=== PATIENT | female | born 1950 | race Caucasian/White ===

== ENCOUNTER 2018-02-27 22:20 | Emergency (ER) | payer MEDICARE, OTHER, SELFPAY ==
[2018-02-27 22:31] VITALS: BP 108/69; PULSE 77; RESP 20; TEMP 37.1; O2SAT 97; BMI 20.1
--- NOTE | 2018-02-27 23:04 | PC.NURSE ---
Pt having 10/10 pain in both legs, left side significantly worse than left. Skin is warm, dry and intact. No edema noted, although she states her left leg is normally smaller than the right due to a diagnosis of neuromyelitis optica. She is writhing in pain on the stretcher due to shooting, cramping down the left leg. There are two bruises on the distal left leg, but no known injury. She states that she does have flare ups of her neuromyelitis optica that can cause cramping pain, but this is different and more severe.
--- NOTE | 2018-02-27 23:43 | DI.US.S_ITS ---
PROCEDURE: US PERIPH VENOUS LOW EXTREM LT INDICATIONS: PAIN TECHNIQUE: Real-time imaging, as well as color and pulse Doppler interrogation, were performed of the lower extremity deep veins from the inguinal ligament to the popliteal fossa. COMPARISON: None. FINDINGS: The deep veins are normally compressible, and free of intraluminal thrombus. Color and pulse Doppler demonstrate normal phasic intraluminal flow. There is normal augmentation response to distal compression maneuver. IMPRESSION: No evidence of deep vein thrombosis involving the left lower extremity. Dictated by: Nereida Jacobs MD, PhD on 02/28/2018 at 8:53 Approved by: Nereida Jacobs MD, PhD on 02/28/2018 at 8:54
[2018-02-28] VITALS: BP 93/56; PULSE 81; RESP 14; O2SAT 96
[2018-02-28] MEDS: diazePAM 10 MG/2 ML SYRINGE 5 MG IV
[2018-02-28] MEDS: SODIUM CHLORIDE 0.9% 500 ML 1000 ML IV
[2018-02-28 00:03] LABS: Add Manual Diff / Slide Review NO; Basophils Percent Auto 1.3 % (0-2); Eosinophils Percent Auto 4.6 % (2-4); Hematocrit 36.4 % (36-46); Hemoglobin 12.8 g/dL (12.0-16.0); Lymphocytes Percent Auto 44.1 % (25-40); Mean Corpuscular HGB Conc 35.2 % (30-36); Mean Corpuscular Hemoglobin 34.6 PG (26-34); Mean Corpuscular Volume 98.5 fL (80-100); Monocytes Percent Auto 6.6 % (3-14); Neutrophils Absolute Auto 2300 /uL (3000-5900); Neutrophils Percent Auto 43.4 % (50-75); Platelet Count 152 X10^3/uL (150-400); Red Cell Distribution Width 13.8 % (11.6-14.8); White Blood Cell Count 5.3 X10^3/uL (4.5-11.0)
[2018-02-28 00:14] LABS: BUN Creatinine Ratio 17.8 (6-22); Calcium 8.3 mg/dL (8.4-10.2); Estimated Glomerular Filt Rate > 60.0 mL/min (>60); Glucose 87 mg/dL (80-110); HEMOLYSIS 21 (0-50); Magnesium 2.5 mg/dL (1.6-2.3); Potassium 4.6 mmol/L (3.4-5.1); Sodium 141 mmol/L (137-145)
--- NOTE | 2018-02-28 00:59 | PC.NURSE ---
Patient reports relief from cramping pain in her legs after 5mg Valium IV. She is resting quietly now.
--- NOTE | 2018-02-28 01:55 | ED_ITS ---
HPI - Extremity Problem General Chief complaint: Extremity Problem,Nontraumatic Stated complaint: Pain and swelling left leg History of Present Illness HPI Narrative: HPI 67-year-old female with a history of neuromyelitis optica and transverse myelitis presents for evaluation of left calf pain and swelling of one half to one day duration, since arrival has been experiencing severe bilateral lower extremity cramps. Patient reports that she had an initial diagnosis of NMO approximately 7 years ago, the patient also had spinal involvement with secondary incontinence of her bowel and bladder, long-standing abdominal discomfort, and indeterminate cramping episodes of her legs. Patient denies recent symptoms change or progression. Patient is outpatient PCP follow-up. Patient denies trauma to her legs. M/S/F/SocHx notable for: please see HPI; remainder reviewed with patient and in chart. ROS: Negative constitutional, eye, cardiovascular, pulmonary, GI, , MSK, skin , neurologic, psychiatric, endocrine unless noted in the HPI. Exam Gen: pleasant, markedly uncomfortable. With intermittent cramping spasms in her legs and crying out in pain. HEENT: NC, AT, PEERL, EOMI. Resp: Clear to auscultation bilaterally, normal work of breathing, no accessory muscle usage. Card: Regular rate and rhythm with no murmurs, rubs, or gallops, extremities warm and well perfused. GI: Non-tender to palpation throughout all quadrants, no focal tenderness at McBurney's point, negative Dalal's sign, non-distended, no rebound or guarding. : No suprapubic tenderness to palpation. MSK: bilateral lower extremities with intermittent spasming, inward turned legs and both ankles held in extension. Left calf nontender to palpation and of same diameter is right calf. 2 superficial areas of ecchymosis on right anterior whaley (approximately 3 x 6 cm in size and horizontally oriented). Muscle compartments soft and nontender to palpation. Bilateral feet warm and well perfused. Joints without effusions, warmth, erythema. Skin: Normal color with no visible lesions. Neuro: AO x 3, no facial asymmetry, vision and hearing WNL. Psych: Mood and affect appropriate. Labs / Imaging: WBC 5.3, hemoglobin 12.8, sodium 141, potassium 4.6, magnesium 2.5, glucose 87, calcium 8.3. US LLE: no evidence of left lower extremity DVT. MDM Previous chart, nursing note, labs, imaging, and vitals reviewed. A: 67-year-old female with a history of neuromyelitis optica presents for evaluation of left calf pain and swelling of one half to one day duration, since arrival has been experiencing severe bilateral lower extremity cramps. DDx: DVT, dehydration, electrolyte abnormalities, muscle cramping secondary to NMO. Evaluation: no evidence of DVT, no clinically significant electrolyte abnormalities, patient given hydration and 5 mg IV value with resolution of symptoms. Patient ambulatory with a steady narrow-based gait after treatment. Patient has Valium at home. Disposition: discharge with PCP follow-up. Impression: muscle cramps. (please reference below for remainder of encounter information) Related Data Allergies Allergy/AdvReac Type Severity Reaction Status Date / Time No Known Drug Allergies Allergy Verified 02/27/18 22:34 [facility] Social History Smoking Status: Never smoker Exam Initial Vital Signs Initial Vital Signs: Vital Signs Temperature 98.7 F 02/27/18 22:31 Pulse Rate 77 02/27/18 22:31 Respiratory Rate 20 02/27/18 22:31 Blood Pressure 108/69 02/27/18 22:31 Pulse Oximetry 97 02/27/18 22:31 Course Orders Ordered: ED Orders 02/27/18 23:43 periph venous low extrem lt Stat 02/27/18 23:58 Basic Metabolic Panel Stat Complete Blood Count AUTO DIFF Stat Magnesium Stat Discontinued Medications Diazepam (Valium) 5 mg IV NOW ONE Stop: 02/27/18 23:35 Last Admin: 02/28/18 00:00 Dose: 5 mg Sodium Chloride (Normal Saline 0.9%) 500 mls @ 1,000 mls/hr IV BOLUS ONE Stop: 02/28/18 00:03 Last Infusion: 02/28/18 00:57 Dose: 0 mls/hr Admin: 02/28/18 00:00 Dose: 1,000 mls/hr Vital Signs - 8 hr 02/27/18 22:31 02/28/18 00:00 Temperature 98.7 F Pulse Rate 77 81 Respiratory Rate 20 14 Blood Pressure 108/69 Blood Pressure [Left Arm] 93/56 L Pulse Oximetry 97 96 MDM - Extremity (Nontraumatic) Lab Data Result diagrams: 02/27/18 23:58 02/27/18 23:58 Lab Results 02/27/18 02/27/18 Range/Units 23:58 23:58 WBC 5.3 (4.5-11.0) X10^3/uL RBC 3.70 L (4.0-5.2) X10^6/uL Hgb 12.8 (12.0-16.0) g/dL Hct 36.4 (36-46) % MCV 98.5 (80-100) fL MCH 34.6 H (26-34) PG MCHC 35.2 (30-36) % RDW 13.8 (11.6-14.8) % Plt Count 152 (150-400) X10^3/uL Neut % (Auto) 43.4 L (50-75) % Lymph % (Auto) 44.1 H (25-40) % Woodson % (Auto) 6.6 (3-14) % Eos % (Auto) 4.6 H (2-4) % Baso % (Auto) 1.3 (0-2) % Neut # (Auto) 2300 L (9480-5805) /uL Sodium 141 (137-145) mmol/L Potassium 4.6 (3.4-5.1) mmol/L Chloride 105.0 (98-107) mmol/L Carbon Dioxide 26.0 (22-32) mmol/L BUN 16.0 (7-17) mg/dL Creatinine 0.90 (0.52-1.04) mg/dL Estimated GFR > 60.0 (>60) mL/min BUN/Creatinine Ratio 17.8 (6-22) Glucose 87 (80-110) mg/dL Calcium 8.3 L (8.4-10.2) mg/dL Magnesium 2.5 H (1.6-2.3) mg/dL
[2018-02-28 02:08] VITALS: BP 121/71; PULSE 81
== END 2018-02-28 02:10 | disposition home or self-care (01) ==
PROVIDERS: Emergency Provider Emergency Medicine
DX: R25.2 Cramp and spasm (principal)
CPT/HCPCS: 80048; 83735; 85025; 93971; 96374; 99283; 99284; J3360

== ENCOUNTER → 2018-07-11 14:03 | Outpatient (CLI) | payer MEDICARE, OTHER, SELFPAY | PROVIDERS: Visit Provider Physician Assistant | DX: N39.0 Urinary tract infection, site not specified (principal) | CPT/HCPCS: 87077; 87086; 87186 ==

== ENCOUNTER → 2018-08-05 14:02 | Outpatient (CLI) | payer MEDICARE, OTHER, SELFPAY | PROVIDERS: Visit Provider Physician Assistant | DX: N39.0 Urinary tract infection, site not specified (principal) | CPT/HCPCS: 87077; 87086; 87186 ==

== ENCOUNTER → 2018-09-19 12:27 | Outpatient (CLI) | payer MEDICARE, OTHER, SELFPAY ==
[2018-09-19 12:36] LABS: Bacteria Urine None Seen; RBC Urine None Seen (0-5/HPF); WBC Urine None Seen (0-5/HPF)
[2018-09-19 15:07] LABS: Appearance Urine UA CLEAR; Bilirubin Urine UA NEGATIVE (NEGATIVE); Color Urine UA YELLOW; Glucose Urine UA NEGATIVE (Normal); Ketones Urine UA TRACE (NEGATIVE); Leukocyte Esterase Urine UA NEGATIVE (NEGATIVE); Nitrite Urine UA NEGATIVE (Negative); Occult Blood Urine UA NEGATIVE (Negative); Protein Urine UA NEGATIVE (Negative); Specific Gravity Urine UA >=1.030 (1.000-1.035); Urobilinogen Urine UA 0.2 E.U./dL (0.2)
[2018-09-19 15:49] LABS: Culture Indicated Urine Cult Not Indicated; Squamous Epithelial Cell Urine 10-30 /HPF
== END ==
PROVIDERS: Visit Provider Student in an Organized Health Care Education/Training Program
DX: R30.0 Dysuria (principal)
CPT/HCPCS: 81001

== ENCOUNTER → 2019-01-02 14:13 | Outpatient (CLI) | payer MEDICARE, OTHER, SELFPAY | PROVIDERS: Visit Provider Student in an Organized Health Care Education/Training Program | DX: M81.0 Age-related osteoporosis without current pathological fracture (principal); Z78.0 Asymptomatic menopausal state; E07.9 Disorder of thyroid, unspecified | CPT/HCPCS: 77080 ==

== ENCOUNTER → 2019-04-17 14:41 | Outpatient (CLI) | payer MEDICARE, OTHER, SELFPAY ==
--- NOTE | 2019-04-17 14:44 | DI.RAD.S_ITS ---
PROCEDURE: XR RIBS LT MIN 3V W CXR1V INDICATIONS: Fell on left side - concern about broken/bruised rib TECHNIQUE: 2 views of the left ribs were acquired, along with a single view chest. COMPARISON: None. FINDINGS: Surgical changes and devices: Surgical clips in the left upper abdomen. Postoperative changes from bilateral shoulder arthroplasties. Bones and chest wall: Minimally displaced acute fracture involving the anterolateral right eighth rib. No acute, displaced left sided rib fractures identified on this study. No suspicious bony lesions. Overlying soft tissues appear unremarkable. Lungs and pleura: No pleural effusions or pneumothorax. Lungs appear clear. Mediastinum: Mediastinal contours appear normal. Heart size is normal. IMPRESSION: 1. Chest without acute cardiopulmonary abnormalities. 2. Minimally displaced acute fracture of the anterolateral right eighth rib. No left sided rib fractures seen. No pneumothorax. Dictated by: Keven Zamudio M.D. on 04/17/2019 at 16:38 Approved by: Keven Zamudio M.D. on 04/17/2019 at 16:43
== END ==
PROVIDERS: PCP Student in an Organized Health Care Education/Training Program; Visit Provider Student in an Organized Health Care Education/Training Program
DX: R07.81 Pleurodynia (principal); S22.32XA Fracture of one rib, left side, initial encounter for closed fracture; W19.XXXA Unspecified fall, initial encounter
CPT/HCPCS: 71101

== ENCOUNTER → 2019-06-12 16:14 | Outpatient (CLI) | payer MEDICARE, OTHER, SELFPAY ==
--- NOTE | 2019-06-12 16:17 | DI.RAD.S_ITS ---
PROCEDURE: XR CHEST 2V INDICATIONS: Cough TECHNIQUE: 2 views of the chest were acquired. COMPARISON: None. FINDINGS: Surgical changes and devices: None. Lungs and pleura: Lungs are clear. No pleural effusions or pneumothorax. Mediastinum: Mediastinal contours are normal. Heart size is normal. Bones and chest wall: No suspicious bony abnormalities. Soft tissues appear unremarkable. IMPRESSION: Source of cough for 2 weeks is not found. Dictated by: Ron Elias M.D. on 06/12/2019 at 16:43 Approved by: Ron Elias M.D. on 06/12/2019 at 16:43
== END ==
PROVIDERS: PCP Student in an Organized Health Care Education/Training Program; Visit Provider Student in an Organized Health Care Education/Training Program
DX: R05 Cough (principal)
CPT/HCPCS: 71046

== ENCOUNTER 2019-08-01 10:30 | Emergency (ER) | payer MEDICARE, OTHER, SELFPAY ==
[2019-08-01] VITALS (7 sets, daily range): BP systolic 86–115; BP diastolic 46–68; PULSE 70–94; RESP 14–18; TEMP 37.2–39.1; O2SAT 97–98
--- NOTE | 2019-08-01 10:54 | DI.CT.S_ITS ---
PROCEDURE: CT HEAD/BRAIN WO CON INDICATIONS: fall 4 days ago balance issues TECHNIQUE: Noncontrast 4.5 mm thick angled axial sections acquired from the foramen magnum to the vertex, with coronal and sagittal reformats. For radiation dose reduction, the following was used: automated exposure control, adjustment of mA and/or kV according to patient size. COMPARISON: None. FINDINGS: Image quality: Excellent. CSF spaces: Basal cisterns are patent. No extra-axial fluid collections. Ventricles are normal in size and shape. Brain: No midline shift. No intracranial masses or hemorrhage. Sykes-white matter interface is normal. There are several small foci of hyperattenuation in the periventricular and subcortical white matter most likely representing age-related microangiopathic changes. Skull and face: Calvarium and visualized facial bones are intact, without suspicious lesions. Sinuses: Visualized sinuses and mastoids are clear. IMPRESSION: No acute intracranial abnormality. Findings most consistent with mild appearing age-related microangiopathic changes. Dictated by: William Yun M.D. on 08/01/2019 at 10:35 Approved by: William Yun M.D. on 08/01/2019 at 10:37
--- NOTE | 2019-08-01 11:04 | DI.RAD.S_ITS ---
PROCEDURE: XR CHEST 1V INDICATIONS: fever TECHNIQUE: One view of the chest was acquired. COMPARISON: [facility], CR, XR CHEST 2V, 06/12/2019, 16:25. FINDINGS: Surgical changes and devices: None. Lungs and pleura: There are several low density patchy opacities over the left mid and lower lung. No pleural effusion or pneumothorax. Mediastinum: Mediastinal contours appear normal. Heart size is normal. Bones and chest wall: No suspicious bony lesions. Bilateral shoulder arthroplasties. Degenerative changes of the acromioclavicular joints and spine. IMPRESSION: Several low density patchy opacities in the left mid to lower lung which could represent early consolidation. Recommend followup radiographs in 6-8 weeks. Dictated by: William Yun M.D. on 08/01/2019 at 10:33 Approved by: iWlliam Yun M.D. on 08/01/2019 at 10:34
[2019-08-01 11:17] LABS: Add Manual Diff / Slide Review NO; Basophils Absolute Auto 100 /uL (0-100); Basophils Percent Auto 0.6 % (0-2); Eosinophils Absolute Auto 200 /uL (0-450); Eosinophils Percent Auto 2.3 % (2-4); Hematocrit 36.8 % (36-46); Hemoglobin 12.5 g/dL (12.0-16.0); Lymphocytes Absolute Auto 1500 /uL (1100-4500); Lymphocytes Percent Auto 14.9 % (25-40); Mean Corpuscular HGB Conc 34.1 % (30-36); Mean Corpuscular Hemoglobin 33.8 PG (26-34); Monocytes Absolute Auto 500 /uL (0-900); Monocytes Percent Auto 5.3 % (3-14); Neutrophils Absolute Auto 7500 /uL (1500-7000); Neutrophils Percent Auto 76.9 % (50-75); Platelet Count 176 X10^3/uL (150-400); Red Blood Cell Count 3.72 X10^6/uL (4.0-5.2); Red Cell Distribution Width 13.7 % (11.6-14.8); White Blood Cell Count 9.8 X10^3/uL (4.5-11.0)
--- NOTE | 2019-08-01 11:20 | ED_ITS ---
HPI - Fall General Chief Complaint: Fall Stated Complaint: Fell out of Bed Time Seen by Provider: 08/01/19 10:54 Source: family and EMS Mode of arrival: EMS History of Present Illness HPI Narrative: Patient is a 68-year-old female who presents with falls weakness and feeling feverish. She states that 4 days ago she was having a nightmare she rolled over in bed and fell out of bed she actually cut the left side of her head. She is not on any blood thinners. Today she was out walking the dog and she felt extremely feverish and did not feel well and felt unsteady. She has a neurologic disorder, but mostly she is okay. She denies any chest pain abdominal pain nausea vomiting cough painful or frequent urination. Her head does her were she hit it a few days ago. MD complaint: fall Onset (ago): day(s) Place fall occurred: home Loss of consciousness: none Related Data Previous Rx's Medication Instructions Recorded levothyroxine 100 mcg capsule 100 mcg PO DAILY #90 cap 11/13/18 Disabled Parking Permit #1 ea 12/18/18 duloxetine 60 mg capsule,delayed 120 mg PO DAILY #180 cap 12/22/18 release estradiol 1 gram VAG .COMPLEX #42.5 gram 12/22/18 gabapentin 600 mg tablet 1,200 mg PO TID #540 tab 12/22/18 pravastatin 10 mg tablet 10 mg PO DAILY #90 tab 12/31/18 diazepam 5 mg tablet 5 mg PO QID PRN #120 tab 01/27/19 oxycodone 5 mg tablet 5 mg PO Q6H PRN #120 tab 04/22/19 azithromycin 250 mg tablet See Rx Instructions PO .COMPLEX #6 05/25/19 tab alendronate 70 mg tablet 70 mg PO QWEEK #12 tab 06/01/19 albuterol sulfate 90 mcg/actuation 1 puff INHALATION Q6H PRN #6.7 gram 06/12/19 aerosol inhaler amitriptyline 50 mg tablet 50 mg PO BEDTIME #90 tab 06/29/19 sulfamethoxazole-trimethoprim 1 tab PO BID 7 Days #14 tab 08/01/19 [Bactrim DS] Allergies Allergy/AdvReac Type Severity Reaction Status Date / Time No Known Drug Allergies Allergy Verified 06/12/19 15:32 Review of Systems Review of Systems ROS Unobtainable: All systems reviewed & are unremarkable except as noted in HPI and below Constitutional Constitutional: Reports body ache(s), Denies chills and Reports fever(s) Eyes Eyes: Denies change in vision, Denies eye discharge, Denies irritation and D enies loss of vision ENT Ears, Nose, Mouth, and Throat: Denies change in voice, Denies neck pain and Denies sore throat Cardiovascular Cardiovascular: Denies chest pain, Denies irregular heart rhythm, Denies lightheadedness, Denies palpitations, Denies dyspnea, Denies dyspnea on exertion and Denies orthopnea Respiratory Respiratory: Denies cough, Denies dyspnea, Denies dyspnea on exertion and Denies wheezing Gastrointestinal Gastrointestinal: Denies abdominal pain, Denies change in bowel habits, Denies diarrhea, Denies nausea and Denies vomiting Genitourinary Genitourinary: Denies hematuria, Denies flank pain, Denies urinary incontinence and Denies urinary urgency Musculoskeletal Musculoskeletal: Denies neck pain Integumentary/Breasts Skin/Breast: Denies pruritus, Denies erythema, Denies rash and Denies wounds Neurologic Neurologic: Reports as per HPI and Denies loss of vision Endocrine Endocrine: Denies palpitations Allergic/Immunologic Allergic/Immunologic: Denies wheezing Patient History Social History Smoking Status: Never smoker alcohol intake: never substance use type: does not use Social History Smoking Status: Never smoker alcohol intake: never substance use type: does not use alcohol intake frequency: 0-2 drinks per day Substance Use Type: does not use Exam Initial Vital Signs Initial Vital Signs: Vital Signs Temperature 102.3 F H 08/01/19 10:32 Pulse Rate 94 H 08/01/19 10:32 Respiratory Rate 14 08/01/19 10:32 Blood Pressure 106/46 L 08/01/19 10:32 Pulse Oximetry 98 08/01/19 10:32 GENERAL: Well-appearing, well-nourished and in no acute distress. HEENT: Head healed superficial laceration left temporal area no depressions or crepitation,EOMI, pupils reactive, face symmetric, moist mucous membranes NECK: Supple no meningeal signs CARDIOVASCULAR: Regular rate and rhythm without murmurs, rubs or gallops. RESPIRATORY: Breath sounds equal bilaterally, no wheezes rales or rhonchi. ABDOMEN: Soft, nontender. Normoactive bowel sounds all 4 quadrants. No guarding or rebound. EXTREMITIES: Normal range of motion, no clubbing or edema. Neurovascularly intact NEUROLOGICAL: Alert and oriented x4.Normal gait and speech. SKIN: Warm, dry, no laceration, no petechiae, no rashes or lesions. Course Orders Ordered: ED Orders 08/01/19 10:54 CT head/brain wo con Stat 08/01/19 11:00 Complete Blood Count AUTO DIFF Stat Comprehensive Metabolic Panel Stat Lactate (Lactic Acid) Stat Partial Thromboplastin Time Stat Procalcitonin Stat Prothrombin Time INR Stat 08/01/19 11:04 XR chest 1V Stat 08/01/19 11:20 UA Complete [Urinalysis and Microscopic] Stat Urine Culture Stat 08/01/19 12:11 Blood Culture Stat Discontinued Medications Acetaminophen (Tylenol) 975 mg PO NOW ONE Stop: 08/01/19 11:32 Last Admin: 08/01/19 12:21 Dose: 975 mg Documented by: CHOLO Sodium Chloride (Normal Saline 0.9%) 1,000 mls @ 200 mls/hr IV CONT LENNY Last Infusion: 08/01/19 13:52 Dose: 0 mls/hr Documented by: Admin: 08/01/19 12:21 Dose: 200 mls/hr Documented by: CHOLO Vital Signs Vital signs: Vital Signs - 8 hr 08/01/19 11:27 08/01/19 12:00 08/01/19 12:21 Temperature 99 F Pulse Rate 86 82 Respiratory Rate 18 17 Blood Pressure Blood Pressure [Left Arm] 115/67 107/68 Pulse Oximetry 98 97 08/01/19 12:42 08/01/19 13:50 08/01/19 14:32 Temperature 101.3 F H 99 F Pulse Rate 82 70 Respiratory Rate 18 Blood Pressure 86/62 L Blood Pressure [Left Arm] 95/53 L Pulse Oximetry 98 MDM - Fall Lab Data Attestation: I reviewed the patient's lab results. Result diagrams: 08/01/19 11:00 08/01/19 11:00 Labs: Lab Results 08/01/19 08/01/19 08/01/19 Range/Units 11:00 11:00 11:00 WBC 9.8 (4.5-11.0) X10^3/uL RBC 3.72 L (4.0-5.2) X10^6/uL Hgb 12.5 (12.0-16.0) g/dL Hct 36.8 (36-46) % MCV 99.0 (80-100) fL MCH 33.8 (26-34) PG MCHC 34.1 (30-36) % RDW 13.7 (11.6-14.8) % Plt Count 176 (150-400) X10^3/uL Neut % (Auto) 76.9 H (50-75) % Lymph % (Auto) 14.9 L (25-40) % Lyman % (Auto) 5.3 (3-14) % Eos % (Auto) 2.3 (2-4) % Baso % (Auto) 0.6 (0-2) % Neut # (Auto) 7500 H (7619-8045) /uL Lymph # (Auto) 1500 (8893-1386) /uL Lyman # (Auto) 500 (0-900) /uL Eos # (Auto) 200 (0-450) /uL Baso # (Auto) 100 (0-100) /uL PT 10.6 (10.1-12.7) SECONDS INR 0.9 (0.9-1.3) APTT 30 (26.4-36.2) SECONDS Sodium (137-145) mmol/L Potassium (3.4-5.1) mmol/L Chloride (98-107) mmol/L Carbon Dioxide (22-32) mmol/L BUN (7-17) mg/dL Creatinine (0.52-1.04) mg/dL Estimated GFR (>60) mL/min BUN/Creatinine Ratio (6-22) Glucose (80-110) mg/dL Lactate (0.7-2.1) mmol/L Calcium (8.4-10.2) mg/dL Total Bilirubin (0.2-1.3) mg/dL AST (14-36) IU/L ALT (9-52) IU/L Alkaline Phosphatase (38-126) U/L Total Protein (6.3-8.2) g/dL Albumin (3.5-5.0) g/dL Globulin (1.7-4.1) g/dL Albumin/Globulin Ratio (1.0-2.8) Procalcitonin < 0.05 (<0.5) ng/mL Urine Color Urine Appearance Urine pH (4.5-8.0) Ur Specific Murdock (1.000-1.035) Urine Protein (Negative) Urine Glucose (UA) (Negative) g/dL Urine Ketones (NEGATIVE) Urine Occult Blood (Negative) Urine Nitrate (Negative) Urine Bilirubin (NEGATIVE) Urine Urobilinogen (0.2) E.U./dL Ur Leukocyte Esterase (NEGATIVE) Urine RBC (0-5/HPF) Urine WBC (0-5/HPF) Urine Bacteria (None) Ur Culture Indicated? 08/01/19 08/01/19 08/01/19 Range/Units 11:00 11:00 11:20 WBC (4.5-11.0) X10^3/uL RBC (4.0-5.2) X10^6/uL Hgb (12.0-16.0) g/dL Hct (36-46) % MCV (80-100) fL MCH (26-34) PG MCHC (30-36) % RDW (11.6-14.8) % Plt Count (150-400) X10^3/uL Neut % (Auto) (50-75) % Lymph % (Auto) (25-40) % Lyman % (Auto) (3-14) % Eos % (Auto) (2-4) % Baso % (Auto) (0-2) % Neut # (Auto) (4279-9653) /uL Lymph # (Auto) (9216-6231) /uL Lyman # (Auto) (0-900) /uL Eos # (Auto) (0-450) /uL Baso # (Auto) (0-100) /uL PT (10.1-12.7) SECONDS INR (0.9-1.3) APTT (26.4-36.2) SECONDS Sodium 137 (137-145) mmol/L Potassium 4.0 (3.4-5.1) mmol/L Chloride 99 (98-107) mmol/L Carbon Dioxide 27 (22-32) mmol/L BUN 17 (7-17) mg/dL Creatinine 1.00 (0.52-1.04) mg/dL Estimated GFR 55.0 L (>60) mL/min BUN/Creatinine Ratio 17.0 (6-22) Glucose 96 (80-110) mg/dL Lactate 1.6 (0.7-2.1) mmol/L Calcium 8.7 (8.4-10.2) mg/dL Total Bilirubin 0.5 (0.2-1.3) mg/dL AST 27 (14-36) IU/L ALT 17 (9-52) IU/L Alkaline Phosphatase 79 (38-126) U/L Total Protein 7.5 (6.3-8.2) g/dL Albumin 4.4 (3.5-5.0) g/dL Globulin 3.1 (1.7-4.1) g/dL Albumin/Globulin Ratio 1.4 (1.0-2.8) Procalcitonin (<0.5) ng/mL Urine Color Yellow Urine Appearance Slightly cloudy Urine pH 7.0 (4.5-8.0) Ur Specific Murdock <=1.005 (1.000-1.035) Urine Protein Negative (Negative) Urine Glucose (UA) Negative (Negative) g/dL Urine Ketones Negative (NEGATIVE) Urine Occult Blood Negative (Negative) Urine Nitrate Positive (Negative) Urine Bilirubin Negative (NEGATIVE) Urine Urobilinogen 0.2 (0.2) E.U./dL Ur Leukocyte Esterase 1+ H (NEGATIVE) Urine RBC None seen (0-5/HPF) Urine WBC 5-10/hpf H (0-5/HPF) Urine Bacteria Many (>30) H (None) Ur Culture Indicated? Specimen cultured Imaging Data CT scan - head: Radiologist's impression: PROCEDURE: CT HEAD/BRAIN WO CON INDICATIONS: fall 4 days ago balance issues TECHNIQUE: Noncontrast 4.5 mm thick angled axial sections acquired from the foramen magnum to the vertex, with coronal and sagittal reformats. For radiation dose reduction, the following was used: automated exposure control, adjustment of mA and/or kV according to patient size. COMPARISON: None. FINDINGS: Image quality: Excellent. CSF spaces: Basal cisterns are patent. No extra-axial fluid collections. Ventricles are normal in size and shape. Brain: No midline shift. No intracranial masses or hemorrhage. Sykes-white matter interface is normal. There are several small foci of hyperattenuation in the periventricular and subcortical white matter most likely representing age- related microangiopathic changes. Skull and face: Calvarium and visualized facial bones are intact, without suspicious lesions. Sinuses: Visualized sinuses and mastoids are clear. IMPRESSION: No acute intracranial abnormality. Findings most consistent with mild appearing age-related microangiopathic changes. Dictated by: William Yun M.D. on 08/01/2019 at 10:35 Chest x-ray: Radiologist's impression: PROCEDURE: XR CHEST 1V INDICATIONS: fever TECHNIQUE: One view of the chest was acquired. COMPARISON: [facility], , XR CHEST 2V, 06/12/2019, 16:25. FINDINGS: Surgical changes and devices: None. Lungs and pleura: There are several low density patchy opacities over the left mid and lower lung. No pleural effusion or pneumothorax. Mediastinum: Mediastinal contours appear normal. Heart size is normal. Bones and chest wall: No suspicious bony lesions. Bilateral shoulder arthroplasties. Degenerative changes of the acromioclavicular joints and spine. IMPRESSION: Several low density patchy opacities in the left mid to lower lung which could represent early consolidation. Recommend followup radiographs in 6-8 weeks. Dictated by: William Yun M.D. on 08/01/2019 at 10:33 Approved by: William Yun M.D. on 08/01/2019 at 10:34 [facility] [place] Narrative Medical decision making narrative: Patient is noted to be febrile in the ED 102, but normotensive not tachycardic. She is found to have UTI but normal lactic acid and normal leukocytosis she was never tachycardic. Head CT is overall reassuring as well she has no focal deficits. The patient overall feels much better after IV fluids. His however her blood pressure seems to be decreasing into the 90s and 80s. She is sitting upright awake alert appropriate overall appears and feels much better. She states that her normal blood pressure had a systolic in the 90s. She denies feeling dizziness or lightheaded she feels ready and able to go home. Discharge Plan Departure Patient Disposition: Home Clinical Impression: Acute UTI Discharge Date/Time: 08/01/19 14:36 Activity Restrictions/Additional Instructions: *You have been diagnosed with UTI *What to do: Today are found to have a bladder infection. At this time appears as though he can take antibiotics at home and increase her fluid intake *Continue to take medications as directed Bactrim 1 tablet twice daily for 7 days Tylenol 650 mg every 4-6 hours if needed for pain or fever *Follow up with your primary care provider in 2-3 days *Return to ER if you should have increasing confusion, increasing falls or any new, worsening or concerning symptoms Prescriptions: New sulfamethoxazole-trimethoprim [Bactrim DS] 800-160 mg tablet 1 tab PO BID 7 Days Qty: 14 RF: 0 No Action levothyroxine 100 mcg capsule 100 mcg PO DAILY Qty: 90 RF: 3 gabapentin 600 mg tablet 1,200 mg PO TID Qty: 540 RF: 3 duloxetine 60 mg capsule,delayed release(DR/EC) 120 mg PO DAILY Qty: 180 RF: 3 pravastatin 10 mg tablet 10 mg PO DAILY Qty: 90 RF: 3 diazepam 5 mg tablet 5 mg PO QID PRN (Reason: muscle spasm) Qty: 120 RF: 5 alendronate 70 mg tablet 70 mg PO QWEEK Qty: 12 RF: 5 albuterol sulfate 90 mcg/actuation HFA aerosol inhaler 1 puff INHALATION Q6H PRN (Reason: shortness of breath or wheezing) Qty: 6.7 RF: 0 amitriptyline 50 mg tablet 50 mg PO BEDTIME Qty: 90 RF: 3 (DME) Disabled Parking Permit Qty: 1 RF: 0 azithromycin 250 mg tablet See Rx Instructions PO .COMPLEX Qty: 6 RF: 0 estradiol [Estrace] 0.01 % (0.1 mg/gram) cream 1 gram VAG .COMPLEX Qty: 42.5 RF: 5 oxycodone 5 mg tablet 5 mg PO Q6H PRN (Reason: pain) Qty: 120 RF: 0 Referrals: John Gerardo MD [Primary Care Provider] -
[2019-08-01 11:23] LABS: INR 0.9 (0.9-1.3); Prothrombin Time 10.6 SECONDS (10.1-12.7)
[2019-08-01 11:25] LABS: PTT Partial Thromboplastin Tim 30 SECONDS (26.4-36.2)
[2019-08-01 11:27] LABS: Lactate (Lactic Acid) 1.6 mmol/L (0.7-2.1)
[2019-08-01 11:28] LABS: Alanine Aminotransferase 17 IU/L (9-52); Albumin 4.4 g/dL (3.5-5.0); Albumin Globulin Ratio 1.4 (1.0-2.8); Alkaline Phosphatase 79 U/L (38-126); Aspartate Aminotransferase 27 IU/L (14-36); Bilirubin Total 0.5 mg/dL (0.2-1.3); Blood Urea Nitrogen 17 mg/dL (7-17); Calcium 8.7 mg/dL (8.4-10.2); Carbon Dioxide 27 mmol/L (22-32); Chloride 99 mmol/L (98-107); Globulin 3.1 g/dL (1.7-4.1); Glucose 96 mg/dL (80-110); HEMOLYSIS < 15 (0-50); Sodium 137 mmol/L (137-145); Total Protein 7.5 g/dL (6.3-8.2)
[2019-08-01 12:11] LABS: RBC Urine None Seen (0-5/HPF)
[2019-08-01 12:13] LABS: Appearance Urine UA Slightly Cloudy; Bilirubin Urine UA NEGATIVE (NEGATIVE); Color Urine UA YELLOW; Glucose Urine UA NEGATIVE (Negative); Ketones Urine UA NEGATIVE (NEGATIVE); Leukocyte Esterase Urine UA 1+ (NEGATIVE); Nitrite Urine UA POSITIVE (Negative); Occult Blood Urine UA NEGATIVE (Negative); Protein Urine UA NEGATIVE (Negative); Specific Gravity Urine UA <=1.005 (1.000-1.035); Urobilinogen Urine UA 0.2 E.U./dL (0.2)
[2019-08-01] MEDS: SODIUM CHLORIDE 0.9% 1,000 ML 200 ML IV (12:21)
[2019-08-01] MEDS: ACETAMINOPHEN 325 MG TABLET 975 MG PO (12:21)
[2019-08-01 12:22] LABS: Bacteria Urine Many (>30); Culture Indicated Urine Specimen Cultured; WBC Urine 5-10/HPF (0-5/HPF)
[2019-08-01 12:33] LABS: Procalcitonin < 0.05 ng/mL (<0.5)
--- NOTE | 2019-08-02 14:50 | PC.NURSE ---
Call from who stated concern that pt is on daily bactrim ds, and bactrim ds was prescribed BID. Pt states she told provider about it. Pt states she feels better and fever has not gone over 100. Taking po fluids well. Discussed that C&S would result within the next 24-48 hours and we will review with provider at that time. Pt plans on calling Dr. Gerardo for f/u in the am. Encouraged to return to the ED if any concerns, worsening of symptoms.
== END 2019-08-01 14:36 | disposition home or self-care (01) ==
PROVIDERS: Emergency Provider Emergency Medicine; PCP Student in an Organized Health Care Education/Training Program
DX: N39.0 Urinary tract infection, site not specified (principal); R53.1 Weakness; S01.91XA Laceration without foreign body of unspecified part of head, initial encounter; R50.9 Fever, unspecified; W06.XXXA Fall from bed, initial encounter
CPT/HCPCS: 36415; 70450; 71045; 80053; 81001; 83605; 84145; 85025; 85610; 85730; 87040; 87077; 87086; 87186; 96360; 96361; 99284

== ENCOUNTER → 2019-08-31 14:44 | Outpatient (CLI) | payer MEDICARE, OTHER, SELFPAY ==
--- NOTE | 2019-08-31 14:48 | DI.MG.S_ITS ---
BILATERAL DIGITAL SCREENING MAMMOGRAM 3D/2D WITH CAD: 08/31/2019 CLINICAL: Routine screening. Comparison is made to exams dated: 01/14/2017 mammogram, 12/23/2015 mammogram, and 02/11/2014 mammogram - [facility]. The tissue of both breasts is heterogeneously dense. This may lower the sensitivity of mammography. Current study was also evaluated with a Computer Aided Detection (CAD) system. No significant masses, calcifications, or other findings are seen in either breast. There has been no significant interval change. IMPRESSION: NEGATIVE There is no mammographic evidence of malignancy. A 1 year screening mammogram is recommended. This exam was interpreted at Station ID: [id number]. NOTE: For mammograms, a report in lay terms will be sent to the patient. Approximately 15% of breast malignancies will not be visualized mammographically. In the management of a palpable breast mass, a negative mammogram must not discourage biopsy of a clinically suspicious lesion. Electronically Signed By: Keven george/radha:08/31/2019 15:56:43 letter sent: Normal Exam ACR BI-RADS Category 1: Negative [id number]
== END ==
PROVIDERS: PCP Student in an Organized Health Care Education/Training Program; Visit Provider Obstetrics & Gynecology
DX: Z12.31 Encounter for screening mammogram for malignant neoplasm of breast (principal)
CPT/HCPCS: 77063; 77067

== ENCOUNTER → 2019-11-04 14:56 | Outpatient (CLI) | payer MEDICARE, OTHER, SELFPAY ==
[2019-11-04 18:36] LABS: Cancer Antigen 125 9 U/mL (0-35)
== END ==
PROVIDERS: PCP Student in an Organized Health Care Education/Training Program; Visit Provider Obstetrics & Gynecology
DX: R10.9 Unspecified abdominal pain (principal)
CPT/HCPCS: 36415; 86304

== ENCOUNTER → 2019-12-07 14:37 | Outpatient (CLI) | payer MEDICARE, OTHER, SELFPAY ==
--- NOTE | 2019-12-07 14:41 | DI.RAD.S_ITS ---
PROCEDURE: XR RIBS LT MIN 3V W CXR1V INDICATIONS: fall on left side T-8-T12 region TECHNIQUE: 2 views of the left ribs were acquired, along with a single view chest. COMPARISON: Located Within [facility], CR, XR RIBS LT MIN 3V W CXR1V, 04/17/2019, 14:53. FINDINGS: Surgical changes and devices: Bilateral shoulder arthroplasty and humeral head resurfacing. Bones and chest wall: No suspicious bony lesions. Overlying soft tissues appear unremarkable. Multiple chronic appearing left rib fractures with callus formation. No definite acute fracture seen. Lungs and pleura: No pleural effusions or pneumothorax. Lungs appear clear. Mediastinum: Mediastinal contours appear normal. Heart size is normal. IMPRESSION: Multiple chronic appearing left rib fractures. No definite acute fracture identified. Dictated by: Parag Mcbride M.D. on 12/07/2019 at 16:45 Approved by: Parag Mcbride M.D. on 12/07/2019 at 16:48
== END ==
PROVIDERS: PCP Student in an Organized Health Care Education/Training Program
DX: S20.212A Contusion of left front wall of thorax, initial encounter (principal); S22.42XD Multiple fractures of ribs, left side, subsequent encounter for fracture with routine healing; W19.XXXA Unspecified fall, initial encounter
CPT/HCPCS: 71101

== ENCOUNTER → 2020-01-29 11:55 | Outpatient (CLI) | payer MEDICARE, OTHER, SELFPAY ==
[2020-01-29 12:14] LABS: Appearance Urine UA SL CLOUDY; Bilirubin Urine UA NEGATIVE (NEGATIVE); Color Urine UA YELLOW; Glucose Urine UA NEGATIVE (Negative); Ketones Urine UA NEGATIVE (NEGATIVE); Leukocyte Esterase Urine UA 1+ (NEGATIVE); Nitrite Urine UA POSITIVE (Negative); Occult Blood Urine UA NEGATIVE (Negative); Protein Urine UA NEGATIVE (Negative); Specific Gravity Urine UA 1.015 (1.000-1.035); Urobilinogen Urine UA 0.2 E.U./dL (0.2)
[2020-01-29 13:42] LABS: RBC Urine 0-1/HPF (0-5/HPF)
[2020-01-29 13:43] LABS: Bacteria Urine Many (>30); Culture Indicated Urine Specimen Cultured; WBC Urine 10-30/HPF (0-5/HPF)
== END ==
PROVIDERS: PCP Student in an Organized Health Care Education/Training Program; Referring Provider Student in an Organized Health Care Education/Training Program; Visit Provider Student in an Organized Health Care Education/Training Program
DX: R39.89 Other symptoms and signs involving the genitourinary system (principal)
CPT/HCPCS: 81001; 87077; 87086; 87186

== ENCOUNTER → 2020-02-12 14:24 | Outpatient (CLI) | payer MEDICARE, OTHER, SELFPAY ==
[2020-02-12 15:52] LABS: Influenza A - CEPHEID Flu A NEGATIVE (NEGATIVE); Influenza B - CEPHEID Flu B NEGATIVE (NEGATIVE)
[2020-02-12 16:30] LABS: RBC Urine None Seen (0-5/HPF)
[2020-02-12 17:13] LABS: Appearance Urine UA Slightly Cloudy; Bilirubin Urine UA NEGATIVE (NEGATIVE); Color Urine UA YELLOW; Glucose Urine UA NEGATIVE (Negative); Ketones Urine UA NEGATIVE (NEGATIVE); Leukocyte Esterase Urine UA 1+ (NEGATIVE); Nitrite Urine UA NEGATIVE (Negative); Occult Blood Urine UA NEGATIVE (Negative); Protein Urine UA NEGATIVE (Negative); Urobilinogen Urine UA 0.2 E.U./dL (0.2); pH Urine UA 5.5 (4.5-8.0)
[2020-02-12 17:31] LABS: Amorphous Sediment Urine 1+; Bacteria Urine Occasional (0-1); Renal Epithelial Cells Urine 0-1/HPF (0-1/HPF); Squamous Epithelial Cell Urine 1-5 /HPF (0-5/HPF); WBC Urine 1-5/HPF (0-5/HPF)
[2020-02-12 17:32] LABS: Culture Indicated Urine Specimen Cultured
[2020-02-15 16:08] LABS: COVID19 Sendout Not Detected (Not Detected)
== END ==
PROVIDERS: PCP Student in an Organized Health Care Education/Training Program; Referring Provider Student in an Organized Health Care Education/Training Program; Visit Provider Physician Assistant
DX: R05 Cough (principal); R30.0 Dysuria
CPT/HCPCS: 81001; 87086; 87502; 87635

== ENCOUNTER 2020-04-27 11:37 | Inpatient (IN) | payer MEDICARE, OTHER, SELFPAY ==
[2020-04-27] VITALS (26 sets, daily range): BP systolic 69–147; BP diastolic 39–88; PULSE 71–106; RESP 14–39; TEMP 37–38.5; O2SAT 91–100; BMI 20.5
--- NOTE | 2020-04-27 12:13 | DI.RAD.S_ITS ---
PROCEDURE: XR CHEST 1V INDICATIONS: fever TECHNIQUE: One view of the chest was acquired. COMPARISON: [facility], CR, XR RIBS LT MIN 3V W CXR1V, 12/07/2019, 14:58. [facility], CR, XR CHEST 2V, 06/12/2019, 16:25. [facility], CR, XR CHEST 1V, 08/01/2019, 11:11. FINDINGS: Surgical changes and devices: Postoperative changes are seen involving both shoulders. Lungs and pleura: Lungs are clear. No pleural effusions or pneumothorax. Mediastinum: Mediastinal contours appear normal. Heart size is normal. Bones and chest wall: No suspicious bony lesions. Remote left-sided rib fractures are seen. Age-appropriate bony degenerative changes are seen. Overlying soft tissues appear unremarkable. IMPRESSION: Clear lungs, without focal infiltrates. Remote left-sided rib fractures. Postoperative and degenerative changes are seen. Dictated by: Mark Juarez M.D. on 04/27/2020 at 11:50 Approved by: Mark Juarez M.D. on 04/27/2020 at 11:52
--- NOTE | 2020-04-27 12:17 | ED_ITS ---
HPI - Sepsis General Chief Complaint: Urogenital-Female Mode of arrival: Wheelchair Source: patient and family Limitations: no limitations Evaluation Sepsis Screen: Possible Severe Sepsis Risk Sepsis Infection Criteria Present: Suspected New Infection Narrative: Patient here for weakness dizziness with complaints of dysuria and frequency. No nausea vomiting diarrhea. Also has had fever at home. Onset yesterday. Patient is on Bactrim prophylaxis for frequent chronic UTIs. Denies any cough cold congestion. Systolic blood pressure baseline is usually 100 according to patient. Vital signs noted. Patient did take Tylenol 1.5 hours ago, low-dose. Review of Systems Review of Systems Narrative: GENERAL: Denies chills, fatigue, malaise, sweats. As fever HEENT: Denies sinus pain, ear pain, sore throat, difficulty swallowing, dizziness. RESPIRATORY: Denies dyspnea, cough, wheezing, hemoptysis, sputum. CARDIOVASCULAR: Denies chest pain, palpitations, orthopnea, edema, GASTROINTESTINAL: Denies nausea, vomiting, abdominal pain, diarrhea, constipation, melena. : Complains of dysuria, frequency, incontinence, denies any hematuria, urinary retention. MUSCULOSKELETAL: denies weakness, joint pain, or bony pain SKIN: Denies rash, skin lesions, or other NEUROLOGIC: Denies weakness, headache, numbness, change in speech, confusion, seizures, incoordination. PSYCHIATRIC: No concerning psychosocial issues. ROS Unobtainable: All systems reviewed & are unremarkable except as noted in HPI and below Patient History Medical History Clostridium difficile colitis (Resolved) Social History household members: spouse Smoking Status: Never smoker alcohol intake: never substance use type: does not use Smoking Status: Never smoker alcohol intake frequency: 0-2 drinks per day Substance Use Type: does not use Exam Narrative Exam Narrative: GENERAL: patient appears stated age. Well-nourished, well- developed patient, in no distress, not toxic HEAD: Atraumatic. Normocephalic. EYES: Pupils equal round and reactive. Extraocular motions intact. No scleral icterus. No injection or drainage. ENT: Nose without bleeding, purulent drainage. Throat without erythema, tonsillar hypertrophy or exudate. Airway patent. NECK: Trachea midline. Non tender CARDIOVASCULAR: Regular rate and rhythm without murmurs, gallops, or rubs. RESPIRATORY: Clear to auscultation. Breath sounds equal bilaterally. No wheezes, rales, or rhonchi. GASTROINTESTINAL: Abdomen soft, non-tender, nondistended. EXTREMITIES: No edema or joint tenderness. BACK: Nontender without deformity or crepitance. No flank tenderness. NEURO: AOx3. SKIN: No rash or erythema of visible areas PSYCH: Not anxious, is cooperative Initial Vital Signs Initial Vital Signs: Vital Signs Temperature 99.4 F 04/27/20 11:48 Pulse Rate 103 H 04/27/20 11:48 Respiratory Rate 26 H 04/27/20 11:48 Blood Pressure 71/39 L 04/27/20 11:48 Pulse Oximetry 95 04/27/20 11:48 Course Course Course Narrative: Vital signs reviewed. Clinically early sepsis/sepsis will need to admit Decision to Admit Date: 04/27/20 Decision to Admit time: 12:20 Orders Ordered: ED Orders 04/27/20 11:45 Urine Microscopic Stat 04/27/20 12:05 Complete Blood Count AUTO DIFF Stat Comprehensive Metabolic Panel Stat Lactate (Lactic Acid) Stat Partial Thromboplastin Time Stat Procalcitonin Stat Prothrombin Time INR Stat 04/27/20 12:13 XR chest 1V Stat 04/27/20 12:40 Blood Culture Stat 04/27/20 13:27 Urine Culture Stat Acetaminophen (Tylenol) 650 mg PO Q6HR PRN PRN Reason: Fever/Mild Pain (1-3) Enoxaparin Sodium (Lovenox) 40 mg SUBCUT DAILY [facility] Gabapentin (Neurontin) 1,200 mg PO TID [facility] Ceftriaxone Sodium/Dextrose (Rocephin) 1 gm in 50 mls @ 100 mls/hr IV Q24H [facility] Sodium Chloride (Normal Saline 0.9%) 1,000 mls @ 100 mls/hr IV CONT LENNY Last Admin: 04/27/20 17:26 Dose: 100 mls/hr Documented by: JOVANA Levothyroxine Sodium (Synthroid) 100 mcg PO 0600 [facility] Magnesium Hydroxide (Milk Of Magnesia) 30 ml PO DAILY PRN PRN Reason: Constipation Naloxone HCl (Narcan) 0.2 mg IV Q2MIN PRN PRN Reason: Opiate Reversal Ondansetron HCl (Zofran) 4 mg IV Q8HR PRN PRN Reason: Nausea And Vomiting Oxycodone HCl (Percolone) 5 mg PO Q6H PRN PRN Reason: pain Last Admin: 04/27/20 16:13 Dose: 5 mg Documented by: JOVANA Pravastatin Sodium (Pravachol) 10 mg PO DAILY LENNY Quetiapine Fumarate (Seroquel) 25 mg PO BEDTIME LENNY Discontinued Medications Ceftriaxone Sodium/Dextrose (Rocephin) 2 gm in 50 mls @ 100 mls/hr IV NOW ONE Stop: 04/27/20 12:42 Last Infusion: 04/27/20 13:28 Dose: 0 mls/hr Documented by: Admin: 04/27/20 12:22 Dose: 100 mls/hr Documented by: BTONER Sodium Chloride (Normal Saline 0.9%) 1,000 mls @ 1,000 mls/hr IV BOLUS ONE Stop: 04/27/20 13:14 Last Infusion: 04/27/20 13:28 Dose: 0 mls/hr Documented by: Admin: 04/27/20 12:18 Dose: 1,000 mls/hr Documented by: BTONER Sodium Chloride (Normal Saline 0.9%) 1,000 mls @ 1,000 mls/hr IV BOLUS ONE Stop: 04/27/20 13:15 Last Infusion: 04/27/20 13:47 Dose: 0 mls/hr Documented by: Admin: 04/27/20 12:19 Dose: 1,000 mls/hr Documented by: BTONER Reevaluation(s) Reevaluation #1: Blood pressures improved, after 1 L has elevated 77/46. Pat ient remains nontoxic appearing. Heart rate is improved. Heart rate now 71 Time: 13:45 Consultations Consultation #1: Spoke with hospitalist dr chan, at this time admit to [facility] floor, patient is improving with IV fluids. No ICU, admit observation Time: 13:46 Vital Signs Vital signs: Vital Signs - 8 hr 04/27/20 11:48 04/27/20 12:15 04/27/20 12:30 Temperature 99.4 F Pulse Rate 103 H 95 H 91 H Respiratory Rate 26 H 17 17 Blood Pressure 71/39 L 74/47 L 78/48 L Pulse Oximetry 95 93 99 04/27/20 12:52 04/27/20 12:56 04/27/20 13:00 Temperature Pulse Rate 72 72 71 Respiratory Rate 20 19 16 Blood Pressure 77/43 L 78/44 L 77/46 L Pulse Oximetry 99 99 96 04/27/20 13:15 04/27/20 13:24 04/27/20 13:30 Temperature Pulse Rate 72 87 75 Respiratory Rate 22 39 H 14 Blood Pressure 78/48 L 75/52 L 79/51 L Pulse Oximetry 98 91 98 04/27/20 13:45 04/27/20 14:00 04/27/20 14:15 Temperature Pulse Rate 74 76 76 Respiratory Rate 19 22 29 H Blood Pressure 84/56 L 84/51 L 87/50 L Pulse Oximetry 99 99 97 MDM - Sepsis Medical Records Attestation: I reviewed the patient's medical records. Lab Data Attestation: I reviewed the patient's lab results. Result diagrams: 04/27/20 12:05 04/27/20 12:05 Labs: Lab Results 04/27/20 04/27/20 04/27/20 Range/Units 11:45 12:05 12:05 WBC 9.2 (4.5-11.0) X10^3/uL RBC 3.59 L (4.0-5.2) X10^6/uL Hgb 11.9 L (12.0-16.0) g/dL Hct 34.3 L (36-46) % MCV 95.7 (80-100) fL MCH 33.2 (26-34) PG MCHC 34.7 (30-36) % RDW 13.9 (11.6-14.8) % Plt Count 174 (150-400) X10^3/uL Neut % (Auto) 77.7 H (50-75) % Lymph % (Auto) 14.7 L (25-40) % Pepin % (Auto) 6.9 (3-14) % Eos % (Auto) 0.2 L (2-4) % Baso % (Auto) 0.5 (0-2) % Neut # (Auto) 7200 H (8253-9019) /uL Lymph # (Auto) 1400 (5980-6713) /uL Pepin # (Auto) 600 (0-900) /uL Eos # (Auto) 0 (0-450) /uL Baso # (Auto) 0 (0-100) /uL PT 12.3 (10.1-12.7) SECONDS INR 1.1 (0.9-1.3) APTT 27 D (26.4-36.2) SECONDS Sodium (137-145) mmol/L Potassium (3.4-5.1) mmol/L Chloride (98-107) mmol/L Carbon Dioxide (22-32) mmol/L BUN (7-17) mg/dL Creatinine (0.52-1.04) mg/dL Estimated GFR (>60) mL/min BUN/Creatinine Ratio (6-22) Glucose (80-110) mg/dL Lactate (0.7-2.1) mmol/L Calcium (8.4-10.2) mg/dL Total Bilirubin (0.2-1.3) mg/dL AST (14-36) IU/L ALT (<35) IU/L Alkaline Phosphatase (38-126) U/L Total Protein (6.3-8.2) g/dL Albumin (3.5-5.0) g/dL Globulin (1.7-4.1) g/dL Albumin/Globulin Ratio (1.0-2.8) Procalcitonin (<0.5) ng/mL Urine RBC 5-10/hpf H (0-5/HPF) Urine WBC 10-30/hpf H (0-5/HPF) Ur Squamous Epith Cells 5-10 /hpf H (0-5/HPF) Ur Transition Epith Cell 1-5/hpf (0-5/HPF) Urine Bacteria Many (>30) H (None) Ur Culture Indicated? Cult not indicated COVID-19 PCR (Negative) 04/27/20 04/27/20 04/27/20 Range/Units 12:05 12:05 12:05 WBC (4.5-11.0) X10^3/uL RBC (4.0-5.2) X10^6/uL Hgb (12.0-16.0) g/dL Hct (36-46) % MCV (80-100) fL MCH (26-34) PG MCHC (30-36) % RDW (11.6-14.8) % Plt Count (150-400) X10^3/uL Neut % (Auto) (50-75) % Lymph % (Auto) (25-40) % Pepin % (Auto) (3-14) % Eos % (Auto) (2-4) % Baso % (Auto) (0-2) % Neut # (Auto) (6575-1916) /uL Lymph # (Auto) (8024-5492) /uL Pepin # (Auto) (0-900) /uL Eos # (Auto) (0-450) /uL Baso # (Auto) (0-100) /uL PT (10.1-12.7) SECONDS INR (0.9-1.3) APTT (26.4-36.2) SECONDS Sodium 134 L (137-145) mmol/L Potassium 4.2 (3.4-5.1) mmol/L Chloride 102 (98-107) mmol/L Carbon Dioxide 25 (22-32) mmol/L BUN 15 (7-17) mg/dL Creatinine 1.33 H (0.52-1.04) mg/dL Estimated GFR 39.4 L (>60) mL/min BUN/Creatinine Ratio 11.3 (6-22) Glucose 101 (80-110) mg/dL Lactate 1.1 (0.7-2.1) mmol/L Calcium 9.3 (8.4-10.2) mg/dL Total Bilirubin 1.0 (0.2-1.3) mg/dL AST 52 H (14-36) IU/L ALT 37 H (<35) IU/L Alkaline Phosphatase 90 (38-126) U/L Total Protein 7.2 (6.3-8.2) g/dL Albumin 4.0 (3.5-5.0) g/dL Globulin 3.2 (1.7-4.1) g/dL Albumin/Globulin Ratio 1.3 (1.0-2.8) Procalcitonin 1.18 H (<0.5) ng/mL Urine RBC (0-5/HPF) Urine WBC (0-5/HPF) Ur Squamous Epith Cells (0-5/HPF) Ur Transition Epith Cell (0-5/HPF) Urine Bacteria (None) Ur Culture Indicated? COVID-19 PCR (Negative) 04/27/20 Range/Units 12:36 WBC (4.5-11.0) X10^3/uL RBC (4.0-5.2) X10^6/uL Hgb (12.0-16.0) g/dL Hct (36-46) % MCV (80-100) fL MCH (26-34) PG MCHC (30-36) % RDW (11.6-14.8) % Plt Count (150-400) X10^3/uL Neut % (Auto) (50-75) % Lymph % (Auto) (25-40) % Pepin % (Auto) (3-14) % Eos % (Auto) (2-4) % Baso % (Auto) (0-2) % Neut # (Auto) (5007-3993) /uL Lymph # (Auto) (7103-3993) /uL Pepin # (Auto) (0-900) /uL Eos # (Auto) (0-450) /uL Baso # (Auto) (0-100) /uL PT (10.1-12.7) SECONDS INR (0.9-1.3) APTT (26.4-36.2) SECONDS Sodium (137-145) mmol/L Potassium (3.4-5.1) mmol/L Chloride (98-107) mmol/L Carbon Dioxide (22-32) mmol/L BUN (7-17) mg/dL Creatinine (0.52-1.04) mg/dL Estimated GFR (>60) mL/min BUN/Creatinine Ratio (6-22) Glucose (80-110) mg/dL Lactate (0.7-2.1) mmol/L Calcium (8.4-10.2) mg/dL Total Bilirubin (0.2-1.3) mg/dL AST (14-36) IU/L ALT (<35) IU/L Alkaline Phosphatase (38-126) U/L Total Protein (6.3-8.2) g/dL Albumin (3.5-5.0) g/dL Globulin (1.7-4.1) g/dL Albumin/Globulin Ratio (1.0-2.8) Procalcitonin (<0.5) ng/mL Urine RBC (0-5/HPF) Urine WBC (0-5/HPF) Ur Squamous Epith Cells (0-5/HPF) Ur Transition Epith Cell (0-5/HPF) Urine Bacteria (None) Ur Culture Indicated? COVID-19 PCR Negative (Negative) Urine Dip Bedside Urine Glucose Negative Bedside Urine Bilirubin - Negative Bedside Urine Ketone - Negative Urine Specific [place] 1.015 Bedside Urine Occult Blood + Bedside Urine pH 6.0 Bedside Urine Protein + 30 Bedside Urine Urobilinogen - Negative Bedside Urine Nitrite + Positive Bedside Urine Leukocytes +++ 500 Esterase Imaging Data Chest x-ray: Radiologist's Impression: [address] [address] XRay Report Signed Patient: Jonna Ramon MMR#: [id number] : 1950Acct:[id number] Age/Sex: 69 / FDate of Service: 04/27/20 Loc: ED Accession Number: [id number] Procedure: XR chest 1V Ordering Provider: Mane Alfaro MD PROCEDURE: XR CHEST 1V INDICATIONS: fever TECHNIQUE: One view of the chest was acquired. COMPARISON: [facility], CR, XR RIBS LT MIN 3V W CXR1V, 12/07/2019, 14:58. [facility], CR, XR CHEST 2V, 06/12/2019, 16:25. [facility], CR, XR CHEST 1V, 08/01/2019, 11:11. FINDINGS: Surgical changes and devices: Postoperative changes are seen involving both s houlders. Lungs and pleura: Lungs are clear. No pleural effusions or pneumothorax. Mediastinum: Mediastinal contours appear normal. Heart size is normal. Bones and chest wall: No suspicious bony lesions. Remote left-sided rib fractures are seen. Age-appropriate bony degenerative changes are seen. Overlying soft tissues appear unremarkable. IMPRESSION: Clear lungs, without focal infiltrates. Remote left-sided rib fractures. Postoperative and degenerative changes are seen. Dictated by: Mark Juarez M.D. on 04/27/2020 at 11:50 Approved by: Mark Juarez M.D. on 04/27/2020 at 11:52 MDM Narrative Medical decision making narrative: Patient improving with IV fluids. Not requ iring ICU at this time. Awake alert oriented x4. Discharge Plan Departure Patient Disposition: Admitted as Observation Clinical Impression: Frequent UTI, Acute kidney injury Hypotension Qualifiers: Hypotension type: unspecified hypotension type Qualified Code(s): I95.9 - Hypotension, unspecified Discharge Date/Time: 04/27/20 14:33 Referrals: John Gerardo MD [Primary Care Provider] - Admit Date/Time: 04/27/20 14:24 Admit Provider: Benjamin Chan
[2020-04-27] MEDS: SODIUM CHLORIDE 0.9% 1,000 ML 1000 ML IV ×2 (12:18→12:19)
[2020-04-27 12:21] LABS: Add Manual Diff / Slide Review NO; Basophils Absolute Auto 0 /uL (0-100); Basophils Percent Auto 0.5 % (0-2); Eosinophils Absolute Auto 0 /uL (0-450); Eosinophils Percent Auto 0.2 % (2-4); Hematocrit 34.3 % (36-46); Hemoglobin 11.9 g/dL (12.0-16.0); Lymphocytes Absolute Auto 1400 /uL (1100-4500); Lymphocytes Percent Auto 14.7 % (25-40); Mean Corpuscular HGB Conc 34.7 % (30-36); Mean Corpuscular Hemoglobin 33.2 PG (26-34); Mean Corpuscular Volume 95.7 fL (80-100); Monocytes Absolute Auto 600 /uL (0-900); Monocytes Percent Auto 6.9 % (3-14); Neutrophils Absolute Auto 7200 /uL (1500-7000); Neutrophils Percent Auto 77.7 % (50-75); Platelet Count 174 X10^3/uL (150-400); Red Blood Cell Count 3.59 X10^6/uL (4.0-5.2); Red Cell Distribution Width 13.9 % (11.6-14.8); White Blood Cell Count 9.2 X10^3/uL (4.5-11.0)
[2020-04-27] MEDS: CEFTRIAXONE 2 GM/50 ML FROZ.PIGGY IV (12:22)
[2020-04-27 12:27] LABS: INR 1.1 (0.9-1.3); Prothrombin Time 12.3 SECONDS (10.1-12.7)
[2020-04-27 12:29] LABS: PTT Partial Thromboplastin Tim 27 SECONDS (26.4-36.2)
[2020-04-27 12:31] LABS: Albumin Globulin Ratio 1.3 (1.0-2.8); Alkaline Phosphatase 90 U/L (38-126); Aspartate Aminotransferase 52 IU/L (14-36); BUN Creatinine Ratio 11.3 (6-22); Blood Urea Nitrogen 15 mg/dL (7-17); Calcium 9.3 mg/dL (8.4-10.2); Carbon Dioxide 25 mmol/L (22-32); Chloride 102 mmol/L (98-107); Estimated Glomerular Filt Rate 39.4 mL/min (>60); Globulin 3.2 g/dL (1.7-4.1); Glucose 101 mg/dL (80-110); HEMOLYSIS < 15 (0-50); Lactate (Lactic Acid) 1.1 mmol/L (0.7-2.1); Potassium 4.2 mmol/L (3.4-5.1); Sodium 134 mmol/L (137-145); Total Protein 7.2 g/dL (6.3-8.2)
[2020-04-27 12:42] LABS: Bacteria Urine Many (>30); Culture Indicated Urine Cult Not Indicated; RBC Urine 5-10/HPF (0-5/HPF); Squamous Epithelial Cell Urine 5-10 /HPF (0-5/HPF); Transitional Epi Cells Urine 1-5/HPF (0-5/HPF); WBC Urine 10-30/HPF (0-5/HPF)
[2020-04-27 12:46] LABS: Procalcitonin 1.18 ng/mL (<0.5)
[2020-04-27 14:07] LABS: COVID19 -Nasal RAPID Negative (Negative)
[2020-04-27 14:15] LABS: Alanine Aminotransferase 37 IU/L (<35)
--- NOTE | 2020-04-27 15:02 | PC.NURSE ---
Day Shift- Report rec'd from RIP Bonilla in ED at 1420. Pt arrived to unit via stretcher at 1434, assisted to BR by JOSHUA. Then settled back into bed with bed alarm on. Pt stated having history of recent falls, aware of bed alarm and need to call for assist with OOB movement. Oriented to call light. Dr. Chan made aware at 1450 of pt's arrival on unit. Okay to have regular diet. pt given water, cheese string, and roger crackers.
--- NOTE | 2020-04-27 15:19 | PM.HP.1 ---
History of Present Illness History of Present Illness Date Patient Seen: 04/27/20 Time Patient Seen: 15:19 Chief complaint: thinks uti, disoriented Narrative: Jonna Ramon is a 69 with PMH of neuromyelitis optica, osteoporosis, frequent UTI, anxiety and depression, hypothyroidism who presented with progressive weakness over the past 2 days. Patient also has had dysuria and urinary frequency as well as intermittent disorientation. She denies focal weakness, slurred speech, or decreased sensation. She has intermittent abdominal pains which frequently change location and have been unchanged recently. She does take bactrim for prophylaxis against frequent UTIs. In the emergency room patient was tachycardic, hypotensive to 70/39, but responded quite well to minimal fluid boluses. Initial labs showed a white count of 9.2, hemoglobin of 11.9, platelet count of 174. Coagulation studies were unremarkable. Chemistry showed a sodium mildly decreased at 134, creatinine of 1.33 very slightly up from her apparent baseline of 0.9-1.0. Glucose was 101, lactate was unremarkable at 1.1. Is a mild elevation in her transaminases with an AST of 52, ALT of 37 with a normal total bilirubin at 1.0. Procalcitonin was elevated at 1.18. UA was positive with 10-30 white blood cells, 5-10 red blood cells although there were 5-10 squamous epithelial cells as well. There were many urine bacteria in specimen was sent for cultures. COVID-19 testing was negative. Patient was admitted under observation status for acute cystitis with hypotension. Patient History Medical History Clostridium difficile colitis (Resolved) Family & Social History Safety & Behavioral: Feels Safe in Current Yes Environment Been Physically Hurt or No Threatened By a Person Tobacco & Substance use: Smoking Status Never smoker alcohol intake never alcohol intake frequency 0-2 drinks per day Substance Use Type does not use Meds Home Medications and Allergies Home Medications Medication Instructions Recorded Confirmed Type alendronate 70 mg tablet 70 mg PO QWEEK #12 tab 06/01/19 04/11/20 Rx albuterol sulfate 90 mcg/actuation 1 puff INHALATION Q6H PRN #6.7 gram 06/12/19 04/11/20 Rx aerosol inhaler amitriptyline 50 mg tablet 50 mg PO BEDTIME #90 tab 06/29/19 04/11/20 Rx acetaminophen 325 mg capsule 250 mg PO TID PRN cap 08/18/19 04/11/20 History coenzyme Q10 100 mg capsule 100 mg PO DAILY 08/18/19 04/11/20 History levothyroxine 100 mcg tablet 100 mcg PO DAILY #90 tab 10/20/19 04/11/20 Rx duloxetine 60 mg capsule,delayed 120 mg PO DAILY #180 cap 01/07/20 04/11/20 Rx release pravastatin 10 mg tablet 10 mg PO DAILY #90 tab 01/07/20 04/11/20 Rx gabapentin 600 mg tablet 1,200 mg PO TID #540 tab 01/12/20 04/11/20 Rx oxycodone 5 mg tablet 5 mg PO Q6H PRN #120 tab 04/06/20 04/11/20 Rx quetiapine 25 mg tablet 25 mg PO BEDTIME #30 tab 04/11/20 04/11/20 Rx diazepam 5 mg tablet 5 mg PO TID PRN #90 tab 04/12/20 Rx sulfamethoxazole 800 1 tab PO DAILY #90 tab 04/18/20 Rx mg-trimethoprim 160 mg tablet estradiol 1 gram VAG QWEEK #42.5 gram 04/21/20 Rx Allergies Allergy/AdvReac Type Severity Reaction Status Date / Time No Known Drug Allergies Allergy Verified 02/12/20 14:07 Review of Systems Review of Systems Narrative: All other systems reviewed with the patient and are negative unless otherwise stated. Exam Vital Signs (past 8 hours): - 04/27/20 11:48 04/27/20 12:15 04/27/20 12:30 Temperature 99.4 F Pulse Rate 103 H 95 H 91 H Respiratory Rate 26 H 17 17 Blood Pressure 71/39 L 74/47 L 78/48 L Pulse Oximetry 95 93 99 04/27/20 12:52 04/27/20 12:56 04/27/20 13:00 Temperature Pulse Rate 72 72 71 Respiratory Rate 20 19 16 Blood Pressure 77/43 L 78/44 L 77/46 L Pulse Oximetry 99 99 96 04/27/20 13:15 04/27/20 13:24 04/27/20 13:30 Temperature Pulse Rate 72 87 75 Respiratory Rate 22 39 H 14 Blood Pressure 78/48 L 75/52 L 79/51 L Pulse Oximetry 98 91 98 04/27/20 13:45 04/27/20 14:00 04/27/20 14:15 Temperature Pulse Rate 74 76 76 Respiratory Rate 19 22 29 H Blood Pressure 84/56 L 84/51 L 87/50 L Pulse Oximetry 99 99 97 Oxygen Delivery Method Room Air Narrative Exam Narrative: GENERAL APPEARANCE: Well developed, well nourished, in no acute distress. SKIN: Inspection of the skin reveals no rashes, ulcerations or petechiae. HEENT: Normocephalic atraumatic, extraocular muscles are intact, oropharynx is clear and mucous membranes are moist, neck is supple without adenopathy NECK: Supple and symmetric. There was no thyroid enlargement, and no tenderness, or masses were felt. CHEST: Normal AP diameter and normal contour without any kyphoscoliosis. LUNGS: Auscultation of the lungs revealed no wheezes, rhonchi, or rales. CARDIOVASCULAR: There was a regular rate and rhythm without any murmurs, gallops, rubs. Peripheral pulses were 2+ and symmetric. ABDOMEN: Soft and nontender with normal bowel sounds. No ascites was noted. MUSCULOSKELETAL: There was no tenderness or effusions noted. Muscle strength and tone were normal. EXTREMITIES: No cyanosis, clubbing or edema. NEUROLOGIC: Alert and oriented x 3. Normal affect. Gait was normal. Strength is +5/5 in the Upper Extremities and Lower Extremities Bilaterally. Sensation to touch was normal. Objective Labs Result Diagrams: 04/27/20 12:05 04/27/20 12:05 Labs: Laboratory Results - last 24 hr 04/27/20 04/27/20 04/27/20 11:45 12:05 12:05 WBC 9.2 RBC 3.59 L Hgb 11.9 L Hct 34.3 L MCV 95.7 MCH 33.2 MCHC 34.7 RDW 13.9 Plt Count 174 Neut % (Auto) 77.7 H Lymph % (Auto) 14.7 L [place] % (Auto) 6.9 Eos % (Auto) 0.2 L Baso % (Auto) 0.5 Neut # (Auto) 7200 H Lymph # (Auto) 1400 [place] # (Auto) 600 Eos # (Auto) 0 Baso # (Auto) 0 PT 12.3 INR 1.1 APTT 27 D Sodium Potassium Chloride Carbon Dioxide BUN Creatinine Estimated GFR BUN/Creatinine Ratio Glucose Lactate Calcium Total Bilirubin AST ALT Alkaline Phosphatase Total Protein Albumin Globulin Albumin/Globulin Ratio Procalcitonin Urine RBC 5-10/hpf H Urine WBC 10-30/hpf H Ur Squamous Epith Cells 5-10 /hpf H Ur Transition Epith Cell 1-5/hpf Urine Bacteria Many (>30) H Ur Culture Indicated? Cult not indicated COVID-19 PCR 04/27/20 04/27/20 04/27/20 12:05 12:05 12:05 WBC RBC Hgb Hct MCV MCH MCHC RDW Plt Count Neut % (Auto) Lymph % (Auto) [place] % (Auto) Eos % (Auto) Baso % (Auto) Neut # (Auto) Lymph # (Auto) [place] # (Auto) Eos # (Auto) Baso # (Auto) PT INR APTT Sodium 134 L Potassium 4.2 Chloride 102 Carbon Dioxide 25 BUN 15 Creatinine 1.33 H Estimated GFR 39.4 L BUN/Creatinine Ratio 11.3 Glucose 101 Lactate 1.1 Calcium 9.3 Total Bilirubin 1.0 AST 52 H ALT 37 H Alkaline Phosphatase 90 Total Protein 7.2 Albumin 4.0 Globulin 3.2 Albumin/Globulin Ratio 1.3 Procalcitonin 1.18 H Urine RBC Urine WBC Ur Squamous Epith Cells Ur Transition Epith Cell Urine Bacteria Ur Culture Indicated? COVID-19 PCR 04/27/20 12:36 WBC RBC Hgb Hct MCV MCH MCHC RDW Plt Count Neut % (Auto) Lymph % (Auto) [place] % (Auto) Eos % (Auto) Baso % (Auto) Neut # (Auto) Lymph # (Auto) [place] # (Auto) Eos # (Auto) Baso # (Auto) PT INR APTT Sodium Potassium Chloride Carbon Dioxide BUN Creatinine Estimated GFR BUN/Creatinine Ratio Glucose Lactate Calcium Total Bilirubin AST ALT Alkaline Phosphatase Total Protein Albumin Globulin Albumin/Globulin Ratio Procalcitonin Urine RBC Urine WBC Ur Squamous Epith Cells Ur Transition Epith Cell Urine Bacteria Ur Culture Indicated? COVID-19 PCR Negative Assessment & Plan Assessment & Plan narrative: Jonna Ramon is a 69 with PMH of neuromyelitis optica, osteoporosis, frequent UTI, anxiety and depression, hypothyroidism who presented with progressive weakness over the past 2 days admitted with acute cystitis with hypotension. 1. Acute cystitis with hypotension, hypotension improved with fluid, present on admission -patient with intermittent confusion, although no confusion on admission exam however confusion may be related to underlying cognitive process or depression as previously noted in psychatry visit. Sofa score is currently 1 given hypotension that responded to fluid boluses. -prior urine culture grew E coli sensitive to ceftriaxone, will start ceftriaxone 1 g Q 24 hours -continue normal saline at 100 cc/hour s/p boluses in the ER. 2. chronic pain -continue home pain medications 3. anxiety / depression -continue home medications -with possible auditory hallucinations and disorientation per psychiatry note with Dr. De La Torre. Continue medications as listed in his most recent encounter. -consider psychiatry follow up if difficult to control. 4. hypothyroidism. - repeat TSH -levothyroxine 100 mcg. DVT: Lovenox daily Code: Full, surrogate decision maker is the patient's . COVID-19 COVID-19 status: Negative Scores SOFA PaO2/FIO2: >=400 mmHg Platelets: >= 150 Bilirubin: < 1.2 mg/dL Hypotension: MAP < 70 mmHg Mendel Coma Scale: 15 Renal: < 1.2 mg/dL SOFA Score: 1
[2020-04-27] MEDS: OXYCODONE IR 5 MG TABLET PO (16:13)
[2020-04-27] MEDS: SODIUM CHLORIDE 0.9% 1,000 ML 100 ML IV (17:26)
[2020-04-27] MEDS: QUETIAPINE 25 MG TABLET PO (20:12)
[2020-04-27] MEDS: GABAPENTIN 600 MG TABLET 1200 MG PO (20:12)
[2020-04-27] MEDS: AMITRIPTYLINE 25 MG TABLET 50 MG PO (20:52)
[2020-04-27] MEDS: ACETAMINOPHEN 325 MG TABLET 650 MG PO (22:15)
[2020-04-27] MEDS: SODIUM CHLORIDE 0.9% 500 ML 1000 ML IV ×3 (22:20→23:16)
--- NOTE | 2020-04-27 23:37 | PC.NURSE ---
1530-pt alert and orientedx3. 100%RA. pain 4/10 L.rib and pelvic area. pt reported dysuria. afebrile. no dizziness or light headedness. feels weak, but she was able to walk to the BR. 1800-pt disoriented. did not know her age or or where she was at. pt was rambling a lot and tried to get out of bed. notified Dr. Chan about pt's change of orientation. He also knows about her BP 106/62 HR105. 1914: pt was weak and became a 2pa to the [facility]. Pt continued to be disoriented. she was able to swallow pills whole. 2199-CAD DETAILER notified me that she was hypotensive and febrile 101.3. notified AUDITING SPECIALIST about this. gave tylenol-pills crushed and 500cc of bolus. pt's BP continued to be low after first bolus 77/45, after second bolus BP 80/41. VTO to give 3rd bolus of 500cc NS. pt needing 2L O2 96%. 89%RA. Report given to [place] and ICU nurse.
[2020-04-27 23:56] LABS: Alanine Aminotransferase 40 IU/L (<35); Albumin 2.5 g/dL (3.5-5.0); Alkaline Phosphatase 73 U/L (38-126); Aspartate Aminotransferase 60 IU/L (14-36); BUN Creatinine Ratio 12.3 (6-22); Bilirubin Total 0.4 mg/dL (0.2-1.3); Blood Urea Nitrogen 13 mg/dL (7-17); Carbon Dioxide 20 mmol/L (22-32); Chloride 109 mmol/L (98-107); Estimated Glomerular Filt Rate 51.2 mL/min (>60); Globulin 2.4 g/dL (1.7-4.1); Glucose 125 mg/dL (80-110); HEMOLYSIS < 15 (0-50); Lactate (Lactic Acid) < 0.5 mmol/L (0.7-2.1); Potassium 3.6 mmol/L (3.4-5.1); Sodium 133 mmol/L (137-145); Total Protein 4.9 g/dL (6.3-8.2)
[2020-04-28] VITALS (29 sets, daily range): BP systolic 72–128; BP diastolic 47–69; PULSE 68–88; RESP 15–33; TEMP 35.8–37.1; O2SAT 93–100
[2020-04-28 00:03] LABS: Calcium 7.1 mg/dL (8.4-10.2)
[2020-04-28] MEDS: NOREPINEPHRINE 4 MG in DEXTROSE 5% IN WATER 250 ML 19.05 ML IV (00:14)
[2020-04-28 00:19] LABS: Procalcitonin 3.71 ng/mL (<0.5)
--- NOTE | 2020-04-28 00:51 | PC.NURSE ---
Call to patient room at 2315 related to hypotension. Pt is drowsy, intermittently restless and mostly only mumbling verbal responses. BP 80/48, IV fluid bolus infusing. Azar [place] at bedside. Pt reported to be on 3rd liter bolus, next fluid bag to infuse at 250cc/hr. Norepinephrine gtt ordered. Coordinator aware. ICU notified. Prep patient for transfer when room is available. Quinones catheter inserted by RIP Macario. Pt tolerated well. Moved to room 227, Care transfered to RIP Brown.
--- NOTE | 2020-04-28 00:52 | PM.EVENT ---
Event Note Date Patient Seen: 04/27/20 Time Patient Seen: 23:56 Event Note: Ms. Jonna Ramon is a 69 year old female with PMH of neuromyelitis optica, osteoporosis, frequent UTI, anxiety and depression, hypothyroidism who presented with progressive weakness over the past 2 days. Patient also has had dysuria and urinary frequency as well as intermittent disorientation. The patient is admitted to acute care for urinary tract infection and hypertension that has been responsive to fluid resuscitation. The patient developed hypotension with blood pressure in 70s over 40s. The patient is assessed and found to be confused with mumbling speech but follows commands and is oriented to person and place. She is also febrile at 101.3? for which Tylenol is administered. The patient received a 500 cc bolus of normal saline after which her pressure trend sleep improved to the mid 80s systolic but subsequently dropped back into the 70s. The bolus rib repeated 2 more times with persistent hypotension. There has been no change in patient's mentation. Acute severe sepsis with cardiovascular and neurological dysfunction. -ordered stat labs including CBC, CMP, procalcitonin and lactic acid. -the patient has received over 3500 cc of normal saline between the ER and boluses on floor remains hypotensive. The patient is transferred to intensive care. -ordered norepinephrine to started 5 mcg and titrate to a mean arterial pressure greater than 65. -will broaden antibiotic coverage to Zosyn 3.375 g every 6 hours. Follow-up 1: 00:30 patient is in ICU and norepinephrine his infusing at 5 mcg with improved blood pressure to 120 systolic and map over 70. There is no improvement in patient mentation she remains confused, Quinones catheter has been placed producing clear yellow urine. Will continue monitoring blood pressure hourly and every 15 minutes while titrating vasopressor. Follow-up 2: 0300 the patient is resting quietly blood pressure remains stable on norepinephrine at 3 mcg, nursing attempted weaning down the drip to 2 mcg however blood pressure dropped significantly. Will continue normal saline at 100 cc/hour. Lungs remain clear.
[2020-04-28 01:09] LABS: Add Manual Diff / Slide Review NO; Basophils Absolute Auto 0 /uL (0-100); Basophils Percent Auto 0.2 % (0-2); Eosinophils Absolute Auto 0 /uL (0-450); Eosinophils Percent Auto 0.1 % (2-4); Hematocrit 26.3 % (36-46); Hemoglobin 8.7 g/dL (12.0-16.0); Lymphocytes Absolute Auto 1300 /uL (1100-4500); Lymphocytes Percent Auto 15.6 % (25-40); Mean Corpuscular HGB Conc 33.2 % (30-36); Mean Corpuscular Hemoglobin 32.5 PG (26-34); Mean Corpuscular Volume 97.8 fL (80-100); Monocytes Absolute Auto 500 /uL (0-900); Monocytes Percent Auto 6.3 % (3-14); Neutrophils Absolute Auto 6400 /uL (1500-7000); Neutrophils Percent Auto 77.8 % (50-75); Platelet Count 113 X10^3/uL (150-400); Red Blood Cell Count 2.69 X10^6/uL (4.0-5.2); Red Cell Distribution Width 14.1 % (11.6-14.8); White Blood Cell Count 8.2 X10^3/uL (4.5-11.0)
--- NOTE | 2020-04-28 01:16 | PC.NURSE ---
Pt. transferred from Acute Care to ICU for hypotension requiring Norepi gtt which was started on 0018. Pt responded very well on Norepi gtt with SBP in the 120's and HR in the 80's SR. Pt. however remains confused despite improvement of her B/P. Pt. denies pain. Will continue to monitor closely and continue antibiotics for UTI.
[2020-04-28] MEDS: PIPERACILLIN-TAZO 3.375 GM/50 ML FROZ.PIGGY IV ×4 (01:57→19:38)
[2020-04-28 05:10] LABS: Add Manual Diff / Slide Review NO; Basophils Absolute Auto 0 /uL (0-100); Basophils Percent Auto 0.3 % (0-2); Eosinophils Absolute Auto 0 /uL (0-450); Eosinophils Percent Auto 0.2 % (2-4); Hematocrit 29.5 % (36-46); Hemoglobin 9.9 g/dL (12.0-16.0); Lymphocytes Absolute Auto 1900 /uL (1100-4500); Lymphocytes Percent Auto 21.6 % (25-40); Mean Corpuscular HGB Conc 33.6 % (30-36); Mean Corpuscular Hemoglobin 32.9 PG (26-34); Mean Corpuscular Volume 97.9 fL (80-100); Monocytes Absolute Auto 700 /uL (0-900); Monocytes Percent Auto 7.7 % (3-14); Neutrophils Absolute Auto 6200 /uL (1500-7000); Neutrophils Percent Auto 70.2 % (50-75); Platelet Count 130 X10^3/uL (150-400); Red Blood Cell Count 3.01 X10^6/uL (4.0-5.2); Red Cell Distribution Width 14.2 % (11.6-14.8); White Blood Cell Count 8.8 X10^3/uL (4.5-11.0)
--- NOTE | 2020-04-28 05:12 | PC.NURSE ---
Late entry : Received order from BALDEV Velasquez to insert FC- Lidia nursing shuttle veneering supervisor assisted. Pt tolerated the procedure. Still confused prior transfer to ICU. Previous RN Marquita gave report to the ICU nurse.
[2020-04-28 05:17] LABS: Alanine Aminotransferase 57 IU/L (<35); Albumin 2.9 g/dL (3.5-5.0); Alkaline Phosphatase 85 U/L (38-126); Aspartate Aminotransferase 82 IU/L (14-36); BUN Creatinine Ratio 11.4 (6-22); Bilirubin Total 0.5 mg/dL (0.2-1.3); Bilirubin Unconjugated 0.4 mg/dL (0.0-1.1); Blood Urea Nitrogen 12 mg/dL (7-17); Calcium 7.6 mg/dL (8.4-10.2); Carbon Dioxide 23 mmol/L (22-32); Chloride 113 mmol/L (98-107); Estimated Glomerular Filt Rate 51.8 mL/min (>60); Globulin 2.8 g/dL (1.7-4.1); Glucose 137 mg/dL (80-110); HEMOLYSIS < 15 (0-50); Magnesium 2.3 mg/dL (1.6-2.3); Potassium 3.9 mmol/L (3.4-5.1); Sodium 141 mmol/L (137-145); Total Protein 5.7 g/dL (6.3-8.2)
[2020-04-28 06:32] LABS: Free T4, Direct Thyroxine 0.94 ng/dL (0.78-2.19)
[2020-04-28] MEDS: LEVOTHYROXINE 100 MCG TABLET PO (08:19)
[2020-04-28] MEDS: PRAVASTATIN 20 MG TABLET 10 MG PO (08:22)
[2020-04-28] MEDS: GABAPENTIN 600 MG TABLET 1200 MG PO ×3 (08:23→21:13)
[2020-04-28] MEDS: ENOXAPARIN 40 MG/0.4 ML SYRINGE SUBCUT (08:23)
--- NOTE | 2020-04-28 08:25 | PC.NURSE ---
Addendum entered by Esthela Kessler R.N. 04/28/20 14:47: Levophed off, last bp 86/54 map 65. Cymbalta reordered. Per Dr Chan, no valium reordered at this time. Addendum entered by Esthela Kessler R.N. 04/28/20 13:47: Pt tolerating slow weaning on Levophed infusing @ 1mcg/min. Goal Map >65. Through shift Pt is more and more alert and conversive. @ 1330, Pt became upset and tearful about not taking morning medications. Specifically diazepam and cymbalta. Teaching provided about hypotension and the potential to drop her pressure again with the use of some of these medications. Pt has c/o neck and head pain. Original Note: Am Shift Assumed care of Pt, resting quietly. Levophed titrated off @ 0730. BP then down to 70/40s, Dr Chan at bedside during this reading, Pt is more alert and able to answer questions, delay to speech noted. Levophed restarted @ 2mcg/min. Improved pressures.
--- NOTE | 2020-04-28 10:52 | DI.US.S_ITS ---
PROCEDURE: US RENAL COMPLETE INDICATIONS: UTI W/ SEPSIS TECHNIQUE: Real-time scanning was performed of the kidneys and bladder, with image documentation. COMPARISON: None. FINDINGS: Kidneys: Kidneys are normal in size. Right kidney measures 11.2 cm long; left kidney measures 12.4 cm long. Right renal cortical thickness is 1.1 cm; left renal cortical thickness is 1.1 cm. Renal cortical echotexture is normal. There is asymmetric hydronephrosis but no visualized nephrolithiasis. Moderately severe left hydronephrosis is present, mild to moderate right hydronephrosis also appears present. No suspicious solid mass lesions. Bladder: The bladder is difficult to accurately assess because a Quinones catheter is in place draining the lumen. Miscellaneous: No free pelvic fluid. IMPRESSION: Asymmetric left greater than right significant hydronephrosis, etiology uncertain. Bladder assessment is very limited due to Quinones catheter emptying the bladder. Follow-up CT scan for urinary tract stone or mass may be warranted. Obstructed urinary tract on the left is presumed. Dictated by: Ron Elias M.D. on 04/28/2020 at 11:53 Approved by: Ron Elias M.D. on 04/28/2020 at 11:57
--- NOTE | 2020-04-28 13:46 | CM.DANOTE ---
Discharge Planning/Care Management DCP: assessment: case received, EMR reviewed and met with pt during Team Bedside Rounds and then in greater followup this afternoon to continue the assessment process. Introduced self and role. Pt is a 69 year old female who admitted yesterday afternoon to care of hospitalist team. PCP: Dr. John Gerardo Payer: Medicare and [employer] Admission status: in review: per UR RN Kellie Pt has an extensive medical history and carries diagnosis of neuromyelitis optical. She states she has had several years of OUTPT PT when in [place], currently says she is able to mobilize well without use of device and typically walks 2 miles a day in the [facility]. She has had counseling over the years to help her deal with her diagnosis and the depression and anxiety that have come with this. She has just started to see Dr. De La Torre at [facility] after referral from Dr. Gerardo. Dr. Chan had planed for PT to see pt but no order in yet. Checked with him. He stated he now wishes to hold on this until tomorrow. PICC is being placed. IV Ceftriaxone is now ordered to treat pt's E.coli UTI. P: Follow as POC unfolds to assist with d/c issues and options as more is known. Pt confirms she lives with her Basil and currently her daughter Maggie is staying with them after graduating from [place]. She will stay with them until she is able to find a job. CM Discharge Assessment Start: 04/28/20 13:41 Freq: Status: Active Protocol: Document 04/28/20 13:42 ITV (Rec: 04/28/20 13:46 ITV [id number]) Discharge Planning Assessment Advance Directives? No History Provided By Patient,Medical Record Prior Living Arrangements House Household Members spouse Independent with ADL's Yes: has fluctuated over the years Is patient alert and oriented? Yes Comment currently uses no assistive device White board Updated in Patient Room with Yes name and ext. # of Card Grinder Review Status In Process
--- NOTE | 2020-04-28 15:45 | P.PN_ITS ---
Subjective Subjective Date Patient Seen: 04/28/20 Time Patient Seen: 08:30 Interval history: Jonna Ramon is a 69 with PMH of neuromyelitis optica, osteoporosis, frequent UTI, anxiety and depression, hypothyroidism who presented to the ER with progressive weakness over 2 days. She was admitted yesterday with acute cystitis with hypotension. She initially responded to fluid boluses but overnight she became more hypotensive and ultimately needed to be started on a small amount of Levophed to maintain adequate blood pressures. She still feels weak today, but slightly better this morning and is tolerating oral intake. Her platelet count has improved as has her kidney function this morning. Her lactate is now normal. She had a mild bump in her transaminase levels this morning which is likely secondary to hypotension. Procalcitonin also jumped to 3.71. She was changed from ceftriaxone to Zosyn given worsening blood pressures. Ultrasound done today does show a left-sided hydronephrosis. Will obtain a CT noncontrast to evaluate for possible obstructing stone. Exam Vital Signs (past 8 hours): - 04/28/20 08:00 04/28/20 09:00 04/28/20 10:00 Temperature 97.0 F L Pulse Rate 80 87 88 Respiratory Rate 20 16 26 H Blood Pressure 72/47 L 122/57 L 116/62 Pulse Oximetry 96 99 99 04/28/20 11:00 04/28/20 12:50 04/28/20 13:00 Temperature 97.3 F L Pulse Rate 75 72 72 Respiratory Rate 25 H 27 H 22 Blood Pressure 112/56 L 95/54 L 122/57 L Pulse Oximetry 99 99 99 04/28/20 14:00 04/28/20 15:11 Temperature Pulse Rate 77 77 Respiratory Rate 17 19 Blood Pressure 84/47 L 101/51 L Pulse Oximetry 98 99 Oxygen Delivery Method Room Air Oxygen Flow Rate 0 Narrative Exam Narrative: GENERAL APPEARANCE: Well developed, well nourished, in no acute distress. SKIN: Inspection of the skin reveals no rashes, ulcerations or petechiae. HEENT: Normocephalic atraumatic, extraocular muscles are intact, oropharynx is clear and mucous membranes are moist, neck is supple without adenopathy NECK: Supple and symmetric. There was no thyroid enlargement, and no tenderness, or masses were felt. CHEST: Normal AP diameter and normal contour without any kyphoscoliosis. LUNGS: Auscultation of the lungs revealed no wheezes, rhonchi, or rales. CARDIOVASCULAR: There was a regular rate and rhythm without any murmurs, gallops, rubs. Peripheral pulses were 2+ and symmetric. ABDOMEN: Soft and nontender with normal bowel sounds. No ascites was noted. No flank or CVA tenderness. MUSCULOSKELETAL: There was no tenderness or effusions noted. Muscle strength and tone were normal. EXTREMITIES: No cyanosis, clubbing or edema. NEUROLOGIC: Alert and oriented x 3. Normal affect. Gait was normal. Strength is +5/5 in the Upper Extremities and Lower Extremities Bilaterally. Sensation to touch was normal. Objective Labs Result Diagrams: 04/28/20 04:53 04/28/20 04:53 Labs: Laboratory Results - last 24 hr 04/27/20 04/27/20 04/27/20 23:30 23:30 23:30 WBC 8.2 RBC 2.69 L Hgb 8.7 L Hct 26.3 L MCV 97.8 MCH 32.5 MCHC 33.2 RDW 14.1 Plt Count 113 L Neut % (Auto) 77.8 H Lymph % (Auto) 15.6 L [place] % (Auto) 6.3 Eos % (Auto) 0.1 L Baso % (Auto) 0.2 Neut # (Auto) 6400 Lymph # (Auto) 1300 [place] # (Auto) 500 Eos # (Auto) 0 Baso # (Auto) 0 Sodium 133 L Potassium 3.6 Chloride 109 H Carbon Dioxide 20 L BUN 13 Creatinine 1.06 H Estimated GFR 51.2 L BUN/Creatinine Ratio 12.3 Glucose 125 H Lactate Calcium 7.1 L Magnesium Total Bilirubin 0.4 Conjugated Bilirubin Unconjugated Bilirubin AST 60 H ALT 40 H Alkaline Phosphatase 73 Total Protein 4.9 L Albumin 2.5 L Globulin 2.4 Albumin/Globulin Ratio 1.0 Procalcitonin 3.71 H TSH Free T4 Nasal Screen MRSA (PCR) 04/27/20 04/28/20 04/28/20 23:30 00:28 04:53 WBC 8.8 RBC 3.01 L Hgb 9.9 L Hct 29.5 L MCV 97.9 MCH 32.9 MCHC 33.6 RDW 14.2 Plt Count 130 L Neut % (Auto) 70.2 Lymph % (Auto) 21.6 L [place] % (Auto) 7.7 Eos % (Auto) 0.2 L Baso % (Auto) 0.3 Neut # (Auto) 6200 Lymph # (Auto) 1900 [place] # (Auto) 700 Eos # (Auto) 0 Baso # (Auto) 0 Sodium Potassium Chloride Carbon Dioxide BUN Creatinine Estimated GFR BUN/Creatinine Ratio Glucose Lactate < 0.5 L Calcium Magnesium Total Bilirubin Conjugated Bilirubin Unconjugated Bilirubin AST ALT Alkaline Phosphatase Total Protein Albumin Globulin Albumin/Globulin Ratio Procalcitonin TSH Free T4 Nasal Screen MRSA (PCR) Negative for mrsa 04/28/20 04/28/20 04:53 04:53 WBC RBC Hgb Hct MCV MCH MCHC RDW Plt Count Neut % (Auto) Lymph % (Auto) [place] % (Auto) Eos % (Auto) Baso % (Auto) Neut # (Auto) Lymph # (Auto) [place] # (Auto) Eos # (Auto) Baso # (Auto) Sodium 141 Potassium 3.9 Chloride 113 H Carbon Dioxide 23 BUN 12 Creatinine 1.05 H Estimated GFR 51.8 L BUN/Creatinine Ratio 11.4 Glucose 137 H Lactate Calcium 7.6 L Magnesium 2.3 Total Bilirubin 0.5 Conjugated Bilirubin 0.0 Unconjugated Bilirubin 0.4 AST 82 H ALT 57 H Alkaline Phosphatase 85 Total Protein 5.7 L Albumin 2.9 L Globulin 2.8 Albumin/Globulin Ratio 1.0 Procalcitonin TSH 0.20 L Free T4 0.94 Nasal Screen MRSA (PCR) Assessment & Plan Assessment & Plan narrative: Jonna Ramon is a 69 with PMH of neuromyelitis optica, osteoporosis, frequent UTI, anxiety and depression, hypothyroidism who presented with progressive weakness over the past 2 days admitted with septic shock secondary to acute cystitis or possibly infected kidney stone. 1. septic shock, acute, present on admission. -source is secondary to acute cystitis, given ultrasound findings today there may be infected kidney stone as well. Pending further CT imaging. -consider urology consultation depending on CT results -continue to weaned from Levophed as tolerated, map goal of 65 -continue antibiotics as noted below under acute cystitis 2. Acute cystitis, present on admission. -patient with intermittent confusion, although no confusion on admission exam however confusion may be related to underlying cognitive process or depression as previously noted in psychatry visit. Sofa score is currently 1 given hypotension that responded to fluid boluses. -prior urine culture grew E coli sensitive to ceftriaxone and was initially given ceftriaxone, given septic shock patient was broadened to Zosyn. -continue normal saline -abdominal ultrasound showed left-sided hydronephrosis. Currently pending CT without contrast to evaluate for the cause. 3. Left hydronephrosis, acute - ultrasound performed today showed left-sided hydronephrosis -pending CT imaging to evaluate for structural cause or possible stone -consider urological consultation depending on CT results. 4. . chronic pain -continue home pain medications 5. Anxiety / depression -continue home medications -with possible auditory hallucinations and disorientation per psychiatry note with Dr. De La Torre. Continue medications as listed in his most recent encounter except for benzodiazepine. -consider psychiatry follow up if difficult to control. -continue gabapentin 1200 mg TID, duloxetine 120, and seroquel 25 nightly. Amitriptyline 50 once reliably off of pressor medications. 6. Hypothyroidism. - repeat TSH 0.2 with a normal free T4 -continue levothyroxine 100 mcg. I spent 40 minutes providing critical care management this patient. This excludes time spent in performing separately billed procedures. DVT: Lovenox daily Code: Full, surrogate decision maker is the patient's . Dispo: remains ICU until off continued pressure support COVID-19 COVID-19 status: Negative
--- NOTE | 2020-04-28 15:49 | DI.CT.S_ITS ---
PROCEDURE: CT ABDOMEN PELVIS WO CON INDICATIONS: L hydronephrosis, assess for stone TECHNIQUE: Noncontrast 5 mm thick sections acquired from the diaphragms to the symphysis. 5 mm thick coronal and sagittal reformats were then performed. For radiation dose reduction, the following was used: automated exposure control, adjustment of mA and/or kV according to patient size. COMPARISON: [facility], , US RENAL COMPLETE, 04/28/2020, 11:14. FINDINGS: Image quality: Excellent. Lung bases: Lung bases are clear. Heart size is normal. Urinary system: Both kidneys are normal in size. No kidney stones. 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 The left kidney shows a hydronephrosis pattern with a dominant renal pelvis region cyst, as was seen on ultrasound scanning earlier today. The exact anatomic details of the cyst in relationship to the hydronephrosis is indeterminate, given absence of intravenous contrast. No right-sided hydronephrosis or perinephric fat stranding. Both ureters appear non-dilated throughout their expected courses. Bladder wall thickness is normal; no calcified bladder stones. There are several retroperitoneal phleboliths near the course of the ureters bilaterally in the exact course of every portion of each ureter is not established by this study. There is, however, no hydroureter along the retroperitoneum bilaterally. Other solid organs: Liver is normal in size. Gallbladder appears contracted. Pancreas is normal in contours. Spleen is normal in size. No adrenal nodules. Peritoneum and bowel: Unenhanced bowel loops demonstrate normal wall thickness and caliber. No free fluid or air. Nodes and vessels: No retroperitoneal or mesenteric adenopathy by size criteria. Aorta and inferior vena cava are normal in caliber. Abdominal wall: No ventral hernias. Pelvis: No free pelvic fluid. No inguinal hernias or adenopathy. Bones: No suspicious bony lesions. No vertebral body compression fractures. IMPRESSION: Hydronephrosis on the left in addition to what appears to be a dominant left renal pelvis region cyst. The anatomy is not well established due to absence of intravenous contrast. The cyst itself may be producing hydronephrosis, and there is no renal cortical thinning associated with the hydronephrosis. Chronicity of this abnormality therefore is not clearly established. No perinephric edema is seen bilaterally. No ureteral distention is seen bilaterally. No urinary tract stone is found. Follow-up by contrast-enhanced CT scanning may be warranted in this clinical circumstance. Dictated by: Ron Elias M.D. on 04/28/2020 at 16:48 Approved by: Ron Elias M.D. on 04/28/2020 at 16:56
[2020-04-28] MEDS: DULOXETINE 30 MG CAPSULE 120 MG PO (16:57)
[2020-04-28] MEDS: OXYCODONE IR 5 MG TABLET PO (18:57)
[2020-04-28] MEDS: SODIUM CHLORIDE 0.9% 1,000 ML 100 ML IV (18:58)
[2020-04-28 18:59] LABS: Adenovirus F 40/41 Not Detected (Not Detect); Astrovirus Not Detected (Not Detect); Campylobacter Not Detected (Not Detect); Cryptosporidium Not Detected (Not Detect); Cyclospora cayetanensis Not Detected (Not Detect); Entamoeba histolytica Not Detected (Not Detect); Enteroaggregative E.coli Not Detected (Not Detect); Enteropathogenic E.coli Not Detected (Not Detect); Enterotoxigenic E.coli It/st Not Detected (Not Detect); Giardia lamblia Not Detected (Not Detect); Norovirus GI/GII Not Detected (Not Detect); Plesiomonsa shigelloides Not Detected (Not Detect); Rotavirus A Not Detected (Not Detect); Salmonella Not Detected (Not Detect); Sapovirus Not Detected (Not Detect); Shiga-like toxin-prod E.coli Not Detected (Not Detect); Shigella/Enteroinvasive E.coli Not Detected (Not Detect); Vibrio Not Detected (Not Detect); Vibrio cholerae Not Detected (Not Detect); Yersinia enterocolitica Not Detected (Not Detect)
[2020-04-28 19:00] LABS: Clostridium difficile toxin AB Detected (Not Detect)
[2020-04-28] MEDS: VANCOMYCIN 125 MG CAPSULE PO (19:24)
[2020-04-28] MEDS: QUETIAPINE 25 MG TABLET PO (21:13)
[2020-04-29] VITALS (31 sets, daily range): BP systolic 96–128; BP diastolic 51–85; PULSE 67–83; RESP 12–30; TEMP 36.1–37.2; O2SAT 92–99
[2020-04-29] MEDS: VANCOMYCIN 125 MG CAPSULE PO ×4 (00:45→19:01)
[2020-04-29 02:33] LABS: Enterococcus species Not Detected (Not Detect); Listeria monocytogenes Not Detected (Not Detect)
[2020-04-29 02:34] LABS: Acinetobacter baumannii Not Detected (Not Detect); E. coli Detected (Not Detect); Enterobacteriaceae species Detected (Not Detect); KPC (carbapenem-resist gene) Not Detected (Not Detect); Staphylococcus species Not Detected (Not Detect); Streptococcus agalactiae (Gr B Not Detected (Not Detect); Streptococcus pneumonia Not Detected (Not Detect); Streptococcus pyogenes (Gr A) Not Detected (Not Detect); Streptococcus species Not Detected (Not Detect)
[2020-04-29 02:35] LABS: Candida albicans Not Detected (Not Detect); Candida glabrata Not Detected (Not Detect); Candida krusei Not Detected (Not Detect); Candida parapsilosis Not Detected (Not Detect); Candida tropicalis Not Detected (Not Detect); Enterobacter cloacae complex Not Detected (Not Detect); Haemophilus influenzae Not Detected (Not Detect); Neisseria meningitidis Not Detected (Not Detect); Proteus species Not Detected (Not Detect); Pseudomonas aeruginosa Not Detected (Not Detect); Serratia marcescens Not Detected (Not Detect)
[2020-04-29] MEDS: OXYCODONE IR 5 MG TABLET PO ×3 (02:35→21:03)
[2020-04-29] MEDS: PIPERACILLIN-TAZO 3.375 GM/50 ML FROZ.PIGGY IV ×2 (02:35→09:00)
[2020-04-29 05:02] LABS: Add Manual Diff / Slide Review NO; Basophils Absolute Auto 0 /uL (0-100); Basophils Percent Auto 0.5 % (0-2); Eosinophils Absolute Auto 200 /uL (0-450); Hematocrit 29.8 % (36-46); Hemoglobin 9.9 g/dL (12.0-16.0); Lymphocytes Absolute Auto 1600 /uL (1100-4500); Lymphocytes Percent Auto 26.8 % (25-40); Mean Corpuscular HGB Conc 33.2 % (30-36); Mean Corpuscular Hemoglobin 32.7 PG (26-34); Mean Corpuscular Volume 98.8 fL (80-100); Monocytes Absolute Auto 400 /uL (0-900); Monocytes Percent Auto 7.4 % (3-14); Neutrophils Absolute Auto 3700 /uL (1500-7000); Neutrophils Percent Auto 62.3 % (50-75); Platelet Count 113 X10^3/uL (150-400); Red Blood Cell Count 3.01 X10^6/uL (4.0-5.2); Red Cell Distribution Width 14.5 % (11.6-14.8); White Blood Cell Count 5.9 X10^3/uL (4.5-11.0)
[2020-04-29 05:08] LABS: Alanine Aminotransferase 97 IU/L (<35); Albumin 2.8 g/dL (3.5-5.0); Alkaline Phosphatase 101 U/L (38-126); Aspartate Aminotransferase 108 IU/L (14-36); BUN Creatinine Ratio 9.8 (6-22); Bilirubin Total 0.3 mg/dL (0.2-1.3); Bilirubin Unconjugated 0.3 mg/dL (0.0-1.1); Blood Urea Nitrogen 9 mg/dL (7-17); Calcium 7.3 mg/dL (8.4-10.2); Carbon Dioxide 20 mmol/L (22-32); Chloride 112 mmol/L (98-107); Estimated Glomerular Filt Rate > 60.0 mL/min (>60); Globulin 2.7 g/dL (1.7-4.1); Glucose 100 mg/dL (80-110); HEMOLYSIS 21 (0-50); Magnesium 2.2 mg/dL (1.6-2.3); Potassium 3.5 mmol/L (3.4-5.1); Sodium 137 mmol/L (137-145); Total Protein 5.5 g/dL (6.3-8.2)
[2020-04-29] MEDS: LEVOTHYROXINE 100 MCG TABLET PO (06:27)
[2020-04-29] MEDS: SODIUM CHLORIDE 0.9% 1,000 ML 100 ML IV ×2 (06:27→17:03)
[2020-04-29] MEDS: DULOXETINE 30 MG CAPSULE 120 MG PO (08:40)
[2020-04-29] MEDS: PRAVASTATIN 20 MG TABLET 10 MG PO (08:43)
[2020-04-29] MEDS: GABAPENTIN 600 MG TABLET 1200 MG PO ×3 (08:43→21:03)
[2020-04-29] MEDS: ENOXAPARIN 40 MG/0.4 ML SYRINGE SUBCUT (08:44)
--- NOTE | 2020-04-29 09:29 | DI.RAD.S_ITS ---
PROCEDURE: XR CHEST 1V INDICATIONS: cough TECHNIQUE: One view of the chest was acquired. COMPARISON: [facility], CR, XR CHEST 1V, 04/27/2020, 12:31. FINDINGS: Surgical changes and devices: There is prior bilateral shoulder arthroplasty with postsurgical changes and prosthesis in place. Lungs and pleura: Blunting of right costophrenic angle is noted suggestive of small right pleural effusion with right basilar atelectasis. No focal infiltrate or pneumothorax. Mediastinum: Mediastinal contours appear normal. Heart size is normal. Bones and chest wall: No suspicious bony lesions. Overlying soft tissues appear unremarkable. IMPRESSION: Small right pleural effusion and right basilar atelectasis. No focal infiltrate or pneumothorax. Dictated by: Del Méndez M.D. on 04/29/2020 at 13:51 Approved by: Del Méndez M.D. on 04/29/2020 at 13:52
--- NOTE | 2020-04-29 11:01 | P.PN_ITS ---
Subjective Subjective Date Patient Seen: 04/29/20 Time Patient Seen: 11:02 Interval history: Jonna Ramon is a 69 with PMH of neuromyelitis optica, osteoporosis, frequent UTI, anxiety and depression, hypothyroidism who presented to the ER with progressive weakness over 2 days. She was admitted yesterday with acute cystitis with hypotension. She initially responded to fluid boluses but overnight she became more hypotensive and ultimately needed to be started on a small amount of Levophed to maintain adequate blood pressures. She still feels weak today, and did not sleep well overnight due to frequent diarrhea. Stool testing was performed in GI panel was positive for C difficile toxin. She was started on oral vancomycin. Blood cultures also returned with E coli likely secondary to her urinary tract infection. She remains on ceftriaxone as her urine cultures grew pansensitive E coli. Exam Vital Signs (past 8 hours): - 04/29/20 03:15 04/29/20 03:30 04/29/20 03:45 Temperature Pulse Rate 76 77 75 Respiratory Rate 21 14 15 Blood Pressure Pulse Oximetry 99 99 97 04/29/20 04:00 04/29/20 04:15 04/29/20 04:30 Temperature Pulse Rate 75 76 77 Respiratory Rate 17 14 16 Blood Pressure 109/58 L Pulse Oximetry 96 95 96 04/29/20 04:45 04/29/20 05:00 04/29/20 05:15 Temperature Pulse Rate 79 78 77 Respiratory Rate 12 16 15 Blood Pressure 108/60 Pulse Oximetry 97 95 97 04/29/20 06:00 04/29/20 06:04 04/29/20 06:55 Temperature Pulse Rate 74 76 Respiratory Rate 18 14 Blood Pressure 107/55 L Pulse Oximetry 97 96 97 04/29/20 07:00 04/29/20 09:00 04/29/20 10:00 Temperature 98.5 F Pulse Rate 74 83 Respiratory Rate 14 20 Blood Pressure 96/51 L 123/85 Pulse Oximetry 95 98 98 Oxygen Delivery Method Room Air Oxygen Flow Rate 0 Narrative Exam Narrative: GENERAL APPEARANCE: Well developed, well nourished, in no acute distress. SKIN: Inspection of the skin reveals no rashes, ulcerations or petechiae. HEENT: Normocephalic atraumatic, extraocular muscles are intact, oropharynx is clear and mucous membranes are moist, neck is supple without adenopathy NECK: Supple and symmetric. There was no thyroid enlargement, and no tenderness, or masses were felt. CHEST: Normal AP diameter and normal contour without any kyphoscoliosis. LUNGS: Auscultation of the lungs revealed no wheezes, rhonchi, or rales. CARDIOVASCULAR: There was a regular rate and rhythm without any murmurs, gallops, rubs. Peripheral pulses were 2+ and symmetric. ABDOMEN: Soft and nontender with normal bowel sounds. No ascites was noted. No flank or CVA tenderness. MUSCULOSKELETAL: There was no tenderness or effusions noted. Muscle strength and tone were normal. EXTREMITIES: No cyanosis, clubbing or edema. NEUROLOGIC: Alert and oriented x 3. Normal affect. Gait was normal. Strength is +5/5 in the Upper Extremities and Lower Extremities Bilaterally. Sensation to touch was normal. Objective Labs Result Diagrams: 04/29/20 04:33 04/29/20 04:33 Labs: Laboratory Results - last 24 hr 04/27/20 04/28/20 04/29/20 12:18 17:36 04:33 WBC 5.9 RBC 3.01 L Hgb 9.9 L Hct 29.8 L MCV 98.8 MCH 32.7 MCHC 33.2 RDW 14.5 Plt Count 113 L Neut % (Auto) 62.3 Lymph % (Auto) 26.8 [place] % (Auto) 7.4 Eos % (Auto) 3.0 Baso % (Auto) 0.5 Neut # (Auto) 3700 Lymph # (Auto) 1600 [place] # (Auto) 400 Eos # (Auto) 200 Baso # (Auto) 0 Sodium Potassium Chloride Carbon Dioxide BUN Creatinine Estimated GFR BUN/Creatinine Ratio Glucose Calcium Magnesium Total Bilirubin Conjugated Bilirubin Unconjugated Bilirubin AST ALT Alkaline Phosphatase Total Protein Albumin Globulin Albumin/Globulin Ratio Stl C. cayetanensis PCR Not detected Stool Rotavirus (PCR) Not detected Stool Adenovirus (PCR) Not detected Stool Astrovirus (PCR) Not detected Stool Cryptosporidium PCR Not detected Stl E.coli Shiga Tox PCR Not detected St Sh/Enteroin Ecoli PCR Not detected Stool E coli O157 PCR Not detected Stl Enterotoxigenic E PCR Not detected Stool EPEC (PCR) Not detected Stl E. histolytica PCR Not detected Stool Giardia Lamblia PCR Not detected Stool Sapovirus (PCR) Not detected Stl P. shigelloides PCR Not detected St Y.enterocolitica PCR Not detected Stool Vibrio (PCR) Not detected Stl Vibrio cholerae PCR Not detected Stl Enteroaggr Ecoli PCR Not detected Stl Norovirus GI/GII PCR Not detected A. baumannii (PCR) Not detected Campylobacter (PCR) Not detected Brenda albicans (PCR) Not detected C. glabrata (PCR) Not detected C. krusei (PCR) Not detected C. parapsilosis (PCR) Not detected C. tropicalis (PCR) Not detected C. difficile Tox (PCR) Detected H Enterobacteriac sp PCR Detected H E. cloacae complex PCR Not detected Enterococcus sp PCR Not detected E. coli (PCR) Detected H H. influenzae (PCR) Not detected Klebsiella oxytoca PCR Not detected Klebsiella pneumoniae Not detected List. monocytogenes PCR Not detected N. meningitidis (PCR) Not detected Proteus species (PCR) Not detected Salmonella (PCR) Not detected Serratia marcescens PCR Not detected Staphylococcus sp PCR Not detected Staph aureus (PCR) Not detected mecA-Methicil Res Gene Not Reportable Streptococcus sp PCR Not detected Group A Strep (PCR) Not detected Strep agalactiae (PCR) Not detected Strep pneumoniae (PCR) Not detected P. aeruginosa (PCR) Not detected Sawyer/B-Vanco Res Genes Not Reportable KPC-Carbap Res Gene PCR Not detected 04/29/20 04:33 WBC RBC Hgb Hct MCV MCH MCHC RDW Plt Count Neut % (Auto) Lymph % (Auto) [place] % (Auto) Eos % (Auto) Baso % (Auto) Neut # (Auto) Lymph # (Auto) [place] # (Auto) Eos # (Auto) Baso # (Auto) Sodium 137 Potassium 3.5 Chloride 112 H Carbon Dioxide 20 L BUN 9 Creatinine 0.92 Estimated GFR > 60.0 BUN/Creatinine Ratio 9.8 Glucose 100 Calcium 7.3 L Magnesium 2.2 Total Bilirubin 0.3 Conjugated Bilirubin 0.0 Unconjugated Bilirubin 0.3 AST 108 H ALT 97 H Alkaline Phosphatase 101 Total Protein 5.5 L Albumin 2.8 L Globulin 2.7 Albumin/Globulin Ratio 1.0 Stl C. cayetanensis PCR Stool Rotavirus (PCR) Stool Adenovirus (PCR) Stool Astrovirus (PCR) Stool Cryptosporidium PCR Stl E.coli Shiga Tox PCR St Sh/Enteroin Ecoli PCR Stool E coli O157 PCR Stl Enterotoxigenic E PCR Stool EPEC (PCR) Stl E. histolytica PCR Stool Giardia Lamblia PCR Stool Sapovirus (PCR) Stl P. shigelloides PCR St Y.enterocolitica PCR Stool Vibrio (PCR) Stl Vibrio cholerae PCR Stl Enteroaggr Ecoli PCR Stl Norovirus GI/GII PCR A. baumannii (PCR) Campylobacter (PCR) Brenda albicans (PCR) C. glabrata (PCR) C. krusei (PCR) C. parapsilosis (PCR) C. tropicalis (PCR) C. difficile Tox (PCR) Enterobacteriac sp PCR E. cloacae complex PCR Enterococcus sp PCR E. coli (PCR) H. influenzae (PCR) Klebsiella oxytoca PCR Klebsiella pneumoniae List. monocytogenes PCR N. meningitidis (PCR) Proteus species (PCR) Salmonella (PCR) Serratia marcescens PCR Staphylococcus sp PCR Staph aureus (PCR) mecA-Methicil Res Gene Streptococcus sp PCR Group A Strep (PCR) Strep agalactiae (PCR) Strep pneumoniae (PCR) P. aeruginosa (PCR) Sawyer/B-Vanco Res Genes KPC-Carbap Res Gene PCR Assessment & Plan Assessment & Plan narrative: Jonna Ramon is a 69 with PMH of neuromyelitis optica, osteoporosis, frequent UTI, anxiety and depression, hypothyroidism who presented with progressive weakness over the past 2 days admitted with septic shock secondary to acute cystitis or possibly infected kidney stone. 1. septic shock, acute, present on admission, resolved -source is secondary to acute cystitis and likley exacerbated by C. difficile infection. ultrasound showed possible left-sided hydronephrosis. CT scan showed a left renal cyst, but no ureteral dilation. After discussing this with the , it became clear that this is a more chronic condition as she had similar findings while living in [place]. There is no evidence of active infection based on the CT imaging and the patient continues to improve, and her creatinine continues to decline. -patient has been off of pressor support for almost 24 hours -continue antibiotics as noted below under acute cystitis -patient with intermittent confusion on admission, improved with treatment of sepsis. -patient with still rising LFTs thought to be in the setting of hypotension, continue to follow. -continue IV fluids 2. Acute cystitis, present on admission. -prior urine culture grew E coli sensitive to ceftriaxone and was initially given ceftriaxone, given septic shock patient was broadened to Zosyn, will narrow back to ceftriaxone today based on urine culture. She takes daily bactrim for prophylaxis of acute cystitis as an outpatient. -abdominal ultrasound and CT findings as noted above. -Urine culture E. coli now resistant to bactrim, patient to discuss with PCP further prophylaxis as an outpatient. 3. E. Coli bacteremia, acute, present on admission - patient will require 7-14 day course of antibiotic therapy, can be oral. Follow up final blood cultures but urine culture showing E. Coli resistant to bactrim. 4. C.difficile infection, active - patient developed diarrhea yesterday, has a history of c. difficile infection once in the past. - started on oral vancomycin 125 mg q6 hours. Treat for 14 days (today day 10/27) 5. chronic pain -continue home pain medications 6. Anxiety / depression -continue home medications -with possible auditory hallucinations and disorientation per psychiatry note with Dr. De La Torre. Continue medications as listed in his most recent encounter except for benzodiazepine. -consider psychiatry follow up if difficult to control. -continue gabapentin 1200 mg TID, duloxetine 120, and seroquel 25 nightly. Am itriptyline 50 once reliably off of pressor medications. 7.. Hypothyroidism. - repeat TSH 0.2 with a normal free T4 -continue levothyroxine 100 mcg. DVT: Lovenox daily Code: Full, surrogate decision maker is the patient's . Dispo: stable for regular floor. Start PT today. Anticipate discharge in the next 2-3 days once diarrhea improves and strength returns. Likely discharge home with home health, less likely SNF. COVID-19 COVID-19 status: Negative
--- NOTE | 2020-04-29 12:28 | CM.DPC ---
DCP: continued: case received, EMR reviewed. Rounds were held this morning outside of room: pt now on precautions for C-Diff + test. P is now on oral vancomycin for same. PT order has been placed as per plan of yesterday. Dr. Chan stated IV antibiotics were continuing but expectation was that pt would be going home on oral antibiotics upon d/c. DCP team will be following as needs for d/c unfold. P: at this point remains home setting where pt lives with her spouse and adult daughter Maggie (see yesterday's DCP assessment note for more specifics).
[2020-04-29] MEDS: CEFTRIAXONE 1 GM/50 ML FROZ.PIGGY IV (12:51)
--- NOTE | 2020-04-29 13:24 | PT.IIE ---
Current Diagnoses Sepsis, unspecified organism (04/27/20) Medical History (Last Reviewed 04/27/20 @ 12:19 by Mane Alfaro MD) Clostridium difficile colitis (Resolved) Physical Therapy Inpatient Evaluation/Re-Eval M1 PT/OT-IP Prior Functional Status Start: 04/29/20 08:55 Freq: NEEDED Status: Active Protocol: Document 04/29/20 10:20 HH (Rec: 04/29/20 13:24 [id number]) Medical Review Prior Functional Status Medical History Reviewed Yes Diet/Fluid Consistency Regular Communication no deficits noted. able to make needs known Mobility and Gait independent for mobility without AD. She walks approx 2miles/ day. Pt had multiple falls within the past month d/ t progressive weakness and hypotensino. No significant injury noted. Activities of Daily Living and IADL's independent for ADLs and mod I for IADLs. assisted in grocery shopping and driving. Prior Functional Level (Other details) Pt has have neuromyelitis optica since 20 years ago and she stated she is always shaky and has muscle spasms. Social History Household Members spouse Living Arrangements House Number of Floors (Floors) Two Floors Number of Stairs To Enter/Railing? 17 steps with Brails to front entrance 2STE to garage entrance with side support pt has elevator access to 2nd floor ( pt's bedroom and bathroom) Home Environment High Toilet,Walk in Shower Home Equipment Front Wheel Walker,Straight Cane,Grab Bars Near Toilet Employment Status Retired Additional Social History Comment Pt is a69 female with PMH of neuromyelitis optica, osteoporosis, frequent UTI, anxiety and depression, hypothyroidism. She lives with her Basil and dtr Maggie who are available to assist pt as needed upon DC M2 PT-IP Current Condition Start: 04/29/20 08:55 Freq: NEEDED Status: Active Protocol: Document 04/29/20 10:20 HH (Rec: 04/29/20 13:24 [email or web address]) Physical Therapy Current Condition Current Condition Evaluation Date 04/29/20 Treatment Diagnosis septic shock, Acute cystitis with hypotension, C.diff infection, weakness Onset Date 04/28/20 Precautions Other Precautions contact precaution d/t C. difficile infection Weight Bearing Status Weight Bearing Status Full Weight Bearing M3 PT-IP Subjective Start: 04/29/20 08:55 Freq: NEEDED Status: Active Protocol: Document 04/29/20 10:20 (Rec: 04/29/20 13:24 [email or web address]) Subjective Physical Therapy Visit Type Type Initial Evaluation Visit Start Time 10:20 Visit Stop Time 10:55 Total Visit Minutes 35 Notes Pt has been having diarrhea and up to BSC with nursing assistance. BP at 100s/50s today. Number of MOLD CAPPER HELPER Visits 0 Physical Therapy Visit Comments Patient Comments Im feeling a lot better Patient Goals to return home with family Therapy Pain Assessment Pain Present Pain Present Denied Pain M4 PT-IP Mobility and Gait Start: 04/29/20 08:55 Freq: NEEDED Status: Active Protocol: Document 04/29/20 10:20 (Rec: 04/29/20 13:24 [email or web address]) PT-Bed Mobility Assessment Supine to Sit Supine to Sit Standby Assistance Sit to Supine Sit to Supine Standby Assistance Scooting Scooting to Edge of Bed Standby Assistance PT-Transfer Assessment Sit to and From Stand Sit to and from Stand Standby Assistance,Use of Upper Extremities Equipment Transfer Assistive Device None,Gait Belt Orthotic/Prosthetic Devices or Brace: No Transfers Transfer Destination Bed,Chair Transfer Technique Stand Step Pivot Transfer Ability Level of Assist Standby Assistance,Use of Upper Extremities Comments Mobility Comments Pt just finished BSC transfer upon PT arrival. BP at 93/57 but she stated thats her baseline. Pt agreed to mobilize with PT. Pt completed supine to long sit with SBA and sat at EOB on R afterwards . She then stood up with UE pushed off from bed. Proceed to amb with this PT SBA out of her room without AD. Pt initially walked with step to pattern but progressed to step over pattern. She tend to shuffle with her feet and lean laterally during turns and needed CGA for the entire walk . She did not LOB but did c/o slight fatigue after 2 laps of [facility]. She stated she is slower than her normal gait speed but she felt safe overall. Pt returned to bedside chair after with SBA and no discomfort noted. BP at 113/54 HR 69. Call light placed within reach. Recommended pt and nursing staff to facilitate more walking with CGA. Gait Assessment Gait Gait Assistance Required: Contact Guard Assist Distance (Feet) 420 Able to Maintain Weight Bearing Status Yes During Gait Assistive Devices Assistive Device Gait Belt Orthotic/Prosthetic Devices or Brace: No Gait Deviations General Gait Pattern Decreased Stride Length, Decreased Feet Clearance, Lateral Trunk Lean,Step-to Gait Factors Limiting Gait Function Factors Limiting Gait Function Decreased Activity Tolerance, Decreased Strength,Poor Balance,Respiratory Distress Comments Gait Comments see mobility comments. Stair Climbing Assessment Comments Stair Climbing Comments did not assess d/t fatigue PT-Balance Assessment Sitting Balance and Reactions Static Sitting Balance Ability Normal Dynamic Sitting Balance Ability Normal Standing Balance and Reactions Static Standing Balance Ability Normal Dynamic Standing Balance Ability Normal Device Used none M5 PT-IP Objective Assessments Start: 04/29/20 08:55 Freq: NEEDED Status: Active Protocol: Document 04/29/20 10:20 HH (Rec: 04/29/20 13:24 [email or web address]) Orientation Orientation/Cognition Level of Alertness Alert Orientation Name,Age,Birthday,Month,Date, Year,Day of Week,Place, Situation Language Function Ability No Deficits Noted Safety Awareness Understands Safety Issues Memory Description No Deficits Noted Gross Range of Motion Upper Extremity ROM Assessment Within Functional Limits Lower Extremity ROM Assessment Within Functional Limits Strength Upper Extremity Strength Assessment Within Functional Limits Lower Extremity Strength Assessment Within Functional Limits Coordination Assessment Gross Coordination Gross Coordination WNL Sensation Assessment Sensation Gross Sensation WNL Muscle Tone Muscle Tone WNL Yes M6 PT-IP Treatment Start: 04/29/20 08:55 Freq: NEEDED Status: Active Protocol: Document 04/29/20 10:20 HH (Rec: 04/29/20 13:24 [email or web address]) Physical Therapy Treatment Education Education Provided Safety M7 PT-IP Assessment and Plan Start: 04/29/20 08:55 Freq: NEEDED Status: Active Protocol: Document 04/29/20 10:20 HH (Rec: 04/29/20 13:24 [email or web address]) PT Summary Assessment and Plan Potential Rehabilitation Potential Excellent Status of Condition at Evaluation Stable Summary Impairments ROM,Strength,Balance,Bed Mobility,Transfers,Gait, Activity Tolerance Assessment Summary This is a low complexity for this 69yo female admitted to d/t acute cystitis with hypotension and progressive weakness. Pt was mostly independent for mobility and very active who walked 2 miles a day. PMH of neuromyelitis optica, osteoporosis, frequent UTI, anxiety and depression, hypothyroidism. Upon assessment, pt feels much better today and was able to complete two laps of [place] without AD. However, pt tends to shuffle and lean laterally during turns which requires CGA the whole time but overall she did not LOB and feel safe. Pt overall progress fairly well and She lives with her Basil and dtr Maggie who are available to assist pt as needed upon DC. Expect pt to be able to complete stair climbing tomorrow once she is more medically stable. Goals Bed Mobility Goal Standby Assistance Transfer Goal Standby Assistance Gait Goal Standby Assistance Gait Distance 500 Other Goals up down 2 MANASA SBA without AD pt has elevator access to 2nd floor Days to Meet Goals 2 Frequency of Treatment Frequency Of Treatment Once a Day Treatment Plan Physical Therapy Treatment Plan Bed Mobility Training,Transfer Training,Gait Training, Therapeutic Exercise,Balance Retraining,Discharge Planning Other Recommendations and Next Treatment up down 2 MANASA SBA without AD Focus pt has elevator access to 2nd floor Recommendations To Nursing Amount of Assist Needed 1 Person Assist Discharge Recommendations PT Discharge Recommendations Home with Assistance Transportation Needs at Discharge Private Vehicle
--- NOTE | 2020-04-29 15:08 | PC.NURSE ---
Am shift Pt is significantly more alert this shift, able to recall previous events, c/o profound weakness. PT ambulated in halls, and Pt remains stand by assist. Quinones removed and Pt is voiding without difficulty. Stooling, small watery amounts. Urgency. Oxycodone given x1 for pain. IVF infusing @ 100 ml/hr
[2020-04-29] MEDS: ACETAMINOPHEN 325 MG TABLET 650 MG PO (18:26)
[2020-04-29] MEDS: QUETIAPINE 25 MG TABLET PO (21:03)
[2020-04-30] MEDS: VANCOMYCIN 125 MG CAPSULE PO ×2 (01:13→06:47)
[2020-04-30 01:30] VITALS: O2SAT 93
[2020-04-30 01:40] VITALS: BP 112/59; PULSE 69; RESP 16; TEMP 35.9; O2SAT 93
[2020-04-30] MEDS: SODIUM CHLORIDE 0.9% 1,000 ML 100 ML IV (02:33)
[2020-04-30 04:36] VITALS: BP 103/54; PULSE 78; RESP 16; TEMP 35.9; O2SAT 94
[2020-04-30 05:06] LABS: Add Manual Diff / Slide Review NO; Basophils Absolute Auto 0 /uL (0-100); Basophils Percent Auto 0.7 % (0-2); Eosinophils Absolute Auto 300 /uL (0-450); Hematocrit 28.7 % (36-46); Hemoglobin 9.4 g/dL (12.0-16.0); Lymphocytes Absolute Auto 1800 /uL (1100-4500); Lymphocytes Percent Auto 41.6 % (25-40); Mean Corpuscular HGB Conc 32.8 % (30-36); Mean Corpuscular Hemoglobin 32.2 PG (26-34); Mean Corpuscular Volume 98.4 fL (80-100); Monocytes Absolute Auto 400 /uL (0-900); Monocytes Percent Auto 8.9 % (3-14); Neutrophils Absolute Auto 1900 /uL (1500-7000); Neutrophils Percent Auto 42.8 % (50-75); Platelet Count 138 X10^3/uL (150-400); Red Blood Cell Count 2.92 X10^6/uL (4.0-5.2); Red Cell Distribution Width 14.5 % (11.6-14.8); White Blood Cell Count 4.4 X10^3/uL (4.5-11.0)
[2020-04-30 05:15] VITALS: O2SAT 95
[2020-04-30 05:15] LABS: Alanine Aminotransferase 70 IU/L (<35); Albumin 2.6 g/dL (3.5-5.0); Alkaline Phosphatase 93 U/L (38-126); Aspartate Aminotransferase 56 IU/L (14-36); BUN Creatinine Ratio 7.6 (6-22); Bilirubin Total 0.1 mg/dL (0.2-1.3); Bilirubin Unconjugated 0.2 mg/dL (0.0-1.1); Blood Urea Nitrogen 6 mg/dL (7-17); Calcium 7.4 mg/dL (8.4-10.2); Carbon Dioxide 20 mmol/L (22-32); Chloride 116 mmol/L (98-107); Estimated Glomerular Filt Rate > 60.0 mL/min (>60); Globulin 2.6 g/dL (1.7-4.1); Glucose 89 mg/dL (80-110); HEMOLYSIS < 15 (0-50); Magnesium 2.2 mg/dL (1.6-2.3); Potassium 3.9 mmol/L (3.4-5.1); Sodium 140 mmol/L (137-145); Total Protein 5.2 g/dL (6.3-8.2)
[2020-04-30] MEDS: LEVOTHYROXINE 100 MCG TABLET PO (06:47)
[2020-04-30 08:00] VITALS: BP 110/65; PULSE 82; RESP 22; TEMP 37.1; O2SAT 96
[2020-04-30] MEDS: PRAVASTATIN 20 MG TABLET 10 MG PO (08:25)
[2020-04-30] MEDS: DULOXETINE 30 MG CAPSULE 120 MG PO (08:28)
[2020-04-30] MEDS: GABAPENTIN 600 MG TABLET 1200 MG PO (08:28)
[2020-04-30] MEDS: ENOXAPARIN 40 MG/0.4 ML SYRINGE SUBCUT (08:29)
[2020-04-30 09:00] VITALS: O2SAT 95
--- NOTE | 2020-04-30 09:56 | PC.NURSE ---
pt prepared for discharge to home- reviewed at length her post hospitalization lans and importance of hand washing with hot water and soap for prevention of spread of c-diff as well as using her meds to completion- iv access removed and waiting her spouse to come get her
--- NOTE | 2020-04-30 10:09 | P.DS_ITS ---
History of Present Illness History of Present Illness Chief complaint: thinks uti, disoriented Narrative: Jonna Ramon is a 69 with PMH of neuromyelitis optica, osteoporosis, frequent UTI, anxiety and depression, hypothyroidism who presented with progressive weakness over the past 2 days. Patient also has had dysuria and urinary frequency as well as intermittent disorientation. She denies focal weakness, slurred speech, or decreased sensation. She has intermittent abdominal pains which frequently change location and have been unchanged recently. She does take bactrim for prophylaxis against frequent UTIs. In the emergency room patient was tachycardic, hypotensive to 70/39, but responded quite well to minimal fluid boluses. Initial labs showed a white count of 9.2, hemoglobin of 11.9, platelet count of 174. Coagulation studies were unremarkable. Chemistry showed a sodium mildly decreased at 134, creatinine of 1.33 very slightly up from her apparent baseline of 0.9-1.0. Glucose was 101, lactate was unremarkable at 1.1. Is a mild elevation in her transaminases with an AST of 52, ALT of 37 with a normal total bilirubin at 1.0. Procalcitonin was elevated at 1.18. UA was positive with 10-30 white blood cells, 5-10 red blood cells although there were 5-10 squamous epithelial cells as well. There were many urine bacteria in specimen was sent for cultures. COVID-19 testing was negative. Patient was admitted under observation status for acute cystitis with hypotension. Discharge Providers Provider Date of admission: 04/27/20 14:24 Discharge Date: 04/30/20 Primary care physician: John Gerardo MD Consults: 04/29/20 08:05 Consult to Physical Therapy Evaluate & Treat Comment: Physician Instructions: Evaluate and Treat Discharge provider: Christian Shirley MD Summary Hospital Course Discharge Diagnosis: 1. Septic shock due to E coli bacteremia 2. Acute cystitis 3. C diff colitis 4. Acute metabolic encephalopathy Hospital Course: Jonna Ramon is a 69 with PMH of neuromyelitis optica, osteoporosis, frequent UTI, anxiety and depression, hypothyroidism who presented with progressive weakness over the past 2 days admitted with septic shock s econdary to acute cystitis 1. septic shock, acute, present on admission, resolved -source is secondary to acute cystitis and likley exacerbated by C. difficile infection. ultrasound showed possible left-sided hydronephrosis. CT scan showed a left renal cyst, but no ureteral dilation. After discussing this with the , it became clear that this is a more chronic condition as she had simila r findings while living in [place]. There is no evidence of active infection based on the CT imaging and the patient continues to improve, and her creatinine continues to decline. -patient was briefly on pressor support -continue antibiotics as noted below under acute cystitis -patient with intermittent confusion on admission, improved with treatment of sepsis. -patient with still rising LFTs thought to be in the setting of hypotension, continue to follow. 2. Acute cystitis, present on admission. -prior urine culture grew E coli sensitive to ceftriaxone and she was treated with combination of ceftriaxone and Zosyn then eventually just ceftriaxone. -She takes daily bactrim for prophylaxis of acute cystitis as an outpatient. -abdominal ultrasound and CT findings as noted above. -Urine culture E. coli now resistant to bactrim, patient to discuss with PCP further prophylaxis as an outpatient. 3. E. Coli bacteremia, acute, present on admission -patient will complete total 7 days antibiotic therapy with oral Ceftin 4. C.difficile infection, active - patient developed mild diarrhea in hospital, has a history of c. difficile infection once in the past. - started on oral vancomycin 125 mg q6 hours. She will take 10 more days of oral vancomycin as outpatient. 5. chronic pain -continue home pain medications 6. Anxiety / depression -continue home medications -with possible auditory hallucinations and disorientation per psychiatry note with Dr. De La Torre. Continue medications as listed in his most recent encounter except for benzodiazepine. -consider psychiatry follow up if difficult to control. -continue gabapentin 1200 mg TID, duloxetine 120, and seroquel 25 nightly. A mitriptyline 50 once reliably off of pressor medications. 7.. Hypothyroidism. - repeat TSH 0.2 with a normal free T4 -continue levothyroxine 100 mcg. Status at Discharge Cognitive/behavioral status at discharge: oriented Functional status at discharge: independent ambulation Overall status at discharge: patient is progressing back to baseline Time Spent with Patient Time spent: Greater than 30 minutes Exam Vital Signs (past 8 hours): - 04/30/20 04:36 04/30/20 05:15 04/30/20 08:00 Temperature 96.6 F L 98.8 F Pulse Rate 78 82 Respiratory Rate 16 22 Blood Pressure 103/54 L 110/65 Pulse Oximetry 94 95 96 04/30/20 09:00 Temperature Pulse Rate Respiratory Rate Blood Pressure Pulse Oximetry 95 Oxygen Delivery Method Room Air Oxygen Flow Rate 0 Objective Labs Result Diagrams: 04/30/20 04:30 04/30/20 04:30 Labs: Laboratory Results - last 24 hr 04/30/20 04/30/20 04:30 04:30 WBC 4.4 L RBC 2.92 L Hgb 9.4 L Hct 28.7 L MCV 98.4 MCH 32.2 MCHC 32.8 RDW 14.5 Plt Count 138 L Neut % (Auto) 42.8 L Lymph % (Auto) 41.6 H Taliaferro % (Auto) 8.9 Eos % (Auto) 6.0 H Baso % (Auto) 0.7 Neut # (Auto) 1900 Lymph # (Auto) 1800 [place]ferro # (Auto) 400 Eos # (Auto) 300 Baso # (Auto) 0 Sodium 140 Potassium 3.9 Chloride 116 H Carbon Dioxide 20 L BUN 6 L Creatinine 0.79 Estimated GFR > 60.0 BUN/Creatinine Ratio 7.6 Glucose 89 Calcium 7.4 L Magnesium 2.2 Total Bilirubin 0.1 L Conjugated Bilirubin 0.0 Unconjugated Bilirubin 0.2 AST 56 H ALT 70 H Alkaline Phosphatase 93 Total Protein 5.2 L Albumin 2.6 L Globulin 2.6 Albumin/Globulin Ratio 1.0 Discharge Plan Discharge Plan Patient Disposition: Home Discharge orders & Medications Prescriptions: New cefuroxime axetil 250 mg tablet 250 mg PO BID Qty: 6 RF: 0 vancomycin 250 mg capsule 250 mg PO QID 10 Days Qty: 40 RF: 0 Continued quetiapine 25 mg tablet 25 mg PO BEDTIME Qty: 30 RF: 3 alendronate 70 mg tablet 70 mg PO QWEEK Qty: 12 RF: 5 albuterol sulfate 90 mcg/actuation HFA aerosol inhaler 1 puff INHALATION Q6H PRN (Reason: shortness of breath or wheezing) Qty: 6.7 RF: 0 amitriptyline 50 mg tablet 50 mg PO BEDTIME Qty: 90 RF: 3 duloxetine 60 mg capsule,delayed release(DR/EC) 120 mg PO DAILY Qty: 180 RF: 3 pravastatin 10 mg tablet 10 mg PO DAILY Qty: 90 RF: 3 gabapentin 600 mg tablet 1,200 mg PO TID Qty: 540 RF: 3 oxycodone 5 mg tablet 5 mg PO Q6H PRN (Reason: pain) Qty: 120 RF: 0 diazepam 5 mg tablet 5 mg PO TID PRN (Reason: muscle spasm) Qty: 90 RF: 0 estradiol [Estrace] 0.01 % (0.1 mg/gram) cream 1 gram VAG QWEEK Qty: 42.5 RF: 5 coenzyme Q10 [Co Q-10] 100 mg capsule 100 mg PO DAILY RF: 0 acetaminophen 325 mg capsule 250 mg PO TID PRN (Reason: Abdominal Discomfort) RF: 0 levothyroxine 100 mcg tablet 100 mcg PO DAILY Qty: 90 RF: 3 Discontinued sulfamethoxazole-trimethoprim 800-160 mg tablet 1 tab PO DAILY Qty: 90 RF: 1 Follow up/Referrals: John Gerardo MD [Primary Care Provider] - Discharge Health Status Multidrug resistant organism: No MDRO Diet/Activity/Treatments Diet: Diet as Tolerated Visit Report/Discharge Packet Visit Report Forms: Patient Portal/API, Stroke Signs & Symptoms Discharge Data Primary Care Provider: John Gerardo
--- NOTE | 2020-04-30 11:20 | PT-IP ANOTE ---
Attempted to see pt prior to d/c for stair training, however she was already d/c upon arrival.
== END 2020-04-30 10:40 | disposition home or self-care (01) | DRG 871 ==
LOC: ED 13:36 → AC 14:58 → ICU 04-28 17:16 → AC 04-29 06:48 → ICU 04-29 06:49 → AC 05-03 14:05
PROVIDERS: Nurse Practitioner Adult Health; Admitting Provider Internal Medicine; Emergency Provider Emergency Medicine; PCP Student in an Organized Health Care Education/Training Program; Referring Provider Emergency Medicine; Visit Provider Internal Medicine
DX: A41.51 Sepsis due to Escherichia coli [E. coli] (principal); R65.21 Severe sepsis with septic shock; G93.41 Metabolic encephalopathy; N30.00 Acute cystitis without hematuria; N13.30 Unspecified hydronephrosis; H46.9 Unspecified optic neuritis; F32.9 Major depressive disorder, single episode, unspecified; E03.9 Hypothyroidism, unspecified; F41.9 Anxiety disorder, unspecified; G89.29 Other chronic pain
CPT/HCPCS: 36415; 71045; 74176; 76770; 80048; 80053; 80076; 81003; 81015; 83605; 83735; 84145; 84439; 84443; 85025; 85610; 85730; 87040; 87077; 87086; 87150; 87186; 87205; 87507; 87635; 87797; 96365; 97116; 97161; 99285; J0696; J1650; J2543

== ENCOUNTER → 2020-05-12 10:39 | Outpatient (CLI) | payer MEDICARE, OTHER, SELFPAY ==
[2020-04-27 17:02] VITALS: BMI 20.5
[2020-05-12 11:00] LABS: WBC Urine None Seen (0-5/HPF)
[2020-05-12 11:16] LABS: Appearance Urine UA CLEAR; Bilirubin Urine UA NEGATIVE (NEGATIVE); Color Urine UA YELLOW; Glucose Urine UA NEGATIVE (Negative); Ketones Urine UA NEGATIVE (NEGATIVE); Leukocyte Esterase Urine UA NEGATIVE (NEGATIVE); Nitrite Urine UA NEGATIVE (Negative); Occult Blood Urine UA NEGATIVE (Negative); Protein Urine UA NEGATIVE (Negative); Urobilinogen Urine UA 0.2 E.U./dL (0.2)
[2020-05-12 12:05] LABS: Bacteria Urine Occasional (0-1); RBC Urine 0-1/HPF (0-5/HPF)
[2020-05-12 12:06] LABS: Culture Indicated Urine Cult Not Indicated
== END ==
PROVIDERS: PCP Student in an Organized Health Care Education/Training Program; Referring Provider Student in an Organized Health Care Education/Training Program; Visit Provider Student in an Organized Health Care Education/Training Program
DX: N39.0 Urinary tract infection, site not specified (principal)
CPT/HCPCS: 81001

== ENCOUNTER 2020-05-16 17:11 | Emergency (ER) | payer MEDICARE, OTHER, SELFPAY ==
[2020-04-27 17:02] VITALS: BMI 20.5
[2020-05-16] VITALS (11 sets, daily range): BP systolic 98–138; BP diastolic 56–82; PULSE 65–90; RESP 11–28; TEMP 36.6; O2SAT 95–100
--- NOTE | 2020-05-16 19:16 | ED_ITS ---
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 She states that it was brief and has long since resolved. She denies any ongoing symptoms. She denies any difficulty with speech or focal neurologic findings such as numbness, tingling or weakness. She has been having a vague right-sided headache for a few weeks. She denies any recent injury. She has had no fever or chills. She denies runny nose, sore throat or cough. She has had no chest pain or shortness of breath. She denies nausea, vomiting or diarrhea. She denies any medication change or dietary change. She does not have an established local neurologist and her PCP is Dr. Gerardo. She is most c oncerned because the symptoms are similar to the initial presentation of her neuromyelitis optica, except is went away on it's own. Onset (ago): hour(s) History of same: Yes Severity: moderate Relieving factors: none Exacerbating factors: none Context: sudden onset On Anticoagulants: No Associated symptoms: denies other symptoms Treatments Prior to Arrival: none Related Data Home Medications Medication Instructions Recorded Confirmed acetaminophen 325 mg capsule 250 mg PO TID PRN cap 08/18/19 04/28/20 coenzyme Q10 100 mg capsule 100 mg PO DAILY 08/18/19 04/28/20 Previous Rx's Medication Instructions Recorded alendronate 70 mg tablet 70 mg PO QWEEK #12 tab 06/01/19 albuterol sulfate 90 mcg/actuation 1 puff INHALATION Q6H PRN #6.7 gram 06/12/19 aerosol inhaler amitriptyline 50 mg tablet 50 mg PO BEDTIME #90 tab 06/29/19 levothyroxine 100 mcg tablet 100 mcg PO DAILY #90 tab 10/20/19 duloxetine 60 mg capsule,delayed 120 mg PO DAILY #180 cap 01/07/20 release pravastatin 10 mg tablet 10 mg PO DAILY #90 tab 01/07/20 gabapentin 600 mg tablet 1,200 mg PO TID #540 tab 01/12/20 quetiapine 25 mg tablet 25 mg PO BEDTIME #30 tab 04/11/20 estradiol 1 gram VAG QWEEK #42.5 gram 04/21/20 cefuroxime axetil 250 mg PO BID #6 tab 04/30/20 diazepam 5 mg tablet 5 mg PO TID PRN #90 tab 05/13/20 oxycodone 5 mg tablet 5 mg PO Q6H PRN #120 tab 05/13/20 cephalexin [Keflex] 500 mg PO QID 7 Days #28 cap 05/16/20 Allergies Allergy/AdvReac Type Severity Reaction Status Date / Time No Known Drug Allergies Allergy Verified 05/16/20 17:36 Review of Systems Constitutional Constitutional: Denies chills, Denies fatigue, Denies fever(s), Denies frequent falls, Denies lethargy and Denies weakness Eyes Eyes: Reports change in vision, Denies eye discharge, Denies irritation and Denies loss of vision ENT Ears, Nose, Mouth, and Throat: Denies change in voice, Denies dizziness, Denies neck pain, Denies sore throat and Denies throat swelling Cardiovascular Cardiovascular: Denies chest pain, Denies irregular heart rhythm, Denies lightheadedness, Denies palpitations, Denies dyspnea, Denies dyspnea on exertion and Denies orthopnea Respiratory Respiratory: Denies cough, Denies dyspnea, Denies dyspnea on exertion and Denies wheezing Gastrointestinal Gastrointestinal: Denies abdominal pain, Denies change in bowel habits, Denies diarrhea, Denies nausea and Denies vomiting Musculoskeletal Musculoskeletal: Reports back pain, Denies neck pain and Denies numbness Integumentary/Breasts Skin/Breast: Denies pruritus, Denies erythema, Denies rash and Denies wounds Neurologic Neurologic: Denies behavioral changes, Denies confusion, Denies dizziness, Denie s frequent falls, Denies loss of vision, Denies numbness and Denies weakness Psychiatric Psychiatric: Denies anxiety, Denies behavioral changes, Denies confusion, Denies depression, Denies homicidal ideation and Denies suicidal ideation Endocrine Endocrine: Denies fatigue, Denies flushing and Denies palpitations Hematologic/Lymphatic Hematologic/Lymphatic: Denies easy bruising Allergic/Immunologic Allergic/Immunologic: Denies urticaria, Denies throat swelling and Denies wheezing Patient History Medical History Clostridium difficile colitis (Resolved) Social History household members: spouse Smoking Status: Never smoker alcohol intake: never substance use type: does not use Smoking Status: Never smoker alcohol intake frequency: 0-2 drinks per day Substance Use Type: does not use Exam Narrative Exam Narrative: GENERAL: [69] year old patient appears stated age. Well- nourished, well-developed patient, in mild distress. HEAD: Atraumatic. Normocephalic. EYES: Pupils equal round and reactive. Extraocular motions intact. No scleral icterus. No injection or drainage. ENT: Nose without bleeding, purulent drainage. Throat without erythema, tonsillar hypertrophy or exudate. Airway patent. NECK: Trachea midline. Non tender CARDIOVASCULAR: Regular rate and rhythm without murmurs, gallops, or rubs. RESPIRATORY: Clear to auscultation. Breath sounds equal bilaterally. No wheezes, rales, or rhonchi. GASTROINTESTINAL: Abdomen soft, non-tender, nondistended. EXTREMITIES: No edema or joint tenderness. BACK: Nontender without deformity or crepitance. No flank tenderness. NEURO: AOx3. SKIN: No rash or erythema of visible areas Initial Vital Signs Initial Vital Signs: Vital Signs Temperature 98 F 05/16/20 17:31 Pulse Rate 90 05/16/20 17:31 Respiratory Rate 17 05/16/20 17:31 Blood Pressure 105/56 L 05/16/20 17:31 Pulse Oximetry 95 05/16/20 17:31 Course Orders Ordered: ED Orders 05/16/20 19:33 CT head/brain wo con Stat 05/16/20 19:37 Basic Metabolic Panel Stat Complete Blood Count AUTO DIFF Stat Partial Thromboplastin Time Stat Prothrombin Time INR Stat 05/16/20 20:06 Urine Drug Screen, Rapid Stat Discontinued Medications Cefazolin Sodium (Keflex 250 Mg Prepack) 1 bottle MISC SEEINSTR ONE Stop: 05/16/20 21:43 Last Admin: 05/16/20 21:56 Dose: 250 mg Documented by: MAVERICK Sodium Chloride (Normal Saline 0.9%) 1,000 mls @ 150 mls/hr IV CONT LENNY Last Admin: 05/16/20 19:58 Dose: 150 mls/hr Documented by: MAVERICK Ketorolac Tromethamine (Toradol) 15 mg IV NOW ONE Stop: 05/16/20 20:07 Last Admin: 05/16/20 20:33 Dose: 15 mg Documented by: NICHOLAS Metoclopramide HCl (Reglan) 5 mg IV NOW ONE Stop: 05/16/20 20:07 Last Admin: 05/16/20 20:33 Dose: 5 mg Documented by: NICHOLAS Vital Signs Vital signs: Vital Signs - 8 hr 05/16/20 20:30 05/16/20 21:00 05/16/20 21:30 Pulse Rate 65 66 78 Respiratory Rate 11 L 21 28 H Blood Pressure 116/66 118/75 122/71 Pulse Oximetry 96 97 MDM - Neuro Symptoms/Deficit Lab Data Result diagrams: 05/16/20 19:37 05/16/20 19:37 Labs: Lab Results 05/16/20 05/16/20 05/16/20 Range/Units 19:37 19:37 19:37 WBC 4.9 (4.5-11.0) X10^3/uL RBC 3.63 L (4.0-5.2) X10^6/uL Hgb 11.6 L (12.0-16.0) g/dL Hct 34.8 L (36-46) % MCV 95.9 (80-100) fL MCH 31.9 (26-34) PG MCHC 33.2 (30-36) % RDW 14.3 (11.6-14.8) % Plt Count 219 (150-400) X10^3/uL Neut % (Auto) 39.6 L (50-75) % Lymph % (Auto) 48.1 H (25-40) % [place] % (Auto) 7.2 (3-14) % Eos % (Auto) 3.8 (2-4) % Baso % (Auto) 1.3 (0-2) % Neut # (Auto) 1900 (5961-4897) /uL Lymph # (Auto) 2300 (2257-7691) /uL [place] # (Auto) 300 (0-900) /uL Eos # (Auto) 200 (0-450) /uL Baso # (Auto) 100 (0-100) /uL PT 11.8 (10.1-12.7) SECONDS INR 1.0 (0.9-1.3) APTT 30 D (26.4-36.2) SECONDS Sodium 135 L (137-145) mmol/L Potassium 4.4 (3.4-5.1) mmol/L Chloride 101 (98-107) mmol/L Carbon Dioxide 28 (22-32) mmol/L BUN 17 (7-17) mg/dL Creatinine 1.18 H (0.52-1.04) mg/dL Estimated GFR 45.3 L (>60) mL/min BUN/Creatinine Ratio 14.4 (6-22) Glucose 88 (80-110) mg/dL Calcium 9.9 (8.4-10.2) mg/dL U Opiates 300ng/mL cut (Negative) Ur Oxycodone Screen (Negative) Urine Methadone Screen (Negative) Ur Barbiturates Screen (Negative) U Tricyclic Antidepress (Negative) Ur Phencyclidine Scrn (Negative) Ur Amphetamines Screen (Negative) U Methamphetamines Scrn (Negative) Ur MDMA Scrn (Ecstasy) (Negative) U Benzodiazepines Scrn (Negative) Urine Cocaine Screen (Negative) U Marijuana (THC) Screen (Negative) 05/16/20 Range/Units 20:06 WBC (4.5-11.0) X10^3/uL RBC (4.0-5.2) X10^6/uL Hgb (12.0-16.0) g/dL Hct (36-46) % MCV (80-100) fL MCH (26-34) PG MCHC (30-36) % RDW (11.6-14.8) % Plt Count (150-400) X10^3/uL Neut % (Auto) (50-75) % Lymph % (Auto) (25-40) % [place] % (Auto) (3-14) % Eos % (Auto) (2-4) % Baso % (Auto) (0-2) % Neut # (Auto) (7080-7923) /uL Lymph # (Auto) (3065-8556) /uL [place] # (Auto) (0-900) /uL Eos # (Auto) (0-450) /uL Baso # (Auto) (0-100) /uL PT (10.1-12.7) SECONDS INR (0.9-1.3) APTT (26.4-36.2) SECONDS Sodium (137-145) mmol/L Potassium (3.4-5.1) mmol/L Chloride (98-107) mmol/L Carbon Dioxide (22-32) mmol/L BUN (7-17) mg/dL Creatinine (0.52-1.04) mg/dL Estimated GFR (>60) mL/min BUN/Creatinine Ratio (6-22) Glucose (80-110) mg/dL Calcium (8.4-10.2) mg/dL U Opiates 300ng/mL cut Negative (Negative) Ur Oxycodone Screen Positive H (Negative) Urine Methadone Screen Negative (Negative) Ur Barbiturates Screen Negative (Negative) U Tricyclic Antidepress Positive H (Negative) Ur Phencyclidine Scrn Negative (Negative) Ur Amphetamines Screen Negative (Negative) U Methamphetamines Scrn Negative (Negative) Ur MDMA Scrn (Ecstasy) Negative (Negative) U Benzodiazepines Scrn Positive H (Negative) Urine Cocaine Screen Negative (Negative) U Marijuana (THC) Screen Negative (Negative) Urine Dip Bedside Urine Glucose Negative Bedside Urine Bilirubin - Negative Bedside Urine Ketone - Negative Urine Specific Crawford 1.010 Bedside Urine Occult Blood - Negative Bedside Urine pH 7.0 Bedside Urine Protein - Negative Bedside Urine Urobilinogen - Negative Bedside Urine Nitrite + Positive Bedside Urine Leukocytes +++ [address] scan - head: Radiologist's Impression: [place] [address] CT Scan Report Signed Patient: Jonna Ramon [facility]#: [id number] : 1950Acct:[id number] Age/Sex: 69 / FDate of Service: 05/16/20 Loc: ED Accession Number: [id number] Procedure: CT head/brain wo con Ordering Provider: Dennis Malik D.O. PROCEDURE: CT HEAD/BRAIN WO CON INDICATIONS: headache, vision change TECHNIQUE: Noncontrast 4.5 mm thick angled axial sections acquired from the foramen magnum to the vertex, with coronal and sagittal reformats. For radiation dose reduction, the following was used: automated exposure control, adjustment of mA and/or kV according to patient size. COMPARISON: [facility], CT, CT HEAD/BRAIN WO CON, 08/01/2019, 10:59. FINDINGS: Image quality: Excellent. CSF spaces: Basal cisterns are patent. No extra-axial fluid collections. The ventricles are symmetric in size and shape. Brain: No intracranial bleeds or masses. There is cerebral volume loss for age, with resultant ventricular and sulcal prominence. There are periventricular and deep white matter chronic small vessel ischemic changes. There is intracranial internal carotid artery atherosclerosis. Skull and face: Calvarium and visualized facial bones appear intact, without suspicious lesions. Sinuses: Visualized sinuses and mastoids are clear. IMPRESSION: No acute intracranial process. Dictated by: Parag Mcbride M.D. on 05/16/2020 at 19:59 Discharge Plan Departure Patient Disposition: Home Clinical Impression: Acute UTI Headache Qualifiers: Headache type: unspecified Headache chronicity pattern: chronic headache Intractability: not intractable Qualified Code(s): R51 - Headache Discharge Date/Time: 05/16/20 22:08 Instructions: DI for Headache Activity Restrictions/Additional Instructions: *You have been diagnosed with [acute on chronic headache and UTI ] *What to do: *Take medications as directed *Follow up with your primary care provider in 2-3 days, call for an appointment. Let them know you were seen in the Emergency Department and that we ask that you be seen in follow up *Return to ER if you should have any new, worsening or concerning symptoms Prescriptions: New cephalexin [Keflex] 500 mg capsule 500 mg PO QID 7 Days Qty: 28 RF: 0 No Action quetiapine 25 mg tablet 25 mg PO BEDTIME Qty: 30 RF: 3 alendronate 70 mg tablet 70 mg PO QWEEK Qty: 12 RF: 5 albuterol sulfate 90 mcg/actuation HFA aerosol inhaler 1 puff INHALATION Q6H PRN (Reason: shortness of breath or wheezing) Qty: 6.7 RF: 0 amitriptyline 50 mg tablet 50 mg PO BEDTIME Qty: 90 RF: 3 duloxetine 60 mg capsule,delayed release(DR/EC) 120 mg PO DAILY Qty: 180 RF: 3 pravastatin 10 mg tablet 10 mg PO DAILY Qty: 90 RF: 3 gabapentin 600 mg tablet 1,200 mg PO TID Qty: 540 RF: 3 estradiol [Estrace] 0.01 % (0.1 mg/gram) cream 1 gram VAG QWEEK Qty: 42.5 RF: 5 diazepam 5 mg tablet 5 mg PO TID PRN (Reason: muscle spasm) Qty: 90 RF: 5 oxycodone 5 mg tablet 5 mg PO Q6H PRN (Reason: pain) Qty: 120 RF: 0 coenzyme Q10 [Co Q-10] 100 mg capsule 100 mg PO DAILY RF: 0 acetaminophen 325 mg capsule 250 mg PO TID PRN (Reason: Abdominal Discomfort) RF: 0 levothyroxine 100 mcg tablet 100 mcg PO DAILY Qty: 90 RF: 3 cefuroxime axetil 250 mg tablet 250 mg PO BID Qty: 6 RF: 0 Referrals: John Gerardo MD [Primary Care Provider] -
--- NOTE | 2020-05-16 19:33 | DI.CT.S_ITS ---
PROCEDURE: CT HEAD/BRAIN WO CON INDICATIONS: headache, vision change TECHNIQUE: Noncontrast 4.5 mm thick angled axial sections acquired from the foramen magnum to the vertex, with coronal and sagittal reformats. For radiation dose reduction, the following was used: automated exposure control, adjustment of mA and/or kV according to patient size. COMPARISON: [facility], CT, CT HEAD/BRAIN WO CON, 08/01/2019, 10:59. FINDINGS: Image quality: Excellent. CSF spaces: Basal cisterns are patent. No extra-axial fluid collections. The ventricles are symmetric in size and shape. Brain: No intracranial bleeds or masses. There is cerebral volume loss for age, with resultant ventricular and sulcal prominence. There are periventricular and deep white matter chronic small vessel ischemic changes. There is intracranial internal carotid artery atherosclerosis. Skull and face: Calvarium and visualized facial bones appear intact, without suspicious lesions. Sinuses: Visualized sinuses and mastoids are clear. IMPRESSION: No acute intracranial process. Dictated by: Parag Mcbride M.D. on 05/16/2020 at 19:59 Approved by: Parag Mcbride M.D. on 05/16/2020 at 20:00
[2020-05-16 19:53] LABS: Add Manual Diff / Slide Review NO; Basophils Absolute Auto 100 /uL (0-100); Basophils Percent Auto 1.3 % (0-2); Eosinophils Absolute Auto 200 /uL (0-450); Eosinophils Percent Auto 3.8 % (2-4); Hematocrit 34.8 % (36-46); Hemoglobin 11.6 g/dL (12.0-16.0); Lymphocytes Absolute Auto 2300 /uL (1100-4500); Lymphocytes Percent Auto 48.1 % (25-40); Mean Corpuscular HGB Conc 33.2 % (30-36); Mean Corpuscular Hemoglobin 31.9 PG (26-34); Mean Corpuscular Volume 95.9 fL (80-100); Monocytes Absolute Auto 300 /uL (0-900); Monocytes Percent Auto 7.2 % (3-14); Neutrophils Absolute Auto 1900 /uL (1500-7000); Neutrophils Percent Auto 39.6 % (50-75); Platelet Count 219 X10^3/uL (150-400); Red Blood Cell Count 3.63 X10^6/uL (4.0-5.2); Red Cell Distribution Width 14.3 % (11.6-14.8); White Blood Cell Count 4.9 X10^3/uL (4.5-11.0)
[2020-05-16] MEDS: SODIUM CHLORIDE 0.9% 1,000 ML 150 ML IV (19:58)
[2020-05-16 20:06] LABS: Prothrombin Time 11.8 SECONDS (10.1-12.7)
[2020-05-16 20:08] LABS: PTT Partial Thromboplastin Tim 30 SECONDS (26.4-36.2)
[2020-05-16 20:10] LABS: BUN Creatinine Ratio 14.4 (6-22); Blood Urea Nitrogen 17 mg/dL (7-17); Calcium 9.9 mg/dL (8.4-10.2); Carbon Dioxide 28 mmol/L (22-32); Chloride 101 mmol/L (98-107); Estimated Glomerular Filt Rate 45.3 mL/min (>60); Glucose 88 mg/dL (80-110); Sodium 135 mmol/L (137-145)
[2020-05-16 20:11] LABS: HEMOLYSIS 69 (0-50)
[2020-05-16 20:12] LABS: Potassium 4.4 mmol/L (3.4-5.1)
[2020-05-16 20:20] LABS: Ur Creatinine Normal (Normal); Ur Specific Gravity Normal (Normal); Urine pH Normal (Normal)
[2020-05-16 20:21] LABS: UR Morphine/Opiate cutoff 300 Negative (Negative); Urine Amphetamines Negative (Negative); Urine Barbiturates Negative (Negative); Urine Benzodiazepines Positive (Negative); Urine Cocaine Negative (Negative); Urine MDMA Negative (Negative); Urine Methadone Negative (Negative); Urine Methamphetamines Negative (Negative); Urine Oxycodone Positive (Negative); Urine Phencyclidine Negative (Negative); Urine Tetrahydrocannabinol Negative (Negative); Urine Tricyclic Antidepressant Positive (Negative)
[2020-05-16] MEDS: METOCLOPRAMIDE 10 MG/2 ML INJ 5 MG IV (20:33)
[2020-05-16] MEDS: KETOROLAC 60 MG/2 ML VIAL 15 MG IV (20:33)
[2020-05-16] MEDS: cephALEXin 250 MG PREPACK 1 BOTTLE MISC (21:56)
== END 2020-05-16 22:08 | disposition home or self-care (01) ==
PROVIDERS: Emergency Provider Emergency Medicine; PCP Student in an Organized Health Care Education/Training Program
DX: N39.0 Urinary tract infection, site not specified (principal); R51 Headache; M54.9 Dorsalgia, unspecified; H53.9 Unspecified visual disturbance
CPT/HCPCS: 36415; 70450; 80048; 80305; 81003; 85025; 85610; 85730; 93005; 96374; 96375; 99284; J1885; J2765

== ENCOUNTER → 2020-05-17 11:24 | Outpatient (CLI) | payer MEDICARE, OTHER, SELFPAY ==
[2020-04-27 17:02] VITALS: BMI 20.5
[2020-05-19 10:02] LABS: COVID19 Sendout Not Detected (Not Detect)
== END ==
PROVIDERS: PCP Student in an Organized Health Care Education/Training Program; Visit Provider Physician Assistant
DX: Z03.818 Encounter for observation for suspected exposure to other biological agents ruled out (principal)
CPT/HCPCS: 87635

== ENCOUNTER 2020-06-04 11:09 | Inpatient (IN) | payer MEDICARE, OTHER, SELFPAY ==
[2020-04-27 17:02] VITALS: BMI 20.5
[2020-06-04] VITALS (23 sets, daily range): BP systolic 81–143; BP diastolic 46–77; PULSE 67–117; RESP 15–21; TEMP 35.9–39.2; O2SAT 91–99; BMI 21.2
--- NOTE | 2020-06-04 11:32 | DI.RAD.S_ITS ---
PROCEDURE: XR CHEST 1V INDICATIONS: fever TECHNIQUE: One view of the chest was acquired. COMPARISON: [facility], CR, XR CHEST 1V, 08/01/2019, 11:11. [facility], CR, XR CHEST 1V, 04/27/2020, 12:31. [facility], CT, CT ABDOMEN PELVIS WO CON, 04/28/2020, 16:06. [facility], CR, XR CHEST 1V, 04/29/2020, 12:54. FINDINGS: Surgical changes and devices: Bilateral shoulder arthroplasty hardware is seen. A left upper quadrant clip can be seen. Lungs and pleura: Lungs are clear. No pleural effusions or pneumothorax. Mediastinum: Mediastinal contours appear normal. Heart size is mildly enlarged. Bones and chest wall: No suspicious bony lesions. Age-appropriate bony degenerative changes are seen. Minimal dextroconvex scoliotic curvature is seen. Overlying soft tissues appear unremarkable. IMPRESSION: No focal infiltrates are seen. If clinically appropriate, a short-term followup chest series (with PA and lateral views) performed in deep inspiration is suggested for further evaluation. Mild cardiomegaly. Postoperative and degenerative changes are seen. Dictated by: Mark Juarez M.D. on 06/04/2020 at 11:34 Approved by: Mark Juarez M.D. on 06/04/2020 at 11:36
--- NOTE | 2020-06-04 11:51 | ED.NEUROSD ---
HPI - Neuro Symptoms/Deficit General Chief Complaint: Neuro Symptoms/Deficit Stated Complaint: FEVER/DELERIUM/COORDINATION Time Seen by Provider: 06/04/20 11:25 Source: patient and family Mode of arrival: Wheelchair Limitations: no limitations History of Present Illness HPI Narrative: Patient is a 69-year-old female with history of urosepsis from E coli in April 2020 and neuromyelitis optica presenting today with fever and confusion. 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 She really does not have symptoms she denies any sore throat chest pain shortness of breath abdominal pain,nausea or vomiting. She states that she always seems to have dysuria does not seem to be any worse her states that when she presented last time she had fever and confusion similar to today. On Anticoagulants: No Related Data Home Medications Medication Instructions Recorded Confirmed acetaminophen 325 mg capsule 250 mg PO TID PRN cap 08/18/19 06/04/20 coenzyme Q10 100 mg capsule 100 mg PO DAILY 08/18/19 06/04/20 estradiol [Estrace] 1 gram VAG QWEEK PRN 06/04/20 06/04/20 pravastatin 10 mg PO BEDTIME 06/04/20 06/04/20 Previous Rx's Medication Instructions Recorded alendronate 70 mg tablet 70 mg PO QWEEK #12 tab 06/01/19 albuterol sulfate 90 mcg/actuation 1 puff INHALATION Q6H PRN #6.7 gram 06/12/19 aerosol inhaler amitriptyline 50 mg tablet 50 mg PO BEDTIME #90 tab 06/29/19 levothyroxine 100 mcg tablet 100 mcg PO DAILY #90 tab 10/20/19 gabapentin 600 mg tablet 1,200 mg PO TID #540 tab 01/12/20 quetiapine 25 mg tablet 25 mg PO BEDTIME #30 tab 04/11/20 cefuroxime axetil 250 mg PO BID #6 tab 04/30/20 diazepam 5 mg tablet 5 mg PO TID PRN #90 tab 05/13/20 oxycodone 5 mg tablet 5 mg PO Q6H PRN #120 tab 05/13/20 duloxetine 60 mg capsule,delayed 120 mg PO DAILY #180 cap 05/17/20 release Allergies Allergy/AdvReac Type Severity Reaction Status Date / Time No Known Drug Allergies Allergy Verified 06/04/20 11:42 Review of Systems Review of Systems ROS Unobtainable: All systems reviewed & are unremarkable except as noted in HPI and below Constitutional Constitutional: Reports chills, Reports fever(s), Denies lethargy and Denies weakness Eyes Eyes: Denies change in vision, Denies eye discharge, Denies irritation and Denies loss of vision Cardiovascular Cardiovascular: Denies chest pain, Denies irregular heart rhythm, Denies lightheadedness, Denies palpitations, Denies dyspnea, Denies dyspnea on exertion and Denies orthopnea Respiratory Respiratory: Denies cough, Denies dyspnea, Denies dyspnea on exertion and Denies wheezing Genitourinary Genitourinary: Reports as per HPI Genitourinary: Reports as per HPI Musculoskeletal Musculoskeletal: Denies arthralgias and Denies back pain Integumentary/Breasts Skin/Breast: Denies pruritus, Denies erythema, Denies rash and Denies wounds Neurologic Neurologic: Reports as per HPI, Denies loss of vision and Denies weakness Endocrine Endocrine: Denies palpitations Allergic/Immunologic Allergic/Immunologic: Denies wheezing Patient History Medical History (Updated 06/04/20 @ 13:23 by Renata Santoyo DO) Clostridium difficile colitis (Resolved) Frequent UTI (Chronic) Social History household members: spouse Smoking Status: Never smoker alcohol intake: never substance use type: does not use Smoking Status: Never smoker alcohol intake frequency: a few times a week Substance Use Type: does not use Exam Initial Vital Signs Initial Vital Signs: Vital Signs Temperature 100.4 F H 06/04/20 11:25 Pulse Rate 85 06/04/20 11:25 Respiratory Rate 15 06/04/20 11:25 Blood Pressure 92/50 L 06/04/20 11:25 Pulse Oximetry 94 06/04/20 11:25 GENERAL: [Well-appearing, well-nourished] and in [no acute] distress. HEENT: Head atraumatic,EOMI, pupils reactive, face symmetric, [moist] mucous membranes CARDIOVASCULAR: Regular rate and rhythm without murmurs, rubs or gallops. RESPIRATORY: Breath sounds equal bilaterally, no wheezes rales or rhonchi. ABDOMEN: Soft, nontender. Normoactive bowel sounds all 4 quadrants. No guarding or rebound. : No CVA tenderness EXTREMITIES: Normal range of motion, no clubbing or edema. Neurovascularly intact NEUROLOGICAL: Alert and oriented x4.Normal gait and speech. Mild ataxia SKIN: Warm, dry, no laceration, no petechiae, no rashes or lesions. Scores GCS [place] coma scale eye opening: Spontaneous Mendel coma scale verbal response: Confused Mendel coma scale motor response: Obey commands [place] coma scale total score: 14 qSOFA Altered Mental Status (GCS <15): Yes Respiratory rate greater than/equal to 22: No Systolic blood pressure less than or equal to 100: Yes qSOFA Total: 2 0-1 Not High Risk 1-3 High risk Course Orders Ordered: ED Orders 06/04/20 11:32 XR chest 1V Stat 06/04/20 11:40 C-Reactive Protein Quant Stat Complete Blood Count AUTO DIFF Stat Comprehensive Metabolic Panel Stat D Dimer Stat Ferritin Stat Lactate (Lactic Acid) Stat Lactate Dehydrogenase Stat Procalcitonin Stat 06/04/20 12:20 Urine Culture Stat Urine Microscopic Stat 06/04/20 13:50 Blood Culture Stat Acetaminophen (Tylenol) 650 mg PO Q6HR PRN PRN Reason: Fever/Mild Pain (1-3) Amitriptyline HCl (Elavil) 50 mg PO BEDTIME LENNY Diazepam (Valium) 5 mg PO TID PRN PRN Reason: muscle spasm Duloxetine HCl (Cymbalta) 120 mg PO DAILY [facility] Enoxaparin Sodium (Lovenox) 40 mg SUBCUT DAILY [facility] Gabapentin (Neurontin) 1,200 mg PO TID [facility] Sodium Chloride (Normal Saline 0.9%) 1,000 mls @ 100 mls/hr IV CONT LENNY Last Admin: 06/04/20 16:16 Dose: 100 mls/hr Documented by: SHEEBA Levothyroxine Sodium (Synthroid) 100 mcg PO 0600 LENNY Morphine Sulfate (Morphine) 2 mg IV Q4HR PRN PRN Reason: Pain, Moderate (4-6) Naloxone HCl (Narcan) 0.2 mg IV Q2MIN PRN PRN Reason: Opiate Reversal Oxycodone HCl (Percolone) 5 mg PO Q6H PRN PRN Reason: pain Pravastatin Sodium (Pravachol) 10 mg PO BEDTIME LENNY Quetiapine Fumarate (Seroquel) 25 mg PO BEDTIME LENNY Discontinued Medications Acetaminophen (Tylenol) 975 mg PO NOW ONE Stop: 06/04/20 11:56 Last Admin: 06/04/20 12:14 Dose: 975 mg Documented by: YISSEL Lactated Ringer's (Lactated Ringers) 1,850.67 mls @ 616.89 mls/hr 30 ml/kg infuse over 3 hr (1850.67 ml) IV NOW ONE Stop: 06/04/20 14:32 Last Infusion: 06/04/20 15:35 Dose: 0 mls/hr Documented by: Infusion: 06/04/20 14:19 Dose: 617 mls/hr Documented by: Admin: 06/04/20 12:14 Dose: 616.89 mls/hr Documented by: YISSEL Ceftriaxone Sodium/Dextrose (Rocephin) 1 gm in 50 mls @ 100 mls/hr IV NOW ONE Stop: 06/04/20 13:32 Last Infusion: 06/04/20 14:18 Dose: 0 mls/hr Documented by: Admin: 06/04/20 13:55 Dose: 100 mls/hr Documented by: YISSEL Vital Signs Vital signs: Vital Signs - 8 hr 06/04/20 11:25 06/04/20 11:30 06/04/20 12:14 Temperature 100.4 F H Pulse Rate 85 80 91 H Respiratory Rate 15 Blood Pressure 92/50 L Pulse Oximetry 94 94 96 06/04/20 12:30 06/04/20 12:37 06/04/20 13:00 Temperature Pulse Rate 73 69 69 Respiratory Rate 21 Blood Pressure 81/46 L 90/53 L Pulse Oximetry 96 96 94 06/04/20 13:30 06/04/20 14:00 06/04/20 14:20 Temperature 98.2 F Pulse Rate 68 67 73 Respiratory Rate 17 15 19 Blood Pressure 103/58 L 95/54 L 95/49 L Pulse Oximetry 96 99 98 MDM - Neuro Symptoms/Deficit Lab Data Attestation: I reviewed the patient's lab results. Result diagrams: 06/04/20 11:40 06/04/20 11:40 Labs: Lab Results 06/04/20 06/04/20 06/04/20 Range/Units 11:40 11:40 11:40 WBC 8.3 (4.5-11.0) X10^3/uL RBC 3.23 L (4.0-5.2) X10^6/uL Hgb 10.6 L (12.0-16.0) g/dL Hct 30.8 L (36-46) % MCV 95.5 (80-100) fL MCH 32.7 (26-34) PG MCHC 34.2 (30-36) % RDW 14.2 (11.6-14.8) % Plt Count 151 (150-400) X10^3/uL Neut % (Auto) 71.9 (50-75) % Lymph % (Auto) 18.9 L (25-40) % [place] % (Auto) 7.9 (3-14) % Eos % (Auto) 0.9 L (2-4) % Baso % (Auto) 0.4 (0-2) % Neut # (Auto) 6000 (7908-2204) /uL Lymph # (Auto) 1600 (2055-3882) /uL [place] # (Auto) 700 (0-900) /uL Eos # (Auto) 100 (0-450) /uL Baso # (Auto) 0 (0-100) /uL D-Dimer (<230) ng/mL Sodium 131 L (137-145) mmol/L Potassium 4.4 (3.4-5.1) mmol/L Chloride 97 L (98-107) mmol/L Carbon Dioxide 28 (22-32) mmol/L BUN 19 H (7-17) mg/dL Creatinine 1.25 H (0.52-1.04) mg/dL Estimated GFR 42.4 L (>60) mL/min BUN/Creatinine Ratio 15.2 (6-22) Glucose 94 (80-110) mg/dL Lactate (0.7-2.1) mmol/L Calcium 8.8 (8.4-10.2) mg/dL Ferritin (11-264) ng/mL Total Bilirubin 0.9 (0.2-1.3) mg/dL AST 34 (14-36) IU/L ALT 14 (<35) IU/L Alkaline Phosphatase 84 (38-126) U/L Lactate Dehydrogenase (313-618) U/L C-Reactive Protein (<1.0) mg/dL Total Protein 6.8 (6.3-8.2) g/dL Albumin 3.7 (3.5-5.0) g/dL Globulin 3.1 (1.7-4.1) g/dL Albumin/Globulin Ratio 1.2 (1.0-2.8) Procalcitonin 0.10 (<0.5) ng/mL Urine RBC (0-5/HPF) Urine WBC (0-5/HPF) Urine Bacteria (None) Ur Culture Indicated? COVID-19 PCR (Negative) 06/04/20 06/04/20 06/04/20 Range/Units 11:40 11:40 11:40 WBC (4.5-11.0) X10^3/uL RBC (4.0-5.2) X10^6/uL Hgb (12.0-16.0) g/dL Hct (36-46) % MCV (80-100) fL MCH (26-34) PG MCHC (30-36) % RDW (11.6-14.8) % Plt Count (150-400) X10^3/uL Neut % (Auto) (50-75) % Lymph % (Auto) (25-40) % [place] % (Auto) (3-14) % Eos % (Auto) (2-4) % Baso % (Auto) (0-2) % Neut # (Auto) (0851-8972) /uL Lymph # (Auto) (2208-5958) /uL [place] # (Auto) (0-900) /uL Eos # (Auto) (0-450) /uL Baso # (Auto) (0-100) /uL D-Dimer 418 H (<230) ng/mL Sodium (137-145) mmol/L Potassium (3.4-5.1) mmol/L Chloride (98-107) mmol/L Carbon Dioxide (22-32) mmol/L BUN (7-17) mg/dL Creatinine (0.52-1.04) mg/dL Estimated GFR (>60) mL/min BUN/Creatinine Ratio (6-22) Glucose (80-110) mg/dL Lactate 0.7 (0.7-2.1) mmol/L Calcium (8.4-10.2) mg/dL Ferritin 64 (11-264) ng/mL Total Bilirubin (0.2-1.3) mg/dL AST (14-36) IU/L ALT (<35) IU/L Alkaline Phosphatase (38-126) U/L Lactate Dehydrogenase 381 (313-618) U/L C-Reactive Protein 5.7 H (<1.0) mg/dL Total Protein (6.3-8.2) g/dL Albumin (3.5-5.0) g/dL Globulin (1.7-4.1) g/dL Albumin/Globulin Ratio (1.0-2.8) Procalcitonin (<0.5) ng/mL Urine RBC (0-5/HPF) Urine WBC (0-5/HPF) Urine Bacteria (None) Ur Culture Indicated? COVID-19 PCR (Negative) 06/04/20 06/04/20 Range/Units 11:55 12:20 WBC (4.5-11.0) X10^3/uL RBC (4.0-5.2) X10^6/uL Hgb (12.0-16.0) g/dL Hct (36-46) % MCV (80-100) fL MCH (26-34) PG MCHC (30-36) % RDW (11.6-14.8) % Plt Count (150-400) X10^3/uL Neut % (Auto) (50-75) % Lymph % (Auto) (25-40) % [place] % (Auto) (3-14) % Eos % (Auto) (2-4) % Baso % (Auto) (0-2) % Neut # (Auto) (0185-4705) /uL Lymph # (Auto) (9431-2340) /uL [place] # (Auto) (0-900) /uL Eos # (Auto) (0-450) /uL Baso # (Auto) (0-100) /uL D-Dimer (<230) ng/mL Sodium (137-145) mmol/L Potassium (3.4-5.1) mmol/L Chloride (98-107) mmol/L Carbon Dioxide (22-32) mmol/L BUN (7-17) mg/dL Creatinine (0.52-1.04) mg/dL Estimated GFR (>60) mL/min BUN/Creatinine Ratio (6-22) Glucose (80-110) mg/dL Lactate (0.7-2.1) mmol/L Calcium (8.4-10.2) mg/dL Ferritin (11-264) ng/mL Total Bilirubin (0.2-1.3) mg/dL AST (14-36) IU/L ALT (<35) IU/L Alkaline Phosphatase (38-126) U/L Lactate Dehydrogenase (313-618) U/L C-Reactive Protein (<1.0) mg/dL Total Protein (6.3-8.2) g/dL Albumin (3.5-5.0) g/dL Globulin (1.7-4.1) g/dL Albumin/Globulin Ratio (1.0-2.8) Procalcitonin (<0.5) ng/mL Urine RBC 1-5/hpf (0-5/HPF) Urine WBC 30-100/hpf H (0-5/HPF) Urine Bacteria Many (>30) H (None) Ur Culture Indicated? Specimen cultured COVID-19 PCR Negative (Negative) Urine Dip Bedside Urine Glucose Negative Bedside Urine Bilirubin - Negative Bedside Urine Ketone - Negative Urine Specific [place] 1.010 Bedside Urine Occult Blood +/- Bedside Urine pH 6.5 Bedside Urine Protein + 30 Bedside Urine Urobilinogen - Negative Bedside Urine Nitrite + Positive Bedside Urine Leukocytes +++ 500 Esterase Imaging Data Chest x-ray: Radiologist's Impression: PROCEDURE: XR CHEST 1V INDICATIONS: fever TECHNIQUE: One view of the chest was acquired. COMPARISON: [facility], CR, XR CHEST 1V, 08/01/2019, 11:11. [facility], CR, XR CHEST 1V, 04/27/2020, 12:31. [facility], CT, CT ABDOMEN PELVIS WO CON, 04/28/2020, 16:06. [facility], CR, XR CHEST 1V, 04/29/2020, 12:54. FINDINGS: Surgical changes and devices: Bilateral shoulder arthroplasty hardware is seen. A left upper quadrant clip can be seen. Lungs and pleura: Lungs are clear. No pleural effusions or pneumothorax. Mediastinum: Mediastinal contours appear normal. Heart size is mildly enlarged. Bones and chest wall: No suspicious bony lesions. Age-appropriate bony degenerative changes are seen. Minimal dextroconvex scoliotic curvature is seen. Overlying soft tissues appear unremarkable. IMPRESSION: No focal infiltrates are seen. If clinically appropriate, a short-term followup chest series (with PA and lateral views) performed in deep inspiration is suggested for further evaluation. Mild cardiomegaly. Postoperative and degenerative changes are seen. Dictated by: Mark Juarez M.D. on 06/04/2020 at 11:34 MDM Narrative Medical decision making narrative: Patient is found to be febrile and hypotensive in the ED. She is also found to have a UTI with nitrates and leukocytes in her urine. She was started on Rocephin based on her previous culture. She actually does not have leukocytosis. Patient says that her normal blood pressures in the 90s however according to her last admission she actually did have a normal blood pressure after she was fluid resuscitated. Dr. ritchie accepts patient Discharge Plan Departure Clinical Impression: Acute UTI Sepsis Qualifiers: Sepsis type: sepsis due to unspecified organism Sepsis acute organ dysfunction status: with acute organ dysfunction Severe sepsis acute organ dysfunction type: unspecified Severe sepsis shock status: without septic shock Qualified Code(s): A41.9 - Sepsis, unspecified organism Admit Date/Time: 06/04/20 14:23 Admit Provider: Benjamin Ritchie
[2020-06-04] MEDS: LACTATED RINGERS 616.89 ML IV (12:14)
[2020-06-04] MEDS: ACETAMINOPHEN 325 MG TABLET 975 MG PO (12:14)
[2020-06-04 12:21] LABS: Add Manual Diff / Slide Review NO; Basophils Absolute Auto 0 /uL (0-100); Basophils Percent Auto 0.4 % (0-2); Eosinophils Absolute Auto 100 /uL (0-450); Eosinophils Percent Auto 0.9 % (2-4); Hematocrit 30.8 % (36-46); Hemoglobin 10.6 g/dL (12.0-16.0); Lymphocytes Absolute Auto 1600 /uL (1100-4500); Lymphocytes Percent Auto 18.9 % (25-40); Mean Corpuscular HGB Conc 34.2 % (30-36); Mean Corpuscular Hemoglobin 32.7 PG (26-34); Mean Corpuscular Volume 95.5 fL (80-100); Monocytes Absolute Auto 700 /uL (0-900); Monocytes Percent Auto 7.9 % (3-14); Neutrophils Absolute Auto 6000 /uL (1500-7000); Neutrophils Percent Auto 71.9 % (50-75); Platelet Count 151 X10^3/uL (150-400); Red Blood Cell Count 3.23 X10^6/uL (4.0-5.2); Red Cell Distribution Width 14.2 % (11.6-14.8); White Blood Cell Count 8.3 X10^3/uL (4.5-11.0)
[2020-06-04 12:24] LABS: D Dimer 418 ng/mL (<230)
[2020-06-04 12:28] LABS: Lactate (Lactic Acid) 0.7 mmol/L (0.7-2.1)
[2020-06-04 12:29] LABS: Alanine Aminotransferase 14 IU/L (<35); Albumin 3.7 g/dL (3.5-5.0); Albumin Globulin Ratio 1.2 (1.0-2.8); Alkaline Phosphatase 84 U/L (38-126); Aspartate Aminotransferase 34 IU/L (14-36); BUN Creatinine Ratio 15.2 (6-22); Bilirubin Total 0.9 mg/dL (0.2-1.3); Blood Urea Nitrogen 19 mg/dL (7-17); Calcium 8.8 mg/dL (8.4-10.2); Carbon Dioxide 28 mmol/L (22-32); Chloride 97 mmol/L (98-107); Estimated Glomerular Filt Rate 42.4 mL/min (>60); Globulin 3.1 g/dL (1.7-4.1); Glucose 94 mg/dL (80-110); HEMOLYSIS < 15 (0-50); Potassium 4.4 mmol/L (3.4-5.1); Sodium 131 mmol/L (137-145); Total Protein 6.8 g/dL (6.3-8.2)
[2020-06-04 12:31] LABS: C-Reactive Protein Quant 5.7 mg/dL (<1.0); Lactate Dehydrogenase 381 U/L (313-618)
[2020-06-04 13:03] LABS: Ferritin 64 ng/mL (11-264)
[2020-06-04 13:11] LABS: Bacteria Urine Many (>30); Culture Indicated Urine Specimen Cultured; RBC Urine 1-5/HPF (0-5/HPF); WBC Urine 30-100/HPF (0-5/HPF)
[2020-06-04] MEDS: CEFTRIAXONE 1 GM/50 ML FROZ.PIGGY IV (13:41)
[2020-06-04 14:06] LABS: COVID19 -Nasal RAPID Negative (Negative)
--- NOTE | 2020-06-04 15:57 | PM.HP.1 ---
History of Present Illness History of Present Illness Date Patient Seen: 06/04/20 Time Patient Seen: 15:57 Chief complaint: FEVER/DELERIUM/COORDINATION Narrative: Jonna Ramon is a 69 with PMH of neuromyelitis optica, osteoporosis, frequent UTI, anxiety and depression, hypothyroidism who presented with intermittent confusion and difficulty ambulating starting this morning. Patient also reports a fever to 102 at home which is when they decided to come to the emergency room. Patient states that she went to a outside [employer] yesterday but denies any current nausea, vomiting, or changes in her usual abdominal pain. She denies any cough, shortness of breath, or chest pain. She does note some worsened dysuria from her baseline over the past few days as well as some urinary frequency. In the ER she was febrile to 100.4, hypotensive that responded to initial small amount of fluid boluses. Labs were notable for mild MONIQUE with Cr 1.25, Na of 131, but no leukocytosis and stable anemia from prior admission with Hg of 10.6. Platelets borderline at 151. UA was grossly positive with many bacteria and 30-100 WBC. COVID 19 testing was negative. Patient History Medical History (Updated 06/04/20 @ 13:23 by Renata Santoyo DO) Clostridium difficile colitis (Resolved) Frequent UTI (Chronic) Family & Social History Social History: household members spouse Safety & Behavioral: Feels Safe in Current Yes Environment Tobacco & Substance use: Smoking Status Never smoker alcohol intake never alcohol intake frequency a few times a week Substance Use Type does not use Meds Home Medications and Allergies Home Medications Medication Instructions Recorded Confirmed Type alendronate 70 mg tablet 70 mg PO QWEEK #12 tab 06/01/19 06/04/20 Rx albuterol sulfate 90 mcg/actuation 1 puff INHALATION Q6H PRN #6.7 gram 06/12/19 06/04/20 Rx aerosol inhaler amitriptyline 50 mg tablet 50 mg PO BEDTIME #90 tab 06/29/19 06/04/20 Rx acetaminophen 325 mg capsule 250 mg PO TID PRN cap 08/18/19 06/04/20 History coenzyme Q10 100 mg capsule 100 mg PO DAILY 08/18/19 06/04/20 History levothyroxine 100 mcg tablet 100 mcg PO DAILY #90 tab 10/20/19 06/04/20 Rx gabapentin 600 mg tablet 1,200 mg PO TID #540 tab 01/12/20 06/04/20 Rx quetiapine 25 mg tablet 25 mg PO BEDTIME #30 tab 04/11/20 06/04/20 Rx cefuroxime axetil 250 mg PO BID #6 tab 04/30/20 06/04/20 Rx diazepam 5 mg tablet 5 mg PO TID PRN #90 tab 05/13/20 06/04/20 Rx oxycodone 5 mg tablet 5 mg PO Q6H PRN #120 tab 05/13/20 06/04/20 Rx duloxetine 60 mg capsule,delayed 120 mg PO DAILY #180 cap 05/17/20 06/04/20 Rx release estradiol [Estrace] 1 gram VAG QWEEK PRN 06/04/20 06/04/20 History pravastatin 10 mg PO BEDTIME 06/04/20 06/04/20 History Allergies Allergy/AdvReac Type Severity Reaction Status Date / Time No Known Drug Allergies Allergy Verified 06/04/20 11:42 Review of Systems Review of Systems Narrative: All other systems reviewed with the patient and are negative unless otherwise stated. Exam Vital Signs (past 8 hours): - 06/04/20 11:25 06/04/20 11:30 06/04/20 12:14 Temperature 100.4 F H Pulse Rate 85 80 91 H Respiratory Rate 15 Blood Pressure 92/50 L Pulse Oximetry 94 94 96 06/04/20 12:30 06/04/20 12:37 06/04/20 13:00 Temperature Pulse Rate 73 69 69 Respiratory Rate 21 Blood Pressure 81/46 L 90/53 L Pulse Oximetry 96 96 94 06/04/20 13:30 06/04/20 14:00 06/04/20 14:20 Temperature 98.2 F Pulse Rate 68 67 73 Respiratory Rate 17 15 19 Blood Pressure 103/58 L 95/54 L 95/49 L Pulse Oximetry 96 99 98 Oxygen Delivery Method Room Air Narrative Exam Narrative: GENERAL APPEARANCE: Well developed, well nourished, in no acute distress. SKIN: Inspection of the skin reveals no rashes, ulcerations or petechiae. HEENT: Normocephalic atraumatic, extraocular muscles are intact, oropharynx is clear and mucous membranes are moist, neck is supple without adenopathy NECK: Supple and symmetric. There was no thyroid enlargement, and no tenderness, or masses were felt. CHEST: Normal AP diameter and normal contour without any kyphoscoliosis. LUNGS: Auscultation of the lungs revealed no wheezes, rhonchi, or rales. CARDIOVASCULAR: There was a regular rate and rhythm without any murmurs, gallops, rubs. Peripheral pulses were 2+ and symmetric. ABDOMEN: Soft and nontender with normal bowel sounds. No ascites was noted. MUSCULOSKELETAL: There was no tenderness or effusions noted. Muscle strength and tone were normal. EXTREMITIES: No cyanosis, clubbing or edema. NEUROLOGIC: Alert and oriented x 3. Normal affect. Gait was slow but unremarkable. She has some mild tremulousness with movement. Strength is +5/5 in the Upper Extremities and Lower Extremities Bilaterally. Sensation to touch was normal. Objective Labs Result Diagrams: 06/04/20 11:40 06/04/20 11:40 Labs: Laboratory Results - last 24 hr 06/04/20 06/04/20 06/04/20 11:40 11:40 11:40 WBC 8.3 RBC 3.23 L Hgb 10.6 L Hct 30.8 L MCV 95.5 MCH 32.7 MCHC 34.2 RDW 14.2 Plt Count 151 Neut % (Auto) 71.9 Lymph % (Auto) 18.9 L [place] % (Auto) 7.9 Eos % (Auto) 0.9 L Baso % (Auto) 0.4 Neut # (Auto) 6000 Lymph # (Auto) 1600 [place] # (Auto) 700 Eos # (Auto) 100 Baso # (Auto) 0 D-Dimer Sodium 131 L Potassium 4.4 Chloride 97 L Carbon Dioxide 28 BUN 19 H Creatinine 1.25 H Estimated GFR 42.4 L BUN/Creatinine Ratio 15.2 Glucose 94 Lactate Calcium 8.8 Ferritin Total Bilirubin 0.9 AST 34 ALT 14 Alkaline Phosphatase 84 Lactate Dehydrogenase C-Reactive Protein Total Protein 6.8 Albumin 3.7 Globulin 3.1 Albumin/Globulin Ratio 1.2 Procalcitonin 0.10 Urine RBC Urine WBC Urine Bacteria Ur Culture Indicated? COVID-19 PCR 06/04/20 06/04/20 06/04/20 11:40 11:40 11:40 WBC RBC Hgb Hct MCV MCH MCHC RDW Plt Count Neut % (Auto) Lymph % (Auto) [place] % (Auto) Eos % (Auto) Baso % (Auto) Neut # (Auto) Lymph # (Auto) [place] # (Auto) Eos # (Auto) Baso # (Auto) D-Dimer 418 H Sodium Potassium Chloride Carbon Dioxide BUN Creatinine Estimated GFR BUN/Creatinine Ratio Glucose Lactate 0.7 Calcium Ferritin 64 Total Bilirubin AST ALT Alkaline Phosphatase Lactate Dehydrogenase 381 C-Reactive Protein 5.7 H Total Protein Albumin Globulin Albumin/Globulin Ratio Procalcitonin Urine RBC Urine WBC Urine Bacteria Ur Culture Indicated? COVID-19 PCR 06/04/20 06/04/20 11:55 12:20 WBC RBC Hgb Hct MCV MCH MCHC RDW Plt Count Neut % (Auto) Lymph % (Auto) [place] % (Auto) Eos % (Auto) Baso % (Auto) Neut # (Auto) Lymph # (Auto) [place] # (Auto) Eos # (Auto) Baso # (Auto) D-Dimer Sodium Potassium Chloride Carbon Dioxide BUN Creatinine Estimated GFR BUN/Creatinine Ratio Glucose Lactate Calcium Ferritin Total Bilirubin AST ALT Alkaline Phosphatase Lactate Dehydrogenase C-Reactive Protein Total Protein Albumin Globulin Albumin/Globulin Ratio Procalcitonin Urine RBC 1-5/hpf Urine WBC 30-100/hpf H Urine Bacteria Many (>30) H Ur Culture Indicated? Specimen cultured COVID-19 PCR Negative Assessment & Plan Assessment & Plan narrative: Jonna Ramon is a 69 with PMH of neuromyelitis optica, osteoporosis, frequent UTI, anxiety and depression, hypothyroidism who presented with one day of confusion. 1. Sepsis, acute, present on admission secondary to acute cystitis -patient with intermittent confusion, although no confusion on admission exam however confusion may be related to underlying cognitive process or depression as previously noted in psychatry visit. Sofa score is currently 2 given hypotension and MONIQUE. patient with prior admission for sepsis secondary to acute cystitis. -prior urine culture grew E coli sensitive to ceftriaxone, will start ceftriaxone 1 g Q 24 hours -continue normal saline at 100 cc/hour s/p boluses in the ER. -CXR negative without acute infiltrates. No evidence of pyelo on exam. 2. Acute kidney injury, present on admission - Baseline creatinine as low at 0.79 on prior admission. 1.25 on admission likely in setting of sepsis - continue fluid and avoid nephrotoxic medications. - continue to follow creatinine. 3. chronic pain in setting of neuromyelitits optica. -continue home pain medications 4. anxiety / depression -continue home medications -with possible auditory hallucinations and disorientation per psychiatry note with Dr. De La Torre. Continue medications as listed in his most recent encounter. -consider psychiatry follow up if difficult to control. 5. hypothyroidism. chronic - continue home levothyroxine 100 mcg. 6. Acute cystitis, present on admission. DVT: Lovenox daily Code: Full, surrogate decision maker is the patient's . COVID-19 COVID-19 status: Negative Scores SOFA PaO2/FIO2: >=400 mmHg Platelets: >= 150 Bilirubin: < 1.2 mg/dL Hypotension: MAP < 70 mmHg [place] Coma Scale: 15 Renal: Creatinine 1.2-1.9 mg/dL SOFA Score: 2
[2020-06-04] MEDS: SODIUM CHLORIDE 0.9% 1,000 ML 100 ML IV (16:16)
--- NOTE | 2020-06-04 16:54 | PC.ADMIT ---
[email or web address] [place] [address] Admission Note: The patient,Jonna Ramon,69 y/o, was given written information regarding hospital policies, unit procedures and contact persons. Patient's smoking status: Never smoker. Pt resting in bed during admission process. A/O. Supportive spouse at bedside. Pt up to bathroom, wobbly and shakiness noted. Telemetry and SCD's applied. Oriented to room and call system. Bed alarm on. pt verbalized she will call for needs. Vital Signs - 8 hr 06/04/20 11:25 06/04/20 11:30 06/04/20 12:14 Temperature 100.4 F H Pulse Rate 85 80 91 H Respiratory Rate 15 Blood Pressure 92/50 L Pulse Oximetry 94 94 96 06/04/20 12:30 06/04/20 12:37 06/04/20 13:00 Temperature Pulse Rate 73 69 69 Respiratory Rate 21 Blood Pressure 81/46 L 90/53 L Pulse Oximetry 96 96 94 06/04/20 13:30 06/04/20 14:00 06/04/20 14:20 Temperature 98.2 F Pulse Rate 68 67 73 Respiratory Rate 17 15 19 Blood Pressure 103/58 L 95/54 L 95/49 L Pulse Oximetry 96 99 98 06/04/20 16:02 Temperature 98.2 F Pulse Rate 73 Respiratory Rate 19 Blood Pressure 95/49 L Pulse Oximetry 98
[2020-06-04] MEDS: ACETAMINOPHEN 325 MG TABLET 650 MG PO (19:17)
--- NOTE | 2020-06-04 19:24 | PC.NURSE ---
Addendum entered by Ge Orlando R.N. 06/04/20 21:52: vitals signs obtained and patients temp cont. to be 102.0 ice packs are placed under arms and behind neck. Addendum entered by Ge Orlando R.N. 06/04/20 19:54: consulted with Nory Mcbride in regards to B/p cont. to elevate; most current: 143/77 baseline: 95/49 and temp 102.6 increasing baseline: 98.2. No action taken at this time, as she is okay with her blood pressure and her heart rate readings. Also wishes to give tylenol more time to work to bring down temp. Original Note: Patient check done at 191, patient was found to be in shaking heavily when asked how she felt patient states I am freezing. Vitals obtained, Temp: 102, HR: 114, BP: 103/73 R: 16. PRN tylenol was given per orders for elevated temp. Consult with Dr. Chan in regards to findings and concerns for early shock. His response was I think she is just in riggors and this is normal for her Verbal order to start IV NS bolus.
[2020-06-04] MEDS: SODIUM CHLORIDE 0.9% 1,000 ML 999 ML IV (20:12)
[2020-06-04] MEDS: PRAVASTATIN 20 MG TABLET 10 MG PO (21:47)
[2020-06-04] MEDS: AMITRIPTYLINE 25 MG TABLET 50 MG PO (21:47)
[2020-06-04] MEDS: GABAPENTIN 600 MG TABLET 1200 MG PO (21:47)
[2020-06-04] MEDS: QUETIAPINE 25 MG TABLET PO (21:47)
[2020-06-05] VITALS (11 sets, daily range): BP systolic 90–101; BP diastolic 52–60; PULSE 68–79; RESP 16–18; TEMP 36.7–37.3; O2SAT 91–99
[2020-06-05] MEDS: diazePAM 5 MG TABLET PO (01:20)
[2020-06-05] MEDS: OXYCODONE IR 5 MG TABLET PO ×2 (01:20→15:46)
[2020-06-05] MEDS: SODIUM CHLORIDE 0.9% 1,000 ML 999 ML IV (03:25)
[2020-06-05] MEDS: LEVOTHYROXINE 100 MCG TABLET PO (05:20)
[2020-06-05 05:51] LABS: Add Manual Diff / Slide Review NO; Basophils Absolute Auto 0 /uL (0-100); Basophils Percent Auto 0.4 % (0-2); Eosinophils Absolute Auto 0 /uL (0-450); Eosinophils Percent Auto 0.7 % (2-4); Hematocrit 28.5 % (36-46); Hemoglobin 9.7 g/dL (12.0-16.0); Lymphocytes Absolute Auto 1700 /uL (1100-4500); Lymphocytes Percent Auto 22.7 % (25-40); Mean Corpuscular HGB Conc 34.1 % (30-36); Mean Corpuscular Volume 96.6 fL (80-100); Monocytes Absolute Auto 500 /uL (0-900); Monocytes Percent Auto 7.5 % (3-14); Neutrophils Absolute Auto 5000 /uL (1500-7000); Neutrophils Percent Auto 68.7 % (50-75); Platelet Count 124 X10^3/uL (150-400); Red Blood Cell Count 2.95 X10^6/uL (4.0-5.2); Red Cell Distribution Width 14.1 % (11.6-14.8); White Blood Cell Count 7.3 X10^3/uL (4.5-11.0)
[2020-06-05 06:05] LABS: Alanine Aminotransferase 15 IU/L (<35); Albumin 2.8 g/dL (3.5-5.0); Alkaline Phosphatase 65 U/L (38-126); Aspartate Aminotransferase 29 IU/L (14-36); BUN Creatinine Ratio 13.9 (6-22); Bilirubin Total 0.8 mg/dL (0.2-1.3); Bilirubin Unconjugated 0.7 mg/dL (0.0-1.1); Blood Urea Nitrogen 14 mg/dL (7-17); Calcium 7.7 mg/dL (8.4-10.2); Carbon Dioxide 27 mmol/L (22-32); Chloride 107 mmol/L (98-107); Estimated Glomerular Filt Rate 54.2 mL/min (>60); Globulin 2.9 g/dL (1.7-4.1); Glucose 96 mg/dL (80-110); HEMOLYSIS < 15 (0-50); Magnesium 2.2 mg/dL (1.6-2.3); Potassium 3.8 mmol/L (3.4-5.1); Sodium 136 mmol/L (137-145); Total Protein 5.7 g/dL (6.3-8.2)
[2020-06-05] MEDS: ENOXAPARIN 40 MG/0.4 ML SYRINGE SUBCUT (08:49)
[2020-06-05] MEDS: DULOXETINE 30 MG CAPSULE 120 MG PO (08:51)
[2020-06-05] MEDS: GABAPENTIN 600 MG TABLET 1200 MG PO ×3 (08:51→20:45)
[2020-06-05] MEDS: ACETAMINOPHEN 325 MG TABLET 650 MG PO ×2 (08:52→15:52)
--- NOTE | 2020-06-05 11:47 | PT.IIE ---
Current Diagnoses Sepsis, unspecified organism (06/04/20) Medical History (Last Reviewed 06/04/20 @ 12:04 by Renata Santoyo DO) Clostridium difficile colitis (Resolved) Frequent UTI (Chronic) Physical Therapy Inpatient Evaluation/Re-Eval M1 PT/OT-IP Prior Functional Status Start: 06/05/20 09:32 Freq: NEEDED Status: Active Protocol: Document 06/05/20 11:29 AW (Rec: 06/05/20 11:47 AW [id number]) Medical Review Prior Functional Status Medical History Reviewed Yes Communication No known deficits. Mobility and Gait IND without AD. She does use trekking poles for daily walks in the [place]. She has had multiple falls recently due to progressive weakness and hypotension. Activities of Daily Living and IADL's IND for ADL's. Pt's assists with IADL's including shopping and driving. Prior Functional Level (Other details) Pt has diagnosis of neuromyelitis optica which renders her shaky and with frequent muscle spasms and neuropathy. Social History Household Members spouse Living Arrangements House Number of Floors (Floors) Two Floors Number of Stairs To Enter/Railing? 2 MANASA at garage with support on one side. 17 MANASA with B rails at front entrance. Pt tends to enter at garage and use the elevator to access the 2nd floor. Home Environment High Toilet,Walk in Shower Home Equipment Front Wheel Walker,Straight Cane,Grab Bars Near Toilet Employment Status Retired Additional Social History Comment Pt lives with her spouse, Basil, and her daughter, Maggie. Both are available and able to assist pt as needed. M2 PT-IP Current Condition Start: 06/05/20 09:32 Freq: NEEDED Status: Active Protocol: Document 06/05/20 11:29 AW (Rec: 06/05/20 11:47 AW [id number]) Physical Therapy Current Condition Current Condition Evaluation Date 06/05/20 Treatment Diagnosis sepsis; MONIQUE; difficulty in walking Precautions Other Precautions Contact precautions at this time M3 PT-IP Subjective Start: 06/05/20 09:32 Freq: NEEDED Status: Active Protocol: Document 06/05/20 11:29 AW (Rec: 06/05/20 11:47 AW [id number]) Subjective Physical Therapy Visit Type Type Initial Evaluation Visit Start Time 10:01 Visit Stop Time 10:27 Total Visit Minutes 26 Physical Therapy Visit Comments Patient Comments I'm so very tired. Patient Goals To return home with family support Therapy Pain Assessment Pain When Pain Assessed During Mobility Location Generalized Intensity 4 M4 PT-IP Mobility and Gait Start: 06/05/20 09:32 Freq: NEEDED Status: Active Protocol: Document 06/05/20 11:29 AW (Rec: 06/05/20 11:47 AW [id number]) PT-Bed Mobility Assessment Supine to Sit Supine to Sit Independent Sit to Supine Sit to Supine Independent Scooting Scooting to Edge of Bed Independent Scooting Up and Down in Bed Independent PT-Transfer Assessment Sit to and From Stand Sit to and from Stand Standby Assistance Equipment Transfer Assistive Device None,Gait Belt Transfers Transfer Destination Bed,Toilet Transfer Technique pt ambulated without AD Transfer Ability Level of Assist Standby Assistance Comments Mobility Comments Pt was lying in bed as PT arrived. She completed all bed mobility without assist and sat EOB on the right side. BP in sitting was 104/46 HR 102. She stood with SBA and ambulated in the halls for a total of 220 feet, demonstrating leftward path deviation which she was aware of but had difficulty correcting. SBA was required at all times due to unsteadiness. I'm more weak and tired than usual. Pt returned to the room and transferred to and from the toilet SBA, using grab bar on her right side. She then ambulated back to the bed, transferring and repositioning independently. BP after activity was 108/61 HR 95. Pt was left with call light and all needs in reach, bed alarm activated for safety. Gait Assessment Gait Gait Assistance Required: Standby Assistance Distance (Feet) 220 Assistive Devices Assistive Device None,Gait Belt Gait Deviations General Gait Pattern Ataxic,Decreased Stride Length ,Decreased Feet Clearance, Flexed Trunk,Lateral Trunk Lean,Narrow Based Gait Factors Limiting Gait Function Factors Limiting Gait Function Decreased Activity Tolerance, Decreased Sensation,Decreased Strength,Incoordination,Pain, Poor Balance,Poor Safety Awareness Comments Gait Comments See mobility comments for details. Stair Climbing Assessment Evaluation Level of Assist On Stairs Standby Assistance Devices Stair Climbing Assistive Devices Right Railing Technique/Endurance Stair Climbing Direction Ascend and Descend Stair Climbing Technique Step Over Step Number of Steps Climbed 3 Query Text: Stair Climbing Set # Repetitions (reps) 2 Comments Stair Climbing Comments Pt used unilateral railing to simulate support as in garage entry. PT-Balance Assessment Sitting Balance and Reactions Static Sitting Balance Ability Normal Dynamic Sitting Balance Ability Normal Standing Balance and Reactions Static Standing Balance Ability Good Dynamic Standing Balance Ability Good Device Used no AD M5 PT-IP Objective Assessments Start: 06/05/20 09:32 Freq: NEEDED Status: Active Protocol: Document 06/05/20 11:29 AW (Rec: 06/05/20 11:47 AW [id number]) Orientation Orientation/Cognition Level of Alertness Alert Orientation Name,Day of Week,Place, Situation Language Function Ability No Deficits Noted Safety Awareness Understands Safety Issues Memory Description No Deficits Noted Gross Range of Motion Upper Extremity ROM Assessment Within Functional Limits Lower Extremity ROM Assessment Within Functional Limits Strength Upper Extremity Strength Assessment Within Functional Limits Lower Extremity Strength Assessment Within Functional Limits Coordination Assessment Gross Coordination Gross Coordination WNL Sensation Assessment Sensation Gross Sensation Right LE Impaired,Left LE Impaired Sensation Description Numbness Comments Sensation Comments Numbness to bilateral feet and sharp pain lateral lower legs , consistent with chronic symptoms. M6 PT-IP Treatment Start: 06/05/20 09:32 Freq: NEEDED Status: Active Protocol: Document 06/05/20 11:29 AW (Rec: 06/05/20 11:47 AW [id number]) Physical Therapy Treatment Education Education Provided Safety M7 PT-IP Assessment and Plan Start: 06/05/20 09:32 Freq: NEEDED Status: Active Protocol: Document 06/05/20 11:29 AW (Rec: 06/05/20 11:47 AW [id number]) PT Summary Assessment and Plan Potential Rehabilitation Potential Excellent Status of Condition at Evaluation Evolving Summary Impairments Pain,Strength,Balance, Sensation,Transfers,Gait, Activity Tolerance Assessment Summary Nolvia is a 69 yo woman seen for PT evaluation with admitting diagnosis of sepsis, MONIQUE. She is independent with functional mobility at baseline. She has long-held diagnosis of neuromyelitis optica. On evaluation, pt was independent with bed mobility but required close SBA for transfers and gait due to unsteadiness and weakness. BP was low but stable throughout as pt denied any related symptoms. PT will continue to follow this pt but expect to see improvement as she medically stabilizes. She will be safe to discharge home with family support. Goals Bed Mobility Goal Independent Transfer Goal Independent Gait Goal Independent Gait Distance 400 Other Goals - up/down 2 steps with unilateral support IND Days to Meet Goals 2 Frequency of Treatment Frequency Of Treatment Once a Day Treatment Plan Physical Therapy Treatment Plan Bed Mobility Training,Transfer Training,Gait Training, Therapeutic Exercise,Balance Retraining,Discharge Planning, Hot or Cold Pack,Neuromuscular Re-ed,Coordination Retraining Other Recommendations and Next Treatment progress gait distance; Focus reassess stairs Recommendations To Nursing Amount of Assist Needed Standby Assistance Discharge Recommendations PT Discharge Recommendations Home with Assistance Transportation Needs at Discharge Private Vehicle
[2020-06-05] MEDS: CEFTRIAXONE 1 GM/50 ML FROZ.PIGGY IV (12:56)
--- NOTE | 2020-06-05 13:10 | PM.PN.1 ---
Subjective Subjective Date Patient Seen: 06/05/20 Time Patient Seen: 13:10 Interval history: Jonna Ramon is a 69 with PMH of neuromyelitis optica, osteoporosis, frequent UTI, anxiety and depression, hypothyroidism who presented with intermittent confusion and difficulty ambulating. She was admitted for sepsis secondary to urinary tract infection. Similar to her prior admission she developed some diarrhea today. PCR panel has been ordered but diarrhea has seemingly slowed, will send given history of C difficile infection. Her platelet count is also somewhat decreased to 124. She feels back to baseline as far as her ambulation. Her blood pressure has remained slightly low in the upper 90s over upper 50s today and has remained on some IV hydration. Blood cultures are currently negative, urine cultures are growing gram-negative bacilli consistent with prior E coli. Exam Vital Signs (past 8 hours): - 06/05/20 07:05 06/05/20 07:30 06/05/20 11:00 Temperature 99.1 F 98.2 F Pulse Rate 74 68 Respiratory Rate 18 17 Blood Pressure 99/59 L 98/58 L Pulse Oximetry 91 97 91 Oxygen Delivery Method Room Air Oxygen Flow Rate 0 Narrative Exam Narrative: GENERAL APPEARANCE: Well developed, well nourished, in no acute distress. SKIN: Inspection of the skin reveals no rashes, ulcerations or petechiae. HEENT: Normocephalic atraumatic, extraocular muscles are intact, oropharynx is clear and mucous membranes are moist, neck is supple without adenopathy NECK: Supple and symmetric. There was no thyroid enlargement, and no tenderness, or masses were felt. CHEST: Normal AP diameter and normal contour without any kyphoscoliosis. LUNGS: Auscultation of the lungs revealed no wheezes, rhonchi, or rales. CARDIOVASCULAR: There was a regular rate and rhythm without any murmurs, gallops, rubs. Peripheral pulses were 2+ and symmetric. ABDOMEN: Soft but mildly distended. nontender with normal bowel sounds. No ascites was noted. MUSCULOSKELETAL: There was no tenderness or effusions noted. Muscle strength and tone were normal. EXTREMITIES: No cyanosis, clubbing or edema. NEUROLOGIC: Alert and oriented x 3. Normal affect. Gait was slow but unremarkable. She has some mild tremulousness with movement. Strength is +5/5 in the Upper Extremities and Lower Extremities Bilaterally. Sensation to touch was normal. Objective Labs Result Diagrams: 06/05/20 05:40 06/05/20 05:40 Labs: Laboratory Results - last 24 hr 06/04/20 06/04/20 06/04/20 11:40 11:55 12:20 WBC RBC Hgb Hct MCV MCH MCHC RDW Plt Count Neut % (Auto) Lymph % (Auto) [place] % (Auto) Eos % (Auto) Baso % (Auto) Neut # (Auto) Lymph # (Auto) [place] # (Auto) Eos # (Auto) Baso # (Auto) Sodium Potassium Chloride Carbon Dioxide BUN Creatinine Estimated GFR BUN/Creatinine Ratio Glucose Calcium Magnesium Ferritin 64 Total Bilirubin Conjugated Bilirubin Unconjugated Bilirubin AST ALT Alkaline Phosphatase Total Protein Albumin Globulin Albumin/Globulin Ratio Urine RBC 1-5/hpf Urine WBC 30-100/hpf H Urine Bacteria Many (>30) H Ur Culture Indicated? Specimen cultured COVID-19 PCR Negative 06/05/20 06/05/20 05:40 05:40 WBC 7.3 RBC 2.95 L Hgb 9.7 L Hct 28.5 L MCV 96.6 MCH 33.0 MCHC 34.1 RDW 14.1 Plt Count 124 L Neut % (Auto) 68.7 Lymph % (Auto) 22.7 L [place] % (Auto) 7.5 Eos % (Auto) 0.7 L Baso % (Auto) 0.4 Neut # (Auto) 5000 Lymph # (Auto) 1700 [place] # (Auto) 500 Eos # (Auto) 0 Baso # (Auto) 0 Sodium 136 L Potassium 3.8 Chloride 107 Carbon Dioxide 27 BUN 14 Creatinine 1.01 Estimated GFR 54.2 L BUN/Creatinine Ratio 13.9 Glucose 96 Calcium 7.7 L Magnesium 2.2 Ferritin Total Bilirubin 0.8 Conjugated Bilirubin 0.0 Unconjugated Bilirubin 0.7 AST 29 ALT 15 Alkaline Phosphatase 65 Total Protein 5.7 L Albumin 2.8 L Globulin 2.9 Albumin/Globulin Ratio 1.0 Urine RBC Urine WBC Urine Bacteria Ur Culture Indicated? COVID-19 PCR Assessment & Plan Assessment & Plan narrative: Jonna Ramon is a 69 with PMH of neuromyelitis optica, osteoporosis, frequent UTI, anxiety and depression, hypothyroidism who presented with one day of confusion. 1. Sepsis, acute, present on admission secondary to acute cystitis -patient with intermittent confusion, although no confusion on admission exam however confusion may be related to underlying cognitive process or depression as previously noted in psychatry visit as well as dysuria, urinary frequency and positive UA. Sofa score 2 on admission given hypotension and MONIQUE. patient with prior admission for sepsis secondary to acute cystitis. -prior urine culture grew E coli sensitive to ceftriaxone, continue ceftriaxone 1 g Q 24 hours -continue IV hydration until adequately resuscitated. Blood pressure remains borderline. And with diarrhea may have concurrent c. difficile again. -CXR negative without acute infiltrates. No evidence of pyelo on exam. -Urine cultures with GNB, still awaiting final cultures. Mild concern for drug resistant infection given frequent UTIs and antibiotic use, but prior cultures have not shown resistant bacteria. Will continue ceftriaxone for now. 2. Acute kidney injury, present on admission, improved. - Baseline creatinine as low at 0.79 on prior admission. 1.25 on admission likely in setting of sepsis. Now improved to 1.01 after IV fluids. - continue fluid and avoid nephrotoxic medications. - continue to follow creatinine. 3. chronic pain in setting of neuromyelitits optica. -continue home pain medications 4. anxiety / depression -continue home medications -with possible auditory hallucinations and disorientation per psychiatry note with Dr. De La Torre. Continue medications as listed in his most recent encounter. -consider psychiatry follow up if difficult to control. 5. hypothyroidism. chronic - continue home levothyroxine 100 mcg. 6. Acute cystitis, present on admission. - management as noted above DVT: Lovenox daily Code: Full, surrogate decision maker is the patient's . COVID-19 COVID-19 status: Negative
--- NOTE | 2020-06-05 15:05 | CM.DANOTE ---
Discharge Planning/Care Management DCP: assessment: case received, EMR reviewed and met with pt after brief discussion in Team Rounds with Dr. Chan. Introduced self and role. Pt was just in process of working with PT Shannon so conversation was brief but this dc systems planner had met pt before during her admission to last month). Pt is a 69 year old female who admitted to care of hospitalist team. PCP: Dr. Gerardo. She also sees Dr. De La Torre at the [facility] with most recent visit early this month. Dr. Chan stated that pt is admitted for sepsis/UTI and notes this is very much the same as her admission to 04/27-04/30 and with a d/c at that time to home once she was stable for same. Pt carries long time diagnosis of Neuromyelitis optica with associated major depression. Pt did confirm that her daughter Maggie is still living with her and her and that Maggie does assist her if needed. Pt's spouse provides supportive care and assistance with some ADLs when pt needs this. A check in of PT brie now shows that pt is about at her functional baseline and safe to continue her lifestyle at home with her 's support. Medically her POC is in process. DCP team will be following. Advanced directive, confirm from FAMILY Start: 06/04/20 16:01 Freq: Q24H Status: Active Protocol: Document 06/04/20 16:25 AKP (Rec: 06/04/20 16:30 AKP [id number]) Co-Signed By Tasha Farrell RN 06/04/20 16:25 Advance Directive, confirm on record Time 16:30 Person contacted spouse Copy received No CM Discharge Assessment Start: 06/05/20 15:03 Freq: Status: Active Protocol: Document 06/05/20 15:03 ITV (Rec: 06/05/20 15:05 ITV [id number]) Discharge Planning Assessment Advance Directives? Yes History Provided By Patient,Medical Record Prior Living Arrangements House Household Members spouse Independent with ADL's No DME Already Rented / Owned Other Comment uses walking poles prn Review Status In Process
[2020-06-05] MEDS: AMITRIPTYLINE 25 MG TABLET 50 MG PO (20:45)
[2020-06-05] MEDS: PRAVASTATIN 20 MG TABLET 10 MG PO (20:45)
[2020-06-05] MEDS: QUETIAPINE 25 MG TABLET PO (20:45)
[2020-06-05] MEDS: SODIUM CHLORIDE 0.9% FLUSH 10 ML IV (20:46)
[2020-06-06] VITALS: O2SAT 97
[2020-06-06 04:15] VITALS: BP 121/69; PULSE 85; RESP 16; O2SAT 97
[2020-06-06 04:25] VITALS: O2SAT 97
[2020-06-06] MEDS: LEVOTHYROXINE 100 MCG TABLET PO (05:37)
[2020-06-06 05:39] LABS: Add Manual Diff / Slide Review NO; Basophils Absolute Auto 0 /uL (0-100); Basophils Percent Auto 0.4 % (0-2); Eosinophils Absolute Auto 200 /uL (0-450); Eosinophils Percent Auto 4.4 % (2-4); Hemoglobin 9.8 g/dL (12.0-16.0); Lymphocytes Absolute Auto 1100 /uL (1100-4500); Lymphocytes Percent Auto 24.8 % (25-40); Mean Corpuscular HGB Conc 33.8 % (30-36); Mean Corpuscular Hemoglobin 32.7 PG (26-34); Mean Corpuscular Volume 96.9 fL (80-100); Monocytes Absolute Auto 400 /uL (0-900); Monocytes Percent Auto 8.8 % (3-14); Neutrophils Absolute Auto 2600 /uL (1500-7000); Neutrophils Percent Auto 61.6 % (50-75); Platelet Count 142 X10^3/uL (150-400); Red Cell Distribution Width 14.3 % (11.6-14.8); White Blood Cell Count 4.3 X10^3/uL (4.5-11.0)
[2020-06-06 05:49] LABS: Alanine Aminotransferase 43 IU/L (<35); Albumin 2.9 g/dL (3.5-5.0); Alkaline Phosphatase 85 U/L (38-126); Aspartate Aminotransferase 62 IU/L (14-36); BUN Creatinine Ratio 10.6 (6-22); Bilirubin Total 0.4 mg/dL (0.2-1.3); Bilirubin Unconjugated 0.3 mg/dL (0.0-1.1); Blood Urea Nitrogen 10 mg/dL (7-17); Carbon Dioxide 27 mmol/L (22-32); Chloride 110 mmol/L (98-107); Estimated Glomerular Filt Rate 58.9 mL/min (>60); Globulin 2.9 g/dL (1.7-4.1); Glucose 95 mg/dL (80-110); HEMOLYSIS < 15 (0-50); Magnesium 2.3 mg/dL (1.6-2.3); Sodium 139 mmol/L (137-145); Total Protein 5.8 g/dL (6.3-8.2)
[2020-06-06 08:00] VITALS: BP 100/71; PULSE 76; RESP 18; TEMP 36.6; O2SAT 95
[2020-06-06] MEDS: DULOXETINE 30 MG CAPSULE 120 MG PO (08:40)
[2020-06-06] MEDS: SODIUM CHLORIDE 0.9% FLUSH 10 ML IV (08:40)
[2020-06-06] MEDS: ENOXAPARIN 40 MG/0.4 ML SYRINGE SUBCUT (08:41)
[2020-06-06] MEDS: OXYCODONE IR 5 MG TABLET PO (08:41)
[2020-06-06] MEDS: ACETAMINOPHEN 325 MG TABLET 650 MG PO (08:41)
[2020-06-06] MEDS: GABAPENTIN 600 MG TABLET 1200 MG PO (08:41)
--- NOTE | 2020-06-06 10:23 | PT.IPTN ---
Current Diagnoses Sepsis, unspecified organism (06/04/20) Physical Therapy Treatment Note M2 PT-IP Current Condition Start: 06/05/20 09:32 Freq: NEEDED Status: Active Protocol: Document 06/05/20 11:29 AW (Rec: 06/05/20 11:47 AW [id number]) Physical Therapy Current Condition Current Condition Evaluation Date 06/05/20 Treatment Diagnosis sepsis; MONIQUE; difficulty in walking Precautions Other Precautions Contact precautions at this time M3 PT-IP Subjective Start: 06/05/20 09:32 Freq: NEEDED Status: Active Protocol: Document 06/06/20 09:51 LJ (Rec: 06/06/20 10:23 LJ [id number]) Subjective Physical Therapy Visit Type Type Treatment Note Visit Start Time 09:51 Visit Stop Time 10:07 Total Visit Minutes 16 Physical Therapy Visit Comments Patient Comments Pt willing to work with PT M4 PT-IP Mobility and Gait Start: 06/05/20 09:32 Freq: NEEDED Status: Active Protocol: Document 06/06/20 09:51 LJ (Rec: 06/06/20 10:23 LJ [id number]) PT-Transfer Assessment Sit to and From Stand Sit to and from Stand Independent Gait Assessment Gait Gait Assistance Required: Standby Assistance Distance (Feet) 400 Able to Maintain Weight Bearing Status Yes During Gait Assistive Devices Assistive Device None,Gait Belt Gait Deviations General Gait Pattern Decreased Stride Length, Decreased Feet Clearance, Narrow Based Gait Factors Limiting Gait Function Factors Limiting Gait Function Decreased Activity Tolerance, Decreased Strength,Poor Balance Comments Gait Comments Pt in room sitting in chair. Stood without assistance, donned gait belt and ambulated SBA to steps around corner from room. Went up down steps (see stair section) then ambulated to [facility] on and back to room SBA. No LOB or reaching out for [place] or objects for support. No lateral lean or drift noted. Pt returned to room and stood by chair. Pt left in room with call light available to reach. She did not want to sit on chair or bed but wanted to stand and walk around room freely. Stair Climbing Assessment Evaluation Level of Assist On Stairs Standby Assistance Devices Stair Climbing Assistive Devices Right Railing Technique/Endurance Stair Climbing Direction Ascend and Descend Stair Climbing Technique Step Over Step Number of Steps Climbed 3 Stair Climbing Set # Repetitions (reps) 1 Comments Stair Climbing Comments Pt used unilateral railing to simulate support as in garage entry. M5 PT-IP Objective Assessments Start: 06/05/20 09:32 Freq: NEEDED Status: Active Protocol: Document 06/05/20 11:29 AW (Rec: 06/05/20 11:47 AW [id number]) Orientation Orientation/Cognition Level of Alertness Alert Orientation Name,Day of Week,Place, Situation Language Function Ability No Deficits Noted Safety Awareness Understands Safety Issues Memory Description No Deficits Noted Gross Range of Motion Upper Extremity ROM Assessment Within Functional Limits Lower Extremity ROM Assessment Within Functional Limits Strength Upper Extremity Strength Assessment Within Functional Limits Lower Extremity Strength Assessment Within Functional Limits Coordination Assessment Gross Coordination Gross Coordination WNL Sensation Assessment Sensation Gross Sensation Right LE Impaired,Left LE Impaired Sensation Description Numbness Comments Sensation Comments Numbness to bilateral feet and sharp pain lateral lower legs , consistent with chronic symptoms. M6 PT-IP Treatment Start: 06/05/20 09:32 Freq: NEEDED Status: Active Protocol: Document 06/06/20 09:51 LJ (Rec: 06/06/20 10:23 LJ [id number]) Physical Therapy Treatment Education Education Provided Safety M7 PT-IP Assessment and Plan Start: 06/05/20 09:32 Freq: NEEDED Status: Active Protocol: Document 06/06/20 09:51 LJ (Rec: 06/06/20 10:23 LJ [id number]) PT Summary Assessment and Plan Potential Rehabilitation Potential Excellent Status of Condition at Evaluation Evolving Summary Impairments Pain,Strength,Balance, Sensation,Transfers,Gait, Activity Tolerance Assessment Summary Pt is SBA for gait and mobility. She is safe on stairs and able to ambulate without fatigue or LOB 400+ feet. Will DC home with assist today Goals Bed Mobility Goal Independent Transfer Goal Independent Gait Goal Independent Gait Distance 400 Other Goals - up/down 2 steps with unilateral support IND Days to Meet Goals 2 Frequency of Treatment Frequency Of Treatment Once a Day Treatment Plan Physical Therapy Treatment Plan Bed Mobility Training,Transfer Training,Gait Training, Therapeutic Exercise,Balance Retraining,Discharge Planning, Hot or Cold Pack,Neuromuscular Re-ed,Coordination Retraining Other Recommendations and Next Treatment progress gait distance; Focus reassess stairs Recommendations To Nursing Amount of Assist Needed 1 Person Assist Discharge Recommendations PT Discharge Recommendations Home with Assistance Transportation Needs at Discharge Private Vehicle [id number]
--- NOTE | 2020-06-06 10:25 | P.DS_ITS ---
History of Present Illness History of Present Illness Date Patient Seen: 06/06/20 Time Patient Seen: 09:10 Chief complaint: FEVER/DELERIUM/COORDINATION Narrative: Jonna Ramon is a 69 with PMH of neuromyelitis optica, osteoporosis, frequent UTI, anxiety and depression, hypothyroidism who presented with intermittent confusion and difficulty ambulating starting this morning. Patient also reports a fever to 102 at home which is when they decided to come to the emergency room. Patient states that she went to a outside wine and cheese constitution party yesterday but denies any current nausea, vomiting, or changes in her usual abdominal pain. She denies any cough, shortness of breath, or chest pain. She does note some worsened dysuria from her baseline over the past few days as well as some urinary frequency. In the ER she was febrile to 100.4, hypotensive that responded to initial small amount of fluid boluses. Labs were notable for mild MONIQUE with Cr 1.25, Na of 131, but no leukocytosis and stable anemia from prior admission with Hg of 10.6. Platelets borderline at 151. UA was grossly positive with many bacteria and 30- 100 WBC. COVID 19 testing was negative. Discharge Providers Provider Date of admission: 06/04/20 14:23 Discharge Date: 06/06/20 Primary care physician: John Gerardo MD Consults: 06/04/20 15:58 Consult to Physical Therapy Evaluate & Treat Comment: Physician Instructions: Evaluate and Treat Discharge provider: Benjamin Chan DO Summary Hospital Course Discharge Diagnosis: Please see hospital course by problem list noted below: Hospital Course: Jonna Ramon is a 69 with PMH of neuromyelitis optica, osteoporosis, frequent UTI, anxiety and depression, hypothyroidism who presented with one day of confusion. 1. Sepsis, acute, present on admission secondary to acute cystitis -patient presented with intermittent confusion, although no confusion on admission exam however confusion may be related to underlying cognitive process or depression as previously noted in psychatry visit as well as dysuria, urinary frequency and positive UA. Sofa score 2 on admission given hypotension and MONIQUE. patient with prior admission for sepsis secondary to acute cystitis. -prior urine culture grew E coli sensitive to ceftriaxone, continued on ceftriaxone 1 g Q 24 hours while admitted. -continued IV hydration until adequately resuscitated. Blood pressure remained low normal throughout admission. -CXR negative without acute infiltrates. No evidence of pyelo on exam. -Urine cultures grew E. coli. Mild concern for drug resistant infection given frequent UTIs and antibiotic use, but prior cultures have not shown resistant bacteria and ultimately E. coli was sensitive to oral antibiotics. Discharged on cefdinir. 2. Acute kidney injury, present on admission, improved. - Baseline creatinine as low at 0.79 on prior admission. 1.25 on admission likely in setting of sepsis which improved with IVF. 3. chronic pain in setting of neuromyelitits optica. -continued home pain medications 4. anxiety / depression -continue home medications -with possible auditory hallucinations and disorientation per psychiatry note with Dr. De La Torre. Continue medications as listed in his most recent encounter. 5. hypothyroidism. chronic - continue home levothyroxine 100 mcg. 6. Acute cystitis, present on admission. - management as noted above COVID-19 COVID-19 status: Negative Time Spent with Patient Time spent: Greater than 30 minutes Exam Vital Signs (past 8 hours): - 06/06/20 04:15 06/06/20 04:25 06/06/20 08:00 Temperature 97.8 F Pulse Rate 85 76 Respiratory Rate 16 18 Blood Pressure 121/69 100/71 Pulse Oximetry 97 97 95 Oxygen Delivery Method Room Air Oxygen Flow Rate 0 Narrative Exam Narrative: GENERAL APPEARANCE: Well developed, well nourished, in no acute distress. SKIN: Inspection of the skin reveals no rashes, ulcerations or petechiae. HEENT: Normocephalic atraumatic, extraocular muscles are intact, oropharynx is clear and mucous membranes are moist, neck is supple without adenopathy NECK: Supple and symmetric. There was no thyroid enlargement, and no tenderness, or masses were felt. CHEST: Normal AP diameter and normal contour without any kyphoscoliosis. LUNGS: Auscultation of the lungs revealed no wheezes, rhonchi, or rales. CARDIOVASCULAR: There was a regular rate and rhythm without any murmurs, gallops, rubs. Peripheral pulses were 2+ and symmetric. ABDOMEN: Soft but mildly distended. nontender with normal bowel sounds. No ascites was noted. MUSCULOSKELETAL: There was no tenderness or effusions noted. Muscle strength and tone were normal. EXTREMITIES: No cyanosis, clubbing or edema. NEUROLOGIC: Alert and oriented x 3. Normal affect. Gait was slow but unremarkable. She has some mild tremulousness with movement. Strength is +5/5 in the Upper Extremities and Lower Extremities Bilaterally. Sensation to touch was normal. Objective Labs Result Diagrams: 06/06/20 05:26 06/06/20 05:26 Labs: Laboratory Results - last 24 hr 06/06/20 06/06/20 05:26 05:26 WBC 4.3 L RBC 3.00 L Hgb 9.8 L Hct 29.0 L MCV 96.9 MCH 32.7 MCHC 33.8 RDW 14.3 Plt Count 142 L Neut % (Auto) 61.6 Lymph % (Auto) 24.8 L [place] % (Auto) 8.8 Eos % (Auto) 4.4 H Baso % (Auto) 0.4 Neut # (Auto) 2600 Lymph # (Auto) 1100 [place] # (Auto) 400 Eos # (Auto) 200 Baso # (Auto) 0 Sodium 139 Potassium 4.0 Chloride 110 H Carbon Dioxide 27 BUN 10 Creatinine 0.94 Estimated GFR 58.9 L BUN/Creatinine Ratio 10.6 Glucose 95 Calcium 8.0 L Magnesium 2.3 Total Bilirubin 0.4 Conjugated Bilirubin 0.0 Unconjugated Bilirubin 0.3 AST 62 H ALT 43 H Alkaline Phosphatase 85 Total Protein 5.8 L Albumin 2.9 L Globulin 2.9 Albumin/Globulin Ratio 1.0 Discharge Plan Discharge Plan Patient Disposition: Home Discharge comment: You were admitted to the hospital with a urinary tract infection which was treated with antibiotics. Cultures again grew a bacteria sensitive to oral antibiotics. You should complete your oral course of antibiotics for another 5 days. Recommend continued follow up with neurology and psychiatry. Discharge orders & Medications Prescriptions: New cefdinir 300 mg capsule 300 mg PO BID 5 Days Qty: 10 RF: 0 Continued quetiapine 25 mg tablet 25 mg PO BEDTIME Qty: 30 RF: 3 duloxetine 60 mg capsule,delayed release(DR/EC) 120 mg PO DAILY Qty: 180 RF: 3 alendronate 70 mg tablet 70 mg PO QWEEK Qty: 12 RF: 5 albuterol sulfate 90 mcg/actuation HFA aerosol inhaler 1 puff INHALATION Q6H PRN (Reason: shortness of breath or wheezing) Qty: 6.7 RF: 0 amitriptyline 50 mg tablet 50 mg PO BEDTIME Qty: 90 RF: 3 gabapentin 600 mg tablet 1,200 mg PO TID Qty: 540 RF: 3 diazepam 5 mg tablet 5 mg PO TID PRN (Reason: muscle spasm) Qty: 90 RF: 5 oxycodone 5 mg tablet 5 mg PO Q6H PRN (Reason: pain) Qty: 120 RF: 0 coenzyme Q10 [Co Q-10] 100 mg capsule 100 mg PO DAILY RF: 0 acetaminophen 325 mg capsule 250 mg PO TID PRN (Reason: Abdominal Discomfort) RF: 0 levothyroxine 100 mcg tablet 100 mcg PO DAILY Qty: 90 RF: 3 pravastatin 10 mg tablet 10 mg PO BEDTIME RF: 0 estradiol [Estrace] 0.01 % (0.1 mg/gram) cream 1 gram VAG QWEEK PRN (Reason: Vaginal Irritation) RF: 0 Discontinued cefuroxime axetil 250 mg tablet 250 mg PO BID Qty: 6 RF: 0 Follow up/Referrals: John Gerardo MD [Primary Care Provider] - Discharge Health Status Health Concerns: Acute cystitis Diet/Activity/Treatments Diet: Diet as Tolerated Activity: As tolerated Visit Report/Discharge Packet Instructions: DI for Urinary Tract Infection (UTI), DI for Sepsis -- Adult, Cefdinir Visit Report Forms: Congestive Heart Failure, Patient Portal/API, Stroke Signs & Symptoms Discharge Data Primary Care Provider: John Gerardo Discharges patient from system. Discharge Date/Time: 06/06/20 13:14
--- NOTE | 2020-06-06 13:11 | PC.NURSE ---
Discharge: IV's dc'd intact. Tele dc'd. Reviewed all d/c instructions thoroughly with patient and . Instructed to pick abx up at [employer] today and start this afternoon. Reviewed s/sx with which to call MD or return to hospital. Reviewed f/u info. Patient and verbalized understanding of d/c info and stated no further questions or concerns. All personal belongings collected and sent with patient at d/c, wheeled out to private vehicle by nursing staff.
== END 2020-06-06 13:14 | disposition home or self-care (01) | DRG 872 ==
LOC: ED 14:07 → AC 14:24
PROVIDERS: Admitting Provider Internal Medicine; Emergency Provider Emergency Medicine; PCP Student in an Organized Health Care Education/Training Program; Referring Provider Emergency Medicine; Visit Provider Internal Medicine
DX: A41.9 Sepsis, unspecified organism (principal); N17.9 Acute kidney failure, unspecified; N30.00 Acute cystitis without hematuria; G36.0 Neuromyelitis optica [Devic]; R65.20 Severe sepsis without septic shock; I95.9 Hypotension, unspecified; F41.9 Anxiety disorder, unspecified; F32.9 Major depressive disorder, single episode, unspecified; E03.9 Hypothyroidism, unspecified; G89.29 Other chronic pain
CPT/HCPCS: 36415; 36592; 71045; 80048; 80053; 80076; 81003; 81015; 82728; 83605; 83615; 83735; 84145; 85025; 85379; 86140; 87040; 87077; 87086; 87186; 87635; 96361; 96365; 97116; 97161; 99284; J1650

== ENCOUNTER → 2020-06-17 13:49 | Outpatient (CLI) | payer MEDICARE, OTHER, SELFPAY ==
[2020-06-04 15:48] VITALS: BMI 21.2
[2020-06-17 14:33] LABS: Appearance Urine UA CLOUDY; Bilirubin Urine UA NEGATIVE (NEGATIVE); Color Urine UA YELLOW; Glucose Urine UA NEGATIVE (Negative); Ketones Urine UA TRACE (NEGATIVE); Leukocyte Esterase Urine UA 2+ (NEGATIVE); Nitrite Urine UA POSITIVE (Negative); Occult Blood Urine UA TRACE-LYSED (Negative); Protein Urine UA 1+ (Negative); Specific Gravity Urine UA 1.015 (1.000-1.035); Urobilinogen Urine UA 0.2 E.U./dL (0.2)
[2020-06-17 14:35] LABS: Add Manual Diff / Slide Review NO; Basophils Absolute Auto 100 /uL (0-100); Basophils Percent Auto 0.8 % (0-2); Eosinophils Absolute Auto 200 /uL (0-450); Eosinophils Percent Auto 3.8 % (2-4); Hematocrit 36.9 % (36-46); Hemoglobin 12.4 g/dL (12.0-16.0); Lymphocytes Absolute Auto 2000 /uL (1100-4500); Lymphocytes Percent Auto 31.2 % (25-40); Mean Corpuscular HGB Conc 33.5 % (30-36); Mean Corpuscular Hemoglobin 32.4 PG (26-34); Mean Corpuscular Volume 96.8 fL (80-100); Monocytes Absolute Auto 400 /uL (0-900); Neutrophils Absolute Auto 3700 /uL (1500-7000); Neutrophils Percent Auto 58.2 % (50-75); Platelet Count 256 X10^3/uL (150-400); Red Blood Cell Count 3.81 X10^6/uL (4.0-5.2); Red Cell Distribution Width 14.2 % (11.6-14.8); White Blood Cell Count 6.3 X10^3/uL (4.5-11.0)
[2020-06-17 14:44] LABS: pH Urine UA 6.5 (4.5-8.0)
[2020-06-17 15:02] LABS: Alanine Aminotransferase 21 IU/L (<35); Albumin 4.2 g/dL (3.5-5.0); Albumin Globulin Ratio 1.3 (1.0-2.8); Alkaline Phosphatase 81 U/L (38-126); Aspartate Aminotransferase 27 IU/L (14-36); BUN Creatinine Ratio 11.8 (6-22); Bilirubin Total 0.6 mg/dL (0.2-1.3); Blood Urea Nitrogen 15 mg/dL (7-17); Calcium 9.2 mg/dL (8.4-10.2); Carbon Dioxide 31 mmol/L (22-32); Chloride 98 mmol/L (98-107); Estimated Glomerular Filt Rate 41.6 mL/min (>60); Globulin 3.2 g/dL (1.7-4.1); Glucose 100 mg/dL (80-110); HEMOLYSIS < 15 (0-50); Potassium 4.7 mmol/L (3.4-5.1); Sodium 135 mmol/L (137-145); Total Protein 7.4 g/dL (6.3-8.2)
[2020-06-17 15:16] LABS: Free T4, Direct Thyroxine 1.03 ng/dL (0.78-2.19)
[2020-06-17 15:24] LABS: RBC Urine 1-5/HPF (0-5/HPF)
[2020-06-17 15:25] LABS: Bacteria Urine Many (>30); Culture Indicated Urine Specimen Cultured; WBC Urine >100/HPF (0-5/HPF)
[2020-06-17 15:30] LABS: Thyroid Stimulating Hormone 2.38 uIU/mL (0.47-4.68)
== END ==
PROVIDERS: Psychiatry & Neurology Psychiatry; PCP Student in an Organized Health Care Education/Training Program; Referring Provider Student in an Organized Health Care Education/Training Program; Visit Provider Student in an Organized Health Care Education/Training Program
DX: F32.9 Major depressive disorder, single episode, unspecified (principal); R30.0 Dysuria
CPT/HCPCS: 36415; 80053; 81001; 84439; 84443; 85025; 87077; 87086; 87186

== ENCOUNTER → 2020-06-30 11:56 | Outpatient (CLI) | payer MEDICARE, OTHER, SELFPAY ==
[2020-06-30 10:58] VITALS: BMI 21.2
[2020-06-30 12:03] LABS: RBC Urine None Seen (0-5/HPF)
[2020-06-30 12:13] LABS: Bilirubin Urine UA NEGATIVE (NEGATIVE); Color Urine UA YELLOW; Glucose Urine UA NEGATIVE (Negative); Ketones Urine UA NEGATIVE (NEGATIVE); Leukocyte Esterase Urine UA 2+ (NEGATIVE); Nitrite Urine UA POSITIVE (Negative); Occult Blood Urine UA NEGATIVE (Negative); Protein Urine UA NEGATIVE (Negative); Urobilinogen Urine UA 0.2 E.U./dL (0.2)
[2020-06-30 12:36] LABS: Amorphous Sediment Urine 1+; Appearance Urine UA SL CLOUDY; Bacteria Urine Many (>30); Squamous Epithelial Cell Urine 0-1 /HPF (0-5/HPF); WBC Urine >100/HPF (0-5/HPF); pH Urine UA 6.5 (4.5-8.0)
[2020-06-30 12:37] LABS: Culture Indicated Urine Specimen Cultured
== END ==
PROVIDERS: PCP Student in an Organized Health Care Education/Training Program; Referring Provider Student in an Organized Health Care Education/Training Program; Visit Provider Student in an Organized Health Care Education/Training Program
DX: N39.0 Urinary tract infection, site not specified (principal)
CPT/HCPCS: 81001; 87077; 87086; 87186

== ENCOUNTER → 2020-07-12 16:26 | Outpatient (CLI) | payer MEDICARE, OTHER, SELFPAY ==
[2020-06-30 10:58] VITALS: BMI 21.2
[2020-07-12 18:25] LABS: Appearance Urine UA TURBID; Bilirubin Urine UA NEGATIVE (NEGATIVE); Color Urine UA YELLOW; Glucose Urine UA NEGATIVE (Negative); Ketones Urine UA TRACE (NEGATIVE); Leukocyte Esterase Urine UA 2+ (NEGATIVE); Nitrite Urine UA POSITIVE (Negative); Occult Blood Urine UA TRACE-LYSED (Negative); Protein Urine UA NEGATIVE (Negative); Specific Gravity Urine UA 1.015 (1.000-1.035); Urobilinogen Urine UA 0.2 E.U./dL (0.2)
[2020-07-12 18:26] LABS: pH Urine UA 5.5 (4.5-8.0)
[2020-07-12 18:45] LABS: Amorphous Sediment Urine 1+; Bacteria Urine Many (>30); Culture Indicated Urine Specimen Cultured; RBC Urine 0-1/HPF (0-5/HPF); Squamous Epithelial Cell Urine 0-1 /HPF (0-5/HPF); WBC Urine >100/HPF (0-5/HPF)
== END ==
PROVIDERS: PCP Student in an Organized Health Care Education/Training Program; Referring Provider Student in an Organized Health Care Education/Training Program; Visit Provider Student in an Organized Health Care Education/Training Program
DX: R30.0 Dysuria (principal)
CPT/HCPCS: 81001; 87077; 87086; 87186

== ENCOUNTER → 2020-07-14 15:58 | Outpatient (CLI) | payer MEDICARE, OTHER, SELFPAY ==
[2020-06-30 10:58] VITALS: BMI 21.2
[2020-07-14 17:32] LABS: Alanine Aminotransferase 17 IU/L (<35); Albumin Globulin Ratio 1.1 (1.0-2.8); Alkaline Phosphatase 86 U/L (38-126); Aspartate Aminotransferase 31 IU/L (14-36); BUN Creatinine Ratio 12.6 (6-22); Bilirubin Total 0.6 mg/dL (0.2-1.3); Blood Urea Nitrogen 16 mg/dL (7-17); Calcium 9.6 mg/dL (8.4-10.2); Carbon Dioxide 27 mmol/L (22-32); Chloride 103 mmol/L (98-107); Estimated Glomerular Filt Rate 41.6 mL/min (>60); Globulin 3.5 g/dL (1.7-4.1); Glucose 94 mg/dL (80-110); HEMOLYSIS < 15 (0-50); Potassium 4.5 mmol/L (3.4-5.1); Sodium 137 mmol/L (137-145); Total Protein 7.5 g/dL (6.3-8.2)
== END ==
PROVIDERS: PCP Student in an Organized Health Care Education/Training Program; Referring Provider Student in an Organized Health Care Education/Training Program; Visit Provider Student in an Organized Health Care Education/Training Program
DX: Z01.812 Encounter for preprocedural laboratory examination (principal)
CPT/HCPCS: 36415; 80053

== ENCOUNTER → 2020-07-15 13:21 | Outpatient (CLI) | payer MEDICARE, OTHER, SELFPAY ==
[2020-06-30 10:58] VITALS: BMI 21.2
--- NOTE | 2020-07-15 | DI.CT.S_ITS ---
PROCEDURE: CT ABDOMEN PELVIS W CON INDICATIONS: FULL INCONTINENCE OF FECES TECHNIQUE: After the administration of oral and intravenous contrast, 5 mm thick sections acquired from the diaphragms to the symphysis. 5 mm thick coronal and sagittal reformats were performed. For radiation dose reduction, the following was used: automated exposure control, adjustment of mA and/or kV according to patient size. COMPARISON: [facility], CT, CT ABDOMEN PELVIS WO CON, 04/28/2020, 16:06. FINDINGS: Image quality: Excellent. ABDOMEN: Lung bases: Right lung base scarring. Lung bases are otherwise clear. Heart size is normal. Solid organs: Liver is normal in size and enhancement. Gallbladder is within normal limits . Biliary system is non-dilated. Pancreas enhances normally. Spleen is normal in size and enhancement. No adrenal nodules. Right anterolateral long-axis rotation of the right kidney is present, consistent with congenital malrotation, as before. Multiple left renal cysts are present, as before. Kidneys are otherwise normal in size and enhancement, without hydronephrosis. Peritoneum and bowel: Stomach, small bowel, and colon loops are normal in caliber and wall thickness. No free fluid or air. Nodes and vessels: No retroperitoneal or mesenteric adenopathy. Aorta and inferior vena cava are normal in caliber. Miscellaneous: No ventral hernias. PELVIS: Genitourinary: Bladder wall thickness is normal. Avidly enhancing central it fundal uterine mass is present measuring 46 mm. Miscellaneous: No inguinal hernias or adenopathy. Bones: No suspicious bony lesions. Bilateral L5-S1 pars interarticularis defects. Grade 1 anterolisthesis of L5 on S1. No vertebral body compression fractures. IMPRESSION: 1. No acute process. 2. Uterine fibroid. 3. Appendix not seen. No evidence of acute appendicitis. 4. Grade 1 isthmic spondylolisthesis at L5-S1. Dictated by: Osei Wilkins M.D. on 07/15/2020 at 15:03 Approved by: Osei Wilkins M.D. on 07/15/2020 at 15:05
== END ==
PROVIDERS: PCP Student in an Organized Health Care Education/Training Program; Visit Provider Student in an Organized Health Care Education/Training Program
DX: R15.9 Full incontinence of feces (principal); D25.9 Leiomyoma of uterus, unspecified; M43.17 Spondylolisthesis, lumbosacral region
CPT/HCPCS: 74177

== ENCOUNTER → 2020-07-25 08:17 | Outpatient (CLI) | payer MEDICARE, OTHER, SELFPAY ==
[2020-06-30 10:58] VITALS: BMI 21.2
[2020-07-26 01:30] LABS: COVID19 Sendout Not Detected (Not Detect)
== END ==
PROVIDERS: PCP Student in an Organized Health Care Education/Training Program; Visit Provider Physician Assistant
DX: Z01.812 Encounter for preprocedural laboratory examination (principal)
CPT/HCPCS: 87635

== ENCOUNTER → 2020-08-05 13:55 | Outpatient (CLI) | payer MEDICARE, OTHER, SELFPAY ==
[2020-06-30 10:58] VITALS: BMI 21.2
[2020-08-05 14:02] LABS: Bacteria Urine None Seen; RBC Urine None Seen (0-5/HPF); WBC Urine None Seen (0-5/HPF)
[2020-08-05 17:35] LABS: Appearance Urine UA CLEAR; Bilirubin Urine UA NEGATIVE (NEGATIVE); Color Urine UA YELLOW; Glucose Urine UA NEGATIVE (Negative); Ketones Urine UA NEGATIVE (NEGATIVE); Leukocyte Esterase Urine UA NEGATIVE (NEGATIVE); Nitrite Urine UA NEGATIVE (Negative); Occult Blood Urine UA NEGATIVE (Negative); Protein Urine UA NEGATIVE (Negative); Specific Gravity Urine UA <=1.005 (1.000-1.035); Urobilinogen Urine UA 0.2 E.U./dL (0.2)
[2020-08-05 17:50] LABS: Squamous Epithelial Cell Urine 0-1 /HPF (0-5/HPF)
[2020-08-05 17:51] LABS: Culture Indicated Urine Cult Not Indicated
== END ==
PROVIDERS: PCP Student in an Organized Health Care Education/Training Program; Referring Provider Student in an Organized Health Care Education/Training Program; Visit Provider Student in an Organized Health Care Education/Training Program
DX: N39.0 Urinary tract infection, site not specified (principal)
CPT/HCPCS: 81001

== ENCOUNTER → 2020-08-19 08:49 | Outpatient (CLI) | payer MEDICARE, OTHER, SELFPAY ==
[2020-06-30 10:58] VITALS: BMI 21.2
[2020-08-19 10:33] LABS: Appearance Urine UA SL CLOUDY; Bilirubin Urine UA NEGATIVE (NEGATIVE); Color Urine UA YELLOW; Glucose Urine UA NEGATIVE (Negative); Ketones Urine UA NEGATIVE (NEGATIVE); Leukocyte Esterase Urine UA 3+ (NEGATIVE); Nitrite Urine UA POSITIVE (Negative); Occult Blood Urine UA TRACE-INTACT (Negative); Protein Urine UA NEGATIVE (Negative); Specific Gravity Urine UA <=1.005 (1.000-1.035); Urobilinogen Urine UA 0.2 E.U./dL (0.2)
[2020-08-19 11:02] LABS: pH Urine UA 5.5 (4.5-8.0)
[2020-08-19 11:14] LABS: RBC Urine 1-5/HPF (0-5/HPF); WBC Urine >100/HPF (0-5/HPF)
[2020-08-19 11:15] LABS: Bacteria Urine Many (>30); Culture Indicated Urine Specimen Cultured; Squamous Epithelial Cell Urine 1-5 /HPF (0-5/HPF)
== END ==
PROVIDERS: PCP Student in an Organized Health Care Education/Training Program; Referring Provider Student in an Organized Health Care Education/Training Program; Visit Provider Student in an Organized Health Care Education/Training Program
DX: N39.0 Urinary tract infection, site not specified (principal); R30.0 Dysuria
CPT/HCPCS: 81001; 87077; 87086; 87186

== ENCOUNTER 2020-09-10 09:21 | Emergency (ER) | payer MEDICARE, OTHER, SELFPAY ==
[2020-06-30 10:58] VITALS: BMI 21.2
[2020-09-10] VITALS (7 sets, daily range): BP systolic 104–129; BP diastolic 62–68; PULSE 62–81; RESP 9–21; TEMP 36.5; O2SAT 98–100; BMI 19.8
--- NOTE | 2020-09-10 09:33 | DI.RAD.S_ITS ---
PROCEDURE: XR CHEST 2V INDICATIONS: chest pain TECHNIQUE: 2 views of the chest were acquired. COMPARISON: [facility], CR, XR CHEST 1V, 04/29/2020, 12:54. [facility], CR, XR CHEST 1V, 06/04/2020, 12:05. FINDINGS: Overlying EKG wires. Surgical changes and devices: None. Lungs and pleura: Lungs are clear. No pleural effusions or pneumothorax. Mediastinum: Mediastinal contours are normal. Heart size is normal. Bones and chest wall: Healing mildly displaced left-sided rib fractures along the lateral aspect of the 5th through 7th ribs Postsurgical changes of the shoulders incompletely evaluated. No suspicious bony abnormalities. Soft tissues appear unremarkable. IMPRESSION: No evidence of an acute cardiopulmonary abnormality. Healing left-sided rib fractures. Dictated by: Pelon Todd D.O. on 09/10/2020 at 9:20 Approved by: Pelon Todd D.O. on 09/10/2020 at 9:23
[2020-09-10 09:39] LABS: Add Manual Diff / Slide Review NO; Basophils Absolute Auto 0 /uL (0-100); Basophils Percent Auto 0.7 % (0-2); Eosinophils Absolute Auto 400 /uL (0-450); Eosinophils Percent Auto 5.9 % (2-4); Hematocrit 39.8 % (36-46); Hemoglobin 13.1 g/dL (12.0-16.0); Lymphocytes Absolute Auto 2300 /uL (1100-4500); Lymphocytes Percent Auto 38.3 % (25-40); Mean Corpuscular HGB Conc 32.9 % (30-36); Mean Corpuscular Hemoglobin 31.8 PG (26-34); Mean Corpuscular Volume 96.7 fL (80-100); Monocytes Absolute Auto 500 /uL (0-900); Monocytes Percent Auto 7.8 % (3-14); Neutrophils Absolute Auto 2800 /uL (1500-7000); Neutrophils Percent Auto 47.3 % (50-75); Platelet Count 194 X10^3/uL (150-400); Red Blood Cell Count 4.11 X10^6/uL (4.0-5.2); Red Cell Distribution Width 14.7 % (11.6-14.8)
[2020-09-10 09:46] LABS: Prothrombin Time 11.1 SECONDS (10.1-12.7)
--- NOTE | 2020-09-10 09:47 | PC.NURSE ---
patient had episode of pain, that was sharp and severe. Patient yelling out and convulsing with pain. Pain resides after approx 10-15 sec.
[2020-09-10 09:49] LABS: PTT Partial Thromboplastin Tim 31 SECONDS (26.4-36.2)
[2020-09-10 09:50] LABS: Alanine Aminotransferase 14 IU/L (<35); Albumin Globulin Ratio 1.2 (1.0-2.8); Alkaline Phosphatase 88 U/L (38-126); Aspartate Aminotransferase 24 IU/L (14-36); BUN Creatinine Ratio 13.3 (6-22); Bilirubin Total 0.5 mg/dL (0.2-1.3); Blood Urea Nitrogen 13 mg/dL (7-17); Calcium 8.7 mg/dL (8.4-10.2); Carbon Dioxide 29 mmol/L (22-32); Chloride 106 mmol/L (98-107); Creatine Kinase 59 U/L (30-135); Estimated Glomerular Filt Rate 56.1 mL/min (>60); Globulin 3.4 g/dL (1.7-4.1); Glucose 98 mg/dL (80-110); HEMOLYSIS < 15 (0-50); Lipase 40 U/L (23-300); Potassium 4.2 mmol/L (3.4-5.1); Sodium 138 mmol/L (137-145); Total Protein 7.4 g/dL (6.3-8.2)
--- NOTE | 2020-09-10 09:52 | ED_ITS ---
HPI - Chest Pain General Chief Complaint: Chest Pain Stated Complaint: heart attack/heart problems Time Seen by Provider: 09/10/20 09:34 Source: patient Mode of arrival: Family Vehicle Limitations: no limitations History of Present Illness HPI narrative: Patient is a 69-year-old female who presents with chest pain. 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 She says over last 4 days she is getting sharp shooting pains across her chest and landing on over her heart. She actually had an episode in the ED she screamed and seemed quite uncomfortable and was tremoring and shaking. It lasted briefly. She says this has been going on since their car trip 4 days ago. She denies any shortness of breath. The left side of her chest is extremely sensitive to touch. She has no rash or fever or productive cough Patient apparently fell 4 days ago when the pain started MD complaint: chest pain Related Data Home Medications Medication Instructions Recorded Confirmed acetaminophen 325 mg capsule 250 mg PO TID PRN cap 08/18/19 08/15/20 coenzyme Q10 100 mg capsule 100 mg PO DAILY 08/18/19 08/15/20 estradiol [Estrace] 1 gram VAG QWEEK PRN 06/04/20 08/15/20 pravastatin 10 mg PO BEDTIME 06/04/20 08/15/20 Previous Rx's Medication Instructions Recorded levothyroxine 100 mcg tablet 100 mcg PO DAILY #90 tab 10/20/19 gabapentin 600 mg tablet 1,200 mg PO TID #540 tab 01/12/20 duloxetine 60 mg capsule,delayed 120 mg PO DAILY #180 cap 05/17/20 release quetiapine 25 mg tablet 25 mg PO BEDTIME #30 tab 08/08/20 amitriptyline 50 mg tablet 100 mg PO BEDTIME #120 tab 08/15/20 alendronate 70 mg tablet 70 mg PO QWEEK #12 tab 08/16/20 nitrofurantoin 100 mg PO BEDTIME #90 cap 08/24/20 monohydrate/macrocrystals 100 mg capsule diazepam 5 mg tablet 5 mg PO TID-QID PRN #100 tab 08/29/20 oxycodone 5 mg tablet 5 mg PO Q6H PRN #120 tab 08/29/20 hydrocodone-acetaminophen 1 tab PO Q6H PRN #10 tab 09/10/20 Allergies Allergy/AdvReac Type Severity Reaction Status Date / Time No Known Drug Allergies Allergy Verified 09/10/20 09:32 Review of Systems Review of Systems Narrative: GENERAL: Denies chills, fatigue, malaise, fever, sweats, travel HEENT: Denies sinus pain, ear pain, sore throat, difficulty swallowing, neck pain RESPIRATORY: Denies dyspnea, cough, wheezing, hemoptysis, sputum. CARDIOVASCULAR: See HPI GASTROINTESTINAL: Denies nausea, vomiting, abdominal pain, diarrhea, constipat ion, melena. : Denies dysuria, frequency, incontinence, hematuria, urinary retention, flank pain. MUSCULOSKELETAL: Denies weakness, joint pain, or bony pain SKIN: No rash, no erythema, no pruritus NEUROLOGIC: Denies weakness, dizziness, headache, numbness, change in speech, confusion PSYCHIATRIC: No concerning psychosocial issues. 12 point review of systems is negative except for those stated above and HPI Patient History Medical History (Updated 09/10/20 @ 12:13 by Renata Santoyo DO) Clostridium difficile colitis Frequent UTI Social History household members: spouse Smoking Status: Never smoker alcohol intake: never substance use type: does not use Smoking Status: Never smoker alcohol intake frequency: a few times a week Substance Use Type: does not use Exam Initial Vital Signs Initial Vital Signs: Vital Signs Temperature 97.7 F 09/10/20 09:29 Pulse Rate 81 09/10/20 09:29 Respiratory Rate 18 09/10/20 09:29 Blood Pressure 129/63 09/10/20 09:29 Pulse Oximetry 98 09/10/20 09:29 GENERAL: Well-appearing, well-nourished and in no acute distress. HEENT: Head atraumatic,EOMI, pupils reactive, face symmetric, moist mucous membranes CARDIOVASCULAR: Regular rate and rhythm without murmurs, rubs or gallops. sensitive to touch RESPIRATORY: Breath sounds equal bilaterally, no wheezes rales or rhonchi. ABDOMEN: Soft, nontender. Normoactive bowel sounds all 4 quadrants. No guarding or rebound. EXTREMITIES: Normal range of motion, no clubbing or edema. Neurovascularly intact NEUROLOGICAL: Alert and oriented x4.Normal gait and speech. SKIN: Warm, dry, no laceration, no petechiae, no rashes or lesions. Course Orders Ordered: ED Orders 09/10/20 09:30 Complete Blood Count AUTO DIFF Stat Comprehensive Metabolic Panel Stat D Dimer Stat Lipase Stat Partial Thromboplastin Time Stat Prothrombin Time INR Stat Troponin & CK Cardiac Panel Stat 09/10/20 09:33 XR chest 2V Stat EKG-12 Lead Stat 09/10/20 10:33 CT angio chest PE protocol Stat Discontinued Medications Ketorolac Tromethamine (Ketorolac 60 Mg/2 Ml Vial) 15 mg IV NOW ONE Stop: 09/10/20 09:48 Last Admin: 09/10/20 10:03 Dose: 15 mg Documented by: JACEK Vital Signs Vital signs: Vital Signs - 8 hr 09/10/20 09:29 09/10/20 09:30 09/10/20 10:00 Temperature 97.7 F Pulse Rate 80 76 68 Respiratory Rate 21 16 9 L Blood Pressure 129/63 116/62 Pulse Oximetry 99 100 100 09/10/20 10:30 09/10/20 11:00 09/10/20 11:30 Temperature Pulse Rate 62 62 62 Respiratory Rate 12 9 L 19 Blood Pressure Pulse Oximetry 99 99 99 09/10/20 11:58 Temperature Pulse Rate 62 Respiratory Rate 21 Blood Pressure 104/68 Pulse Oximetry 98 MDM - Chest Pain Lab Data Attestation: I reviewed the patient's lab results. Result diagrams: 09/10/20 09:30 09/10/20 09:30 Labs: Lab Results 09/10/20 09/10/20 09/10/20 Range/Units 09:30 09:30 09:30 WBC 6.0 (4.5-11.0) X10^3/uL RBC 4.11 (4.0-5.2) X10^6/uL Hgb 13.1 (12.0-16.0) g/dL Hct 39.8 (36-46) % MCV 96.7 (80-100) fL MCH 31.8 (26-34) PG MCHC 32.9 (30-36) % RDW 14.7 (11.6-14.8) % Plt Count 194 (150-400) X10^3/uL Neut % (Auto) 47.3 L (50-75) % Lymph % (Auto) 38.3 (25-40) % [place] % (Auto) 7.8 (3-14) % Eos % (Auto) 5.9 H (2-4) % Baso % (Auto) 0.7 (0-2) % Neut # (Auto) 2800 (6425-6772) /uL Lymph # (Auto) 2300 (9633-6095) /uL [place] # (Auto) 500 (0-900) /uL Eos # (Auto) 400 (0-450) /uL Baso # (Auto) 0 (0-100) /uL PT 11.1 (10.1-12.7) SECONDS INR 1.0 (0.9-1.3) APTT 31 (26.4-36.2) SECONDS D-Dimer (<230) ng/mL Sodium 138 (137-145) mmol/L Potassium 4.2 (3.4-5.1) mmol/L Chloride 106 (98-107) mmol/L Carbon Dioxide 29 (22-32) mmol/L BUN 13 (7-17) mg/dL Creatinine 0.98 (0.52-1.04) mg/dL Estimated GFR 56.1 L (>60) mL/min BUN/Creatinine Ratio 13.3 (6-22) Glucose 98 (80-110) mg/dL Calcium 8.7 (8.4-10.2) mg/dL Total Bilirubin 0.5 (0.2-1.3) mg/dL AST 24 (14-36) IU/L ALT 14 (<35) IU/L Alkaline Phosphatase 88 (38-126) U/L Total Creatine Kinase 59 (30-135) U/L CK-MB (CK-2) TNP CK-MB (CK-2) Rel Index TNP Troponin I < 0.012 (0.01-0.034) ng/mL Total Protein 7.4 (6.3-8.2) g/dL Albumin 4.0 (3.5-5.0) g/dL Globulin 3.4 (1.7-4.1) g/dL Albumin/Globulin Ratio 1.2 (1.0-2.8) Lipase 40 (23-300) U/L // Range/Units 09:30 WBC (4.5-11.0) X10^3/uL RBC (4.0-5.2) X10^6/uL Hgb (12.0-16.0) g/dL Hct (36-46) % MCV (80-100) fL MCH (26-34) PG MCHC (30-36) % RDW (11.6-14.8) % Plt Count (150-400) X10^3/uL Neut % (Auto) (50-75) % Lymph % (Auto) (25-40) % [place] % (Auto) (3-14) % Eos % (Auto) (2-4) % Baso % (Auto) (0-2) % Neut # (Auto) (6329-1411) /uL Lymph # (Auto) (5398-3875) /uL [place] # (Auto) (0-900) /uL Eos # (Auto) (0-450) /uL Baso # (Auto) (0-100) /uL PT (10.1-12.7) SECONDS INR (0.9-1.3) APTT (26.4-36.2) SECONDS D-Dimer 1045 H (<230) ng/mL Sodium (137-145) mmol/L Potassium (3.4-5.1) mmol/L Chloride (98-107) mmol/L Carbon Dioxide (22-32) mmol/L BUN (7-17) mg/dL Creatinine (0.52-1.04) mg/dL Estimated GFR (>60) mL/min BUN/Creatinine Ratio (6-22) Glucose (80-110) mg/dL Calcium (8.4-10.2) mg/dL Total Bilirubin (0.2-1.3) mg/dL AST (14-36) IU/L ALT (<35) IU/L Alkaline Phosphatase (38-126) U/L Total Creatine Kinase (30-135) U/L CK-MB (CK-2) CK-MB (CK-2) Rel Index Troponin I (0.01-0.034) ng/mL Total Protein (6.3-8.2) g/dL Albumin (3.5-5.0) g/dL Globulin (1.7-4.1) g/dL Albumin/Globulin Ratio (1.0-2.8) Lipase (23-300) U/L Imaging Data Chest x-ray: Radiologist's Impression: No evidence of cardiopulmonary abnormality. Healing left-sided rib fractures CT scan - chest: Radiologist's Impression: No evidence of pulmonary embolus. Debris noted within right lower lobe airways recommend correlation for aspiration. Right upper lobe ground-glass nodules recommend repeat CT in approximately 3-6 months. Moderate multi vessel coronary vascular calcifications. Multiple left-sided rib fractures include subacute fracture of the anterior aspects of the 2nd and 3rd ribs ECG Data Attestation: I personally reviewed and interpreted this ECG as follows: Interpretation: Sinus rhythm rate 71 artifact noted no obvious ST changes MDM Narrative Medical decision making narrative: D-dimer is found to be elevated. CT to rule out PE. Patient is found to have rib fractures on the left side 2-3. She does not remember exactly how she fell but this is likely the cause of her pain. She has no paradoxical movement. Incentive spirometer and teaching given in the ED. Patient's pain is definitely worse with palpation she did have a fall a few days ago I do not think these are subacute fractures with the history she is quite tender. Discharge Plan Departure Patient Disposition: Home Clinical Impression: Fracture of rib of left side Qualifiers: Encounter type: initial encounter Rib fracture type: multiple ribs Fracture type: closed Qualified Code(s): S22.42XA - Multiple fractures of ribs, left side, initial encounter for closed fracture Instructions: Rib Fracture Activity Restrictions/Additional Instructions: *You have been diagnosed with rib fractures *What to do: Diesel take 4-6 weeks to heal recommend splinting ribs as needed with a pillow or blanket to help with pain Use incentive spirometer 5-10 times an hour while awake to help prevent pneumonia *Continue to take medications as directed [place] 1-2 tablets every 6 hours if needed for severe pain *Follow up with your primary care provider in 2-3 days *Return to ER if you should have increasing difficulty breathing, fever or cough [or] any new, worsening or concerning symptoms Prescriptions: New hydrocodone-acetaminophen 5-325 mg tablet 1 tab PO Q6H PRN (Reason: pain) Qty: 10 RF: 0 No Action duloxetine 60 mg capsule,delayed release(DR/EC) 120 mg PO DAILY Qty: 180 RF: 3 amitriptyline 50 mg tablet 100 mg PO BEDTIME Qty: 120 RF: 3 gabapentin 600 mg tablet 1,200 mg PO TID Qty: 540 RF: 3 quetiapine 25 mg tablet 25 mg PO BEDTIME Qty: 30 RF: 3 alendronate 70 mg tablet 70 mg PO QWEEK Qty: 12 RF: 5 nitrofurantoin monohyd/m-cryst 100 mg capsule 100 mg PO BEDTIME Qty: 90 RF: 0 oxycodone 5 mg tablet 5 mg PO Q6H PRN (Reason: pain) Qty: 120 RF: 0 diazepam 5 mg tablet 5 mg PO TID-QID PRN (Reason: muscle spasm) Qty: 100 RF: 0 coenzyme Q10 [Co Q-10] 100 mg capsule 100 mg PO DAILY RF: 0 acetaminophen 325 mg capsule 250 mg PO TID PRN (Reason: Abdominal Discomfort) RF: 0 levothyroxine 100 mcg tablet 100 mcg PO DAILY Qty: 90 RF: 3 pravastatin 10 mg tablet 10 mg PO BEDTIME RF: 0 estradiol [Estrace] 0.01 % (0.1 mg/gram) cream 1 gram VAG QWEEK PRN (Reason: Vaginal Irritation) RF: 0 Referrals: John Gerardo MD [Primary Care Provider] -
[2020-09-10 10:02] LABS: D Dimer 1045 ng/mL (<230); Troponin I < 0.012 ng/mL (0.01-0.034)
[2020-09-10] MEDS: KETOROLAC 60 MG/2 ML VIAL 15 MG IV (10:03)
--- NOTE | 2020-09-10 10:33 | DI.CT.S_ITS ---
PROCEDURE: CT ANGIO CHEST PE PROTOCOL INDICATIONS: + dimer recent trip TECHNIQUE: After the administration of intravenous contrast, 2 mm thick sections acquired from the pulmonary apices to the posterior costophrenic angles. 3-dimensional maximum intensity projection (MIP) coronal and sagittal reformats were then acquired through the thorax. For radiation dose reduction, the following was used: automated exposure control, adjustment of mA and/or kV according to patient size. COMPARISON: None. FINDINGS: Image quality: Excellent. Pulmonary arteries: Pulmonary arteries are normal in size, and demonstrate no intraluminal filling defects to suggest central pulmonary embolism. A few small foci of air noted within the pulmonary trunk. Lungs and pleura: There is debris noted within the right lower lobe bronchi. There is basilar atelectasis/scarring. There are ground-glass nodules measuring up to 2 centimeters in the right upper lobe without solid component. No pneumothorax or pleural effusion. Mediastinum: Heart size is normal, without pericardial effusion. Moderate multi-vessel coronary vascular calcifications. No mediastinal or hilar adenopathy. Thoracic aorta is normal in caliber and enhancement. Esophagus is normal in caliber, without hiatal hernia. Bones and chest wall remote fractures of the. Thyroid gland is unremarkable. . No axillary or supraclavicular adenopathy. Abdomen: Remote fractures of the left 4th through 10th ribs. Subacute fracture of the anterior aspects of the 2nd and 3rd ribs. Partially imaged simple cysts within the left kidney. No acute abnormality within the visualized abdomen. There is mild pectus excavatum. IMPRESSION: No evidence of pulmonary embolus. Debris noted within the right lower lobe airways. Recommend correlation for aspiration. Right upper lobe ground-glass nodules. Recommend repeat CT in approximately 3-6 months. Moderate multi-vessel coronary vascular calcifications. Multiple left-sided rib fractures. This includes subacute fractures of the anterior aspects of the 2nd and 3rd ribs. Dictated by: Pelon Todd D.O. on 09/10/2020 at 10:50 Approved by: Pelon Todd D.O. on 09/10/2020 at 10:55
--- NOTE | 2020-09-10 12:31 | RT ---
IS instruct for deep breathing exercises. Re. Rib Fxs. Pt christiana well, good effort and no distress noted. Pt instructed 10 per hour [place]
== END 2020-09-10 12:39 | disposition home or self-care (01) ==
PROVIDERS: Emergency Provider Emergency Medicine; PCP Student in an Organized Health Care Education/Training Program
DX: S22.42XA Multiple fractures of ribs, left side, initial encounter for closed fracture (principal); W19.XXXA Unspecified fall, initial encounter
CPT/HCPCS: 36415; 71046; 71275; 80053; 82550; 83690; 84484; 85025; 85379; 85610; 85730; 93005; 93010; 96374; 99283; 99284; J1885; Q9967

== ENCOUNTER → 2020-11-09 13:19 | Outpatient (CLI) | payer MEDICARE, OTHER, SELFPAY ==
[2020-06-30 10:58] VITALS: BMI 21.2
[2020-11-09] MEDS: COVID-19 VACC #1, MRNA(MOD) 100 MCG/0.5 ML VIAL IM (13:25)
== END ==
PROVIDERS: PCP Student in an Organized Health Care Education/Training Program; Visit Provider Internal Medicine
DX: Z23 Encounter for immunization (principal)
CPT/HCPCS: 0011A; 91301

== ENCOUNTER → 2020-12-07 13:18 | Outpatient (CLI) | payer MEDICARE, SELFPAY ==
[2020-06-30 10:58] VITALS: BMI 21.2
[2020-12-07] MEDS: COVID-19 VACC #1, MRNA(MOD) 100 MCG/0.5 ML VIAL IM (13:28)
[2020-12-30] MEDS: COVID-19 VACC #2, MRNA(MOD) 100 MCG/0.5 ML VIAL IM (13:35)
== END ==
PROVIDERS: PCP Student in an Organized Health Care Education/Training Program; Visit Provider Internal Medicine
DX: Z23 Encounter for immunization (principal)
CPT/HCPCS: 0011A; 0012A; 91301

== ENCOUNTER → 2020-12-08 14:08 | Outpatient (CLI) | payer MEDICARE, SELFPAY ==
[2020-06-30 10:58] VITALS: BMI 21.2
[2020-12-08 14:27] LABS: RBC Urine None Seen (0-5/HPF)
[2020-12-08 15:13] LABS: Appearance Urine UA CLOUDY; Bilirubin Urine UA NEGATIVE (NEGATIVE); Color Urine UA YELLOW; Glucose Urine UA NEGATIVE (Negative); Ketones Urine UA NEGATIVE (NEGATIVE); Leukocyte Esterase Urine UA 1+ (NEGATIVE); Nitrite Urine UA POSITIVE (Negative); Occult Blood Urine UA NEGATIVE (Negative); Protein Urine UA NEGATIVE (Negative); Urobilinogen Urine UA 0.2 E.U./dL (0.2)
[2020-12-08 15:14] LABS: pH Urine UA 5.5 (4.5-8.0)
[2020-12-08 15:22] LABS: Bacteria Urine Many (>30); Culture Indicated Urine Specimen Cultured; Mucus Urine 1+ (Negative); Squamous Epithelial Cell Urine 0-1 /HPF (0-5/HPF); WBC Urine >100/HPF (0-5/HPF)
== END ==
PROVIDERS: PCP Student in an Organized Health Care Education/Training Program; Referring Provider Student in an Organized Health Care Education/Training Program; Visit Provider Student in an Organized Health Care Education/Training Program
DX: R30.0 Dysuria (principal)
CPT/HCPCS: 36415; 81001; 87077; 87086; 87186

== ENCOUNTER → 2020-12-26 12:21 | Outpatient (CLI) | payer MEDICARE, SELFPAY ==
[2020-06-30 10:58] VITALS: BMI 21.2
[2020-12-26 12:26] LABS: RBC Urine None Seen (0-5/HPF)
[2020-12-26 13:14] LABS: Appearance Urine UA SL CLOUDY; Bilirubin Urine UA NEGATIVE (NEGATIVE); Color Urine UA YELLOW; Glucose Urine UA NEGATIVE (Negative); Ketones Urine UA NEGATIVE (NEGATIVE); Leukocyte Esterase Urine UA TRACE (NEGATIVE); Nitrite Urine UA POSITIVE (Negative); Occult Blood Urine UA NEGATIVE (Negative); Protein Urine UA NEGATIVE (Negative); Urobilinogen Urine UA 0.2 E.U./dL (0.2)
[2020-12-26 13:18] LABS: pH Urine UA 5.5 (4.5-8.0)
[2020-12-26 13:19] LABS: Bacteria Urine Many (>30); Culture Indicated Urine Specimen Cultured; WBC Urine 10-30/HPF (0-5/HPF)
== END ==
PROVIDERS: PCP Student in an Organized Health Care Education/Training Program; Referring Provider Student in an Organized Health Care Education/Training Program; Visit Provider Student in an Organized Health Care Education/Training Program
DX: R30.9 Painful micturition, unspecified (principal)
CPT/HCPCS: 81001; 87077; 87086; 87186

== ENCOUNTER → 2021-01-11 12:34 | Outpatient (CLI) | payer MEDICARE, SELFPAY ==
[2020-06-30 10:58] VITALS: BMI 21.2
[2021-01-11 12:38] LABS: RBC Urine None Seen (0-5/HPF)
[2021-01-11 13:13] LABS: Appearance Urine UA CLOUDY; Bilirubin Urine UA NEGATIVE (NEGATIVE); Color Urine UA YELLOW; Glucose Urine UA NEGATIVE (Negative); Ketones Urine UA NEGATIVE (NEGATIVE); Leukocyte Esterase Urine UA 3+ (NEGATIVE); Nitrite Urine UA POSITIVE (Negative); Occult Blood Urine UA TRACE-LYSED (Negative); Protein Urine UA NEGATIVE (Negative); Urobilinogen Urine UA 0.2 E.U./dL (0.2)
[2021-01-11 13:17] LABS: pH Urine UA 5.5 (4.5-8.0)
[2021-01-11 13:19] LABS: Bacteria Urine Many (>30); Culture Indicated Urine Specimen Cultured; Squamous Epithelial Cell Urine 1-5 /HPF (0-5/HPF); WBC Urine >100/HPF (0-5/HPF)
== END ==
PROVIDERS: PCP Student in an Organized Health Care Education/Training Program; Referring Provider Student in an Organized Health Care Education/Training Program; Visit Provider Student in an Organized Health Care Education/Training Program
DX: N39.0 Urinary tract infection, site not specified (principal)
CPT/HCPCS: 81001; 87077; 87086; 87186

== ENCOUNTER → 2021-01-16 12:34 | Outpatient (CLI) | payer MEDICARE, SELFPAY ==
[2020-06-30 10:58] VITALS: BMI 21.2
--- NOTE | 2021-01-16 12:37 | DI.RAD.S_ITS ---
PROCEDURE: XR DEXA AXIAL SKELETON INDICATIONS: Known osteoporosis COMPARISON: [facility], CR, XR DEXA AXIAL SKELETON, 01/02/2019, 14:42. FINDINGS: This blank DEXA report has been sent in error by the PACS system. The correct and complete report will be forthcoming in 1-2 days. Thank you for your patience and understanding. Dictated by: Nereida Jacobs MD, PhD on 01/16/2021 at 13:32 Approved by: Nereida Jacobs MD, PhD on 01/16/2021 at 13:32
== END ==
PROVIDERS: PCP Student in an Organized Health Care Education/Training Program; Referring Provider Student in an Organized Health Care Education/Training Program; Visit Provider Student in an Organized Health Care Education/Training Program
DX: M85.88 Other specified disorders of bone density and structure, other site (principal); M85.862 Other specified disorders of bone density and structure, left lower leg; M85.861 Other specified disorders of bone density and structure, right lower leg
CPT/HCPCS: 77080

== ENCOUNTER → 2021-02-06 17:32 | Outpatient (CLI) | payer MEDICARE, SELFPAY ==
[2020-06-30 10:58] VITALS: BMI 21.2
[2021-02-06 17:36] LABS: RBC Urine None Seen (0-5/HPF)
[2021-02-06 18:08] LABS: Appearance Urine UA CLEAR; Bilirubin Urine UA NEGATIVE (NEGATIVE); Color Urine UA YELLOW; Glucose Urine UA NEGATIVE (Negative); Ketones Urine UA NEGATIVE (NEGATIVE); Leukocyte Esterase Urine UA 1+ (NEGATIVE); Nitrite Urine UA POSITIVE (Negative); Occult Blood Urine UA NEGATIVE (Negative); Protein Urine UA NEGATIVE (Negative); Urobilinogen Urine UA 0.2 E.U./dL (0.2)
[2021-02-06 18:49] LABS: Bacteria Urine Many (>30); Culture Indicated Urine Specimen Cultured; Squamous Epithelial Cell Urine None Seen (0-5/HPF); WBC Urine 10-30/HPF (0-5/HPF)
== END ==
PROVIDERS: PCP Student in an Organized Health Care Education/Training Program; Referring Provider Student in an Organized Health Care Education/Training Program; Visit Provider Student in an Organized Health Care Education/Training Program
DX: N39.0 Urinary tract infection, site not specified (principal)
CPT/HCPCS: 81001; 87077; 87086; 87186

== ENCOUNTER 2021-03-06 15:33 | Emergency (ER) | payer MEDICARE, SELFPAY ==
[2020-06-30 10:58] VITALS: BMI 21.2
[2021-03-06 15:50] VITALS: BP 108/75; PULSE 96; RESP 18; TEMP 37.1; O2SAT 98; BMI 20.3
--- NOTE | 2021-03-06 15:57 | ED_ITS ---
HPI - General Adult General Chief complaint: Fall Stated complaint: Fall Saturday, Right Facial Bruising Time Seen by Provider: 03/06/21 15:37 Source: patient Mode of arrival: Ambulatory Limitations: no limitations History of Present Illness HPI narrative: Patient is a 70-year-old female not on anticoagulation here for injuries she sustained when she tripped and fell while hiking 3 days ago. She was going down a hill and slipped on some rocks. She does have a baseline tremor secondary to of a longstanding neurologic issue that she has. She did hit the right side of her head in bruising to the right side of her face. There was no loss of consciousness. She reports no other injuries from the event. Since that time she has had some discomfort on the right side of her face but no vision changes. She wanted to come in to be evaluated. Related Data Home Medications Medication Instructions Recorded Confirmed acetaminophen 325 mg capsule 250 mg PO TID PRN cap 08/18/19 02/09/21 coenzyme Q10 100 mg capsule 100 mg PO DAILY 08/18/19 02/09/21 Previous Rx's Medication Instructions Recorded duloxetine 60 mg capsule,delayed 120 mg PO DAILY #180 cap 05/17/20 release amitriptyline 50 mg tablet 100 mg PO BEDTIME #120 tab 08/15/20 alendronate 70 mg tablet 70 mg PO QWEEK #12 tab 08/16/20 budesonide 3 mg 3 mg PO DAILY #30 ea 09/29/20 capsule,delayed,extended release diazepam 5 mg tablet 5 mg PO TID-QID PRN #100 tab 09/29/20 quetiapine 25 mg tablet See Rx Instructions .ROUTE 12/05/20 .COMPLEX #30 tab gabapentin 600 mg tablet 1,200 mg PO TID #540 tab 01/11/21 pravastatin 10 mg tablet 10 mg PO BEDTIME #90 tab 01/11/21 levothyroxine 100 mcg tablet 100 mcg PO DAILY #90 tab 01/12/21 ospemifene 60 mg tablet 60 mg PO DAILY #90 tab 01/24/21 oxycodone 5 mg tablet 5 mg PO Q6H PRN #120 tab 02/07/21 cephalexin 500 mg capsule 500 mg PO TID #15 cap 02/08/21 cephalexin 500 mg capsule 500 mg PO DAILY #60 cap 02/14/21 estradiol 1 g VAGINAL 2XW #42.5 g 02/15/21 Allergies Allergy/AdvReac Type Severity Reaction Status Date / Time No Known Drug Allergies Allergy Verified 03/06/21 15:49 Review of Systems Constitutional Constitutional: Denies fever(s) and Denies headache(s) Eyes Comments: Pain on the outside of the right eye ENT Ears, Nose, Mouth, and Throat: Denies vertigo, Denies dizziness, Denies headache(s) and Denies sore throat Cardiovascular Cardiovascular: Reports system reviewed and no additional complaints, except as documented Respiratory Respiratory: Reports system reviewed and no additional complaints, except as documented Integumentary/Breasts Comments: Bruising to the right side of the face and a laceration to the right scalp Neurologic Neurologic: Denies behavioral changes, Denies vertigo, Denies dizziness and Ken es headache(s) Psychiatric Psychiatric: Denies behavioral changes Hematologic/Lymphatic On Anticoagulants: No Allergic/Immunologic Allergic/Immunologic: Reports system reviewed and no additional complaints, except as documented Patient History Medical History Chest pain Chronic UTI Clostridium difficile colitis Frequent UTI History of recurrent UTI (urinary tract infection) IBD (inflammatory bowel disease) Neurological disease Postmenopausal atrophic vaginitis Surgical History H/O breast biopsy H/O colectomy H/O shoulder replacement Family History Mother Heart attack UTI (urinary tract infection) Father Heart attack Social History marital status: number of children: 2 household members: spouse Smoking Status: Never smoker alcohol intake: current substance use type: does not use caffeine: Yes Smoking Status: Never smoker alcohol intake frequency: a few times a week Substance Use Type: does not use Exam Initial Vital Signs Initial Vital Signs: Vital Signs Temperature 98.7 F 03/06/21 15:50 Pulse Rate 96 H 03/06/21 15:50 Respiratory Rate 18 03/06/21 15:50 Blood Pressure 108/75 03/06/21 15:50 Pulse Oximetry 98 03/06/21 15:50 Const General: cooperative and comfortable Limitations: mental status not altered [facility] Head: normal to inspection and laceration (Small laceration to the right parietal region without bleeding.) Ears: TM's normal bilaterally Nose: external nose normal Face and sinus: abrasion (Right cheek and lateral to the right eye), ecchymosis (Lateral to the right eye.) and no edema Eyes General: appearance normal, both eyes and all related structures Eyelids: eyelids normal Pupils: PERRL Chest Chest: No tenderness Resp Effort & Inspection: normal respiratory effort Cardio Rate: regular rate Skin Other: Patient with ecchymosis and abrasions to the lateral aspect of the right eye. In. 1 cm laceration to the right scalp without active bleeding. Neuro General: patient alert, patient awake and patient oriented x3 Cognition: normal cognition Speech: speech normal Extrem General: normal to inspection and capillary refill normal Psych Appearance: grossly normal and well kempt Scores GCS [place] coma scale eye opening: Spontaneous [place] coma scale verbal response: Orientated [place] coma scale motor response: Obey commands [place] coma scale total score: 15 Nexus Score for C-Spine Focal Neurologic deficit present: No Midline spinal tenderness present: No Altered level of conciousness present: No Intoxication present: No Distracting Injury Present: No Nexus Criteria for C-spine: 0 Course Vital Signs Vital signs: Vital Signs - 8 hr 03/06/ 15:50 Temperature 98.7 F Pulse Rate 96 H Respiratory Rate 18 Blood Pressure 108/75 Pulse Oximetry 98 Medical Decision Making [facility] Narrative Medical decision making narrative: This was a mechanical fall. The laceration the right side of her scalp happened 3 days ago. There is no signs of infection. No active bleeding. Unfortunately will not be able to place any sutures or shobha. She does have abrasions and ecchymosis to the right cheek bone and lateral to the right eye. Her extraocular muscles are intact. Pupils are equal. I have low suspicion that there is an orbital wall fracture. I did discuss potentially doing a CT scan with the patient versus waiting until her symptoms improve. We discussed the risks and benefits of this and afterwards she would like to hold on any CT scan for now. We discussed return precautions and follow-up instructions. She expressed understanding and agreement. Discharge Plan Departure Patient Disposition: Home Clinical Impression: Contusion of face Instructions: DI for Eye Contusion Activity Restrictions/Additional Instructions: After our discussion we will hold on any CT scans for now. I do recommend you contact your primary provider for follow-up. Return to the emergency department for any vision changes, headaches, multiple episodes of vomiting her any other new or worsening symptoms Prescriptions: No Action duloxetine 60 mg capsule,delayed release(DR/EC) 120 mg PO DAILY Qty: 180 RF: 3 amitriptyline 50 mg tablet 100 mg PO BEDTIME Qty: 120 RF: 3 alendronate 70 mg tablet 70 mg PO QWEEK Qty: 12 RF: 5 quetiapine 25 mg tablet See Rx Instructions .ROUTE .COMPLEX Qty: 30 RF: 2 gabapentin 600 mg tablet 1,200 mg PO TID Qty: 540 RF: 3 pravastatin 10 mg tablet 10 mg PO BEDTIME Qty: 90 RF: 3 levothyroxine 100 mcg tablet 100 mcg PO DAILY Qty: 90 RF: 3 oxycodone 5 mg tablet 5 mg PO Q6H PRN (Reason: pain) Qty: 120 RF: 0 cephalexin 500 mg capsule 500 mg PO TID Qty: 15 RF: 0 cephalexin 500 mg capsule 500 mg PO DAILY Qty: 60 RF: 0 estradiol 0.01 % (0.1 mg/gram) cream 1 g vaginal 2XW Qty: 42.5 RF: 3 coenzyme Q10 [Co Q-10] 100 mg capsule 100 mg PO DAILY RF: 0 acetaminophen 325 mg capsule 250 mg PO TID PRN (Reason: Abdominal Discomfort) RF: 0 diazepam 5 mg tablet 5 mg PO TID-QID PRN (Reason: muscle spasm) Qty: 100 RF: 5 budesonide 3 mg capsule,delayed,extend.release 3 mg PO DAILY Qty: 30 RF: 0 [place] 60 mg tablet 60 mg PO DAILY Qty: 90 RF: 3 Referrals: John Gerardo MD [Primary Care Provider] -
== END 2021-03-06 16:22 | disposition home or self-care (01) ==
PROVIDERS: Emergency Provider Emergency Medicine; PCP Student in an Organized Health Care Education/Training Program
DX: S00.83XA Contusion of other part of head, initial encounter (principal); W19.XXXA Unspecified fall, initial encounter
CPT/HCPCS: 99281

== ENCOUNTER → 2021-04-10 13:09 | Outpatient (CLI) | payer MEDICARE, SELFPAY ==
[2020-06-30 10:58] VITALS: BMI 21.2
--- NOTE | 2021-04-10 | DI.MRI.S_ITS ---
PROCEDURE: MR HEAD/BRAIN WO CON INDICATIONS: DEMENTIA, CVA TECHNIQUE: Non-contrast axial T1 spin echo, axial T2 fast spin echo, sagittal and axial FLAIR, coronal T2 fast spin echo, axial gradient echo, axial diffusion and ADC through the brain. COMPARISON: None. FINDINGS: Image quality: Excellent. CSF spaces: Ventricles appear symmetric in size and shape. Basal cisterns are patent. No extra-axial fluid collections. Brain: No intracranial bleeds or mass effects. There is cerebral volume loss for age. There are periventricular and deep white matter chronic small vessel ischemic changes. Brainstem appears normal. Diffusion-weighted images show no acute ischemic insults. No chronic ischemic insults. Normal intravascular flow voids are present. Skull and face: Calvarial bone marrow is normal in signal. Orbits are normal. Sinuses: Sinuses and mastoids are clear. IMPRESSION: Mild small white matter changes, probably represent chronic microvascular ischemic disease, versus statistically less likely demyelination or other infectious, inflammatory, neurodegenerative etiology, technically nonspecific. Dictated by: Parag Mcbride M.D. on 04/10/2021 at 14:28 Approved by: Parag Mcbride M.D. on 04/10/2021 at 14:34
--- NOTE | 2021-04-10 13:17 | DI.MRI.S_ITS ---
PROCEDURE: MR THORACIC SPINE WO/W CON INDICATIONS: Neuromyelitis optica [Devic] TECHNIQUE: Noncontrast sagittal T1 spin echo and T2 fast spin echo, sagittal STIR, axial T1 and T2 fast spin echo through the thoracic spine. After the administration of contrast, axial and sagittal T1 spin echo with fat saturation through the thoracic spine. COMPARISON: [facility], CT, CT ABDOMEN PELVIS WO CON, 04/28/2020, 16:06. [facility], CT, CT ABDOMEN PELVIS W CON, 07/15/2020, 14:21. [facility], MR, MR HEAD/BRAIN WO CON, 04/10/2021, 13:43. FINDINGS: Image quality: Excellent. Alignment and curvature: There is a minimal rightward curvature of the thoracic spine. Marrow: Marrow is of normal overall signal. No acute vertebral body compression fractures. There are few scattered oval T1 and T2 hyperintense oval lesions including within the T5, T9, and T11 vertebral bodies consistent with intraosseous hemangiomas. Spinal cord: Visualized spinal cord is of normal size. There are bilateral T2 hyperintense lesions within the thoracic cord extending from T3 through T5 on the left and T4 through T5 on the right. These demonstrate no definite associated enhancement. Paraspinous soft tissues: No paravertebral masses or abnormal enhancement. Multiple large left parapelvic renal cysts are partially visualized within the left kidney. These appears similar to the prior CT study. Miscellaneous: Central canal and foramina appear widely patent at all scanned levels. IMPRESSION: 1. Bilateral T2 hyperintense lesions within the upper thoracic cord as described. The findings are nonspecific but given patient's clinical history may reflect demyelinating disease. No definite associated enhancement. Dictated by: Clayton Baez M.D. on 04/10/2021 at 16:57 Approved by: Clayton Baez M.D. on 04/10/2021 at 17:10
--- NOTE | 2021-04-10 13:17 | DI.MRI.S_ITS ---
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 In cases with scoliosis, additional coronal T2 fast spin echo may be performed. After the administration of contrast, sagittal and axial T1 spin echo with fat saturation through the lumbar spine. COMPARISON: None. FINDINGS: Image quality: Excellent. Alignment and curvature: There is transitional anatomy with lumbarization of the first sacral vertebral body. Lumbar vertebral bodies are labeled one through five. Prior to any surgical intervention, full xray spine series is recommended. There is Grade I anterolithesis of S1 on S2 measuring 1.1 cm. Pars defect is present at S1. Marrow: Marrow is of normal overall signal. No acute vertebral body compression fractures. No suspicious marrow enhancement. Spinal cord: Conus medullaris terminates at the L2 level. Visualized spinal cord demonstrates normal signal, without suspicious enhancement. Paraspinous soft tissues: No paravertebral masses or abnormal enhancement. Left renal cyst. Mild to moderate multi level disc dessication. L1-L2: No disc bulge, spinal stenosis or foraminal narrowing. L2-L3: Minimal disc bulge, wihtout spinal stenosis or foraminal narrowing. L3-L4: Minimal disc bulge, without spinal stenosis or foraminal narrowing. Facet and liagmentum flavum hypertrophy. L4-L5: Mild disc bulge, without spinal stenosis or foraminal narrowing. Facet and liagmentum flavum hypertrophy. L5-S1: Mild posterior central protrusion, without spinal stenosis. Severe right and moderate left foraminal narrowing, with facet and liagmentum flavum hypertrophy. S1-S1: Minimal disc bulge, without spinal stenosis. Moderate to severe foraminal narrowing, with facet and liagmentum flavum hypertrophy. IMPRESSION: 1. Transitional anatomy as above. Grade 1 anterolisthesis of S1 on S2 with pars defect. 2. Multilevel disc bulges. 3. No appreciable spinal stenosis. 4. Multilevel foraminal narrowing most severe at L5-S1 and S1-S2 as above. 5. Spinal cord is unremarkable. Dictated by: Sandy Diaz M.D. on 04/10/2021 at 16:37 Approved by: Sandy Diaz M.D. on 04/10/2021 at 16:47
--- NOTE | 2021-04-10 13:17 | DI.MRI.S_ITS ---
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 After the administration of contrast, sagittal and axial T1 spin echo with fat saturation through the cervical spine. COMPARISON: [facility], MR, MR THORACIC SPINE WO/W CON, 04/10/2021, 14:24. FINDINGS: Image quality: Excellent. Alignment and curvature: Straightening of the normal lordotic curvature. Marrow: No acute fracture. Multilevel degenerative endplate sclerosis and spurring. Diffuse facet arthropathy. Focal marrow signal change present within the C4 vertebral body demonstrating T2 hyperintensity and no definite associated T1 hyperintensity. There is no associated enhancement. This finding is technically nonspecific. Spinal cord: Visualized spinal cord is normal in size, without white matter lesions. No suspicious intramedullary enhancement. No cerebellar tonsillar herniation. Paraspinous soft tissues: There is a presumed lipoma involving the right paraspinal soft tissues measuring approximately 2.8 x 1.2 cm on axial image 26/10. No definite suspicious associated enhancement however this is only partially visualized C2-C3: Normal appearance. C3-C4: No canal stenosis. Severe bilateral foraminal stenoses although left greater than right. There is associated nerve root compression on both sides. C4-C5: No high-grade canal stenosis. Mild to moderate right foraminal stenosis. Severe left foraminal narrowing with nerve root compression. C5-C6: No high-grade canal narrowing. Moderate right foraminal stenosis with nerve root compression. No left foraminal narrowing. C6-C7: Mild canal narrowing. No foraminal stenoses. C7-T1: Normal appearance. IMPRESSION: Multilevel cervical spondylosis with bilateral foraminal stenosis as detailed above by spinal level, most pronounced at C3-C4 and C4-C5. Diffuse mild T2 hyperintense cord signal changes, which are technically nonspecific. No definite cord enhancement Nonspecific marrow signal change within the C4 vertebral body, this could represent atypical hemangioma although cannot exclude other metastatic or malignant possibilities therefore consider follow-up with radiographs or MRI to document long-term stability Dictated by: Parag Mcbride M.D. on 04/10/2021 at 16:25 Approved by: Parag Mcbride M.D. on 04/10/2021 at 16:41
== END ==
PROVIDERS: PCP Student in an Organized Health Care Education/Training Program; Referring Provider Specialist; Visit Provider Specialist
DX: G36.0 Neuromyelitis optica [Devic] (principal); F03.90 Unspecified dementia, unspecified severity, without behavioral disturbance, psychotic disturbance, mood disturbance, and anxiety; I63.9 Cerebral infarction, unspecified; M48.02 Spinal stenosis, cervical region; M47.812 Spondylosis without myelopathy or radiculopathy, cervical region; M51.26 Other intervertebral disc displacement, lumbar region; M43.17 Spondylolisthesis, lumbosacral region; M48.07 Spinal stenosis, lumbosacral region; M48.08 Spinal stenosis, sacral and sacrococcygeal region
CPT/HCPCS: 36415; 70551; 72156; 72157; 72158; 83516

== ENCOUNTER → 2021-06-26 11:55 | Outpatient (CLI) | payer MEDICARE, SELFPAY ==
[2020-06-30 10:58] VITALS: BMI 21.2
[2021-06-26 13:22] LABS: Appearance Urine UA CLEAR; Bilirubin Urine UA NEGATIVE (NEGATIVE); Color Urine UA YELLOW; Glucose Urine UA NEGATIVE (Negative); Ketones Urine UA NEGATIVE (NEGATIVE); Leukocyte Esterase Urine UA NEGATIVE (NEGATIVE); Nitrite Urine UA NEGATIVE (Negative); Occult Blood Urine UA NEGATIVE (Negative); Protein Urine UA NEGATIVE (Negative); Urobilinogen Urine UA 0.2 E.U./dL (0.2)
[2021-06-26 13:26] LABS: pH Urine UA 6.5 (4.5-8.0)
== END ==
PROVIDERS: PCP Student in an Organized Health Care Education/Training Program; Referring Provider Obstetrics & Gynecology; Visit Provider Obstetrics & Gynecology
DX: N39.0 Urinary tract infection, site not specified (principal)
CPT/HCPCS: 81003

== ENCOUNTER → 2021-06-28 15:40 | Outpatient (CLI) | payer MEDICARE, SELFPAY ==
[2020-06-30 10:58] VITALS: BMI 21.2
--- NOTE | 2021-06-28 15:41 | DI.CT.S_ITS ---
PROCEDURE: CT UE LT WO CON INDICATIONS: Periprosthetic fracture TECHNIQUE: Noncontrast 1-1.5 mm axial sections were acquired through the elbow joint, with coronal and sagittal reformats. COMPARISON: [facility], CR, XR SHOULDER 2+ VIEWS LEFT, 05/21/2021, 17:00. FINDINGS: Image quality: Excellent. Bones: Postsurgical changes related to left humeral head resurfacing. The hardware appears intact. Periprosthetic fracture is again noted, unchanged alignment since 05/21/21. There is interval callus formation. Soft tissues: No lymphadenopathy identified. Visualized left lung grossly unremarkable except for scattered scarring/atelectasis. IMPRESSION: Unchanged alignment of periprosthetic fracture involving the surgical neck of the left humerus. Interval callus formation Dictated by: Parag Mcbride M.D. on 06/28/2021 at 16:50 Approved by: Parag Mcbride M.D. on 06/28/2021 at 16:52
== END ==
PROVIDERS: PCP Student in an Organized Health Care Education/Training Program; Referring Provider Student in an Organized Health Care Education/Training Program; Visit Provider Student in an Organized Health Care Education/Training Program
DX: M97.32XD Periprosthetic fracture around internal prosthetic left shoulder joint, subsequent encounter (principal)
CPT/HCPCS: 73200

== ENCOUNTER → 2021-07-07 10:25 | Outpatient (CLI) | payer MEDICARE, SELFPAY ==
[2020-06-30 10:58] VITALS: BMI 21.2
[2021-07-07 10:58] LABS: Appearance Urine UA CLOUDY; Bilirubin Urine UA NEGATIVE (NEGATIVE); Color Urine UA YELLOW; Glucose Urine UA TRACE g/dL (Negative); Ketones Urine UA NEGATIVE (NEGATIVE); Leukocyte Esterase Urine UA 2+ (NEGATIVE); Nitrite Urine UA POSITIVE (Negative); Occult Blood Urine UA TRACE-LYSED (Negative); Protein Urine UA NEGATIVE (Negative); Specific Gravity Urine UA 1.015 (1.000-1.035); Urobilinogen Urine UA 0.2 E.U./dL (0.2)
[2021-07-07 11:15] LABS: Bacteria Urine Many (>30); Culture Indicated Urine Specimen Cultured; RBC Urine 0-1/HPF (0-5/HPF); Squamous Epithelial Cell Urine 1-5 /HPF (0-5/HPF); WBC Urine >100/HPF (0-5/HPF)
== END ==
PROVIDERS: PCP Student in an Organized Health Care Education/Training Program; Referring Provider Student in an Organized Health Care Education/Training Program; Visit Provider Student in an Organized Health Care Education/Training Program
DX: N39.0 Urinary tract infection, site not specified (principal)
CPT/HCPCS: 81001; 87077; 87086; 87186

== ENCOUNTER 2021-07-25 16:53 | Emergency (ER) | payer MEDICARE, SELFPAY ==
[2020-06-30 10:58] VITALS: BMI 21.2
[2021-07-25 16:55] VITALS: BP 102/61; PULSE 105; RESP 22; TEMP 37.7; O2SAT 99
--- NOTE | 2021-07-25 17:03 | DI.RAD.S_ITS ---
PROCEDURE: XR CHEST 1V INDICATIONS: suspected sepsis TECHNIQUE: One view of the chest was acquired. COMPARISON: [facility], CR, XR CHEST 2V, 09/10/2020, 9:50. FINDINGS: Surgical changes and devices: Shoulder arthroplasties are present. Lungs and pleura: Lungs are clear. No pleural effusions or pneumothorax. Mediastinum: Mediastinal contours appear normal. Heart size is normal. Bones and chest wall: No suspicious bony lesions. Overlying soft tissues appear unremarkable. IMPRESSION: No consolidations. Dictated by: Sandy Diaz M.D. on 07/25/2021 at 18:21 Approved by: Sandy Diaz M.D. on 07/25/2021 at 18:21
[2021-07-25 17:36] VITALS: BP 113/67
[2021-07-25 17:46] LABS: Add Manual Diff / Slide Review NO; Basophils Absolute Auto 100 /uL (0-100); Basophils Percent Auto 1.2 % (0-2); Eosinophils Absolute Auto 200 /uL (0-450); Eosinophils Percent Auto 2.9 % (2-4); Hematocrit 40.3 % (36-46); Hemoglobin 13.5 g/dL (12.0-16.0); Lymphocytes Absolute Auto 2100 /uL (1100-4500); Lymphocytes Percent Auto 37.6 % (25-40); Mean Corpuscular HGB Conc 33.4 % (30-36); Mean Corpuscular Hemoglobin 32.5 PG (26-34); Mean Corpuscular Volume 97.1 fL (80-100); Monocytes Absolute Auto 400 /uL (0-900); Neutrophils Absolute Auto 2800 /uL (1500-7000); Neutrophils Percent Auto 50.3 % (50-75); Platelet Count 151 X10^3/uL (150-400); Red Blood Cell Count 4.15 X10^6/uL (4.0-5.2); Red Cell Distribution Width 14.1 % (11.6-14.8); White Blood Cell Count 5.6 X10^3/uL (4.5-11.0)
[2021-07-25] MEDS: SODIUM CHLORIDE 0.9% 1,000 ML 1000 ML IV (17:56)
[2021-07-25] MEDS: MORPHINE 4 MG/ML INJ IV (17:56)
[2021-07-25] MEDS: ONDANSETRON 4 MG/2 ML INJ IV (17:57)
[2021-07-25 18:00] VITALS: PULSE 79; RESP 22; O2SAT 98
[2021-07-25 18:09] LABS: Lactate (Lactic Acid) 1.3 mmol/L (0.7-2.1)
[2021-07-25 18:10] LABS: Alanine Aminotransferase 14 IU/L (<35); Albumin 4.2 g/dL (3.5-5.0); Albumin Globulin Ratio 1.2 (1.0-2.8); Alkaline Phosphatase 77 U/L (38-126); Aspartate Aminotransferase 26 IU/L (14-36); Bilirubin Total 0.5 mg/dL (0.2-1.3); Blood Urea Nitrogen 15 mg/dL (7-17); Calcium 9.5 mg/dL (8.4-10.2); Carbon Dioxide 25 mmol/L (22-32); Chloride 104 mmol/L (98-107); Estimated Glomerular Filt Rate 58.7 mL/min (>60); Globulin 3.4 g/dL (1.7-4.1); Glucose 108 mg/dL (80-110); HEMOLYSIS < 15 (0-50); Lipase 40 U/L (23-300); Potassium 4.2 mmol/L (3.4-5.1); Sodium 138 mmol/L (137-145); Total Protein 7.6 g/dL (6.3-8.2)
[2021-07-25 18:27] LABS: Procalcitonin 0.08 ng/mL (<0.5)
[2021-07-25 18:30] VITALS: PULSE 69; RESP 24; O2SAT 100
[2021-07-25 18:32] LABS: Appearance Urine UA CLOUDY; Bilirubin Urine UA NEGATIVE (NEGATIVE); Color Urine UA YELLOW; Glucose Urine UA NEGATIVE (Negative); Ketones Urine UA NEGATIVE (NEGATIVE); Leukocyte Esterase Urine UA 2+ (NEGATIVE); Nitrite Urine UA NEGATIVE (Negative); Occult Blood Urine UA 3+ (Negative); Protein Urine UA 2+ (Negative); Urobilinogen Urine UA 0.2 E.U./dL (0.2)
[2021-07-25 18:35] LABS: Amorphous Sediment Urine 1+; Bacteria Urine Moderate (10-30); Culture Indicated Urine Specimen Cultured; Mucus Urine 1+ (Negative); RBC Urine 1-5/HPF (0-5/HPF); Squamous Epithelial Cell Urine 1-5 /HPF (0-5/HPF); WBC Urine >100/HPF (0-5/HPF)
[2021-07-25 19:00] VITALS: PULSE 67; RESP 13; TEMP 37; O2SAT 97
[2021-07-25 19:10] VITALS: BP 101/56; PULSE 76; RESP 29; O2SAT 93
--- NOTE | 2021-08-01 19:25 | ED.FEMALEGU ---
HPI - Female Genitourinary <Ralph Rogers PA-C - Last Filed: 08/01/21 19:34> General Chief complaint: Urogenital-Female Stated complaint: proble UTI with bleeding Time Seen by Provider: 07/25/21 17:17 Source: patient Mode of arrival: Ambulatory History of Present Illness HPI Narrative: 70-year-old female with past medical history hypothyroidism neuromyelitis optica, rectocele, frequent UTI, depression, anxiety presents to the ED with dysuria and suprapubic pain. Patient endorses nausea, vomiting. Patient denies fever, chills, chest pain, shortness of breath, cough, flank pain, lightheadedness, dizziness, syncope. Related Data Home Medications Medication Instructions Recorded Confirmed acetaminophen 325 mg capsule 250 mg PO TID PRN cap 08/18/19 08/01/21 coenzyme Q10 100 mg capsule (Co 100 mg PO DAILY 08/18/19 08/01/21 Q-10) gabapentin 600 mg tablet 900 mg PO TID tab 05/30/21 08/01/21 Previous Rx's Medication Instructions Recorded alendronate 70 mg tablet 70 mg PO QWEEK #12 tab 08/16/20 budesonide 3 mg 3 mg PO DAILY #30 ea 09/29/20 capsule,delayed,extended release pravastatin 10 mg tablet 10 mg PO BEDTIME #90 tab 01/11/21 levothyroxine 100 mcg tablet 100 mcg PO DAILY #90 tab 01/12/21 amitriptyline 50 mg tablet 50 mg PO BEDTIME #90 tab 04/10/21 diazepam 5 mg tablet 5 mg PO TID PRN #90 tab 06/22/21 estradiol 1 g VAGINAL 2XW #42.5 g 06/27/21 oxycodone 5 mg tablet 5 mg PO Q6H PRN #120 tab 07/06/21 quetiapine 25 mg tablet 25 mg PO BEDTIME #30 tab 07/13/21 cefpodoxime 200 mg tablet 200 mg PO BID 14 Days #28 tab 07/25/21 duloxetine 60 mg capsule,delayed 120 mg PO DAILY #180 cap 07/31/21 release Allergies Allergy/AdvReac Type Severity Reaction Status Date / Time No Known Drug Allergies Allergy Verified 08/01/21 16:31 Review of Systems <Ralph Rogers PA-C - Last Filed: 08/01/21 19:34> Constitutional Constitutional: Denies chills, Denies fatigue, Denies fever(s), Denies frequent falls, Denies lethargy and Denies weakness Eyes Eyes: Denies change in vision, Denies eye discharge, Denies irritation and Denies loss of vision ENT Ears, Nose, Mouth, and Throat: Denies change in voice, Denies dizziness, Denies neck pain, Denies sore throat and Denies throat swelling Cardiovascular Cardiovascular: Denies chest pain, Denies irregular heart rhythm, Denies lightheadedness, Denies palpitations, Denies dyspnea, Denies dyspnea on exertion and Denies orthopnea Respiratory Respiratory: Denies cough, Denies dyspnea, Denies dyspnea on exertion and Denies wheezing Gastrointestinal Gastrointestinal: Reports abdominal pain (Suprapubic pain), Denies change in bowel habits, Denies diarrhea, Reports nausea and Reports vomiting Genitourinary Genitourinary: Reports dysuria Musculoskeletal Musculoskeletal: Denies neck pain and Denies numbness Integumentary/Breasts Skin/Breast: Denies pruritus, Denies erythema, Denies rash and Denies wounds Neurologic Neurologic: Denies behavioral changes, Denies confusion, Denies dizziness, Denies frequent falls, Denies loss of vision, Denies numbness and Denies weakness Psychiatric Psychiatric: Denies anxiety, Denies behavioral changes, Denies confusion, Denies depression, Denies homicidal ideation and Denies suicidal ideation Endocrine Endocrine: Denies fatigue, Denies flushing and Denies palpitations Hematologic/Lymphatic Hematologic/Lymphatic: Denies easy bruising Allergic/Immunologic Allergic/Immunologic: Denies urticaria, Denies throat swelling and Denies wheezing Patient History <Ralph Rogers PA-C - Last Filed: 08/01/21 19:34> Medical History Anxiety Chest pain Chronic UTI Clostridium difficile colitis Frequent UTI History of recurrent UTI (urinary tract infection) IBD (inflammatory bowel disease) Neurological disease Postmenopausal atrophic vaginitis Surgical History H/O breast biopsy H/O colectomy H/O shoulder replacement Family History Mother Heart attack UTI (urinary tract infection) Father Heart attack alcohol intake frequency: a few times a week Substance Use Type: does not use Exam <Ralph Rogers PA-C - Last Filed: 08/01/21 19:34> Initial Vital Signs Initial Vital Signs: Vital Signs Temperature 99.8 F H 07/25/21 16:55 Pulse Rate 105 H 07/25/21 16:55 Respiratory Rate 22 07/25/21 16:55 Blood Pressure 102/61 07/25/21 16:55 Pulse Oximetry 99 07/25/21 16:55 Const General: cooperative HENMT Head: normocephalic and atraumatic Ears: external ears normal and TM's normal bilaterally Nose: external nose normal and No nasal discharge Face and sinus: sinuses nontender, face symmetric, no sinus tenderness and No dry mucous membranes Mouth: oral mucosae normal and moist mucous membranes Teeth and gingiva: dentition normal Throat: tonsils normal and uvula midline Eyes General: appearance normal, both eyes and all related structures Eyelids: eyelids normal Conjunctivae: conjunctivae normal Sclera: sclerae normal Pupils: PERRL EOM: EOM intact bilaterally Neck Neck: normal visual inspection, trachea midline, No lymphadenopathy, No midline deformity and No JVD Lymphatic: No lymphedema Chest Chest: normal inspection of the chest Resp Effort & Inspection: normal respiratory effort, able to speak in complete sentences, no respiratory distress and no use of accessory muscles Auscultation: clear to auscultation bilaterally, no rales, no rhonchi and no wheezes Cardio Rate: regular rate Rhythm: regular rhythm Heart Sounds: no click, no gallops, no murmurs and no rubs Pulses: normal peripheral pulses GI Inspection: non-distended Palpation: soft, no hepatosplenomegaly, No guarding, No pulsatile mass and No tender Auscultation: normal bowel sounds Other: Abdomen is soft, nondistended. Suprapubic tenderness to palpation. No CVA tenderness. Back/Spine/Pelvis Back: No CVA tenderness Cervical Spine: cervical ROM normal and No pain with cervical ROM Thoracic/Lumbar Spine: thoracic and lumbar spine normal to inspection Skin General: no rashes or lesions noted, No jaundice and No petechiae Neuro General: patient alert, patient oriented x3, gait normal and no focal motor deficits Speech: speech normal Extrem General: full ROM, no clubbing, cyanosis or edema, no pedal edema and no calf tenderness Psych Appearance: well kempt Mental Status: mental status grossly normal Attitude: cooperative Thought Content: normal and suicidality Judgment: judgment good <Devonte Daugherty DO - Last Filed: 08/02/21 07:00> Initial Vital Signs Initial Vital Signs: Vital Signs Temperature 99.8 F H 07/25/21 16:55 Pulse Rate 105 H 07/25/21 16:55 Respiratory Rate 22 07/25/21 16:55 Blood Pressure 102/61 07/25/21 16:55 Pulse Oximetry 99 07/25/21 16:55 Course <Ralph Rogers PA-C - Last Filed: 08/01/21 19:34> Course Course Narrative: Labs within normal limits. UA positive for UTI. Will discharge home with prescription for cefpodoxime. ED return precautions discussed. Orders Ordered: Discontinued Medications Sodium Chloride (Normal Saline 0.9%) 1,000 mls @ 1,000 mls/hr IV BOLUS ONE Stop: 07/25/21 18:02 Last Infusion: 07/25/21 19:11 Dose: 0 mls/hr Documented by: Admin: 07/25/21 17:56 Dose: 1,000 mls/hr Documented by: YISSEL Sodium Chloride (Normal Saline 0.9%) 1,000 mls @ 1,000 mls/hr IV BOLUS PRN PRN Reason: Fluid replacement Morphine Sulfate (Morphine 4 Mg/Ml Inj) 4 mg IV NOW ONE Stop: 07/25/21 17:42 Last Admin: 07/25/21 17:56 Dose: 4 mg Documented by: YISSEL Ondansetron HCl (Ondansetron 4 Mg/2 Ml Inj) 4 mg IV Q2HR PRN PRN Reason: Nausea And Vomiting Last Admin: 07/25/21 17:57 Dose: 4 mg Documented by: YISSEL <DO Ellen Oneil Last Filed: 08/02/21 07:00> Orders Ordered: Discontinued Medications Sodium Chloride (Normal Saline 0.9%) 1,000 mls @ 1,000 mls/hr IV BOLUS ONE Stop: 07/25/21 18:02 Last Infusion: 07/25/21 19:11 Dose: 0 mls/hr Documented by: Admin: 07/25/21 17:56 Dose: 1,000 mls/hr Documented by: YISSEL Sodium Chloride (Normal Saline 0.9%) 1,000 mls @ 1,000 mls/hr IV BOLUS PRN PRN Reason: Fluid replacement Morphine Sulfate (Morphine 4 Mg/Ml Inj) 4 mg IV NOW ONE Stop: 07/25/21 17:42 Last Admin: 07/25/21 17:56 Dose: 4 mg Documented by: YISSEL Ondansetron HCl (Ondansetron 4 Mg/2 Ml Inj) 4 mg IV Q2HR PRN PRN Reason: Nausea And Vomiting Last Admin: 07/25/21 17:57 Dose: 4 mg Documented by: YISSEL MDM - Female Genitourinary <Hyma BRANDI Rogers - Last Filed: 08/01/21 19:34> Medical Records Attestation: I reviewed the patient's medical records. Lab Data Attestation: I reviewed the patient's lab results. Lab results narrative: Labs within normal limits. UA positive for UTI. Result diagrams: 07/25/21 17:25 07/25/21 17:25 Labs: Lab Results 07/25/21 07/25/21 07/25/21 Range/Units 17:25 17:25 17:25 WBC 5.6 (4.5-11.0) X10^3/uL RBC 4.15 (4.0-5.2) X10^6/uL Hgb 13.5 (12.0-16.0) g/dL Hct 40.3 (36-46) % MCV 97.1 (80-100) fL MCH 32.5 (26-34) PG MCHC 33.4 (30-36) % RDW 14.1 (11.6-14.8) % Plt Count 151 (150-400) X10^3/uL Neut % (Auto) 50.3 (50-75) % Lymph % (Auto) 37.6 (25-40) % [place] % (Auto) 8.0 (3-14) % Eos % (Auto) 2.9 (2-4) % Baso % (Auto) 1.2 (0-2) % Neut # (Auto) 2800 (4697-8474) /uL Lymph # (Auto) 2100 (0415-2314) /uL [place] # (Auto) 400 (0-900) /uL Eos # (Auto) 200 (0-450) /uL Baso # (Auto) 100 (0-100) /uL Sodium 138 (137-145) mmol/L Potassium 4.2 (3.4-5.1) mmol/L Chloride 104 (98-107) mmol/L Carbon Dioxide 25 (22-32) mmol/L BUN 15 (7-17) mg/dL Creatinine 0.94 (0.52-1.04) mg/dL Estimated GFR 58.7 L (>60) mL/min BUN/Creatinine Ratio 16.0 (6-22) Glucose 108 (80-110) mg/dL Lactate 1.3 (0.7-2.1) mmol/L Calcium 9.5 (8.4-10.2) mg/dL Total Bilirubin 0.5 (0.2-1.3) mg/dL AST 26 (14-36) IU/L ALT 14 (<35) IU/L Alkaline Phosphatase 77 (38-126) U/L Total Protein 7.6 (6.3-8.2) g/dL Albumin 4.2 (3.5-5.0) g/dL Globulin 3.4 (1.7-4.1) g/dL Albumin/Globulin Ratio 1.2 (1.0-2.8) Lipase 40 (23-300) U/L Procalcitonin 0.08 (<0.5) ng/mL Urine Color Urine Appearance Urine pH (4.5-8.0) Ur Specific [place] (1.000-1.035) Urine Protein (Negative) Urine Glucose (UA) (Negative) g/dL Urine Ketones (NEGATIVE) Urine Occult Blood (Negative) Urine Nitrate (Negative) Urine Bilirubin (NEGATIVE) Urine Urobilinogen (0.2) E.U./dL Ur Leukocyte Esterase (NEGATIVE) Urine RBC (0-5/HPF) Urine WBC (0-5/HPF) Ur Squamous Epith Cells (0-5/HPF) Amorphous Sediment Urine Bacteria (None) Urine Mucus (Negative) Ur Culture Indicated? 07/25/21 Range/Units 18:00 WBC (4.5-11.0) X10^3/uL RBC (4.0-5.2) X10^6/uL Hgb (12.0-16.0) g/dL Hct (36-46) % MCV (80-100) fL MCH (26-34) PG MCHC (30-36) % RDW (11.6-14.8) % Plt Count (150-400) X10^3/uL Neut % (Auto) (50-75) % Lymph % (Auto) (25-40) % [place] % (Auto) (3-14) % Eos % (Auto) (2-4) % Baso % (Auto) (0-2) % Neut # (Auto) (7103-3711) /uL Lymph # (Auto) (4311-8423) /uL [place] # (Auto) (0-900) /uL Eos # (Auto) (0-450) /uL Baso # (Auto) (0-100) /uL Sodium (137-145) mmol/L Potassium (3.4-5.1) mmol/L Chloride (98-107) mmol/L Carbon Dioxide (22-32) mmol/L BUN (7-17) mg/dL Creatinine (0.52-1.04) mg/dL Estimated GFR (>60) mL/min BUN/Creatinine Ratio (6-22) Glucose (80-110) mg/dL Lactate (0.7-2.1) mmol/L Calcium (8.4-10.2) mg/dL Total Bilirubin (0.2-1.3) mg/dL AST (14-36) IU/L ALT (<35) IU/L Alkaline Phosphatase (38-126) U/L Total Protein (6.3-8.2) g/dL Albumin (3.5-5.0) g/dL Globulin (1.7-4.1) g/dL Albumin/Globulin Ratio (1.0-2.8) Lipase (23-300) U/L Procalcitonin (<0.5) ng/mL Urine Color Yellow Urine Appearance Cloudy Urine pH 5.0 (4.5-8.0) Ur Specific [place] 1.020 (1.000-1.035) Urine Protein 2+ H (Negative) Urine Glucose (UA) Negative (Negative) g/dL Urine Ketones Negative (NEGATIVE) Urine Occult Blood 3+ H (Negative) Urine Nitrate Negative (Negative) Urine Bilirubin Negative (NEGATIVE) Urine Urobilinogen 0.2 (0.2) E.U./dL Ur Leukocyte Esterase 2+ H (NEGATIVE) Urine RBC 1-5/hpf (0-5/HPF) Urine WBC >100/hpf H (0-5/HPF) Ur Squamous Epith Cells 1-5 /hpf (0-5/HPF) Amorphous Sediment 1+ Urine Bacteria Moderate (10-30) H (None) Urine Mucus 1+ H (Negative) Ur Culture Indicated? Specimen cultured Imaging Data Chest x-ray: Radiologist's Impression: PROCEDURE:? XR CHEST 1V ? INDICATIONS:? suspected sepsis ? TECHNIQUE:? One view of the chest was acquired.? ? COMPARISON:? [facility], CR, XR CHEST 2V, 09/10/2020, 9:50. ? FINDINGS:? ? Surgical changes and devices:? Shoulder arthroplasties are present. ? Lungs and pleura:? Lungs are clear.? No pleural effusions or pneumothorax.? ? Mediastinum:? Mediastinal contours appear normal.? Heart size is normal.? ? Bones and chest wall:? No suspicious bony lesions.? Overlying soft tissues appear unremarkable.? ? IMPRESSION:? No consolidations. ? ? Dictated by: Sandy Diaz M.D. on 07/25/2021 [facility] Narrative Medical decision making narrative: 70-year-old female with past medical history hypothyroidism neuromyelitis optica, rectocele, frequent UTI, depression, anxiety presents to the ED with dysuria and suprapubic pain. Concern for UTI versus pyelonephritis. Will order labs, UA. Will reassess. <Devonte Daugherty, - Last Filed: 08/02/21 07:00> Lab Data Labs: Lab Results 07/25/21 07/25/21 07/25/21 Range/Units 17:25 17:25 17:25 WBC 5.6 (4.5-11.0) X10^3/uL RBC 4.15 (4.0-5.2) X10^6/uL Hgb 13.5 (12.0-16.0) g/dL Hct 40.3 (36-46) % MCV 97.1 (80-100) fL MCH 32.5 (26-34) PG MCHC 33.4 (30-36) % RDW 14.1 (11.6-14.8) % Plt Count 151 (150-400) X10^3/uL Neut % (Auto) 50.3 (50-75) % Lymph % (Auto) 37.6 (25-40) % [place] % (Auto) 8.0 (3-14) % Eos % (Auto) 2.9 (2-4) % Baso % (Auto) 1.2 (0-2) % Neut # (Auto) 2800 (5388-4697) /uL Lymph # (Auto) 2100 (4401-6453) /uL [place] # (Auto) 400 (0-900) /uL Eos # (Auto) 200 (0-450) /uL Baso # (Auto) 100 (0-100) /uL Sodium 138 (137-145) mmol/L Potassium 4.2 (3.4-5.1) mmol/L Chloride 104 (98-107) mmol/L Carbon Dioxide 25 (22-32) mmol/L BUN 15 (7-17) mg/dL Creatinine 0.94 (0.52-1.04) mg/dL Estimated GFR 58.7 L (>60) mL/min BUN/Creatinine Ratio 16.0 (6-22) Glucose 108 (80-110) mg/dL Lactate 1.3 (0.7-2.1) mmol/L Calcium 9.5 (8.4-10.2) mg/dL Total Bilirubin 0.5 (0.2-1.3) mg/dL AST 26 (14-36) IU/L ALT 14 (<35) IU/L Alkaline Phosphatase 77 (38-126) U/L Total Protein 7.6 (6.3-8.2) g/dL Albumin 4.2 (3.5-5.0) g/dL Globulin 3.4 (1.7-4.1) g/dL Albumin/Globulin Ratio 1.2 (1.0-2.8) Lipase 40 (23-300) U/L Procalcitonin 0.08 (<0.5) ng/mL Urine Color Urine Appearance Urine pH (4.5-8.0) Ur Specific [place] (1.000-1.035) Urine Protein (Negative) Urine Glucose (UA) (Negative) g/dL Urine Ketones (NEGATIVE) Urine Occult Blood (Negative) Urine Nitrate (Negative) Urine Bilirubin (NEGATIVE) Urine Urobilinogen (0.2) E.U./dL Ur Leukocyte Esterase (NEGATIVE) Urine RBC (0-5/HPF) Urine WBC (0-5/HPF) Ur Squamous Epith Cells (0-5/HPF) Amorphous Sediment Urine Bacteria (None) Urine Mucus (Negative) Ur Culture Indicated? 07/25/21 Range/Units 18:00 WBC (4.5-11.0) X10^3/uL RBC (4.0-5.2) X10^6/uL Hgb (12.0-16.0) g/dL Hct (36-46) % MCV (80-100) fL MCH (26-34) PG MCHC (30-36) % RDW (11.6-14.8) % Plt Count (150-400) X10^3/uL Neut % (Auto) (50-75) % Lymph % (Auto) (25-40) % [place] % (Auto) (3-14) % Eos % (Auto) (2-4) % Baso % (Auto) (0-2) % Neut # (Auto) (8979-7878) /uL Lymph # (Auto) (8643-3792) /uL [place] # (Auto) (0-900) /uL Eos # (Auto) (0-450) /uL Baso # (Auto) (0-100) /uL Sodium (137-145) mmol/L Potassium (3.4-5.1) mmol/L Chloride (98-107) mmol/L Carbon Dioxide (22-32) mmol/L BUN (7-17) mg/dL Creatinine (0.52-1.04) mg/dL Estimated GFR (>60) mL/min BUN/Creatinine Ratio (6-22) Glucose (80-110) mg/dL Lactate (0.7-2.1) mmol/L Calcium (8.4-10.2) mg/dL Total Bilirubin (0.2-1.3) mg/dL AST (14-36) IU/L ALT (<35) IU/L Alkaline Phosphatase (38-126) U/L Total Protein (6.3-8.2) g/dL Albumin (3.5-5.0) g/dL Globulin (1.7-4.1) g/dL Albumin/Globulin Ratio (1.0-2.8) Lipase (23-300) U/L Procalcitonin (<0.5) ng/mL Urine Color Yellow Urine Appearance Cloudy Urine pH 5.0 (4.5-8.0) Ur Specific [place] 1.020 (1.000-1.035) Urine Protein 2+ H (Negative) Urine Glucose (UA) Negative (Negative) g/dL Urine Ketones Negative (NEGATIVE) Urine Occult Blood 3+ H (Negative) Urine Nitrate Negative (Negative) Urine Bilirubin Negative (NEGATIVE) Urine Urobilinogen 0.2 (0.2) E.U./dL Ur Leukocyte Esterase 2+ H (NEGATIVE) Urine RBC 1-5/hpf (0-5/HPF) Urine WBC >100/hpf H (0-5/HPF) Ur Squamous Epith Cells 1-5 /hpf (0-5/HPF) Amorphous Sediment 1+ Urine Bacteria Moderate (10-30) H (None) Urine Mucus 1+ H (Negative) Ur Culture Indicated? Specimen cultured Discharge Plan Departure Patient Disposition: Home Clinical Impression: Acute UTI Instructions: DI for Urinary Tract Infection (UTI) Activity Restrictions/Additional Instructions: You were evaluated in the ED today for painful urination. Your urinalysis showed evidence of a UTI. You are being prescribed an antibiotic cefpodoxime 200 mg twice a day for 14 days. Please complete the entire course of antibiotics. Please follow-up with your PCP. Return to the ED if you have worsening symptoms, fever, chills, inability to urinate. Prescriptions: New cefpodoxime 200 mg tablet 200 mg PO BID 14 Days Qty: 28 RF: 0 No Action diazepam 5 mg tablet 5 mg PO TID PRN (Reason: muscle spasm) Qty: 90 RF: 3 alendronate 70 mg tablet 70 mg PO QWEEK Qty: 12 RF: 5 pravastatin 10 mg tablet 10 mg PO BEDTIME Qty: 90 RF: 3 levothyroxine 100 mcg tablet 100 mcg PO DAILY Qty: 90 RF: 3 amitriptyline 50 mg tablet 50 mg PO BEDTIME Qty: 90 RF: 3 oxycodone 5 mg tablet 5 mg PO Q6H PRN (Reason: pain) Qty: 120 RF: 0 quetiapine 25 mg tablet 25 mg PO BEDTIME Qty: 30 RF: 2 duloxetine 60 mg capsule,delayed release(DR/EC) 120 mg PO DAILY Qty: 180 RF: 3 coenzyme Q10 [Co Q-10] 100 mg capsule 100 mg PO DAILY RF: 0 acetaminophen 325 mg capsule 250 mg PO TID PRN (Reason: Abdominal Discomfort) RF: 0 budesonide 3 mg capsule,delayed,extend.release 3 mg PO DAILY Qty: 30 RF: 0 gabapentin 600 mg tablet 900 mg PO TID RF: 0 estradiol 0.01 % (0.1 mg/gram) cream 1 g vaginal 2XW Qty: 42.5 RF: 12 Referrals: John Gerardo MD [Primary Care Provider] - <Devonte Daugherty DO - Last Filed: 08/02/21 07:00> Cosign ED Attending Cosignature Attestation: Dr Daugherty Co-Sign Statement: I was available for consultation during this patient's emergency department visit. This chart is signed by myself for administrative purposes only. I did not have direct contact with this patient during this visit. They were seen independently by the APC.
== END 2021-07-25 19:27 | disposition home or self-care (01) ==
PROVIDERS: Emergency Medicine; Emergency Provider Student in an Organized Health Care Education/Training Program; PCP Student in an Organized Health Care Education/Training Program
DX: N39.0 Urinary tract infection, site not specified (principal); Z03.89 Encounter for observation for other suspected diseases and conditions ruled out
CPT/HCPCS: 36415; 51701; 71045; 80053; 81001; 83605; 83690; 84145; 85025; 87040; 87077; 87086; 87186; 96361; 96374; 99284; J2270; J2405

== ENCOUNTER → 2021-08-01 17:06 | Outpatient (CLI) | payer MEDICARE, SELFPAY ==
[2020-06-30 10:58] VITALS: BMI 21.2
[2021-08-01 17:52] LABS: Appearance Urine UA CLEAR; Bilirubin Urine UA NEGATIVE (NEGATIVE); Color Urine UA YELLOW; Glucose Urine UA NEGATIVE (Negative); Ketones Urine UA NEGATIVE (NEGATIVE); Leukocyte Esterase Urine UA NEGATIVE (NEGATIVE); Nitrite Urine UA NEGATIVE (Negative); Occult Blood Urine UA NEGATIVE (Negative); Protein Urine UA NEGATIVE (Negative); Specific Gravity Urine UA <=1.005 (1.000-1.035); Urobilinogen Urine UA 0.2 E.U./dL (0.2)
[2021-08-01 17:53] LABS: pH Urine UA 5.5 (4.5-8.0)
[2021-08-01 17:58] LABS: RBC Urine None Seen (0-5/HPF); WBC Urine None Seen (0-5/HPF)
[2021-08-01 17:59] LABS: Bacteria Urine None Seen; Culture Indicated Urine Cult Not Indicated; Squamous Epithelial Cell Urine 1-5 /HPF (0-5/HPF)
== END ==
PROVIDERS: PCP Student in an Organized Health Care Education/Training Program; Referring Provider Student in an Organized Health Care Education/Training Program; Visit Provider Student in an Organized Health Care Education/Training Program
DX: N39.0 Urinary tract infection, site not specified (principal)
CPT/HCPCS: 81001

== ENCOUNTER → 2021-08-11 11:09 | Outpatient (CLI) | payer MEDICARE, SELFPAY ==
[2020-06-30 10:58] VITALS: BMI 21.2
[2021-08-11 12:40] LABS: COVID19 -Nasal RAPID Negative (Negative)
== END ==
PROVIDERS: PCP Student in an Organized Health Care Education/Training Program; Visit Provider Physician Assistant
DX: Z20.822 Contact with and (suspected) exposure to COVID-19 (principal); R05.9 Cough, unspecified; R07.89 Other chest pain; R68.83 Chills (without fever)
CPT/HCPCS: 87635

== ENCOUNTER → 2021-08-14 17:16 | Outpatient (CLI) | payer MEDICARE, SELFPAY ==
[2020-06-30 10:58] VITALS: BMI 21.2
[2021-08-14 18:09] LABS: Appearance Urine UA CLEAR; Bilirubin Urine UA NEGATIVE (NEGATIVE); Color Urine UA YELLOW; Glucose Urine UA NEGATIVE (Negative); Ketones Urine UA NEGATIVE (NEGATIVE); Leukocyte Esterase Urine UA 1+ (NEGATIVE); Nitrite Urine UA NEGATIVE (Negative); Occult Blood Urine UA 1+ (Negative); Protein Urine UA 1+ (Negative); Specific Gravity Urine UA 1.015 (1.000-1.035); Urobilinogen Urine UA 0.2 E.U./dL (0.2); pH Urine UA 5.5 (4.5-8.0)
[2021-08-14 18:26] LABS: Bacteria Urine Moderate (10-30); Culture Indicated Urine Cult Not Indicated; RBC Urine 1-5/HPF (0-5/HPF); Squamous Epithelial Cell Urine 5-10 /HPF (0-5/HPF); Transitional Epi Cells Urine 1-5/HPF (0-5/HPF); WBC Urine 5-10/HPF (0-5/HPF)
== END ==
PROVIDERS: PCP Student in an Organized Health Care Education/Training Program; Referring Provider Student in an Organized Health Care Education/Training Program; Visit Provider Student in an Organized Health Care Education/Training Program
DX: N81.10 Cystocele, unspecified (principal); N81.6 Rectocele; R30.0 Dysuria
CPT/HCPCS: 81001

== ENCOUNTER → 2021-08-16 14:53 | Outpatient (CLI) | payer MEDICARE, SELFPAY ==
[2021-08-16 11:36] VITALS: BMI 21.2
== END ==
PROVIDERS: PCP Student in an Organized Health Care Education/Training Program; Visit Provider Urology
DX: R30.0 Dysuria (principal)
CPT/HCPCS: 51701; 87077; 87086; 87186

== ENCOUNTER → 2022-01-10 17:28 | Outpatient (CLI) | payer MEDICARE, SELFPAY ==
[2021-08-16 11:36] VITALS: BMI 21.2
[2022-01-10 18:39] LABS: Appearance Urine UA CLEAR; Bilirubin Urine UA NEGATIVE (NEGATIVE); Color Urine UA YELLOW; Glucose Urine UA NEGATIVE (Negative); Ketones Urine UA NEGATIVE (NEGATIVE); Leukocyte Esterase Urine UA 3+ (NEGATIVE); Nitrite Urine UA POSITIVE (Negative); Occult Blood Urine UA 2+ (Negative); Protein Urine UA TRACE (Negative); Urobilinogen Urine UA 0.2 E.U./dL (0.2)
[2022-01-10 18:51] LABS: pH Urine UA 5.5 (4.5-8.0)
[2022-01-10 18:52] LABS: Bacteria Urine Many (>30); Culture Indicated Urine Specimen Cultured; RBC Urine 1-5/HPF (0-5/HPF); Squamous Epithelial Cell Urine 1-5 /HPF (0-5/HPF); WBC Urine 30-100/HPF (0-5/HPF)
== END ==
PROVIDERS: PCP Student in an Organized Health Care Education/Training Program; Referring Provider Student in an Organized Health Care Education/Training Program; Visit Provider Student in an Organized Health Care Education/Training Program
DX: N39.0 Urinary tract infection, site not specified (principal)
CPT/HCPCS: 81001; 87077; 87086; 87186

== ENCOUNTER → 2022-02-02 17:40 | Outpatient (CLI) | payer MEDICARE, SELFPAY ==
[2021-08-16 11:36] VITALS: BMI 21.2
[2022-02-02 18:45] LABS: Estimated Glomerular Filt Rate > 60 mL/min (>60)
== END ==
PROVIDERS: PCP Student in an Organized Health Care Education/Training Program; Referring Provider Specialist; Visit Provider Specialist
DX: G36.0 Neuromyelitis optica [Devic] (principal)
CPT/HCPCS: 36415; 82565

== ENCOUNTER → 2022-02-05 15:46 | Outpatient (CLI) | payer MEDICARE, SELFPAY ==
[2021-08-16 11:36] VITALS: BMI 21.2
[2022-02-05 19:35] LABS: Appearance Urine UA CLEAR; Bilirubin Urine UA NEGATIVE (NEGATIVE); Color Urine UA YELLOW; Glucose Urine UA NEGATIVE (Negative); Ketones Urine UA NEGATIVE (NEGATIVE); Leukocyte Esterase Urine UA 1+ (NEGATIVE); Nitrite Urine UA NEGATIVE (Negative); Occult Blood Urine UA NEGATIVE (Negative); Protein Urine UA NEGATIVE (Negative); Specific Gravity Urine UA <=1.005 (1.000-1.035); Urobilinogen Urine UA 0.2 E.U./dL (0.2)
[2022-02-05 19:36] LABS: pH Urine UA 5.5 (4.5-8.0)
[2022-02-05 19:47] LABS: Bacteria Urine Few (2-10); Culture Indicated Urine Cult Not Indicated; RBC Urine 0-1/HPF (0-5/HPF); Squamous Epithelial Cell Urine 5-10 /HPF (0-5/HPF); WBC Urine 5-10/HPF (0-5/HPF)
== END ==
PROVIDERS: PCP Student in an Organized Health Care Education/Training Program; Visit Provider Student in an Organized Health Care Education/Training Program
DX: N39.0 Urinary tract infection, site not specified (principal)
CPT/HCPCS: 81001

== ENCOUNTER → 2022-02-09 17:35 | Outpatient (CLI) | payer MEDICARE, SELFPAY ==
[2021-08-16 11:36] VITALS: BMI 21.2
--- NOTE | 2022-02-09 17:37 | DI.MRI.S_ITS ---
PROCEDURE: MR HEAD/BRAIN WO/W CON INDICATIONS: Neuromyelitis optica [Devic] TECHNIQUE: Noncontrast axial T1 spin echo, axial T2 fast spin echo, sagittal and axial FLAIR, coronal T2 fast spin echo, axial gradient echo, axial diffusion and ADC through the brain. After the administration of contrast, axial and coronal T1 spin echo with fat saturation through the brain. COMPARISON: [facility], MR, MR HEAD/BRAIN WO CON, 04/10/2021, 13:43. FINDINGS: Image quality: Excellent. CSF spaces: Basal cisterns are patent. No extra-axial fluid collections. Ventricles are normal in size and shape. Brain: No midline shift. No intracranial bleeds or masses. No abnormal intracranial enhancement. There is cerebral volume loss for age. There is periventricular white matter chronic small vessel ischemic change. The brainstem appears normal. Diffusion-weighted images demonstrate no acute ischemic insults. No chronic ischemic insults. Normal intravascular flow voids are present. Skull and face: Calvarial marrow is normal in signal. Orbits appear normal. Sinuses: Sinuses and mastoids appear clear. IMPRESSION: 1. Mild volume loss. Minimal small vessel ischemic disease. No significant change compared to 04/10/2021. 2. Negative evaluation of the orbits and optic nerves. 3. No acute process. No recent infarct. Dictated by: Osei Wilkins M.D. on 02/12/2022 at 8:24 Approved by: Osei Wilkins M.D. on 02/12/2022 at 8:26
== END ==
PROVIDERS: PCP Student in an Organized Health Care Education/Training Program; Referring Provider Specialist; Visit Provider Specialist
DX: G36.0 Neuromyelitis optica [Devic] (principal)
CPT/HCPCS: 70553; A9579

== ENCOUNTER → 2022-02-27 14:51 | Outpatient (CLI) | payer MEDICARE, SELFPAY ==
[2021-08-16 11:36] VITALS: BMI 21.2
== END ==
PROVIDERS: PCP Student in an Organized Health Care Education/Training Program; Visit Provider Specialist
DX: R30.0 Dysuria (principal)
CPT/HCPCS: 87077; 87086; 87186

== ENCOUNTER → 2022-02-27 15:32 | Outpatient (CLI) | payer MEDICARE, SELFPAY ==
[2021-08-16 11:36] VITALS: BMI 21.2
--- NOTE | 2022-02-27 15:36 | DI.MRI.S_ITS ---
PROCEDURE: MR THORACIC SPINE WO/W CON INDICATIONS: Neuromyelitis optica [Devic]/ TECHNIQUE: Noncontrast sagittal T1 spin echo and T2 fast spin echo, sagittal STIR, axial T1 and T2 fast spin echo through the thoracic spine. After the administration of contrast, axial and sagittal T1 spin echo with fat saturation through the thoracic spine. COMPARISON: [facility], , MR THORACIC SPINE WO/W CON, 04/10/2021, 14:24. FINDINGS: Image quality: Excellent. Alignment and curvature: There is normal bony alignment. Marrow: Marrow is of normal overall signal. No acute vertebral body compression fractures. Spinal cord: Focal cord hyperintensities noted from T3 through T5 on the left and T4 through T5 on the right, similar prior exam. No enhancement or cord atrophy. Paraspinous soft tissues: No paravertebral masses or abnormal enhancement. Left renal cyst again noted. Miscellaneous: Central canal and foramina appear widely patent at all scanned levels. IMPRESSION: Stable focal cord hyperintensity consistent with given history of demyelinating disease. No enhancement or new lesions. Approved by: Maximino Damian M.D. on 02/28/2022 at 10:24
--- NOTE | 2022-02-27 15:36 | DI.MRI.S_ITS ---
PROCEDURE: MR CERVICAL SPINE WO/W CON INDICATIONS: Neuromyelitis optica [Devic] TECHNIQUE: Noncontrast sagittal T1 spin echo and T2 fast spin echo, sagittal STIR, foraminal oblique sagittal T2 fast spin echo, axial gradient echo or T2 fast spin echo through the cervical spine. After the administration of contrast, axial and sagittal T1 spin echo with fat saturation through the cervical spine. COMPARISON: [facility], MR, MR CERVICAL SPINE WO/W CON, 04/10/2021, 14:02. FINDINGS: Image quality: Excellent. Alignment and curvature: Mild grade 1 anterior spondylolisthesis noted at C7-T1 Marrow: Focal hyperintensity in the C4 vertebral body remains unchanged, consistent with hemangioma. No enhancement. Remainder of the marrow signal unremarkable. Spinal cord: Cord is normal in size. There is vague ill-defined increased signal in the left ryann cord at the C7 level without enhancement, present on the prior exam in retrospect. Paraspinous soft tissues: No paravertebral masses or suspicious enhancement. Right posterior paraspinal intramuscular lipoma is again noted unchanged, partially imaged. C2-3: Normal appearance. C3-4: Mild disc space narrowing and hypertrophic uncovertebral joints present. No central stenosis. Moderate right and left foraminal stenosis. C4-5: Disc space narrowing and hypertrophic uncovertebral joints present with posterior disc osteophyte complex results in mild central stenosis without cord deformation. No left and severe right foraminal stenosis C5-6: Mild disc space narrowing present. Posterior disc osteophyte complex with mild central stenosis. Hypertrophic uncovertebral joints in present without foraminal stenosis. C6-7: Disc space narrowing with posterior disc osteophyte complex results in moderate central stenosis and mild cord flattening. No foraminal stenosis. C7-T1: Disc space narrowing with posterior disc osteophyte complex. No central stenosis. No foraminal stenosis. IMPRESSION: 1. Stable focal increased cord signal at the C7 level on the left without enhancement consistent with given history of neuromyelitis optica 2. Multilevel degenerative disc disease and arthropathy results in varying degrees of central and foraminal stenosis, stable from the prior 3. Incidental right paraspinal intramuscular lipoma and C3 vertebral hemangioma Approved by: Maximino Damian M.D. on 02/28/2022 at 9:47
== END ==
PROVIDERS: PCP Student in an Organized Health Care Education/Training Program; Referring Provider Specialist; Visit Provider Specialist
DX: G36.0 Neuromyelitis optica [Devic] (principal); R30.0 Dysuria; N95.2 Postmenopausal atrophic vaginitis; M50.31 Other cervical disc degeneration, high cervical region; M47.812 Spondylosis without myelopathy or radiculopathy, cervical region; M48.02 Spinal stenosis, cervical region; D17.9 Benign lipomatous neoplasm, unspecified; D18.09 Hemangioma of other sites
CPT/HCPCS: 51798; 72156; 72157; 81002; 87086; 99215

== ENCOUNTER 2022-03-29 15:44 | Emergency (ER) | payer MEDICARE, SELFPAY ==
[2021-08-16 11:36] VITALS: BMI 21.2
[2022-03-29] VITALS (7 sets, daily range): BP systolic 99–128; BP diastolic 55–71; PULSE 76–112; RESP 16–17; TEMP 36.9; O2SAT 97–100; BMI 21.7
[2022-03-29] MEDS: PANTOPRAZOLE 40 MG VIAL 80 MG IV (16:30)
[2022-03-29] MEDS: ONDANSETRON 4 MG/2 ML INJ IV (16:30)
[2022-03-29] MEDS: SODIUM CHLORIDE 0.9% 1,000 ML 150 ML IV (16:31)
[2022-03-29 16:39] LABS: Add Manual Diff / Slide Review NO; Basophils Absolute Auto 100 /uL (0-100); Basophils Percent Auto 0.8 % (0-2); Eosinophils Absolute Auto 100 /uL (0-450); Eosinophils Percent Auto 0.4 % (2-4); Hematocrit 45.8 % (36-46); Hemoglobin 15.7 g/dL (12.0-16.0); Lymphocytes Absolute Auto 1900 /uL (1100-4500); Lymphocytes Percent Auto 13.6 % (25-40); Mean Corpuscular HGB Conc 34.3 % (30-36); Mean Corpuscular Hemoglobin 33.4 PG (26-34); Mean Corpuscular Volume 97.3 fL (80-100); Monocytes Absolute Auto 700 /uL (0-900); Monocytes Percent Auto 4.9 % (3-14); Neutrophils Absolute Auto 11500 /uL (1500-7000); Neutrophils Percent Auto 80.3 % (50-75); Platelet Count 208 X10^3/uL (150-400); Red Cell Distribution Width 14.6 % (11.6-14.8); White Blood Cell Count 14.3 X10^3/uL (4.5-11.0)
[2022-03-29 17:00] LABS: Appearance Urine UA CLEAR; Bilirubin Urine UA NEGATIVE (NEGATIVE); Color Urine UA YELLOW; Glucose Urine UA NEGATIVE (Negative); Ketones Urine UA NEGATIVE (NEGATIVE); Leukocyte Esterase Urine UA NEGATIVE (NEGATIVE); Nitrite Urine UA NEGATIVE (Negative); Occult Blood Urine UA NEGATIVE (Negative); Protein Urine UA NEGATIVE (Negative); Specific Gravity Urine UA 1.015 (1.000-1.035); Urobilinogen Urine UA 0.2 E.U./dL (0.2)
[2022-03-29 17:08] LABS: Alanine Aminotransferase 17 IU/L (<35); Albumin 4.2 g/dL (3.5-5.0); Albumin Globulin Ratio 1.2 (1.0-2.8); Alkaline Phosphatase 62 U/L (38-126); Aspartate Aminotransferase 26 IU/L (14-36); BUN Creatinine Ratio 18.4 (6-22); Bilirubin Total 1.1 mg/dL (0.2-1.3); Blood Urea Nitrogen 19 mg/dL (7-17); Calcium 9.4 mg/dL (8.4-10.2); Carbon Dioxide 34 mmol/L (22-32); Chloride 96 mmol/L (98-107); Estimated Glomerular Filt Rate 58 mL/min (>60); Globulin 3.4 g/dL (1.7-4.1); Glucose 111 mg/dL (80-110); HEMOLYSIS 19 (0-50); Sodium 138 mmol/L (137-145); Total Protein 7.6 g/dL (6.3-8.2)
[2022-03-29 17:09] LABS: Lipase 34 U/L (23-300)
--- NOTE | 2022-03-29 17:21 | ED_ITS ---
HPI - Nausea/Vomiting/Diarrhea General Chief complaint: Nausea/Vomiting/Diarrhea Stated complaint: Vomitting Time Seen by Provider: 03/29/22 16:04 Source: patient and family Mode of arrival: Ambulatory History of Present Illness HPI Narrative: 71-year-old female nonsmoker with history of neuromyelitis optica followed by [facility] (Dr. Arango [phone] #[phone]) presents with a chief complaint of multiple episodes of dark emesis after eating some oreos. She was having pain over the course of the night but today she is feeling much better, having no pain and does still nauseated is no longer vomiting. Twelve years ago she had her 1st exacerbation and diagnosis of neuromyelitis optica and had some symptoms such as this leading into that exacerbation. She had put in significant effort and had been stabilized for quite some time and then a few weeks ago started having hiccups again. She was re-evaluated and had lab work and imaging which she exertion is that she probably had evidence of disease again. She was started on prednisone 25 mg daily which she has been taking as prescribed. She is not dizzy, weak or lightheaded. She denies any fever or chills. She has no ongoing abdominal pain. She states that she continues to have spasticity in her lower extremities and some tingling in her hands and feet which is chronic for her. She was sent here by her neurologist team for evaluation and possible initiation of Solu-Medrol 1000 mg. Related Data Home Medications Medication Instructions Recorded Confirmed acetaminophen 325 mg capsule 250 mg PO TID PRN Abdominal 08/18/19 03/27/22 Discomfort coenzyme Q10 100 mg capsule (Co 100 mg PO DAILY 08/18/19 03/27/22 Q-10) prednisone 20 mg tablet 20 mg PO DAILY 02/27/22 03/27/22 Previous Rx's Medication Instructions Recorded duloxetine 60 mg capsule,delayed 120 mg PO DAILY #180 caps 08/08/21 release gabapentin 800 mg tablet 800 mg PO TID #270 tabs 08/09/21 methenamine hippurate 1 gram 0.5 g PO BID #90 tabs 09/01/21 tablet (Hiprex) alendronate 70 mg tablet 70 mg PO QWEEK #12 tabs 09/18/21 quetiapine 25 mg tablet See Rx Instructions .Route 11/02/21 .COMPLEX #90 tabs diazepam 5 mg tablet 5 mg PO TID PRN muscle spasm #90 12/25/21 tabs pravastatin 10 mg tablet 10 mg PO BEDTIME #90 tabs 01/29/22 levothyroxine 100 mcg tablet 100 mcg PO DAILY #90 tabs 03/29/22 ondansetron 4 mg disintegrating 4 mg PO TID-QID PRN nausea and 03/29/22 tablet vomiting #10 tabs ospemifene 60 mg tablet (Osphena) 60 mg PO DAILY #90 tabs 03/29/22 oxycodone 5 mg tablet 5 mg PO Q6H PRN pain #120 tabs 03/29/22 pantoprazole 40 mg tablet,delayed 40 mg PO DAILY #30 tabs 03/29/22 release (Protonix) Allergies Allergy/AdvReac Type Severity Reaction Status Date / Time No Known Drug Allergies Allergy Verified 03/27/22 15:39 Review of Systems Review of Systems Narrative: GENERAL: Denies chills, fatigue, malaise, fever, sweats. HEENT: Denies sinus pain, ear pain, sore throat, difficulty swallowing, dizzine ss. RESPIRATORY: Denies dyspnea, cough, wheezing, hemoptysis, sputum. CARDIOVASCULAR: Denies chest pain, palpitations, orthopnea, edema, GASTROINTESTINAL: See HPI : Denies dysuria, frequency, incontinence, hematuria, urinary retention. MUSCULOSKELETAL: denies weakness, joint pain, or bony pain SKIN: Denies rash, skin lesions, or other NEUROLOGIC: Denies weakness, headache, numbness, change in speech, confusion, seizures, incoordination. PSYCHIATRIC: No concerning psychosocial issues. 12 point review of systems is negative except for those stated above Patient History Medical History Anxiety Frequent UTI Postmenopausal atrophic vaginitis Renal cyst, acquired, left Surgical History H/O breast biopsy H/O colectomy H/O shoulder replacement Family History Mother Heart attack UTI (urinary tract infection) Father Heart attack Social History marital status: number of children: 2 household members: spouse Smoking Status: Never smoker alcohol intake: current substance use type: does not use caffeine: Yes Smoking Status: Never smoker alcohol intake frequency: a few times a week Substance Use Type: does not use Exam Narrative Exam Narrative: GENERAL: [71] year old patient appears stated age. Well-developed patient, in mild distress. HEAD: Atraumatic. Normocephalic. EYES: Pupils equal round and reactive. Extraocular motions intact. No scleral icterus. No injection or drainage. ENT: Nose without bleeding, purulent drainage. Throat without erythema, tonsillar hypertrophy or exudate. Airway patent. NECK: Trachea midline. Non tender CARDIOVASCULAR: Regular rate and rhythm without murmurs, gallops, or rubs. RESPIRATORY: Clear to auscultation. Breath sounds equal bilaterally. No wheezes, rales, or rhonchi. GASTROINTESTINAL: Abdomen soft, non-tender, nondistended. EXTREMITIES: No edema or joint tenderness. BACK: Nontender without deformity or crepitance. No flank tenderness. NEURO: AOx3. SKIN: No rash or erythema of visible areas Initial Vital Signs Initial Vital Signs: Vital Signs Temperature 98.4 F 03/29/22 15:45 Pulse Rate 105 H 03/29/22 15:45 Respiratory Rate 17 03/29/22 15:45 Blood Pressure 128/65 03/29/22 15:45 Pulse Oximetry 97 03/29/22 15:45 Oxygen Delivery Method 03/29/22 15:45 Course Course Course Narrative: Patient appears quite well, vital signs are stable, H&H are unremarkable and there is no elevation in her BUN. She has had no vomiting here. Orders Ordered: ED Orders 03/29/22 16:25 Complete Blood Count AUTO DIFF Stat Comprehensive Metabolic Panel Stat Lipase Stat Type and Screen Stat 03/29/22 16:45 UA Complete [Urinalysis and Microscopic] Stat Sodium Chloride (Normal Saline 0.9%) 1,000 mls @ 150 mls/hr IV CONT LENNY Last Admin: 03/29/22 16:31 Dose: 150 mls/hr Documented By: REKHA Discontinued Medications Ondansetron HCl (Ondansetron 4 Mg/2 Ml Inj) 4 mg IV NOW ONE Stop: 03/29/22 16:05 Last Admin: 03/29/22 16:30 Dose: 4 mg Documented By: REKHA Pantoprazole Sodium (Pantoprazole 40 Mg Vial) 80 mg IV NOW ONE Stop: 03/29/22 16:05 Last Admin: 03/29/22 16:30 Dose: 80 mg Documented By: EB Consultations Consultation #1: Call placed to on-call Neurology carrying the pager for Dr. Arango at [facility]. We discussed the case, including history, physical exam, recent treatments, labs on current situation. Given how much better she feels, lack of ongoing vomiting he recommends against the initiation of large dose Solu-Medrol and recommend she be discharged, continue taking her prednisone and they will reach out to her tomorrow. Vital Signs Vital signs: Vital Signs - 8 hr 03/29/22 15:45 03/29/22 15:56 03/29/22 15:57 Temperature 98.4 F Pulse Rate 105 H 112 H 107 H Respiratory Rate 17 Blood Pressure 128/65 Pulse Oximetry 97 97 97 Oxygen Delivery Method Room Air 03/29/22 15:57 03/29/22 16:00 03/29/22 16:00 Temperature Pulse Rate 104 H Respiratory Rate Blood Pressure 128/65 108/55 L Pulse Oximetry 100 Oxygen Delivery Method 03/29/22 16:27 03/29/22 16:27 03/29/22 16:30 Temperature Pulse Rate 102 H Respiratory Rate Blood Pressure 103/71 99/64 Pulse Oximetry 97 Oxygen Delivery Method 03/29/22 16:30 03/29/22 19:14 Temperature Pulse Rate 107 H 76 Respiratory Rate 16 Blood Pressure 111/64 Pulse Oximetry 99 Oxygen Delivery Method MDM - Nausea/Vomiting/Diarrhea Lab Data Result diagrams: 03/29/22 16:25 03/29/22 16:25 Labs: Lab Results 03/29/22 03/29/22 03/29/22 Range/Units 16:25 16:25 16:25 WBC 14.3 H (4.5-11.0) X10^3/uL RBC 4.70 (4.0-5.2) X10^6/uL Hgb 15.7 (12.0-16.0) g/dL Hct 45.8 (36-46) % MCV 97.3 (80-100) fL MCH 33.4 (26-34) PG MCHC 34.3 (30-36) % RDW 14.6 (11.6-14.8) % Plt Count 208 (150-400) X10^3/uL Neut % (Auto) 80.3 H (50-75) % Lymph % (Auto) 13.6 L (25-40) % Alfalfa % (Auto) 4.9 (3-14) % Eos % (Auto) 0.4 L (2-4) % Baso % (Auto) 0.8 (0-2) % Neut # (Auto) 07722 H (2096-5181) /uL Lymph # (Auto) 1900 (8815-8030) /uL Alfalfa # (Auto) 700 (0-900) /uL Eos # (Auto) 100 (0-450) /uL Baso # (Auto) 100 (0-100) /uL Sodium (137-145) mmol/L Potassium (3.4-5.1) mmol/L Chloride (98-107) mmol/L Carbon Dioxide (22-32) mmol/L BUN (7-17) mg/dL Creatinine (0.52-1.04) mg/dL Estimated GFR (>60) mL/min BUN/Creatinine Ratio (6-22) Glucose (80-110) mg/dL Calcium (8.4-10.2) mg/dL Total Bilirubin (0.2-1.3) mg/dL AST (14-36) IU/L ALT (<35) IU/L Alkaline Phosphatase (38-126) U/L Total Protein (6.3-8.2) g/dL Albumin (3.5-5.0) g/dL Globulin (1.7-4.1) g/dL Albumin/Globulin Ratio (1.0-2.8) Lipase 34 (23-300) U/L Urine Color Urine Appearance Urine pH (4.5-8.0) Ur Specific [place] (1.000-1.035) Urine Protein (Negative) Urine Glucose (UA) (Negative) g/dL Urine Ketones (NEGATIVE) Urine Occult Blood (Negative) Urine Nitrate (Negative) Urine Bilirubin (NEGATIVE) Urine Urobilinogen (0.2) E.U./dL Ur Leukocyte Esterase (NEGATIVE) Urine RBC (0-5/HPF) Urine WBC (0-5/HPF) Ur Squamous Epith Cells (0-5/HPF) Urine Bacteria (None) Ur Culture Indicated? Blood Type O Positive Antibody Screen Negative 06/16/22 06/16/22 Range/Units 16:25 16:45 WBC (4.5-11.0) X10^3/uL RBC (4.0-5.2) X10^6/uL Hgb (12.0-16.0) g/dL Hct (36-46) % MCV (80-100) fL MCH (26-34) PG MCHC (30-36) % RDW (11.6-14.8) % Plt Count (150-400) X10^3/uL Neut % (Auto) (50-75) % Lymph % (Auto) (25-40) % Alfalfa % (Auto) (3-14) % Eos % (Auto) (2-4) % Baso % (Auto) (0-2) % Neut # (Auto) (9566-6673) /uL Lymph # (Auto) (1211-3076) /uL Alfalfa # (Auto) (0-900) /uL Eos # (Auto) (0-450) /uL Baso # (Auto) (0-100) /uL Sodium 138 (137-145) mmol/L Potassium 4.0 (3.4-5.1) mmol/L Chloride 96 L (98-107) mmol/L Carbon Dioxide 34 H (22-32) mmol/L BUN 19 H (7-17) mg/dL Creatinine 1.03 (0.52-1.04) mg/dL Estimated GFR 58 L (>60) mL/min BUN/Creatinine Ratio 18.4 (6-22) Glucose 111 H (80-110) mg/dL Calcium 9.4 (8.4-10.2) mg/dL Total Bilirubin 1.1 (0.2-1.3) mg/dL AST 26 (14-36) IU/L ALT 17 (<35) IU/L Alkaline Phosphatase 62 (38-126) U/L Total Protein 7.6 (6.3-8.2) g/dL Albumin 4.2 (3.5-5.0) g/dL Globulin 3.4 (1.7-4.1) g/dL Albumin/Globulin Ratio 1.2 (1.0-2.8) Lipase (23-300) U/L Urine Color Yellow Urine Appearance Clear Urine pH 7.5 (4.5-8.0) Ur Specific [place] 1.015 (1.000-1.035) Urine Protein Negative (Negative) Urine Glucose (UA) Negative (Negative) g/dL Urine Ketones Negative (NEGATIVE) Urine Occult Blood Negative (Negative) Urine Nitrate Negative (Negative) Urine Bilirubin Negative (NEGATIVE) Urine Urobilinogen 0.2 (0.2) E.U./dL Ur Leukocyte Esterase Negative (NEGATIVE) Urine RBC None seen (0-5/HPF) Urine WBC None seen (0-5/HPF) Ur Squamous Epith Cells 5-10 /hpf H (0-5/HPF) Urine Bacteria None seen (None) Ur Culture Indicated? Cult not indicated Blood Type Antibody Screen Point of Care Testing Glucose POC 93 MDM Narrative Medical decision making narrative: Multiple etiologies for patient's symptoms considered including: [Vomiting due to GI bleed versus exacerbation of neuromyelitis optica versus medication reaction versus other Patient has no ongoing vomiting, stable vitals, stable H&H and no elevation in BUN to suggest ongoing GI bleed. The dark emesis could have been related to whe n she had last consume for vomiting which was Oreo does but this is unclear. Though she could be in the throes of an early exacerbation of her NMO given her improved symptoms her neurologist recommended against high-dose steroids at this time Patient tolerating orals (liquid and solid) in ED. Patient's symptoms improved over duration of stay with above-stated therapies. Findings and discharge diagnosis discussed with patient/family followed by verbalization of understanding Return precautions discussed with patient/family whom verbalize understanding. Discharge Plan Departure Patient Disposition: Home Clinical Impression: Neuromyelitis optica, Acute vomiting Instructions: DI for Dehydration -- Adult, DI for Vomiting -- Adult Activity Restrictions/Additional Instructions: *You have been diagnosed with [abdominal pain and vomiting, greatly improved. * As we discussed your history and physical exam as well as labs and imaging are very reassuring. There is no evidence of any severe diagnoses that would require a specific or immediate intervention. *What to do: *Please continue to take your regular medications as directed. [x ] New medication prescriptions sent to your pharmacy: [[facility] ] *Please follow up with your primary care provider in 2-3 days, call for an appointment. Let them know you were seen in the Emergency Department and that we ask that you be seen in follow up. We will electronically transmit a record of today's note if your PCP is in our system *Please consider a clear liquid diet for the next 24-48 hours and then slowly advance to regular as tolerated. Also, try to avoid alcohol, nicotine, caffeine, spicy, acidic or fatty foods as this may worsen your symptoms *If you do not have a primary care provider please contact the [facility] Resource line at [phone]. They will ask some questions about your medical h istory and help get you set up with a doctor in the community. *Return to Emergency Department if you should have any new, worsening or concerning symptoms, such as [fever greater than 101 F, shaking chills, worsening pain, persistent vomiting or other bothersome symptoms] Prescriptions: New ondansetron 4 mg tablet,disintegrating 4 mg PO TID-QID PRN (Reason: nausea and vomiting) Qty: 10 0RF pantoprazole [Protonix] 40 mg tablet,delayed release (DR/EC) 40 mg PO DAILY Qty: 30 0RF No Action duloxetine 60 mg capsule,delayed release(DR/EC) 120 mg PO DAILY Qty: 180 3RF gabapentin 800 mg tablet 800 mg PO TID Qty: 270 3RF alendronate 70 mg tablet 70 mg PO QWEEK Qty: 12 5RF quetiapine 25 mg tablet See Rx Instructions .ROUTE .COMPLEX Qty: 90 3RF Dose Instruction: TAKE 1 TABLET BY MOUTH DAILY AT BEDTIME Rx Instructions: TAKE 1 TABLET BY MOUTH DAILY AT BEDTIME diazepam 5 mg tablet 5 mg PO TID PRN (Reason: muscle spasm) Qty: 90 2RF pravastatin 10 mg tablet 10 mg PO BEDTIME Qty: 90 2RF levothyroxine 100 mcg tablet 100 mcg PO DAILY Qty: 90 1RF oxycodone 5 mg tablet 5 mg PO Q6H PRN (Reason: pain) Qty: 120 0RF Rx Instructions: EXEMPT Osphena 60 mg tablet 60 mg PO DAILY Qty: 90 3RF Rx Instructions: must administer with food, preferably a high-fat meal coenzyme Q10 [Co Q-10] 100 mg capsule 100 mg PO DAILY acetaminophen 325 mg capsule 250 mg PO TID PRN (Reason: Abdominal Discomfort) methenamine hippurate [Hiprex] 1 gram tablet 0.5 g PO BID Qty: 90 3RF Rx Instructions: Take 1/2 tablet Hiprex with 500 mg vitamin-C twice daily as directed. prednisone 20 mg tablet 20 mg PO DAILY Referrals: John Gerardo MD [Primary Care Provider] -
[2022-03-29 17:27] LABS: pH Urine UA 7.5 (4.5-8.0)
[2022-03-29 18:08] LABS: Bacteria Urine None Seen; Culture Indicated Urine Cult Not Indicated; RBC Urine None Seen (0-5/HPF); Squamous Epithelial Cell Urine 5-10 /HPF (0-5/HPF); WBC Urine None Seen (0-5/HPF)
== END 2022-03-29 19:37 | disposition home or self-care (01) ==
PROVIDERS: Emergency Provider Emergency Medicine; PCP Student in an Organized Health Care Education/Training Program
DX: G36.0 Neuromyelitis optica [Devic] (principal); R11.10 Vomiting, unspecified
CPT/HCPCS: 36415; 80053; 81001; 82962; 83690; 85025; 86850; 86900; 86901; 96361; 96374; 96375; 99284; C9113; J2405

== ENCOUNTER → 2022-05-09 14:17 | Outpatient (CLI) | payer MEDICARE, SELFPAY ==
[2021-08-16 11:36] VITALS: BMI 21.2
--- NOTE | 2022-05-09 14:20 | DI.MG.S_ITS ---
BILATERAL DIGITAL SCREENING MAMMOGRAM 3D/2D WITH CAD: 05/09/2022 CLINICAL: Routine screening. Comparison is made to exams dated: 08/31/2019 mammogram - [facility], 01/14/2017 mammogram, and 12/23/2015 mammogram - [facility]. The tissue of both breasts is heterogeneously dense. This may lower the sensitivity of mammography. Current study was also evaluated with a Computer Aided Detection (CAD) system. No significant masses, calcifications, or other findings are seen in either breast. There has been no significant interval change. IMPRESSION: NEGATIVE There is no mammographic evidence of malignancy. A 1 year screening mammogram is recommended. Based on the Tyrer Cuzick model (a risk assessment model) the patient's lifetime risk is 9.4% and her 10 year risk is 7.1%. According to the ACR, ACS, and NCCN guidelines, an annual breast MRI exam along with mammogram is recommended if the patient's lifetime risk is 20% or greater. This exam was interpreted at Station ID: [id number]. NOTE: For mammograms, a report in lay terms will be sent to the patient. Approximately 15% of breast malignancies will not be visualized mammographically. In the management of a palpable breast mass, a negative mammogram must not discourage biopsy of a clinically suspicious lesion. Electronically Signed By: Gemma murillo/radha:05/09/2022 16:17:39 letter sent: Normal Exam ACR BI-RADS Category 1: Negative 3341F
== END ==
PROVIDERS: PCP Student in an Organized Health Care Education/Training Program; Referring Provider Student in an Organized Health Care Education/Training Program; Visit Provider Student in an Organized Health Care Education/Training Program
DX: M85.89 Other specified disorders of bone density and structure, multiple sites (principal); Z12.31 Encounter for screening mammogram for malignant neoplasm of breast; Z78.0 Asymptomatic menopausal state; Z13.820 Encounter for screening for osteoporosis; Z79.899 Other long term (current) drug therapy
CPT/HCPCS: 77063; 77067; 77080

== ENCOUNTER → 2022-06-14 15:43 | Outpatient (CLI) | payer MEDICARE, SELFPAY ==
[2021-08-16 11:36] VITALS: BMI 21.2
[2022-06-14 20:11] LABS: Clostridium Difficile Tox PCR Negative for C. diff (Negative)
== END ==
PROVIDERS: PCP Student in an Organized Health Care Education/Training Program; Referring Provider Student in an Organized Health Care Education/Training Program; Visit Provider Student in an Organized Health Care Education/Training Program
DX: R19.5 Other fecal abnormalities (principal)
CPT/HCPCS: 87493

== ENCOUNTER → 2022-12-18 14:31 | Outpatient (CLI) | payer MEDICARE, SELFPAY ==
[2021-08-16 11:36] VITALS: BMI 21.2
[2022-12-18 16:05] LABS: TSH w/ Reflex to FT4 0.99 uIU/mL (0.47-4.68)
== END ==
PROVIDERS: PCP Student in an Organized Health Care Education/Training Program; Referring Provider Student in an Organized Health Care Education/Training Program; Visit Provider Student in an Organized Health Care Education/Training Program
DX: E03.9 Hypothyroidism, unspecified (principal)
CPT/HCPCS: 36415; 84443

== ENCOUNTER → 2023-05-16 17:53 | Outpatient (CLI) | payer MEDICARE, SELFPAY ==
[2021-08-16 11:36] VITALS: BMI 21.2
[2023-05-16 18:08] LABS: Appearance Urine UA CLEAR; Bilirubin Urine UA NEGATIVE (NEGATIVE); Color Urine UA YELLOW; Glucose Urine UA NEGATIVE (Negative); Ketones Urine UA NEGATIVE (NEGATIVE); Leukocyte Esterase Urine UA 2+ (NEGATIVE); Nitrite Urine UA NEGATIVE (Negative); Occult Blood Urine UA NEGATIVE (Negative); Protein Urine UA NEGATIVE (Negative); Specific Gravity Urine UA <=1.005 (1.000-1.035); Urobilinogen Urine UA 0.2 E.U./dL (0.2)
[2023-05-16 18:15] LABS: RBC Urine 0-1/HPF (0-5/HPF); pH Urine UA 5.5 (4.5-8.0)
[2023-05-16 18:16] LABS: Bacteria Urine Few (2-10); Culture Indicated Urine Specimen Cultured; Squamous Epithelial Cell Urine 1-5 /HPF (0-5/HPF); WBC Urine 10-30/HPF (0-5/HPF)
== END ==
PROVIDERS: PCP Student in an Organized Health Care Education/Training Program; Referring Provider Pediatrics; Visit Provider Pediatrics
DX: R30.0 Dysuria (principal); R39.9 Unspecified symptoms and signs involving the genitourinary system
CPT/HCPCS: 81001; 87086

== ENCOUNTER → 2023-06-03 16:50 | Outpatient (CLI) | payer MEDICARE, SELFPAY ==
[2021-08-16 11:36] VITALS: BMI 21.2
[2023-06-03 17:24] LABS: Appearance Urine UA CLEAR; Bilirubin Urine UA NEGATIVE (NEGATIVE); Color Urine UA YELLOW; Glucose Urine UA NEGATIVE (Negative); Ketones Urine UA NEGATIVE (NEGATIVE); Leukocyte Esterase Urine UA NEGATIVE (NEGATIVE); Nitrite Urine UA NEGATIVE (Negative); Occult Blood Urine UA NEGATIVE (Negative); Protein Urine UA NEGATIVE (Negative); Urobilinogen Urine UA 0.2 E.U./dL (0.2)
[2023-06-03 18:12] LABS: pH Urine UA 5.5 (4.5-8.0)
[2023-06-03 18:16] LABS: Bacteria Urine None Seen; Culture Indicated Urine Cult Not Indicated; RBC Urine None Seen (0-5/HPF); Squamous Epithelial Cell Urine 1-5 /HPF (0-5/HPF); WBC Urine None Seen (0-5/HPF)
== END ==
PROVIDERS: PCP Pediatrics; Referring Provider Pediatrics; Visit Provider Pediatrics
DX: N39.0 Urinary tract infection, site not specified (principal); R39.89 Other symptoms and signs involving the genitourinary system
CPT/HCPCS: 81001

== ENCOUNTER → 2023-06-13 17:08 | Outpatient (CLI) | payer MEDICARE, SELFPAY ==
[2021-08-16 11:36] VITALS: BMI 21.2
== END ==
PROVIDERS: PCP Pediatrics; Referring Provider Pediatrics; Visit Provider Pediatrics
DX: N39.0 Urinary tract infection, site not specified (principal)
CPT/HCPCS: 81001

== ENCOUNTER 2023-06-14 18:48 | Emergency (ER) | payer MEDICARE, SELFPAY ==
[2021-08-16 11:36] VITALS: BMI 21.2
[2023-06-14 19:25] VITALS: BP 129/81; PULSE 87; RESP 16; TEMP 35.5; O2SAT 98; BMI 20.6
[2023-06-14 20:52] VITALS: BP 115/75; PULSE 76; TEMP 36.6; O2SAT 98
[2023-06-14 21:35] VITALS: BP 147/79; PULSE 75; RESP 16; O2SAT 100
--- NOTE | 2023-06-14 22:31 | DI.RAD.S_ITS ---
PROCEDURE: XR HUMERUS RT 2V INDICATIONS: RT arm pain. TECHNIQUE: 2 views of the humerus were acquired. COMPARISON: None. FINDINGS: Bones: No fractures or dislocations. No suspicious bony lesions. Right shoulder arthroplasty is unremarkable. Soft tissues: No suspicious soft tissue calcifications. IMPRESSION: Unremarkable right shoulder arthroplasty. Dictated by: Leonardo Aiken M.D. on 06/14/2023 at 23:26 Approved by: Leonardo Aiken M.D. on 06/14/2023 at 23:27
[2023-06-14 23:00] VITALS: BP 130/68; PULSE 69; RESP 18; O2SAT 96
[2023-06-14 23:11] LABS: Add Manual Diff / Slide Review NO; Basophils Absolute Auto 0 /uL (0-100); Basophils Percent Auto 0.6 % (0-2); Eosinophils Absolute Auto 200 /uL (0-450); Eosinophils Percent Auto 2.2 % (2-4); Hematocrit 36.9 % (36-46); Hemoglobin 12.8 g/dL (12.0-16.0); Lymphocytes Absolute Auto 3100 /uL (1100-4500); Lymphocytes Percent Auto 43.4 % (25-40); Mean Corpuscular HGB Conc 34.6 % (30-36); Mean Corpuscular Volume 95.5 fL (80-100); Monocytes Absolute Auto 400 /uL (0-900); Monocytes Percent Auto 5.8 % (3-14); Neutrophils Absolute Auto 3400 /uL (1500-7000); Platelet Count 208 X10^3/uL (150-400); Red Blood Cell Count 3.86 X10^6/uL (4.0-5.2); Red Cell Distribution Width 13.3 % (11.6-14.8); White Blood Cell Count 7.1 X10^3/uL (4.5-11.0)
[2023-06-14 23:19] LABS: Alanine Aminotransferase 20 IU/L (<35); Albumin 3.9 g/dL (3.5-5.0); Alkaline Phosphatase 66 U/L (38-126); Aspartate Aminotransferase 29 IU/L (14-36); BUN Creatinine Ratio 17.2 (6-22); Bilirubin Total 0.6 mg/dL (0.2-1.3); Blood Urea Nitrogen 16 mg/dL (7-17); Calcium 8.5 mg/dL (8.4-10.2); Carbon Dioxide 29 mmol/L (22-32); Chloride 101 mmol/L (98-107); Estimated Glomerular Filt Rate > 60 mL/min (>60); Glucose 96 mg/dL (80-110); HEMOLYSIS < 15 (0-50); Lipase 73 U/L (23-300); Potassium 4.3 mmol/L (3.4-5.1); Sodium 136 mmol/L (137-145); Total Protein 7.9 g/dL (6.3-8.2)
--- NOTE | 2023-06-15 00:31 | ED_ITS ---
HPI - Extremity Problem General Chief complaint: Extremity Problem,Nontraumatic Stated complaint: rt arm pain/sent by wic/confusion Time Seen by Provider: 06/14/23 22:31 Source: patient Mode of arrival: Wheelchair Limitations: no limitations History of Present Illness HPI Narrative: This is a 72-year-old female with neuromyelitis optica. Patient states she had a sudden onset of right arm pain she describes as humeral but tracking upwards towards her neck. Patient states she did not have any trauma injury or anything that she recalls. She states it does not really go down. No paresthesias, no weakness. She has no pain with movement at the wrist, hand but she starts to move towards the elbow or lift her arm it causes pain. No swelling no redness or other skin changes. She occasionally has odd pains that occur but states that this is a bit atypical. She states it does not seem similar to her prior flares of neuromyelitis. She denies fevers or chills. No chest pain or shortness of breath. No nausea or vomiting. No hiccups which are often preceding symptom of a bad flare. She does have an ostomy bag in place because she does not have any use of her bowel control. She states she does have UTI currently she is currently on Macrobid for this. Denies any new weakness numbness or tingling or pain in other extremities. Patient states no fevers or chills. She states the pain is improving at this time. She has not had any trauma, long distance travel or periods of sedentary time where she is not been using the arm. No prior blood clots. Patient to does receive infusions for neuromyelitis which she is been getting regularly. She does have prior shoulder replacements on both sides and has had prior fracture on 1 side secondary to osteopenia from chronic prednisone use. Patient is accompanied by her . She follows with Neurology at [facility]. Related Data Home Medications Medication Instructions Recorded Confirmed acetaminophen 325 mg capsule 250 mg PO TID PRN Abdominal 08/18/19 05/20/23 Discomfort coenzyme Q10 100 mg capsule (Co 100 mg PO DAILY 08/18/19 05/20/23 Q-10) eculizumab 300 mg/30 mL 600 mg IV QWEEK 05/14/22 05/20/23 intravenous solution (Soliris) Previous Rx's Medication Instructions Recorded methenamine hippurate 1 gram tablet See Rx Instructions .Route 09/25/22 .COMPLEX #100 tabs duloxetine 60 mg capsule,delayed 120 mg PO DAILY #180 caps 10/30/22 release levothyroxine 100 mcg tablet 100 mcg PO DAILY #90 tabs 11/26/22 gabapentin 800 mg tablet 800 mg PO TID #270 tabs 12/24/22 nitrofurantoin 100 mg PO DAILY #90 caps 01/28/23 monohydrate/macrocrystals 100 mg capsule ospemifene 60 mg tablet (Osphena) 60 mg PO DAILY #90 tabs 02/18/23 estradiol 0.01% (0.1 mg/gram) 0.5 g vaginal 2XW #42.5 grams 04/02/23 vaginal cream (Estrace) alendronate 70 mg tablet 70 mg PO QWEEK #12 tabs 05/13/23 diazepam 5 mg tablet See Rx Instructions PO TID PRN 05/16/23 muscle spasm #90 tabs oxycodone 5 mg tablet 5 mg PO Q6H PRN pain #120 tabs 05/16/23 amoxicillin 500 mg-potassium 1 tab PO BID #20 tabs 05/17/23 clavulanate 125 mg tablet (Augmentin) pravastatin 10 mg tablet 10 mg PO BEDTIME #90 tabs 05/21/23 quetiapine 25 mg tablet 25 mg PO BEDTIME #30 tabs 06/10/23 Allergies Allergy/AdvReac Type Severity Reaction Status Date / Time No Known Drug Allergies Allergy Verified 05/20/23 11:00 Review of Systems Review of Systems ROS Unobtainable: All systems reviewed & are unremarkable except as noted in HPI and below Patient History Medical History Anxiety Chronic pelvic pain in female Frequent UTI Postmenopausal atrophic vaginitis Renal cyst, acquired, left Surgical History H/O breast biopsy H/O colectomy H/O shoulder replacement Family History Mother Heart attack UTI (urinary tract infection) Father Heart attack Social History marital status: number of children: 2 household members: spouse Smoking Status: Never smoker alcohol intake: current substance use type: does not use caffeine: Yes Smoking Status: Never smoker alcohol intake frequency: a few times a week Substance Use Type: does not use Exam Narrative Exam Narrative: GEN: well nourished, well appearing female, alert and oriented x 3, patient appears to be in mild distress. HEENT: Atraumatic, pupils are equal round reactive to light, extraocular movements are intact, nares are clear, there is no conjunctival pallor. No facial droop. HEART: Regular rate and rhythm without murmur, clicks, rubs. Pulses are equal in upper and lower extremities LUNGS:Lungs clear to auscultation, no wheezes, rales, crackles, chest moves symmetrically ABD:bowel sounds normal, soft, non-tender, no guarding, rebound, rigidity, no masses noted, no hepatosplenomegaly :No CVA tenderness MSCL: Patient has tenderness over the humeral area, no bony tenderness of the elbow forearm hand or wrist. She has some mild tenderness of the shoulder. No obvious deformity. She can lift and move her arm throughout full range of motion but is quite uncomfortable. Pronation supination is particularly uncomfortable as well as full extension of her elbow and lifting at the shoulder. Patient 5/5 muscle strength. 2+ pulses bilaterally radially. Claims Configuration Analyst are equal bilaterally. No warmth, erythema or swelling is appreciated., no muscle atrophy, muscles strength 5/5 upper and lower extremities, full range of motion, normal gait NEURO:CN 2-12 intact, sensation normal, patient does have full range of motion of all 5 extremities no obvious weakness. She does have generalized tremor Initial Vital Signs Initial Vital Signs: Vital Signs Temperature 96 F L 06/14/23 19:25 Pulse Rate 87 06/14/23 19:25 Respiratory Rate 16 06/14/23 19:25 Blood Pressure 129/81 06/14/23 19:25 Pulse Oximetry 98 06/14/23 19:25 Oxygen Delivery Method Room Air 06/14/23 19:25 Course Orders Ordered: ED Orders 06/14/23 21:30 Urine Culture Stat 06/14/23 22:31 XR humerus RT 2V Stat 06/14/23 22:55 CBC Auto Diff [Complete Blood Count AUTO DIFF] Stat CMP [Comprehensive Metabolic Panel] Stat Lipase Stat 06/15/23 00:58 UA Complete [Urinalysis and Microscopic] Stat Vital Signs Vital signs: Vital Signs - 8 hr 06/14/23 20:52 06/14/23 21:35 06/14/23 23:00 Temperature 97.8 F Pulse Rate 76 75 69 Respiratory Rate 16 18 Blood Pressure 115/75 147/79 H 130/68 Pulse Oximetry 98 100 96 Oxygen Delivery Method Room Air Room Air 06/15/23 01:20 Temperature Pulse Rate 79 Respiratory Rate 18 Blood Pressure 113/60 Pulse Oximetry 95 Oxygen Delivery Method Room Air MDM - Extremity (Nontraumatic) Lab Data 06/14/23 22:55 06/14/23 22:55 Labs: Lab Results 06/14/23 06/14/23 06/14/23 Range/Units 21:30 22:55 22:55 WBC 7.1 (4.5-11.0) X10^3/uL RBC 3.86 L (4.0-5.2) X10^6/uL Hgb 12.8 (12.0-16.0) g/dL Hct 36.9 (36-46) % MCV 95.5 (80-100) fL MCH 33.0 (26-34) PG MCHC 34.6 (30-36) % RDW 13.3 (11.6-14.8) % Plt Count 208 (150-400) X10^3/uL Neut % (Auto) 48.0 L (50-75) % Lymph % (Auto) 43.4 H (25-40) % [place] % (Auto) 5.8 (3-14) % Eos % (Auto) 2.2 (2-4) % Baso % (Auto) 0.6 (0-2) % Neut # (Auto) 3400 (4201-2736) /uL Lymph # (Auto) 3100 (3472-0782) /uL [place] # (Auto) 400 (0-900) /uL Eos # (Auto) 200 (0-450) /uL Baso # (Auto) 0 (0-100) /uL Sodium 136 L (137-145) mmol/L Potassium 4.3 (3.4-5.1) mmol/L Chloride 101 (98-107) mmol/L Carbon Dioxide 29 (22-32) mmol/L BUN 16 (7-17) mg/dL Creatinine 0.93 (0.52-1.04) mg/dL Estimated GFR > 60 (>60) mL/min BUN/Creatinine Ratio 17.2 (6-22) Glucose 96 (80-110) mg/dL Calcium 8.5 (8.4-10.2) mg/dL Total Bilirubin 0.6 (0.2-1.3) mg/dL AST 29 (14-36) IU/L ALT 20 (<35) IU/L Alkaline Phosphatase 66 (38-126) U/L Total Protein 7.9 (6.3-8.2) g/dL Albumin 3.9 (3.5-5.0) g/dL Globulin 4.0 (1.7-4.1) g/dL Albumin/Globulin Ratio 1.0 (1.0-2.8) Lipase 73 (23-300) U/L Urine Color Yellow Urine Appearance Sl cloudy Urine pH 6.0 (4.5-8.0) Ur Specific [place] 1.010 (1.000-1.035) Urine Protein Negative (Negative) Urine Glucose (UA) Negative (Negative) g/dL Urine Ketones Negative (NEGATIVE) Urine Occult Blood Negative (Negative) Urine Nitrate Positive H (Negative) Urine Bilirubin Negative (NEGATIVE) Urine Urobilinogen 0.2 (0.2) E.U./dL Ur Leukocyte Esterase Negative (NEGATIVE) Urine RBC None seen (0-5/HPF) Urine WBC 1-5/hpf (0-5/HPF) Ur Squamous Epith Cells 1-5 /hpf (0-5/HPF) Urine Bacteria Many (>30) H (None) Ur Culture Indicated? Specimen cultured Urine Dip Bedside Urine Glucose Negative Bedside Urine Bilirubin - Negative Bedside Urine Ketone - Negative Urine Specific [place] 1.010 Bedside Urine Occult Blood - Negative Bedside Urine pH 6.0 Bedside Urine Protein - Negative Bedside Urine Urobilinogen - Negative Bedside Urine Nitrite - Negative Bedside Urine Leukocytes - Negative Esterase Imaging Data Extremity x-ray #1: Radiologist's Impression: [address] [id number] XRay Report Signed Patient: Jonna Ramon MR#: [id number] : 1950 Acct:[id number] Age/Sex: 72 / F Date of Service: 06/14/23 Loc: ED Accession Number: [id number] ?? Procedure: XR humerus RT 2V Ordering Provider: Diane Valera D.O. PROCEDURE:? XR HUMERUS RT 2V ? INDICATIONS:? RT arm pain. ? TECHNIQUE:? 2 views of the humerus were acquired.? ? COMPARISON:? None. ? FINDINGS:? ? Bones:? No fractures or dislocations.? No suspicious bony lesions.? Right shoulder arthroplasty is unremarkable.? ? Soft tissues:? No suspicious soft tissue calcifications.? ? ? IMPRESSION:? Unremarkable right shoulder arthroplasty. ? ? Dictated by: Leonardo Aiken M.D. on 06/14/2023 at 23:26 ? ? Approved by: Leonardo Aiken M.D. on 06/14/2023 at 23:27?? MDM Narrative Medical decision making narrative: Discussed with patient and family no acute changes on x-ray, patient has full range of motion no suspicion for shoulder dislocation at this time. She does have some tenderness in the soft tissue but also has pain movement making blood clot less likely, patient and family deferred DVT ultrasound at this time. She does not have any other high-risk factors. No paresthesias or numbness or tingling but pain did radiate all the way up to her next we did discuss possible radiculopathy. There is potential that it could be a flare of her neuromyelitis but patient states this seems less likely. She states pain does seem to be improving she would like to discharge home, she has home narcotic medication that she can take. Plan to reach out to her neurologist if she is having persistent symptoms or things to seemed to be changing or similar to a flare. We did discuss if she is developing redness warmth or persistent pain DVT ultrasound would be appropriate. Patient has been up to urinate. UA from yesterday was pending has not resulted there is no culture pending. Was recent today patient is nitrite positive but has had 2 doses of Macrobid so far will have her continue this for the time being while awaiting culture. They state no prior resistance in the past. She has prior urine cultures with E coli that was sensitive to nitrofurantoin. She does have 1 culture from 05/16/2023 which was positive for lactobacillus Discharge Plan Departure Patient Disposition: Home Clinical Impression: Arm pain Instructions: DI for Arm Pain Activity Restrictions/Additional Instructions: Follow-up with your physician for recheck. We did not rule out a blood clot today, so I would recommend return for ultrasound if you are having any new redness, swelling or other changes. You can use a sling as needed. If you are having any other new changes or concerned about having a flare of your neuromyelitis, please reach out to your neurologist at any time. You may take your home oxycodone prescription as prescribed. I would also recommended continue your nitrofurantoin, your urine tonight has been cultured and should resolve in the next 48-72 hours. Please return for fevers, new or worsening pain, new weakness, rapidly worsening symptoms, new redness, swelling, increasing difficulty with movement or other new or concerning changes. Prescriptions: No Action duloxetine 60 mg capsule,delayed release(DR/EC) 120 mg PO DAILY Qty: 180 3RF methenamine hippurate 1 gram tablet See Rx Instructions .ROUTE .COMPLEX Qty: 100 1RF Dose Instruction: TAKE ONE-HALF TABLET BY MOUTH WITH 500 MG VITAMIN-C TWICE DAILY DIRECTED Rx Instructions: TAKE ONE-HALF TABLET BY MOUTH WITH 500 MG VITAMIN-C TWICE DAILY DIRECTED gabapentin 800 mg tablet 800 mg PO TID Qty: 270 3RF nitrofurantoin monohyd/m-cryst 100 mg capsule 100 mg PO DAILY Qty: 90 1RF Rx Instructions: must administer with a meal/food Osphena 60 mg tablet 60 mg PO DAILY Qty: 90 2RF Rx Instructions: must administer with food, preferably a high-fat meal alendronate 70 mg tablet 70 mg PO QWEEK Qty: 12 3RF diazepam 5 mg tablet See Rx Instructions PO TID PRN (Reason: muscle spasm) Qty: 90 0RF Rx Instructions: 5mg every morn, 7.5-10mg every thai, 2.5-5mg middle of night orally up to three times a day PRN; per records in EMR oxycodone 5 mg tablet 5 mg PO Q6H PRN (Reason: pain) Qty: 120 0RF Rx Instructions: EXEMPT amoxicillin-pot clavulanate [Augmentin] 500-125 mg tablet 1 tab PO BID Qty: 20 0RF pravastatin 10 mg tablet 10 mg PO BEDTIME Qty: 90 2RF quetiapine 25 mg tablet 25 mg PO BEDTIME Qty: 30 2RF coenzyme Q10 [Co Q-10] 100 mg capsule 100 mg PO DAILY acetaminophen 325 mg capsule 250 mg PO TID PRN (Reason: Abdominal Discomfort) Soliris 300 mg/30 mL solution 600 mg IV QWEEK Rx Instructions: administer wks 1-4 of therapy; over 35 min estradiol [Estrace] 0.01 % (0.1 mg/gram) cream 0.5 g vaginal 2XW Qty: 42.5 3RF Rx Instructions: 0.5gm in vagina and small amount to urethral opening every day for 2 wks and then twice a week levothyroxine 100 mcg tablet 100 mcg PO DAILY Qty: 90 3RF Referrals: Roshan Morales MD [Primary Care Provider] - Stand Alone Forms: Patient Portal/API
[2023-06-15 01:06] LABS: Appearance Urine UA SL CLOUDY; Bilirubin Urine UA NEGATIVE (NEGATIVE); Color Urine UA YELLOW; Glucose Urine UA NEGATIVE (Negative); Ketones Urine UA NEGATIVE (NEGATIVE); Leukocyte Esterase Urine UA NEGATIVE (NEGATIVE); Nitrite Urine UA POSITIVE (Negative); Occult Blood Urine UA NEGATIVE (Negative); Protein Urine UA NEGATIVE (Negative); Urobilinogen Urine UA 0.2 E.U./dL (0.2)
[2023-06-15 01:07] LABS: Bacteria Urine Many (>30); RBC Urine None Seen (0-5/HPF); Squamous Epithelial Cell Urine 1-5 /HPF (0-5/HPF); WBC Urine 1-5/HPF (0-5/HPF)
[2023-06-15 01:08] LABS: Culture Indicated Urine Specimen Cultured
[2023-06-15 01:20] VITALS: BP 113/60; PULSE 79; RESP 18; O2SAT 95
== END 2023-06-15 01:20 | disposition home or self-care (01) ==
PROVIDERS: Emergency Provider Emergency Medicine; PCP Pediatrics
DX: M79.601 Pain in right arm (principal); R41.0 Disorientation, unspecified; Z79.899 Other long term (current) drug therapy
CPT/HCPCS: 73060; 80053; 81001; 81003; 83690; 85025; 87077; 87086; 87186; 99283; 99284

== ENCOUNTER → 2023-10-03 12:47 | Outpatient (CLI) | payer MEDICARE, SELFPAY ==
[2021-08-16 11:36] VITALS: BMI 21.2
--- NOTE | 2023-10-03 12:48 | DI.US.S_ITS ---
PROCEDURE: US PERIP VENOUS LOW EXTREM LT INDICATIONS: LEFT LOWER EXTREMITY EDEMA TECHNIQUE: Real-time imaging, as well as color and pulse Doppler interrogation, were performed of the lower extremity deep veins from the inguinal ligament to the popliteal fossa, with documentation of the visualized calf veins. COMPARISON: [facility], , [facility] VENOUS LOW EXTREM LT, 02/28/2018, 0:03. FINDINGS: There is thrombus within the inferior superficial femoral vein. The common femoral, popliteal, and the visualized calf veins are normally compressible, and free of intraluminal thrombus. Color and pulse Doppler demonstrate normal phasic intraluminal flow. There is normal augmentation response to distal compression maneuver. IMPRESSION: Positive exam. DVT in the femoral vein inferiorly. Results were communicated to Dr. Stapleton by the ecommerce project manager. Dictated by: Juan Miguel Haywrad M.D. on 10/03/2023 at 13:53 Approved by: Juan Miguel Hayward M.D. on 10/03/2023 at 13:56
== END ==
PROVIDERS: PCP Family Medicine; Referring Provider Family Medicine; Visit Provider Family Medicine
DX: I82.412 Acute embolism and thrombosis of left femoral vein (principal); M79.89 Other specified soft tissue disorders
CPT/HCPCS: 93971

== ENCOUNTER 2023-10-03 13:19 | Emergency (ER) | payer MEDICARE, SELFPAY ==
[2021-08-16 11:36] VITALS: BMI 21.2
[2023-10-03] VITALS (11 sets, daily range): BP systolic 76–128; BP diastolic 54–74; PULSE 66–83; RESP 18–31; TEMP 36.5; O2SAT 89–100; BMI 19.7
--- NOTE | 2023-10-03 14:18 | ED.LOWEXIN ---
HPI - Extremity Injury (Lower) General Chief Complaint: Extremity Injury, Lower Stated Complaint: STATES DVT INLT LEG/SENT BY DI Time Seen by Provider: 10/03/23 14:07 Source: patient Mode of arrival: Wheelchair History of Present Illness HPI Narrative: Patient is a 72-year-old female. She was sent for an outpatient DVT ordered by her primary doctor secondary to swelling to her left leg. That has been present for the past couple days. She was sent to the emergency department because of a positive DVT study. Upon further evaluation here in the emergency department she states that she does feel somewhat short of breath. She thought that yesterday she felt more short of breath with just very little exertion. While lying in bed she is not short of breath. No chest pain. No prior history of blood clots. Related Data Home Medications Medication Instructions Recorded Confirmed acetaminophen 325 mg capsule 250 mg PO TID PRN Abdominal 08/18/19 10/01/23 Discomfort coenzyme Q10 100 mg capsule (Co 100 mg PO DAILY 08/18/19 10/01/23 Q-10) eculizumab 300 mg/30 mL 600 mg IV QWEEK 05/14/22 10/01/23 intravenous solution (Soliris) buprenorphine 10 mcg/hour weekly 1 patch transdermal QWEEK 08/08/23 10/01/23 transdermal patch Previous Rx's Medication Instructions Recorded duloxetine 60 mg capsule,delayed 120 mg (2 x 60 mg) PO DAILY #180 10/30/22 release caps levothyroxine 100 mcg tablet 100 mcg PO DAILY #90 tabs 11/26/22 gabapentin 800 mg tablet 800 mg PO TID #270 tabs 12/24/22 nitrofurantoin 100 mg PO DAILY #90 caps 01/28/23 monohydrate/macrocrystals 100 mg capsule ospemifene 60 mg tablet (Osphena) 60 mg PO DAILY #90 tabs 02/18/23 estradiol 0.01% (0.1 mg/gram) 0.5 g vaginal 2XW #42.5 grams 04/02/23 vaginal cream (Estrace) alendronate 70 mg tablet 70 mg PO QWEEK #12 tabs 05/13/23 pravastatin 10 mg tablet 10 mg PO BEDTIME #90 tabs 05/21/23 diazepam 5 mg tablet See Rx Instructions PO .COMPLEX 08/08/23 PRN muscle spasm #90 tabs quetiapine 25 mg tablet 25 mg PO BEDTIME #90 tabs 08/08/23 naloxone 4 mg/actuation nasal 4 mg intranasal Q2M #2 ea 10/01/23 spray (Narcan) oxycodone 5 mg tablet 5 mg PO Q12H PRN pain #60 tabs 10/01/23 apixaban 5 mg tablet 5 mg PO BID #70 tabs 10/03/23 Allergies Allergy/AdvReac Type Severity Reaction Status Date / Time buprenorphine AdvReac Intermediate edema in Verified 10/01/23 13:55 legs Review of Systems Constitutional Constitutional: Reports system reviewed and no additional complaints, except as documented Cardiovascular Cardiovascular: Reports system reviewed and no additional complaints, except as documented Respiratory Respiratory: Reports system reviewed and no additional complaints, except as documented Musculoskeletal Musculoskeletal: Reports system reviewed and no additional complaints, except as documented Integumentary/Breasts Skin/Breast: Reports system reviewed and no additional complaints, except as documented Hematologic/Lymphatic On Anticoagulants: No Patient History Medical History Frequent UTI Chronic pain Chronic pelvic pain in female Anxiety Postmenopausal atrophic vaginitis Renal cyst, acquired, left Surgical History (Updated 10/01/23 @ 14:27 by Lindsay Joel MD) History of intestinal surgery H/O breast biopsy H/O shoulder replacement H/O colectomy Family History Mother Heart attack UTI (urinary tract infection) Father Heart attack Social History marital status: number of children: 2 household members: spouse Smoking Status: Never smoker alcohol intake: current substance use type: does not use caffeine: Yes Smoking Status: Never smoker alcohol intake frequency: a few times a week Substance Use Type: does not use Exam Initial Vital Signs Initial Vital Signs: Vital Signs Temperature 97.7 F 10/03/23 13:58 Pulse Rate 83 10/03/23 13:58 Respiratory Rate 18 10/03/23 13:58 Blood Pressure 115/60 10/03/23 13:58 Pulse Oximetry 96 10/03/23 13:58 Oxygen Delivery Method Room Air 10/03/23 13:58 HENMT Head: normal to inspection and normocephalic Resp Effort & Inspection: normal respiratory effort Auscultation: clear to auscultation bilaterally Skin General: no rashes or lesions noted Neuro General: patient alert, patient awake, patient oriented x3 and moves all extremities Extrem General: edema (Left lower extremity) Course Orders Ordered: ED Orders 10/03/23 14:24 CT angio chest PE protocol Stat 10/03/23 14:34 Basic Metabolic Panel Stat Complete Blood Count AUTO DIFF Stat PTT Partial Thromboplastin Nelson Stat Prothrombin Time INR Stat Discontinued Medications Apixaban (Apixaban 5 Mg Tablet) 10 mg PO NOW ONE Stop: 10/03/23 17:00 Vital Signs Vital signs: Vital Signs - 8 hr 10/03/23 13:58 10/03/23 14:03 10/03/23 14:10 Temperature 97.7 F Pulse Rate 83 78 70 Respiratory Rate 18 25 H Blood Pressure 115/60 Pulse Oximetry 96 89 L 97 Oxygen Delivery Method Room Air 10/03/23 14:10 10/03/23 14:16 10/03/23 14:16 Temperature Pulse Rate 71 Respiratory Rate 21 Blood Pressure 76/54 L 110/64 Pulse Oximetry 99 Oxygen Delivery Method 10/03/23 14:30 10/03/23 14:30 10/03/23 15:00 Temperature Pulse Rate 69 69 Respiratory Rate 18 Blood Pressure 120/72 Pulse Oximetry 99 98 Oxygen Delivery Method 10/03/23 15:00 10/03/23 15:30 10/03/23 15:45 Temperature Pulse Rate 69 70 Respiratory Rate 20 Blood Pressure 103/70 Pulse Oximetry 100 100 Oxygen Delivery Method Room Air 10/03/23 15:45 10/03/23 16:00 10/03/23 16:00 Temperature Pulse Rate 68 Respiratory Rate 27 H Blood Pressure 128/74 115/72 Pulse Oximetry 100 Oxygen Delivery Method Room Air MDM - Extremity Injury (Lower) Lab Data Attestation: I reviewed the patient's lab results. 10/03/23 14:34 10/03/23 14:34 Labs: Lab Results 10/03/23 Range/Units 14:34 WBC 5.9 (4.5-11.0) X10^3/uL RBC 4.08 (4.0-5.2) X10^6/uL Hgb 13.0 (12.0-16.0) g/dL Hct 38.1 (36-46) % MCV 93.5 (80-100) fL MCH 32.0 (26-34) PG MCHC 34.2 (30-36) % RDW 13.0 (11.6-14.8) % Plt Count 187 (150-400) X10^3/uL Neut % (Auto) 58.0 (50-75) % Lymph % (Auto) 32.9 (25-40) % [place] % (Auto) 6.5 (3-14) % Eos % (Auto) 1.8 L (2-4) % Baso % (Auto) 0.8 (0-2) % Neut # (Auto) 3400 (5642-9174) /uL Lymph # (Auto) 2000 (5809-2670) /uL [place] # (Auto) 400 (0-900) /uL Eos # (Auto) 100 (0-450) /uL Baso # (Auto) 100 (0-100) /uL PT 11.6 (9.4-12.5) SECONDS INR 1.0 (0.9-1.3) APTT 29 (25.1-36.5) SECONDS Sodium 136 L (137-145) mmol/L Potassium 4.3 (3.4-5.1) mmol/L Chloride 105 (98-107) mmol/L Carbon Dioxide 22 (22-32) mmol/L BUN 14 (7-17) mg/dL Creatinine 0.90 (0.52-1.04) mg/dL Estimated GFR > 60 (>60) mL/min BUN/Creatinine Ratio 15.6 (6-22) Glucose 87 (80-110) mg/dL Calcium 9.3 (8.4-10.2) mg/dL Imaging Data US - DVT: Radiologist's Impression: PROCEDURE: US PERIP VENOUS LOW EXTREM LT INDICATIONS: LEFT LOWER EXTREMITY EDEMA TECHNIQUE: Real-time imaging, as well as color and pulse Doppler interrogation, were performed of the lower extremity deep veins from the inguinal ligament to the popliteal fossa, with documentation of the visualized calf veins. COMPARISON: [facility], [place], US PERIP VENOUS LOW EXTREM LT, 02/28/2018, 0:03. FINDINGS: There is thrombus within the inferior superficial femoral vein. The common femoral, popliteal, and the visualized calf veins are normally compressible, and free of intraluminal thrombus. Color and pulse Doppler demonstrate normal phasic intraluminal flow. There is normal augmentation response to distal compression maneuver. IMPRESSION: Positive exam. DVT in the femoral vein inferiorly. Results were communicated to Dr. Stapleton by the surgical corsetier. CT scan - chest: Radiologist's Impression: PROCEDURE: CT ANGIO CHEST PE PROTOCOL INDICATIONS: LLL DVT was shortness of breath TECHNIQUE: After the administration of intravenous contrast, 2 mm thick sections acquired from the pulmonary apices to the posterior costophrenic angles. 3-dimensional maximum intensity projection (MIP) coronal and sagittal reformats were then acquired through the thorax. For radiation dose reduction, the following was used: automated exposure control, adjustment of mA and/or kV according to patient size. COMPARISON: [facility], CT, CT ANGIO CHEST PE PROTOCOL, 09/10/2020, 10:34. FINDINGS: Image quality: Diagnostic. Pulmonary arteries: Pulmonary arteries are normal in size, and demonstrate no intraluminal filling defects to suggest central pulmonary embolism. Lower Neck: No enlarged lymph nodes. Thyroid: No thyroid nodules which require sonographic follow up, per consensus guidelines. Axillae: No enlarged lymph nodes. Chest Wall: Unremarkable. Bones: Multiple healed left-sided rib fractures. Radiolucencies in the T10 and T12 vertebral bodies are new. Lungs and Pleura: No pneumothorax or pleural effusions. Spiculated appearing ground-glass nodules on the right series 5, image 97, 125, and on the left image 93, and image 208 are unchanged change compared to a remote CT on 09/10/2020. Heart: Heart size is normal. No pericardial effusion. Thoracic Vessels: No aortic aneurysm. Mediastinum and Veda: No enlarged lymph nodes. Esophagus: No wall thickening. No hiatal hernia. Upper Abdomen: Visualized upper abdomen solid organs and bowel loops appear normal. IMPRESSION: 1. No pulmonary embolism. 2. Spiculated appearing ground-glass nodules in both lungs are unchanged compared to the prior study, likely postinflammatory scarring. 3. Lucencies in the T10 and T12 vertebral bodies measuring approximately 1 centimeter are new compared to the prior CT. These findings are nonspecific, however metastasis should be considered if there is a history of neoplasm. MDM Narrative Medical decision making narrative: The ultrasound that is included in this note is for reference purposes only. It was ordered by an outside physician and performed as an outpatient. It does show left lower extremity DVT. She was sent here to the emergency department. She does have left lower extremity swelling. No signs of cellulitis. She did state that she has been having some shortness of breath so a CT scan of her chest was ordered. No signs of pulmonary embolism. She does have new lucencies noted on her spine. She is no history of cancer. Advised that she contact her primary doctor for follow-up with these as well. We will start her on Eliquis. Her 1st dose was given here in the ER. She was given return precautions. She expressed understanding and agreement with plan. Discharge Plan Departure Patient Disposition: Home Clinical Impression: DVT (deep venous thrombosis) Instructions: DI for Deep Vein Thrombosis Activity Restrictions/Additional Instructions: The outpatient ultrasound you had today did show a left leg DVT. We are going to start you on a medicine called apixaban/Eliquis. I recommend that you look up? Eliquis co-pay card? like we discussed. Filling out the information for this will help tremendously as this medicine can be extremely expensive. It is important that you follow-up with your primary doctor. You were given 1 month's worth of this medication and you will need to be continued on this afterwards. This prescription will need to come from your primary doctor. I do recommend that you try to keep your left leg elevated and use compression stockings. Return to the emergency department for new or worsening symptoms. Prescriptions: New apixaban 5 mg tablet 5 mg PO BID Qty: 70 0RF Rx Instructions: take 2T PO BID for 7D then 1T PO BID after No Action naloxone [Narcan] 4 mg/actuation spray,non-aerosol 4 mg intranasal Q2M Qty: 2 0RF Rx Instructions: spray 1 dose into ONE nostril; alternate nostrils w each dose until help arrives oxycodone 5 mg tablet 5 mg PO Q12H PRN (Reason: pain) Qty: 60 0RF Rx Instructions: EXEMPT duloxetine 60 mg capsule,delayed release(DR/EC) 120 mg PO DAILY Qty: 180 3RF gabapentin 800 mg tablet 800 mg PO TID Qty: 270 3RF nitrofurantoin monohyd/m-cryst 100 mg capsule 100 mg PO DAILY Qty: 90 1RF Rx Instructions: must administer with a meal/food Osphena 60 mg tablet 60 mg PO DAILY Qty: 90 2RF Rx Instructions: must administer with food, preferably a high-fat meal alendronate 70 mg tablet 70 mg PO QWEEK Qty: 12 3RF pravastatin 10 mg tablet 10 mg PO BEDTIME Qty: 90 2RF quetiapine 25 mg tablet 25 mg PO BEDTIME Qty: 90 1RF coenzyme Q10 [Co Q-10] 100 mg capsule 100 mg PO DAILY acetaminophen 325 mg capsule 250 mg PO TID PRN (Reason: Abdominal Discomfort) Soliris 300 mg/30 mL solution 600 mg IV QWEEK Rx Instructions: administer wks 1-4 of therapy; over 35 min estradiol [Estrace] 0.01 % (0.1 mg/gram) cream 0.5 g vaginal 2XW Qty: 42.5 3RF Rx Instructions: 0.5gm in vagina and small amount to urethral opening every day for 2 wks and then twice a week levothyroxine 100 mcg tablet 100 mcg PO DAILY Qty: 90 3RF buprenorphine 10 mcg/hour patch weekly 1 patch transdermal QWEEK diazepam 5 mg tablet See Rx Instructions PO .COMPLEX PRN (Reason: muscle spasm) Qty: 90 0RF Rx Instructions: 1 tablet BID-TID PRN; Referrals: Lindsay Joel MD [Primary Care Provider] - Stand Alone Forms: Patient Portal/API
--- NOTE | 2023-10-03 14:24 | DI.CT.S_ITS ---
PROCEDURE: CT ANGIO CHEST PE PROTOCOL INDICATIONS: LLL DVT was shortness of breath TECHNIQUE: After the administration of intravenous contrast, 2 mm thick sections acquired from the pulmonary apices to the posterior costophrenic angles. 3-dimensional maximum intensity projection (MIP) coronal and sagittal reformats were then acquired through the thorax. For radiation dose reduction, the following was used: automated exposure control, adjustment of mA and/or kV according to patient size. COMPARISON: [facility], CT, CT ANGIO CHEST PE PROTOCOL, 09/10/2020, 10:34. FINDINGS: Image quality: Diagnostic. Pulmonary arteries: Pulmonary arteries are normal in size, and demonstrate no intraluminal filling defects to suggest central pulmonary embolism. Lower Neck: No enlarged lymph nodes. Thyroid: No thyroid nodules which require sonographic follow up, per consensus guidelines. Axillae: No enlarged lymph nodes. Chest Wall: Unremarkable. Bones: Multiple healed left-sided rib fractures. Radiolucencies in the T10 and T12 vertebral bodies are new. Lungs and Pleura: No pneumothorax or pleural effusions. Spiculated appearing ground-glass nodules on the right series 5, image 97, 125, and on the left image 93, and image 208 are unchanged change compared to a remote CT on 09/10/2020. Heart: Heart size is normal. No pericardial effusion. Thoracic Vessels: No aortic aneurysm. Mediastinum and Veda: No enlarged lymph nodes. Esophagus: No wall thickening. No hiatal hernia. Upper Abdomen: Visualized upper abdomen solid organs and bowel loops appear normal. IMPRESSION: 1. No pulmonary embolism. 2. Spiculated appearing ground-glass nodules in both lungs are unchanged compared to the prior study, likely postinflammatory scarring. 3. Lucencies in the T10 and T12 vertebral bodies measuring approximately 1 centimeter are new compared to the prior CT. These findings are nonspecific, however metastasis should be considered if there is a history of neoplasm. Dictated by: Darius Lott M.D. on 10/03/2023 at 16:28 Approved by: Darius Lott M.D. on 10/03/2023 at 16:38
[2023-10-03 14:48] LABS: Add Manual Diff / Slide Review NO; Basophils Absolute Auto 100 /uL (0-100); Basophils Percent Auto 0.8 % (0-2); Eosinophils Absolute Auto 100 /uL (0-450); Eosinophils Percent Auto 1.8 % (2-4); Hematocrit 38.1 % (36-46); Lymphocytes Absolute Auto 2000 /uL (1100-4500); Lymphocytes Percent Auto 32.9 % (25-40); Mean Corpuscular HGB Conc 34.2 % (30-36); Mean Corpuscular Volume 93.5 fL (80-100); Monocytes Absolute Auto 400 /uL (0-900); Monocytes Percent Auto 6.5 % (3-14); Neutrophils Absolute Auto 3400 /uL (1500-7000); Platelet Count 187 X10^3/uL (150-400); Red Blood Cell Count 4.08 X10^6/uL (4.0-5.2); White Blood Cell Count 5.9 X10^3/uL (4.5-11.0)
[2023-10-03 14:58] LABS: Prothrombin Time 11.6 SECONDS (9.4-12.5)
[2023-10-03 15:01] LABS: PTT Partial Thromboplastin Tim 29 SECONDS (25.1-36.5)
[2023-10-03 15:03] LABS: BUN Creatinine Ratio 15.6 (6-22); Blood Urea Nitrogen 14 mg/dL (7-17); Calcium 9.3 mg/dL (8.4-10.2); Carbon Dioxide 22 mmol/L (22-32); Chloride 105 mmol/L (98-107); Estimated Glomerular Filt Rate > 60 mL/min (>60); Glucose 87 mg/dL (80-110); HEMOLYSIS < 15 (0-50); Potassium 4.3 mmol/L (3.4-5.1); Sodium 136 mmol/L (137-145)
[2023-10-03] MEDS: APIXABAN 5 MG TABLET 10 MG PO (17:06)
== END 2023-10-03 17:16 | disposition home or self-care (01) ==
PROVIDERS: Emergency Provider Emergency Medicine; PCP Family Medicine
DX: I82.402 Acute embolism and thrombosis of unspecified deep veins of left lower extremity (principal); Z79.01 Long term (current) use of anticoagulants; Z79.899 Other long term (current) drug therapy; I82.412 Acute embolism and thrombosis of left femoral vein; M79.89 Other specified soft tissue disorders
CPT/HCPCS: 36415; 71275; 80048; 85025; 85610; 85730; 93971; 99283; 99284; Q9967

== ENCOUNTER → 2023-10-04 09:45 | Outpatient (CLI) | payer MEDICARE, SELFPAY ==
[2021-08-16 11:36] VITALS: BMI 21.2
[2023-10-04 10:42] LABS: Add Manual Diff / Slide Review NO; Basophils Absolute Auto 0 /uL (0-100); Basophils Percent Auto 0.5 % (0-2); Eosinophils Absolute Auto 200 /uL (0-450); Eosinophils Percent Auto 2.7 % (2-4); Hematocrit 39.1 % (36-46); Hemoglobin 13.4 g/dL (12.0-16.0); Lymphocytes Absolute Auto 3300 /uL (1100-4500); Lymphocytes Percent Auto 47.2 % (25-40); Mean Corpuscular HGB Conc 34.2 % (30-36); Mean Corpuscular Hemoglobin 32.3 PG (26-34); Mean Corpuscular Volume 94.7 fL (80-100); Monocytes Absolute Auto 400 /uL (0-900); Monocytes Percent Auto 6.4 % (3-14); Neutrophils Absolute Auto 3000 /uL (1500-7000); Neutrophils Percent Auto 43.2 % (50-75); Platelet Count 185 X10^3/uL (150-400); Red Blood Cell Count 4.13 X10^6/uL (4.0-5.2); Red Cell Distribution Width 13.2 % (11.6-14.8)
[2023-10-04 10:56] LABS: Creatinine Urine Random 74.5 mg/dL; Protein (Total) Urine Random 14 mg/dL (0-12); Protein Creatinine Ratio Urine 0.18 GRAM/24H
[2023-10-04 10:59] LABS: Alanine Aminotransferase 14 IU/L (<35); Alkaline Phosphatase 59 U/L (38-126); Aspartate Aminotransferase 24 IU/L (14-36); BUN Creatinine Ratio 15.8 (6-22); Bilirubin Total 0.8 mg/dL (0.2-1.3); Blood Urea Nitrogen 16 mg/dL (7-17); Calcium 9.4 mg/dL (8.4-10.2); Carbon Dioxide 23 mmol/L (22-32); Chloride 107 mmol/L (98-107); Cholesterol 161 mg/dL (140-199); Estimated Glomerular Filt Rate 59 mL/min (>60); Globulin 3.9 g/dL (1.7-4.1); Glucose 102 mg/dL (80-110); HDL Cholesterol 42 mg/dL (40-60); HEMOLYSIS < 15 (0-50); LDL Cholesterol Calculated 93 mg/dL (<100); Potassium 4.5 mmol/L (3.4-5.1); Sodium 138 mmol/L (137-145); Total Protein 7.9 g/dL (6.3-8.2); Triglycerides 131 mg/dL (35-150)
[2023-10-04 11:04] LABS: NT-proBNP (BNP-Adult 18+) 284 pg/mL (<125)
[2023-10-04 11:26] LABS: TSH w/ Reflex to FT4 0.72 uIU/mL (0.47-4.68)
== END ==
PROVIDERS: PCP Family Medicine; Referring Provider Family Medicine; Visit Provider Family Medicine
DX: M79.89 Other specified soft tissue disorders (principal); F41.9 Anxiety disorder, unspecified; F32.9 Major depressive disorder, single episode, unspecified; N81.10 Cystocele, unspecified; N81.6 Rectocele; N95.2 Postmenopausal atrophic vaginitis; M81.0 Age-related osteoporosis without current pathological fracture
CPT/HCPCS: 36415; 80053; 80061; 82570; 83880; 84156; 84443; 85025

== ENCOUNTER → 2023-11-29 | Outpatient (CLI) | payer MEDICARE, SELFPAY ==
[2021-08-16 11:36] VITALS: BMI 21.2
--- NOTE | 2023-11-29 12:35 | DI.ECHO.S_ITS ---
[facility]---------+ [facility] +---------+ : : [address] : : : : [id number] : : : : Phone: [phone] Echocardiogram Report + + :Name: DEBBY MEZA Study Date: 11/29/2023 Height: 66 in : :[facility] ReadingLocation: Weight: 127 lb : : Gender: Female BSA: 1.6 m2 : :: 1950 Age: 73 yrs BP: 100/56 mmHg: :Reason For Study: LOWER EXTREMITY EDEMA : :Ordering Physician: ERIN, : :MARCO Montoya Performed By: Samuel Grigsby : :Referring: MARCO KHAN : + + Interpretation Summary The left ventricle is normal in size and wall thickness. Left ventricular systolic function is normal. The ejection fraction is estimated to be 65-70%. There are no obvious focal wall motion abnormalities noted but poor endocardial definition reduces the sensitivity for the detection of such. Diastolic parameters suggest a relaxation abnormality of the left ventricle, consistent with probable normal filling pressures. The right ventricle is normal in size and function. The left atrial size is normal. There is no significant valvular heart disease. The aortic root is normal size. The IVC is of normal diameter and collapses greater than 50% with a sniff. This suggests a low right atrial pressure of 3 mm Hg. Procedure: A two-dimensional transthoracic echocardiogram with color flow and Doppler was performed. The study quality was technically difficult. There is no prior echocardiogram noted for this patient. The patient was in normal sinus rhythm during the exam. The heart rate ranged between 61-81 bpm during the study. Left Ventricle: The left ventricle is normal in size and wall thickness. Left ventricular systolic function is normal. The ejection fraction is estimated to be 65-70%. There are no obvious focal wall motion abnormalities noted but poor endocardial definition reduces the sensitivity for the detection of such. Diastolic parameters suggest a relaxation abnormality of the left ventricle, consistent with probable normal filling pressures. Right Ventricle: The right ventricle is normal in size and function. Atria: The left atrial size is normal. Right atrial size is normal. The interatrial septum grossly appears intact with no obvious evidence for an atrial septal defect. Mitral Valve: The mitral valve is normal. There is no mitral valve stenosis. There is no mitral regurgitation noted. Aortic Valve: The aortic valve is not well visualized. There is no aortic valve stenosis. No aortic regurgitation is present. Tricuspid Valve: The tricuspid valve is normal in structure and function. There is no tricuspid stenosis. There is a trace or physiologic amount of tricuspid regurgitation. The right ventricular systolic pressure is estimated to be at least 18 mmHg based on an estimated right atrial pressure of 3 mm Hg. Pulmonic Valve: The pulmonic valve is normal in structure and function. There is no pulmonic valvular stenosis. There is no pulmonic valvular regurgitation. There is no significant valvular heart disease. Great Vessels: The aortic root is normal size. The ascending aorta could not be visualized. The IVC is of normal diameter and collapses greater than 50% with a sniff. This suggests a low right atrial pressure of 3 mm Hg. Pericardium/ Pleura There is no pericardial effusion. There is no pleural effusion. MMode/2D Measurements & Calculations LVIDd: 3.1 cm LVOT diam: 2.0 cm LVIDs: 2.1 cm Ao root diam: 2.9 cm FS: 34.6 % Ao Arch Diam (Prox Trans): 2.2 cm IVSd: 0.88 cm LVPWd: 0.91 cm LV call. diameter/BSA (cm/m^2): 1.9 LV sys. diameter/BSA (cm/m^2): 1.2 LA A2 area: 10.9 cm2 RA long axis: 3.5 cm LA A4 area: 10.0 cm2 RA area: 12.8 cm2 LA length (vol): 4.0 cm RA vol: 39.7 ml LA vol: 23.1 ml RA : 24.1 ml/m2 LA vol index: 14.0 ml/m2 IVC diam: 1.6 cm RVD1 (basal): 3.4 cm RVD2 (mid): 2.6 cm TAPSE: 2.4 cm Doppler Measurements & Calculations Ao V2 max: 122.3 cm/sec LVOT Max Hilton: 96.5 cm/sec Ao V2 mean: 87.8 cm/sec LV V1 max P.7 mmHg Ao max P.0 mmHg LV V1 VTI: 19.8 cm Ao mean P.4 mmHg ELIJAH(I,D): 2.3 cm2 Ao V2 VTI: 27.7 cm ELIJAH(V,D): 2.6 cm2 sev ratio: 0.71 ELIJAH indexed to BSA (cm^2/m^2): 1.4 MV E max hilton: 63.4 cm/sec TR max hilton: 196.6 cm/sec MV A max hilton: 81.2 cm/sec TR max P.5 mmHg MV E/A: 0.78 PA pr(Accel): 10.5 mmHg Med Peak E' Hilton: 7.9 cm/sec E/E' med: 8.0 Lat Peak E' Hilton: 8.2 cm/sec E/E' lat: 7.7 E/e' average: 7.9 MV dec time: 0.19 sec SV(LVOT): 63.8 ml Reading Physician:11:23 AM
== END ==
PROVIDERS: PCP Family Medicine; Referring Provider Family Medicine; Visit Provider Family Medicine
DX: M79.89 Other specified soft tissue disorders (principal)
CPT/HCPCS: 93306

== ENCOUNTER → 2023-12-10 12:40 | Outpatient (CLI) | payer MEDICARE, SELFPAY ==
[2021-08-16 11:36] VITALS: BMI 21.2
--- NOTE | 2023-12-10 12:42 | DI.MRI.S_ITS ---
PROCEDURE: MR CERVICAL SPINE WO/W CON INDICATIONS: Neuromyelitis optica TECHNIQUE: Noncontrast sagittal T1 spin echo and T2 fast spin echo, sagittal STIR, foraminal oblique sagittal T2 fast spin echo, axial gradient echo or T2 fast spin echo through the cervical spine. After the administration of contrast, sagittal and axial T1 spin echo with fat saturation through the cervical spine. COMPARISON: [facility], MR, MR CERVICAL SPINE WO/W CON, 04/10/2021, 14:02. Outside Facility, , MRI C-SPINE W/WO CONTRAST, 08/07/2016, 15:55. [facility], MR, MR THORACIC SPINE WO/W CON, 12/10/2023, 12:54. [facility], MR, MR HEAD/BRAIN WO/W CON, 12/10/2023, 12:54. [facility], MR, MR CERVICAL SPINE WO/W CON, 02/27/2022, 15:47. FINDINGS: Image quality: This examination is limited by involuntary motion artifact. Alignment and curvature: There is straightening of the normal cervical lordosis. No focal AP alignment abnormality is seen. Marrow: Marrow demonstrates normal overall signal. Spinal cord: In this patient with this given history, scrutiny is given to abnormal T2 hyperintense lesions within the spinal cord. At the C7 level on the left, there is mildly increased T2 weighted signal seen, as on series 7, image 9 and on series 6, image 39. This lesion appears similar to the prior examination and does not enhance. Visualized spinal cord is normal in size, without white matter lesions. No suspicious intramedullary enhancement. No cerebellar tonsillar herniation. Paraspinous soft tissues: No paravertebral masses or suspicious enhancement. C2-C3: The disc height is well-preserved. Loss of disc signal is seen at this level. A mild degree of generalized disc osteophyte complex is seen. Moderate facet joint hypertrophy is seen. No significant neural foraminal or central canal narrowing can be seen. Stable from the prior study. C3-C4: The disc height is well-preserved. Loss of disc signal is seen at this level. Mild to moderate disc osteophyte complex is seen, which is eccentric to the right. There is at least moderate facet hypertrophy. There is moderate to severe right-sided and at least moderate left-sided neural foraminal narrowing. No central canal narrowing is seen. When comparison is made with the prior images, these findings are similar. C4-C5: Moderate loss of disc height is seen. Loss of disc signal is seen. A mild degree of generalized disc osteophyte complex is seen. At least moderate facet hypertrophy can be seen. There is at least moderate right-sided and no significant left-sided neural foraminal narrowing. No central canal narrowing is seen. No significant change from the prior. C5-C6: [id number] loss of disc height and disc signal can be seen. A mild degree of generalized disc osteophyte complex is seen. Moderate facet joint hypertrophy is seen. No significant neural foraminal or central canal narrowing can be seen. When comparison is made with the prior images, these findings are similar. C6-C7: Mild loss of disc height is seen. Loss of disc signal is seen. A mild degree of generalized disc osteophyte complex is seen. Mild to moderate facet hypertrophy can be seen. No significant neural foraminal can be seen. Mild central canal narrowing is seen. When comparison is made with the prior images, these findings are similar. C7-T1: Normal appearance. IMPRESSION: Stable nonenhancing T2 hyperintense white matter lesion seen along the left aspect of the C7 level. No abnormal enhancement is seen elsewhere. Multiple levels of cervical spine degenerative change can be seen, which are overall similar to the prior images. Dictated by: Mark Juarez M.D. on 12/10/2023 at 14:22 Approved by: Mark Juarez M.D. on 12/10/2023 at 14:30
--- NOTE | 2023-12-10 12:42 | DI.MRI.S_ITS ---
PROCEDURE: MR HEAD/BRAIN WO/W CON INDICATIONS: Neuromyelitis optica TECHNIQUE: Noncontrast axial T1 spin echo, axial T2 fast spin echo, sagittal and axial FLAIR, coronal T2 fast spin echo, axial gradient echo, axial diffusion and ADC through the brain. After the administration of contrast, axial and coronal and sagittal 3D VIBE or T1 spin echo with fat saturation through the brain. In this patient, additional thin-section pre and postcontrast axial T1 weighted images were performed through the orbits. COMPARISON: [facility], MR, MR HEAD/BRAIN WO CON, 04/10/2021, 13:43. [facility], MR, MR HEAD/BRAIN WO/W CON, 02/09/2022, 17:45. Outside Facility, RG, MRI HEAD/ORBIT W/WO CONTRAST, 08/07/2016, 15:55. FINDINGS: Image quality: Excellent. CSF Spaces: Basal cisterns are patent. No extra-axial fluid collections. Ventricles are normal in size and shape. Orbits: The globes demonstrate a normal, symmetric appearance. No significant abnormalities of the optic nerves can be seen. No abnormal signal or enhancement can be seen. No abnormal fluid can be seen along the optic nerves. Brain: No midline shift. No intracranial bleeds or masses. No abnormal intracranial enhancement. The brainstem appears normal. Diffusion-weighted images demonstrate no acute infarct. No chronic ischemic insults. Normal intravascular flow voids are present. Mild generalized brain parenchymal volume loss can be seen. A few foci of T2 weighted hyperintensity can be seen within the white matter, primarily within the periventricular and the deep white matter. No definite abnormality of the corpus callosum can be seen. Skull and face: Calvarial marrow is normal in signal. Orbits appear normal. Sinuses: Sinuses and mastoids appear clear. IMPRESSION: No significant abnormality of the optic nerves can mass be seen. No abnormal enhancement is seen. No significant brain abnormality is seen. No masses or abnormal enhancement can be seen. Several foci of T2 weighted hyperintensity can be seen within the white matter. Given the appearance and the age of the patient, these are most in keeping with benign chronic small vessel ischemic change. Age-appropriate brain parenchymal volume loss can be seen. Dictated by: Mark Juarez M.D. on 12/10/2023 at 14:14 Approved by: Mark Juarez M.D. on 12/10/2023 at 14:18
--- NOTE | 2023-12-10 12:42 | DI.MRI.S_ITS ---
PROCEDURE: MR THORACIC SPINE WO/W CON INDICATIONS: Neuromyelitis optica TECHNIQUE: Noncontrast sagittal T1 spin echo and T2 fast spin echo, sagittal STIR, axial T1 and T2 fast spin echo through the thoracic spine. After the administration of contrast, axial and sagittal T1 spin echo with fat saturation through the thoracic spine. COMPARISON: [facility], MR, MR THORACIC SPINE WO/W CON, 04/10/2021, 14:24. [facility], MR, MR THORACIC SPINE WO/W CON, 02/27/2022, 15:47. [facility], MR, MR CERVICAL SPINE WO/W CON, 12/10/2023, 12:54. [facility], MR, MR HEAD/BRAIN WO/W CON, 12/10/2023, 12:54. Outside Facility, , MRI T-SPINE W/WO CONTRAST, 08/07/2016, 15:55. FINDINGS: Image quality: This examination is limited by involuntary motion artifact. Alignment and curvature: Mild dextroconvex scoliotic curvature is seen. No focal AP alignment abnormality is seen. Marrow: Marrow is of normal overall signal. No acute vertebral body compression fractures. Spinal cord: Although not well seen secondary to motion artifact, there are stable T2 hyperintense foci within the thoracic cord seen T3 through T5. No abnormal enhancement can be seen. The visualized spinal cord is otherwise of normal signal and size, without abnormal enhancement. Paraspinous soft tissues: No paravertebral masses or abnormal enhancement. Miscellaneous: At the T2-T3 level, there is a mild central/left disc protrusion. No significant central canal narrowing is seen. No neural foraminal narrowing is seen. No significant neural foraminal or central canal narrowing can be seen elsewhere. IMPRESSION: Stable nonenhancing T2 hyperintense lesions can be seen within the thoracic cord at T3 through T5. No new lesions are detected. Dictated by: Mark Juarez M.D. on 12/10/2023 at 14:30 Approved by: Mark Juarez M.D. on 12/10/2023 at 14:34
== END ==
PROVIDERS: PCP Family Medicine; Referring Provider Family Medicine; Visit Provider Family Medicine
DX: G36.0 Neuromyelitis optica [Devic] (principal); G95.9 Disease of spinal cord, unspecified; R90.82 White matter disease, unspecified; M47.812 Spondylosis without myelopathy or radiculopathy, cervical region; M51.24 Other intervertebral disc displacement, thoracic region
CPT/HCPCS: 70553; 72156; 72157

== ENCOUNTER → 2024-01-02 10:09 | Outpatient (CLI) | payer MEDICARE, SELFPAY ==
[2021-08-16 11:36] VITALS: BMI 21.2
[2024-01-02 10:57] LABS: Influenza A - CEPHEID Flu A NEGATIVE (NEGATIVE); Influenza B - CEPHEID Flu B NEGATIVE (NEGATIVE); Respiratory Syncytial Virus Negative (Negative)
[2024-01-02 10:58] LABS: COVID-19 CEPHEID 4-PLEX PCR Negative (Negative)
== END ==
PROVIDERS: PCP Family Medicine; Visit Provider Family Medicine
DX: R52 Pain, unspecified (principal); R50.9 Fever, unspecified
CPT/HCPCS: 0241U

== ENCOUNTER → 2024-01-02 10:40 | Outpatient (CLI) | payer MEDICARE, SELFPAY ==
[2021-08-16 11:36] VITALS: BMI 21.2
--- NOTE | 2024-01-02 10:41 | DI.RAD.S_ITS ---
PROCEDURE: XR CHEST 2V INDICATIONS: Cough TECHNIQUE: 2 views of the chest were acquired. COMPARISON: [facility], , XR CHEST 1V, 07/25/2021, 17:47. [facility], CR, XR CHEST 2V, 09/10/2020, 9:50. FINDINGS: Surgical changes and devices: Bilateral shoulder arthroplasties are partially visualized.. Lungs and pleura: Lungs are clear. No pleural effusions or pneumothorax. Mediastinum: Mediastinal contours are normal. Heart size is normal. Bones and chest wall: No suspicious bony abnormalities. Soft tissues appear unremarkable. IMPRESSION: No acute cardiopulmonary abnormality is seen. Dictated by: Tk Munroe M.D. on 01/02/2024 at 13:29 Approved by: Tk Munroe M.D. on 01/02/2024 at 13:31
== END ==
LOC: RAD 10:41
PROVIDERS: PCP Family Medicine; Referring Provider Family Medicine; Visit Provider Family Medicine
DX: R05.9 Cough, unspecified (principal); R50.9 Fever, unspecified; R52 Pain, unspecified
CPT/HCPCS: 0241U; 71046

== ENCOUNTER 2024-02-28 22:36 | Emergency (ER) | payer MEDICARE, SELFPAY ==
[2021-08-16 11:36] VITALS: BMI 21.2
[2024-02-28 22:39] VITALS: BP 107/58; PULSE 115; RESP 20; TEMP 37.1; O2SAT 98; BMI 18.6
[2024-02-28 22:58] VITALS: PULSE 106; RESP 15; O2SAT 98
[2024-02-28 23:00] VITALS: BP 105/57; PULSE 102; RESP 20; O2SAT 100
[2024-02-28 23:30] VITALS: BP 116/61; PULSE 96; RESP 20; O2SAT 98
[2024-02-28] MEDS: SODIUM CHLORIDE 0.9% 1,000 ML 1000 ML IV (23:48)
[2024-02-28 23:51] LABS: Add Manual Diff / Slide Review NO; Basophils Absolute Auto 100 /uL (0-100); Basophils Percent Auto 0.5 % (0-2); Eosinophils Absolute Auto 100 /uL (0-450); Eosinophils Percent Auto 0.5 % (2-4); Hematocrit 33.8 % (36-46); Hemoglobin 11.5 g/dL (12.0-16.0); Lymphocytes Absolute Auto 2500 /uL (1100-4500); Mean Corpuscular HGB Conc 33.9 % (30-36); Mean Corpuscular Hemoglobin 32.1 PG (26-34); Mean Corpuscular Volume 94.7 fL (80-100); Monocytes Absolute Auto 1200 /uL (0-900); Monocytes Percent Auto 8.2 % (3-14); Neutrophils Absolute Auto 10200 /uL (1500-7000); Neutrophils Percent Auto 72.8 % (50-75); Platelet Count 197 X10^3/uL (150-400); Red Blood Cell Count 3.57 X10^6/uL (4.0-5.2); Red Cell Distribution Width 13.8 % (11.6-14.8); White Blood Cell Count 14.1 X10^3/uL (4.5-11.0)
[2024-02-28 23:55] LABS: Lactate (Lactic Acid) 2.1 mmol/L (0.7-2.1)
[2024-02-28 23:56] LABS: Alanine Aminotransferase 47 IU/L (<35); Albumin 4.1 g/dL (3.5-5.0); Albumin Globulin Ratio 1.2 (1.0-2.8); Alkaline Phosphatase 94 U/L (38-126); Aspartate Aminotransferase 114 IU/L (14-36); BUN Creatinine Ratio 17.5 (6-22); Bilirubin Total 0.8 mg/dL (0.2-1.3); Blood Urea Nitrogen 17 mg/dL (7-17); Calcium 9.3 mg/dL (8.4-10.2); Carbon Dioxide 27 mmol/L (22-32); Chloride 97 mmol/L (98-107); Estimated Glomerular Filt Rate > 60 mL/min (>60); Globulin 3.5 g/dL (1.7-4.1); Glucose 133 mg/dL (80-110); HEMOLYSIS < 15 (0-50); Potassium 3.6 mmol/L (3.4-5.1); Sodium 131 mmol/L (137-145); Total Protein 7.6 g/dL (6.3-8.2)
[2024-02-29] VITALS (17 sets, daily range): BP systolic 85–134; BP diastolic 50–65; PULSE 77–100; RESP 13–19; O2SAT 93–98
[2024-02-29] MEDS: KETOROLAC 30 MG/ML VIAL IV (00:04)
[2024-02-29] MEDS: diphenhydrAMINE 50 MG/ML VIAL 25 MG IV (00:06)
[2024-02-29] MEDS: PROCHLORPERAZINE 10 MG/2 ML VIAL IV (00:08)
[2024-02-29] MEDS: DEXAMETHASONE 10 MG/ML VIAL IV (00:10)
[2024-02-29 00:17] LABS: Influenza A - CEPHEID Flu A NEGATIVE (NEGATIVE); Influenza B - CEPHEID Flu B NEGATIVE (NEGATIVE); Respiratory Syncytial Virus Negative (Negative)
[2024-02-29 00:19] LABS: COVID-19 CEPHEID 4-PLEX PCR Negative (Negative)
--- NOTE | 2024-02-29 00:50 | ED.HA ---
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 Goldberg of [facility], for which she is taking acute is taking eculizamab/Soliris, complicated by neuropathic abdominal pain, urinary and fecal incontinence, difficulty walking, apparently related to her colostomy, noted to have cough for the last 2 days along with , today seemed to complain of some headache, and seemed more wobbly on her feet. No injury or trauma known. No blood thinner medications any longer, had history of previous DVT but completed a course of Eliquis, no longer taking Eliquis for a number of weeks. Related Data Home Medications Medication Instructions Recorded Confirmed acetaminophen 325 mg capsule 250 mg PO TID PRN Abdominal 08/18/19 02/26/24 Discomfort coenzyme Q10 100 mg capsule (Co 100 mg PO DAILY 08/18/19 02/26/24 Q-10) eculizumab 300 mg/30 mL 600 mg IV QWEEK 05/14/22 02/26/24 intravenous solution (Soliris) buprenorphine 10 mcg/hour weekly 1 patch transdermal QWEEK 08/08/23 02/26/24 transdermal patch baclofen 10 mg tablet 10 mg PO BID 01/10/24 02/26/24 Previous Rx's Medication Instructions Recorded gabapentin 800 mg tablet 800 mg PO TID #270 tabs 12/24/22 alendronate 70 mg tablet 70 mg PO QWEEK #12 tabs 05/13/23 pravastatin 10 mg tablet 10 mg PO BEDTIME #90 tabs 05/21/23 diazepam 5 mg tablet See Rx Instructions PO .COMPLEX 08/08/23 PRN muscle spasm #90 tabs naloxone 4 mg/actuation nasal 4 mg intranasal Q2M #2 ea 10/01/23 spray (Narcan) nitrofurantoin 100 mg PO DAILY #90 caps 10/29/23 monohydrate/macrocrystals 100 mg capsule duloxetine 60 mg capsule,delayed 120 mg (2 x 60 mg) PO DAILY #180 11/06/23 release caps oxycodone 5 mg tablet 5 mg PO Q12H PRN pain #60 tabs 11/12/23 levothyroxine 100 mcg tablet 100 mcg PO DAILY #90 tabs 12/26/23 albuterol sulfate 90 mcg/actuation 2 puff inhalation Q4-6H PRN 01/02/24 aerosol inhaler shortness of breath or wheezing #6.7 grams apixaban 5 mg tablet 5 mg PO BID #60 tabs 01/10/24 quetiapine 25 mg tablet 50 mg (2 x 25 mg) PO BEDTIME #180 02/18/24 tabs amoxicillin 500 mg-potassium 1 tab PO TID sinus infection 10 02/29/24 clavulanate 125 mg tablet days #30 tabs (Augmentin) Allergies Allergy/AdvReac Type Severity Reaction Status Date / Time buprenorphine AdvReac Intermediate edema in Verified 02/26/24 11:27 legs Patient History Medical History Frequent UTI Chronic pain Chronic pelvic pain in female Anxiety Postmenopausal atrophic vaginitis Renal cyst, acquired, left Surgical History (Updated 10/01/23 @ 14:27 by Lindsay Joel MD) History of intestinal surgery H/O breast biopsy H/O shoulder replacement H/O colectomy Family History Mother Heart attack UTI (urinary tract infection) Father Heart attack Social History marital status: number of children: 2 household members: spouse Smoking Status: Never smoker alcohol intake: current substance use type: does not use caffeine: Yes Smoking Status: Never smoker alcohol intake frequency: a few times a week Substance Use Type: does not use Exam Narrative Exam Narrative: GENERAL: Well-developed patient, in mild distress. HEAD: Atraumatic. Normocephalic. EYES: Pupils equal round and reactive. Extraocular motions intact. No scleral icterus. No injection or drainage. ENT: Nose without bleeding, purulent drainage. Throat without erythema, tonsillar hypertrophy or exudate. Airway patent. NECK: Trachea midline. Non tender CARDIOVASCULAR: Regular rate and rhythm without murmurs, gallops, or rubs. RESPIRATORY: Clear to auscultation. Breath sounds equal bilaterally. No wheezes, rales, or rhonchi. GASTROINTESTINAL: Abdomen soft, non-tender, nondistended. EXTREMITIES: No edema or joint tenderness. BACK: Nontender without deformity or crepitance. No flank tenderness. NEURO: AOx3. SKIN: No rash or erythema of visible areas Initial Vital Signs Initial Vital Signs: Vital Signs Temperature 98.7 F 02/28/24 22:39 Pulse Rate 115 H 02/28/24 22:39 Respiratory Rate 20 02/28/24 22:39 Blood Pressure 107/58 L 02/28/24 22:39 Pulse Oximetry 98 02/28/24 22:39 Oxygen Delivery Method Room Air 02/28/24 22:39 Course Orders Ordered: ED Orders 02/28/24 23:11 Complete Blood Count AUTO DIFF Stat Comprehensive Metabolic Panel Stat Lactate (Lactic Acid) Stat 02/28/24 23:15 Covid-19 + FLU A/B + RSV - PCR Stat 02/29/24 00:59 CT head/brain wo con Stat CT sinus screen wo con Stat 02/29/24 01:13 XR chest 1V Stat 02/29/24 03:03 Blood Culture Stat Discontinued Medications Dexamethasone (Dexamethasone 10 Mg/Ml Vial) 10 mg IV NOW ONE Stop: 02/28/24 23:37 Last Admin: 02/29/24 00:10 Dose: 10 mg Documented By: DOANLD Diphenhydramine HCl (Diphenhydramine 50 Mg/Ml Vial) 25 mg IV NOW ONE Stop: 02/28/24 23:37 Last Admin: 02/29/24 00:06 Dose: 25 mg Documented By: DONALD Sodium Chloride (Normal Saline 0.9%) 1,000 mls @ 1,000 mls/hr IV BOLUS ONE Stop: 02/29/24 00:35 Last Infusion: 02/29/24 03:21 Dose: Infused Documented By: Admin: 02/28/24 23:48 Dose: 1,000 mls/hr Documented By: DONALD Ceftriaxone Sodium 1,000 mg/ (Sodium Chloride) 100 mls @ 200 mls/hr IV NOW ONE Stop: 02/29/24 02:44 Last Infusion: 02/29/24 03:30 Dose: Infused Documented By: Admin: 02/29/24 03:07 Dose: 200 mls/hr Documented By: DONALD Sodium Chloride (Normal Saline 0.9%) 1,000 mls @ 1,000 mls/hr IV BOLUS ONE Stop: 02/29/24 03:43 Last Infusion: 02/29/24 04:33 Dose: Infused Documented By: Admin: 02/29/24 03:06 Dose: 1,000 mls/hr Documented By: DONALD Ketorolac Tromethamine (Ketorolac 30 Mg/Ml Vial) 30 mg IV NOW ONE Stop: 02/28/24 23:37 Last Admin: 02/29/24 00:04 Dose: 30 mg Documented By: DONALD Prochlorperazine (Prochlorperazine 10 Mg/2 Ml Vial) 10 mg IV NOW ONE Stop: 02/28/24 23:37 Last Admin: 02/29/24 00:08 Dose: 10 mg Documented By: DONALD Vital Signs Vital signs: Vital Signs - 8 hr 02/28/24 22:58 02/28/24 23:00 02/28/24 23:00 Pulse Rate 106 H 102 H Respiratory Rate 15 20 Blood Pressure 105/57 L Pulse Oximetry 98 100 Oxygen Delivery Method 02/28/24 23:30 02/28/24 23:30 02/29/24 00:00 Pulse Rate 96 H 100 H Respiratory Rate 20 19 Blood Pressure 116/61 Pulse Oximetry 98 98 Oxygen Delivery Method 02/29/24 00:00 02/29/24 00:08 02/29/24 00:30 Pulse Rate 96 H Respiratory Rate Blood Pressure 134/65 134/65 109/59 L Pulse Oximetry Oxygen Delivery Method 02/29/24 00:30 02/29/24 01:00 02/29/24 01:00 Pulse Rate 91 H 89 Respiratory Rate 17 19 Blood Pressure 87/50 L Pulse Oximetry 96 96 Oxygen Delivery Method 02/29/24 01:01 02/29/24 01:01 02/29/24 01:03 Pulse Rate 89 Respiratory Rate 15 Blood Pressure 87/51 L 89/52 L Pulse Oximetry 96 Oxygen Delivery Method 02/29/24 01:03 02/29/24 01:04 02/29/24 01:04 Pulse Rate 89 90 Respiratory Rate 17 15 Blood Pressure 87/52 L Pulse Oximetry 96 96 Oxygen Delivery Method 02/29/24 01:30 02/29/24 01:30 02/29/24 01:52 Pulse Rate 89 Respiratory Rate 15 Blood Pressure 85/53 L 90/52 L Pulse Oximetry 94 Oxygen Delivery Method 02/29/24 01:52 02/29/24 02:00 02/29/24 02:30 Pulse Rate 83 85 86 Respiratory Rate 16 13 15 Blood Pressure Pulse Oximetry 93 93 Oxygen Delivery Method 02/29/24 03:00 02/29/24 03:30 02/29/24 03:36 Pulse Rate 80 79 79 Respiratory Rate 16 14 15 Blood Pressure Pulse Oximetry 93 94 Oxygen Delivery Method 02/29/24 03:36 02/29/24 04:00 02/29/24 04:00 Pulse Rate 83 Respiratory Rate 17 Blood Pressure 93/54 L 98/57 L Pulse Oximetry 94 Oxygen Delivery Method 02/29/24 04:30 02/29/24 04:30 02/29/24 05:05 Pulse Rate 77 81 Respiratory Rate 13 14 Blood Pressure 93/55 L 85/54 L Pulse Oximetry 93 95 Oxygen Delivery Method Room Air MDM - Headache Lab Data Attestation: I reviewed the patient's lab results. 02/28/24 23:11 02/28/24 23:11 Labs: Lab Results 02/28/24 02/28/24 02/29/24 Range/Units 23:11 23:15 01:35 WBC 14.1 H (4.5-11.0) X10^3/uL RBC 3.57 L (4.0-5.2) X10^6/uL Hgb 11.5 L (12.0-16.0) g/dL Hct 33.8 L (36-46) % MCV 94.7 (80-100) fL MCH 32.1 (26-34) PG MCHC 33.9 (30-36) % RDW 13.8 (11.6-14.8) % Plt Count 197 (150-400) X10^3/uL Neut % (Auto) 72.8 (50-75) % Lymph % (Auto) 18.0 L (25-40) % Hardy % (Auto) 8.2 (3-14) % Eos % (Auto) 0.5 L (2-4) % Baso % (Auto) 0.5 (0-2) % Neut # (Auto) 51547 H (2781-6266) /uL Lymph # (Auto) 2500 (5477-4145) /uL Hardy # (Auto) 1200 H (0-900) /uL Eos # (Auto) 100 (0-450) /uL Baso # (Auto) 100 (0-100) /uL Sodium 131 L (137-145) mmol/L Potassium 3.6 (3.4-5.1) mmol/L Chloride 97 L (98-107) mmol/L Carbon Dioxide 27 (22-32) mmol/L BUN 17 (7-17) mg/dL Creatinine 0.97 (0.52-1.04) mg/dL Estimated GFR > 60 (>60) mL/min BUN/Creatinine Ratio 17.5 (6-22) Glucose 133 H (80-110) mg/dL Lactate 2.1 0.6 L (0.7-2.1) mmol/L Calcium 9.3 (8.4-10.2) mg/dL Total Bilirubin 0.8 (0.2-1.3) mg/dL AST 114 H (14-36) IU/L ALT 47 H (<35) IU/L Alkaline Phosphatase 94 (38-126) U/L Total Protein 7.6 (6.3-8.2) g/dL Albumin 4.1 (3.5-5.0) g/dL Globulin 3.5 (1.7-4.1) g/dL Albumin/Globulin Ratio 1.2 (1.0-2.8) SARS-CoV-2 (PCR) Negative (Negative) Influenza A (RT-PCR) Flu a negative (NEGATIVE) Influenza B (RT-PCR) Flu b negative (NEGATIVE) RSV (PCR) Negative (Negative) Point of Care Testing Glucose POC 120 Urine Dip Bedside Urine Glucose Negative Bedside Urine Bilirubin - Negative Bedside Urine Ketone +/- 5 Urine Specific Dewitt 1.025 Bedside Urine Occult Blood - Negative Bedside Urine Protein + 30 Bedside Urine Urobilinogen - Negative Bedside Urine Nitrite - Negative Bedside Urine Leukocytes +/- 15 Esterase Imaging Data Chest x-ray: Radiologist's Impression: [address] [address] XRay Report Signed Patient: Jonna Ramon MR#: [id number] : 1950 Acct:[id number] Age/Sex: 73 / F Date of Service: 02/29/24 Loc: ED Accession Number: [id number] Procedure: XR chest 1V Ordering Provider: Michele Chou MD PROCEDURE: XR CHEST 1V INDICATIONS: recent cough TECHNIQUE: One view of the chest was acquired. COMPARISON: [facility], CR, XR CHEST 2V, 01/02/2024, 10:44. [facility], CR, XR CHEST 1V, 07/25/2021, 17:47. FINDINGS: Surgical changes and devices: Bilateral shoulder arthroplasty. Lungs and pleura: Lungs are clear. No pleural effusions or pneumothorax. Mediastinum: Mediastinal contours appear normal. Heart size is normal. Bones and chest wall: No suspicious bony lesions. Overlying soft tissues appear unremarkable. IMPRESSION: No acute cardiopulmonary abnormality is seen. Dictated by: Juan Miguel Hayward M.D. on 02/29/2024 at 2:03 Approved by: Jaun Miguel Hayward M.D. on 02/29/2024 at 2:04 CT scan - head: Radiologist's Impression: [place] [address] CT Scan Report Signed Patient: Jonna Ramon MR#: [id number] : 1950 Acct:[id number] Age/Sex: 73 / F Date of Service: 02/29/24 Loc: ED Accession Number: [id number] Procedure: CT head/brain wo con Ordering Provider: Michele Chou MD PROCEDURE: CT HEAD/BRAIN WO CON INDICATIONS: headache TECHNIQUE: Noncontrast 4.5 mm thick angled axial sections acquired from the foramen magnum to the vertex, with coronal and sagittal reformats. For radiation dose reduction, the following was used: automated exposure control, adjustment of mA and/or kV according to patient size. COMPARISON: [facility], CT, CT HEAD/BRAIN WO CON, 05/16/2020, 19:37. FINDINGS: Image quality: Diagnostic. CSF spaces: Basal cisterns are patent. No extra-axial fluid collections. Ventricles are normal in size and shape. Brain: No midline shift. No intracranial masses or hemorrhage. No area of hypodensity in a large vascular distribution to suggest acute infarction. Periventricular hypodensity consistent with chronic microvascular ischemic change. Age-related parenchymal loss. Skull and face: Calvarium and visualized facial bones are intact, without suspicious lesions. Sinuses: No significant sinus disease seen. Mastoids are clear. IMPRESSION: No acute intracranial pathology. Dictated by: Juan Miguel Hayward M.D. on 02/29/2024 at 1:59 Approved by: Juan Miguel Hayward M.D. on 02/29/2024 at 2:[address] [address] [address] Scan Report Signed Patient: Jonna Ramon MR#: [id number] : 1950 Acct:[id number] Age/Sex: 73 / F Date of Service: 02/29/24 Loc: ED Accession Number: [id number] Procedure: CT sinus screen wo con Ordering Provider: Michele Chou MD PROCEDURE: CT SINUS SCREEN WO CON INDICATIONS: headache TECHNIQUE: Noncontrast 3.0 mm axial images acquired from the frontal sinuses to the mid-sella, with coronal and sagittal reformats. For radiation dose reduction, the following was used: automated exposure control, adjustment of mA and/or kV according to patient size. COMPARISON: [facility], , MR HEAD/BRAIN WO/W CON, 12/10/2023, 12:54. FINDINGS: Image quality: Excellent. Maxillary Sinuses: No bony remodeling or destruction. Mucosal thickening at the right maxillary sinus. Ethmoid Air Cells: No bony remodeling or destruction. Minimal mucosal thickening. Sphenoid Sinuses: No bony remodeling or destruction. Sinuses are clear. Frontal Sinuses: No bony remodeling or destruction. Sinuses are clear. Ostiomeatal Complexes: Ostiomeatal complexes are patent. No Stephania cells. Miscellaneous: Visualized intra-orbital contents are normal. No ebonie bullosa or paradoxical turbinate curvature. No nasal septal deviation. IMPRESSION: Mild mucosal thickening in the right maxillary sinus. Dictated by: Juan Miguel Hayward M.D. on 02/29/2024 at 2:18 Approved by: Juan Miguel Hayward M.D. on 02/29/2024 at 2:21 [facility] Narrative Medical decision making narrative: 72-year-old female with neuromuscular degenerating illness NMOSD as per HPI, on Soliris immunosuppressive medication, baseline low blood pressure systolic 90s reported, has unsteady gait today, worse than her recent baseline, also 2 days' duration of cough along with who has recent URI symptoms as well. No longer on Eliquis. Afebrile, sirs screen negative. White blood cell count [id number], lactate normal. Flu and COVID swabs negative. CT head requested. CT head no acute changes. CT face shows right maxilary sinusitis thickening. IV ceftriaxone for possible sinusitis. Chest x-ray no acute changes. Patient was sleepy after IV Compazine/Benadryl, IV Decadron was also part of the headache cocktail, she felt better, more alert, says that she does not have any head or neck pain now. We will hold off on lumbar puncture for now. White blood cell count elevated but lactate normal. IV ceftriaxone given for possible sinusitis coverage, can discharge patient on cephalosporin or Augmentin for additional sinusitis coverage. had stepped away to go to the bathroom, we will discuss disposition planning once he returns 0400, Headache still gone, we will hold on any lumbar puncture for now. Patient more awake now from Compazine Benadryl sedating medications. Patient was able to tolerate upright position, walking trial with walker, has walker at home. We will contact who went home, the see if these comfortable for discharge home. We will treat with prescription cephalosporins for possible sinus infection. Follow up with their neurologist as planned Critical Care Time Critical Care Time Total Critical Care Time: 35 Attestation: The high probability of a clinically significant, sudden or life threatening deterioration of the [neurologic, cardiopulmonary] system(s) required my full and direct attention, intervention and personal management. The aggregate critical care time was [35] minutes. This time is in addition to time spent performing reported procedures but includes the following: [x] Data Review and interpretation [x] Patient assessment and monitoring of vital signs [x] Documentation [x] Medication orders and management Discharge Plan Departure Patient Disposition: Home Clinical Impression: Headache, Sinusitis Activity Restrictions/Additional Instructions: History of degenerative neuromuscular disorder followed by neurologist. Recent cough along with . Some headache and neck discomfort. No fever on triage. IV Compazine and Benadryl and Decadron steroid given to help with headache symptoms. These medications caused quite some sedation, and resulted in your sleeping for awhile. CT head study was performed, negative, chest x-ray negative, CT scan of the sinuses area showed thickening of the mucosa on the right maxillary sinus area. Possible sinusitis as cause of headache symptoms. IV antibiotics given for possible sinusitis, prescription for further antibiotics to use for sinus infection as well. On awakening and more alert headache seemed to be gone. Symptoms improved. Able to ambulate with walker, walker reportedly available at home. Take antibiotics as directed. Follow up with your neurologist as scheduled. Return to this/nearest emergency department for any change worsening symptoms or any concerns prior Prescriptions: New amoxicillin-pot clavulanate [Augmentin] 500-125 mg tablet 1 tab PO TID 10 Days Qty: 30 0RF No Action nitrofurantoin monohyd/m-cryst 100 mg capsule 100 mg PO DAILY Qty: 90 1RF Rx Instructions: must administer with a meal/food baclofen 10 mg tablet 10 mg PO BID apixaban 5 mg tablet 5 mg PO BID Qty: 60 0RF Rx Instructions: 1T PO BID albuterol sulfate 90 mcg/actuation HFA aerosol inhaler 2 puff inhalation Q4-6H PRN (Reason: shortness of breath or wheezing) Qty: 6.7 0RF naloxone [Narcan] 4 mg/actuation spray,non-aerosol 4 mg intranasal Q2M Qty: 2 0RF Rx Instructions: spray 1 dose into ONE nostril; alternate nostrils w each dose until help arrives quetiapine 25 mg tablet 50 mg PO BEDTIME Qty: 180 1RF gabapentin 800 mg tablet 800 mg PO TID Qty: 270 3RF alendronate 70 mg tablet 70 mg PO QWEEK Qty: 12 3RF pravastatin 10 mg tablet 10 mg PO BEDTIME Qty: 90 2RF duloxetine 60 mg capsule,delayed release(DR/EC) 120 mg PO DAILY Qty: 180 1RF oxycodone 5 mg tablet 5 mg PO Q12H PRN (Reason: pain) Qty: 60 0RF Rx Instructions: EXEMPT levothyroxine 100 mcg tablet 100 mcg PO DAILY Qty: 90 3RF coenzyme Q10 [Co Q-10] 100 mg capsule 100 mg PO DAILY acetaminophen 325 mg capsule 250 mg PO TID PRN (Reason: Abdominal Discomfort) Soliris 300 mg/30 mL solution 600 mg IV QWEEK Rx Instructions: administer wks 1-4 of therapy; over 35 min buprenorphine 10 mcg/hour patch weekly 1 patch transdermal QWEEK diazepam 5 mg tablet See Rx Instructions PO .COMPLEX PRN (Reason: muscle spasm) Qty: 90 0RF Rx Instructions: 1 tablet BID-TID PRN; Referrals: Lindsay Joel MD [Primary Care Provider] - Stand Alone Forms: Patient Portal/API
--- NOTE | 2024-02-29 00:59 | DI.CT.S_ITS ---
PROCEDURE: CT SINUS SCREEN WO CON INDICATIONS: headache TECHNIQUE: Noncontrast 3.0 mm axial images acquired from the frontal sinuses to the mid-sella, with coronal and sagittal reformats. For radiation dose reduction, the following was used: automated exposure control, adjustment of mA and/or kV according to patient size. COMPARISON: [facility], MR, MR HEAD/BRAIN WO/W CON, 12/10/2023, 12:54. FINDINGS: Image quality: Excellent. Maxillary Sinuses: No bony remodeling or destruction. Mucosal thickening at the right maxillary sinus. Ethmoid Air Cells: No bony remodeling or destruction. Minimal mucosal thickening. Sphenoid Sinuses: No bony remodeling or destruction. Sinuses are clear. Frontal Sinuses: No bony remodeling or destruction. Sinuses are clear. Ostiomeatal Complexes: Ostiomeatal complexes are patent. No Stephania cells. Miscellaneous: Visualized intra-orbital contents are normal. No ebonie bullosa or paradoxical turbinate curvature. No nasal septal deviation. IMPRESSION: Mild mucosal thickening in the right maxillary sinus. Dictated by: Juan Miguel Hayward M.D. on 02/29/2024 at 2:18 Approved by: Juan Miguel Hayward M.D. on 02/29/2024 at 2:21
--- NOTE | 2024-02-29 00:59 | DI.CT.S_ITS ---
PROCEDURE: CT HEAD/BRAIN WO CON INDICATIONS: headache TECHNIQUE: Noncontrast 4.5 mm thick angled axial sections acquired from the foramen magnum to the vertex, with coronal and sagittal reformats. For radiation dose reduction, the following was used: automated exposure control, adjustment of mA and/or kV according to patient size. COMPARISON: [facility], CT, CT HEAD/BRAIN WO CON, 05/16/2020, 19:37. FINDINGS: Image quality: Diagnostic. CSF spaces: Basal cisterns are patent. No extra-axial fluid collections. Ventricles are normal in size and shape. Brain: No midline shift. No intracranial masses or hemorrhage. No area of hypodensity in a large vascular distribution to suggest acute infarction. Periventricular hypodensity consistent with chronic microvascular ischemic change. Age-related parenchymal loss. Skull and face: Calvarium and visualized facial bones are intact, without suspicious lesions. Sinuses: No significant sinus disease seen. Mastoids are clear. IMPRESSION: No acute intracranial pathology. Dictated by: Juan Miguel Hayward M.D. on 02/29/2024 at 1:59 Approved by: Juan Miguel Hayward M.D. on 02/29/2024 at 2:03
--- NOTE | 2024-02-29 01:13 | DI.RAD.S_ITS ---
PROCEDURE: XR CHEST 1V INDICATIONS: recent cough TECHNIQUE: One view of the chest was acquired. COMPARISON: [facility], CR, XR CHEST 2V, 01/02/2024, 10:44. [facility], CR, XR CHEST 1V, 07/25/2021, 17:47. FINDINGS: Surgical changes and devices: Bilateral shoulder arthroplasty. Lungs and pleura: Lungs are clear. No pleural effusions or pneumothorax. Mediastinum: Mediastinal contours appear normal. Heart size is normal. Bones and chest wall: No suspicious bony lesions. Overlying soft tissues appear unremarkable. IMPRESSION: No acute cardiopulmonary abnormality is seen. Dictated by: Juan Miguel Hayward M.D. on 02/29/2024 at 2:03 Approved by: Juan Miguel Hayward M.D. on 02/29/2024 at 2:04
[2024-02-29 01:21] LABS: Reflexed Lactate in 2 Hours Y
[2024-02-29 01:52] LABS: Lactate 2HR (Lactic Acid Rflx) 0.6 mmol/L (0.7-2.1)
[2024-02-29] MEDS: SODIUM CHLORIDE 0.9% 1,000 ML 1000 ML IV (03:06)
[2024-02-29] MEDS: cefTRIAXone 1,000 MG in SODIUM CHLORIDE 0.9% 100 ML 200 MG IV (03:07)
== END 2024-02-29 05:15 | disposition home or self-care (01) ==
PROVIDERS: Emergency Provider Emergency Medicine; PCP Family Medicine
DX: J32.9 Chronic sinusitis, unspecified (principal); R51.9 Headache, unspecified; R79.89 Other specified abnormal findings of blood chemistry; Z79.899 Other long term (current) drug therapy; Z20.822 Contact with and (suspected) exposure to COVID-19
CPT/HCPCS: 0241U; 36415; 70450; 70486; 71045; 80053; 81003; 82962; 83605; 85025; 87040; 96365; 96375; 99284; J0696; J0780; J1100; J1200; J1885

== ENCOUNTER → 2024-04-02 17:54 | Outpatient (CLI) | payer MEDICARE, SELFPAY ==
[2021-08-16 11:36] VITALS: BMI 21.2
[2024-04-02 18:46] LABS: Basophils Absolute Auto 100 /uL (0-100); Basophils Percent Auto 1.1 % (0-2); Eosinophils Absolute Auto 200 /uL (0-450); Eosinophils Percent Auto 2.7 % (2-4); Hematocrit 37.3 % (36-46); Hemoglobin 12.4 g/dL (12.0-16.0); Lymphocytes Absolute Auto 2900 /uL (1100-4500); Lymphocytes Percent Auto 40.4 % (25-40); Mean Corpuscular HGB Conc 33.3 % (30-36); Mean Corpuscular Hemoglobin 32.4 PG (26-34); Mean Corpuscular Volume 97.2 fL (80-100); Monocytes Absolute Auto 500 /uL (0-900); Monocytes Percent Auto 6.9 % (3-14); Neutrophils Absolute Auto 3500 /uL (1500-7000); Neutrophils Percent Auto 48.9 % (50-75); Platelet Count 55 X10^3/uL (150-400); Red Blood Cell Count 3.84 X10^6/uL (4.0-5.2); Red Cell Distribution Width 14.5 % (11.6-14.8); White Blood Cell Count 7.3 X10^3/uL (4.5-11.0)
[2024-04-02 18:48] LABS: Add Manual Diff / Slide Review SLIDE REVIEW
[2024-04-02 19:07] LABS: Alanine Aminotransferase 18 IU/L (<35); Albumin 4.2 g/dL (3.5-5.0); Albumin Globulin Ratio 1.1 (1.0-2.8); Alkaline Phosphatase 63 U/L (38-126); Aspartate Aminotransferase 29 IU/L (14-36); BUN Creatinine Ratio 18.1 (6-22); Bilirubin Total 0.7 mg/dL (0.2-1.3); Blood Urea Nitrogen 17 mg/dL (7-17); Calcium 9.7 mg/dL (8.4-10.2); Carbon Dioxide 26 mmol/L (22-32); Chloride 105 mmol/L (98-107); Estimated Glomerular Filt Rate > 60 mL/min (>60); Globulin 3.9 g/dL (1.7-4.1); Glucose 139 mg/dL (80-110); HEMOLYSIS < 15 (0-50); Potassium 4.1 mmol/L (3.4-5.1); Sodium 137 mmol/L (137-145); Total Protein 8.1 g/dL (6.3-8.2)
[2024-04-02 19:37] LABS: TSH w/ Reflex to FT4 0.42 uIU/mL (0.47-4.68)
[2024-04-02 20:17] LABS: Free T4, Direct Thyroxine 1.16 ng/dL (0.78-2.19)
== END ==
LOC: LAB 17:55
PROVIDERS: PCP Family Medicine; Referring Provider Family Medicine; Visit Provider Family Medicine
DX: M79.89 Other specified soft tissue disorders (principal); E03.9 Hypothyroidism, unspecified; F32.9 Major depressive disorder, single episode, unspecified; F41.9 Anxiety disorder, unspecified
CPT/HCPCS: 36415; 80053; 84439; 84443; 85025

== ENCOUNTER → 2024-04-20 17:37 | Outpatient (CLI) | payer MEDICARE, SELFPAY ==
[2021-08-16 11:36] VITALS: BMI 21.2
[2024-04-20 17:50] LABS: Add Manual Diff / Slide Review NO; Basophils Absolute Auto 100 /uL (0-100); Basophils Percent Auto 0.9 % (0-2); Eosinophils Absolute Auto 200 /uL (0-450); Eosinophils Percent Auto 2.8 % (2-4); Hemoglobin 12.7 g/dL (12.0-16.0); Lymphocytes Absolute Auto 2400 /uL (1100-4500); Lymphocytes Percent Auto 39.7 % (25-40); Mean Corpuscular HGB Conc 33.5 % (30-36); Mean Corpuscular Hemoglobin 32.4 PG (26-34); Mean Corpuscular Volume 96.8 fL (80-100); Monocytes Absolute Auto 400 /uL (0-900); Monocytes Percent Auto 6.6 % (3-14); Neutrophils Absolute Auto 3100 /uL (1500-7000); Platelet Count 181 X10^3/uL (150-400); Red Blood Cell Count 3.93 X10^6/uL (4.0-5.2); Red Cell Distribution Width 14.4 % (11.6-14.8); White Blood Cell Count 6.1 X10^3/uL (4.5-11.0)
[2024-04-20 18:03] LABS: Hemoglobin A1C% w Est Avg Glu 5.1 % (4.0-6.0)
== END ==
PROVIDERS: PCP Family Medicine; Referring Provider Family Medicine; Visit Provider Family Medicine
DX: D69.6 Thrombocytopenia, unspecified (principal)
CPT/HCPCS: 36415; 83036; 85025

== ENCOUNTER → 2024-06-23 17:10 | Outpatient (CLI) | payer MEDICARE, SELFPAY ==
[2021-08-16 11:36] VITALS: BMI 21.2
[2024-06-23 17:35] LABS: Estimated Glomerular Filt Rate > 60 mL/min (>60)
== END ==
PROVIDERS: PCP Family Medicine; Referring Provider Radiology Diagnostic Radiology; Visit Provider Radiology Diagnostic Radiology
DX: R68.81 Early satiety (principal)
CPT/HCPCS: 36415; 82565

== ENCOUNTER → 2024-06-24 07:31 | Outpatient (CLI) | payer MEDICARE, SELFPAY ==
[2021-08-16 11:36] VITALS: BMI 21.2
--- NOTE | 2024-06-24 09:03 | DI.CT.S_ITS ---
PROCEDURE: CT ABDOMEN PELVIS W CON INDICATIONS: Early Satiety TECHNIQUE: After the administration of intravenous contrast, axial sections acquired from the lung bases to the pubic symphysis. Coronal and sagittal reformats were performed. For radiation dose reduction, the following was used: automated exposure control, adjustment of mA and/or kV according to patient size. COMPARISON: [facility], CT, CT ABDOMEN PELVIS W CON, 07/15/2020, 14:21. FINDINGS: Image quality: Excellent Lower chest: Unremarkable. Mild hepatic steatosis. Hepatomegaly. No focal liver lesion. The main portal vein is patent. The gallbladder, pancreas, spleen, and the adrenal glands are unremarkable. The right kidney is malrotated. No right hydronephrosis or renal stone. Multiple large left peripelvic cyst, unchanged from prior exam. No left renal stone. The bladder is under distended. Heterogeneous enhancing lesion in the uterus, measuring 5.3 cm, increase in size from prior exam (previously 4.4 cm, likely representing uterine fibroid. The left in the right ovaries are not definitely visualized. No adnexal masses. Sigmoid colon stump is noted. The residual sigmoid colon is decompressed. Status post left hemicolectomy with left upper quadrant ileostomy. There is a tiny peristomal hernia. The appendix is not definitely visualized. Dilatation of the transverse colon, grossly similar to prior exam. Short segment colonic wall thickening about the splenic flexure (series 3, image 19). No small bowel obstruction. Moderate calcification of the abdominal aorta. No abdominal aortic aneurysm. No abdominal or pelvic lymphadenopathy. Abdominal wall: Please see above. Bones: Levoscoliosis of the lumbar spine. Grade 1-2 anterolisthesis of L5 on S1 with bilateral pars defect. IMPRESSION: 1. Status post left hemicolectomy with left upper quadrant colostomy. 2. Mild wall thickening of the colon about the splenic flexure, which may be secondary to underdistention, short segment colitis, or underlying mass. There is dilatation of the transverse colon, similar to prior exam, favoring to represent ileus. 3. Enlarging 5.3 cm uterine fibroid. Dictated by: Maureen Bird M.D. on 06/24/2024 at 14:12 Approved by: Maureen Bird M.D. on 06/24/2024 at 14:29
== END ==
PROVIDERS: PCP Family Medicine; Referring Provider Family Medicine; Visit Provider Family Medicine
DX: R68.81 Early satiety (principal); D25.9 Leiomyoma of uterus, unspecified; K76.0 Fatty (change of) liver, not elsewhere classified; N28.1 Cyst of kidney, acquired; I70.0 Atherosclerosis of aorta; M41.9 Scoliosis, unspecified; M43.17 Spondylolisthesis, lumbosacral region; Z93.2 Ileostomy status; Z90.49 Acquired absence of other specified parts of digestive tract
CPT/HCPCS: 74177; Q9967

== ENCOUNTER 2024-07-22 22:49 | Inpatient (IN) | payer MEDICARE, SELFPAY ==
[2021-08-16 11:36] VITALS: BMI 21.2
[2024-07-22] VITALS (7 sets, daily range): BP systolic 110–121; BP diastolic 53–76; PULSE 104–119; RESP 14–27; TEMP 38.2; O2SAT 90–96; BMI 19.4
--- NOTE | 2024-07-22 22:58 | ED_ITS ---
HPI - Abdominal Pain General Chief Complaint: Altered Mental Status Stated Complaint: Fever, AMS Time Seen by Provider: 07/22/24 22:57 Source: patient, family (Has been), RN notes reviewed and old records reviewed Mode of arrival: Ambulatory Limitations: altered mental status History of Present Illness HPI narrative: 73-year-old female with history of NMOSD (neuromyelitis optica spectrum disorder), history of stem cell transplant 15 years ago, history of hypothyroidism, dyslipidemia who presents with complaint of a week and a half of upper respiratory symptoms with nasal congestion and nonproductive cough. Patient has been has also had symptoms. He states they were baby-sitting their grandchildren and likely caught upper respiratory infection. For the past several days when she has had fevers she has had some increased confusion particularly at nighttime and states this evening she got very confused did have a fever at home. Was given Tylenol. He states she is generally been a little bit weaker than normal. He is noticed she has been a little bit more tachypneic particularly at nighttime, states dry cough nonproductive. She was complained of a headache, no vomiting. No abdominal back or flank pain. She has a colostomy in place which has had normal output. She has not had a history of frequent UTI she is chronic urinary incontinence. He states she is taking nitrofurantoin daily as a maintenance medication. He also notes she is presented with similar symptoms when she has had UTIs. Patient is able to answer some questions but is confused he has been helps augment the history. Prior surgeries include colostomy and bilateral shoulder surgery. No known drug allergies reported. No tobacco, alcohol or recreational drugs. Related Data Home Medications Medication Instructions Recorded Confirmed acetaminophen 325 mg capsule 250 mg PO TID PRN Abdominal 08/18/19 05/19/24 Discomfort coenzyme Q10 100 mg capsule (Co 100 mg PO DAILY 08/18/19 05/19/24 Q-10) eculizumab 300 mg/30 mL 600 mg IV QWEEK 05/14/22 05/19/24 intravenous solution (Soliris) buprenorphine 10 mcg/hour weekly 1 patch transdermal QWEEK 08/08/23 05/19/24 transdermal patch baclofen 10 mg tablet 10 mg PO BID 01/10/24 05/19/24 zolpidem 5 mg tablet 5 mg PO BEDTIME 03/24/24 05/19/24 Previous Rx's Medication Instructions Recorded alendronate 70 mg tablet 70 mg PO QWEEK #12 tabs 05/13/23 naloxone 4 mg/actuation nasal 4 mg intranasal Q2M #2 ea 10/01/23 spray (Narcan) levothyroxine 100 mcg tablet 100 mcg PO DAILY #90 tabs 12/26/23 albuterol sulfate 90 mcg/actuation 2 puff inhalation Q4-6H PRN 01/02/24 aerosol inhaler shortness of breath or wheezing #6.7 grams pravastatin 10 mg tablet 10 mg PO BEDTIME #100 tabs 03/27/24 nitrofurantoin 100 mg PO DAILY #90 caps 06/11/24 monohydrate/macrocrystals 100 mg capsule diazepam 5 mg tablet See Rx Instructions PO .COMPLEX 06/30/24 PRN muscle spasm #30 tabs oxycodone 5 mg tablet 5 mg PO Q12H PRN pain #60 tabs 06/30/24 duloxetine 60 mg capsule,delayed 120 mg (2 x 60 mg) PO DAILY #180 07/07/24 release caps gabapentin 800 mg tablet 800 mg PO TID #90 tabs 07/17/24 Allergies Allergy/AdvReac Type Severity Reaction Status Date / Time buprenorphine AdvReac Intermediate edema in Verified 05/19/24 13:28 legs Review of Systems Review of Systems ROS Unobtainable: All systems reviewed & are unremarkable except as noted in HPI and below Patient History Medical History Left leg DVT Frequent UTI Chronic pain Chronic pelvic pain in female Anxiety Postmenopausal atrophic vaginitis Renal cyst, acquired, left Surgical History History of intestinal surgery H/O breast biopsy H/O shoulder replacement H/O colectomy Family History Mother Heart attack UTI (urinary tract infection) Father Heart attack Social History marital status: number of children: 2 household members: spouse Smoking Status: Never smoker alcohol intake: current substance use type: does not use caffeine: Yes Smoking Status: Never smoker alcohol intake frequency: a few times a week Substance Use Type: does not use Exam Narrative Exam Narrative: GEN: Thin, elderly appearing female, alert and oriented, patient does get confused during some questions but answers others appropriately,, patient appears to be in moderate distress. HEENT: Atraumatic, pupils are equal round reactive to light, extraocular movements are intact, nares are clear, there is no conjunctival pallor. Throat is clear without any exudates, erythema, tonsillar enlargement or uvular deviation, range of motion of the neck. HEART: Regular rate and rhythm without murmur, clicks, rubs. Pulses are equal in upper and lower extremities LUNGS:Lungs mild wheezes bilaterally, no rales, crackles, chest moves symmetrically, no tachypnea accessory muscle use. ABD:bowel sounds normal, soft, non-tender, no guarding, rebound, rigidity, no masses noted, no hepatosplenomegaly, colostomy is in place with thin brown stool in the bag. :No CVA tenderness MSCL: Non-tender, no muscle atrophy, globally weak. NEURO:CN 2-12 intact, sensation normal. SKIN: No rash, erythema or other skin changes noted. Initial Vital Signs Initial Vital Signs: Vital Signs Temperature 100.8 F H 07/22/24 22:50 Pulse Rate 119 H 07/22/24 22:50 Respiratory Rate 20 07/22/24 22:50 Blood Pressure 121/76 07/22/24 22:50 Pulse Oximetry 90 L 07/22/24 22:50 Oxygen Delivery Method Room Air 07/22/24 22:50 Course Orders Ordered: ED Orders 07/22/24 23:06 XR chest 1V Stat EKG-12 Lead Stat RT Consult Eval and Treat NOW 07/22/24 23:08 Complete Blood Count AUTO DIFF Stat Comprehensive Metabolic Panel Stat Lactate (Lactic Acid) Stat Lipase Stat PTT Partial Thromboplastin Nelson Stat Procalcitonin Stat Prothrombin Time INR Stat 07/22/24 23:24 Respiratory Panel (Film Array) Stat 07/22/24 23:31 Blood Culture Stat 07/23/24 00:00 Urine Culture Stat Urine Microscopic Stat Acetaminophen (Acetaminophen 325 Mg Tablet) 650 mg PO Q6H PRN PRN Reason: Fever/Mild Pain (1-3) Enoxaparin Sodium (Enoxaparin 40 Mg/0.4 Ml Syringe) 40 mg SUBCUT DAILY LENNY Sodium Chloride (Normal Saline 0.45%) 1,000 mls @ 100 mls/hr IV CONT LENNY Ceftriaxone Sodium 1,000 mg/ (Sodium Chloride) 100 mls @ 200 mls/hr IV Q24H LENNY Azithromycin 500 mg/ Dextrose 250 mls @ 250 mls/hr IV Q24H LENNY Naloxone HCl (Naloxone 0.4 Mg/Ml Vial) 0.2 mg IV Q2MIN PRN PRN Reason: Opiate Reversal Ondansetron HCl (Ondansetron 4 Mg/2 Ml Inj) 4 mg IV NOW PRN PRN Reason: Nausea And Vomiting Ondansetron HCl (Ondansetron 4 Mg/2 Ml Inj) 4 mg IV Q8HR PRN PRN Reason: Nausea And Vomiting Discontinued Medications Albuterol/Ipratropium (Albuterol/Ipratropium 3 Ml Ampul) 3 ml INH NOW ONE Stop: 07/22/24 23:11 Last Admin: 07/22/24 23:23 Dose: 3 ml Documented By: SUHAS Sodium Chloride (Normal Saline 0.9%) 1,000 mls @ 1,000 mls/hr IV BOLUS ONE Stop: 07/23/24 00:05 Last Infusion: 07/23/24 00:39 Dose: Infused Documented By: Admin: 07/22/24 23:25 Dose: 1,000 mls/hr Documented By: Piperacillin Sod/Tazobactam (Sod 4.5 gm/ Sodium Chloride) 100 mls @ 200 mls/hr IV NOW ONE Stop: 07/22/24 23:22 Last Infusion: 07/23/24 00:07 Dose: Infused Documented By: Admin: 07/22/24 23:31 Dose: 200 mls/hr Documented By: Sodium Chloride (Normal Saline 0.9%) 1,779 mls @ 593 mls/hr 30 ml/kg infuse over 3 hr (1779 ml) IV NOW ONE Stop: 07/23/24 03:33 Last Admin: 07/23/24 00:40 Dose: 593 mls/hr Documented By: Azithromycin 500 mg/ Dextrose 250 mls @ 250 mls/hr IV NOW ONE Stop: 07/23/24 00:45 Ketorolac Tromethamine (Ketorolac 30 Mg/Ml Vial) 15 mg IV NOW ONE Stop: 07/22/24 23:11 Last Admin: 07/22/24 23:24 Dose: 15 mg Documented By: Ondansetron HCl (Ondansetron 4 Mg Odt) 4 mg SL NOW PRN PRN Reason: Nausea And Vomiting Vital Signs Vital signs: Vital Signs - 8 hr 07/22/24 22:50 07/22/24 22:54 07/22/24 22:54 Temperature 100.8 F H Pulse Rate 119 H 116 H Respiratory Rate 20 Blood Pressure 121/76 121/76 Pulse Oximetry 90 L 90 L Oxygen Delivery Method Room Air Oxygen Flow Rate Fraction of Inspired Oxygen 07/22/24 23:00 07/22/24 23:23 07/22/24 23:24 Temperature 100.8 F H Pulse Rate 105 H 104 H Respiratory Rate 24 14 Blood Pressure Pulse Oximetry 93 95 Oxygen Delivery Method Nasal Cannula Oxygen Flow Rate 1 Fraction of Inspired Oxygen 24 07/22/24 23:30 07/22/24 23:30 07/22/24 23:45 Temperature Pulse Rate 111 H Respiratory Rate 25 H Blood Pressure 117/62 110/53 L Pulse Oximetry 96 Oxygen Delivery Method Oxygen Flow Rate Fraction of Inspired Oxygen 07/22/24 23:45 07/23/24 00:00 07/23/24 00:00 Temperature Pulse Rate 106 H 115 H Respiratory Rate 27 H 27 H Blood Pressure 107/62 Pulse Oximetry 92 96 Oxygen Delivery Method Oxygen Flow Rate Fraction of Inspired Oxygen 07/23/24 00:15 07/23/24 00:15 07/23/24 00:30 Temperature Pulse Rate 101 H Respiratory Rate 30 H Blood Pressure 96/50 L 95/55 L Pulse Oximetry 90 L Oxygen Delivery Method Oxygen Flow Rate Fraction of Inspired Oxygen 07/23/24 00:30 07/23/24 00:45 07/23/24 00:45 Temperature Pulse Rate 96 H 93 H Respiratory Rate 28 H 24 Blood Pressure 90/47 L Pulse Oximetry 92 88 L Oxygen Delivery Method Oxygen Flow Rate Fraction of Inspired Oxygen 07/23/24 00:47 07/23/24 00:47 Temperature Pulse Rate 89 Respiratory Rate 25 H Blood Pressure 96/49 L Pulse Oximetry 93 Oxygen Delivery Method Nasal Cannula Oxygen Flow Rate 2 Fraction of Inspired Oxygen MDM - Abdominal Pain Lab Data 07/22/24 23:08 07/22/24 23:08 Labs: Lab Results 07/22/24 07/22/24 07/23/24 Range/Units 23:08 23:24 00:00 WBC 19.7 H (4.5-11.0) X10^3/uL RBC 3.82 L (4.0-5.2) X10^6/uL Hgb 12.5 (12.0-16.0) g/dL Hct 37.1 (36-46) % MCV 96.9 (80-100) fL MCH 32.7 (26-34) PG MCHC 33.8 (30-36) % RDW 13.8 (11.6-14.8) % Plt Count 218 (150-400) X10^3/uL Neut % (Auto) 91.0 H (50-75) % Lymph % (Auto) 4.9 L (25-40) % [place] % (Auto) 3.2 (3-14) % Eos % (Auto) 0.4 L (2-4) % Baso % (Auto) 0.5 (0-2) % Neut # (Auto) 54611 H (3184-1810) /uL Lymph # (Auto) 1000 L (8156-6853) /uL [place] # (Auto) 600 (0-900) /uL Eos # (Auto) 100 (0-450) /uL Baso # (Auto) 100 (0-100) /uL PT 11.4 (9.4-12.5) SECONDS INR 1.0 (0.9-1.3) APTT 32 (25.1-36.5) SECONDS Sodium 129 L (137-145) mmol/L Potassium 3.8 (3.4-5.1) mmol/L Chloride 96 L (98-107) mmol/L Carbon Dioxide 23 (22-32) mmol/L BUN 21 H (7-17) mg/dL Creatinine 0.96 (0.52-1.04) mg/dL Estimated GFR > 60 (>60) mL/min BUN/Creatinine Ratio 21.9 (6-22) Glucose 141 H (80-110) mg/dL Lactate 1.4 (0.7-2.1) mmol/L Calcium 8.7 (8.4-10.2) mg/dL Total Bilirubin 0.9 (0.2-1.3) mg/dL AST 101 H (14-36) IU/L ALT 50 H (<35) IU/L Alkaline Phosphatase 163 H (38-126) U/L Total Protein 8.0 (6.3-8.2) g/dL Albumin 4.0 (3.5-5.0) g/dL Globulin 4.0 (1.7-4.1) g/dL Albumin/Globulin Ratio 1.0 (1.0-2.8) Lipase 70 (23-300) U/L Procalcitonin 0.493 (<0.5) ng/mL Urine RBC None seen (0-5/HPF) Urine WBC None seen (0-5/HPF) Ur Squamous Epith Cells 0-1 /hpf (0-5/HPF) Urine Bacteria None seen (None) Ur Culture Indicated? Cult not indicated Vol Urine Centrifuged 10ml (spun) Chlamy pneumoniae PCR Not detected (Not Detect) Adenovirus (PCR) Not detected (Not Detect) B. pertussis DNA (PCR) Not detected (Not Detect) B.parapertussis DNA PCR Not detected (Not Detecte) Coronavirus OC43 (PCR) Not detected (Not Detect) Coronavirus HKU1 (PCR) Not detected (Not Detect) Coronavirus 229E (PCR) Not detected (Not Detect) SARS-CoV-2 (PCR) Not detected (Not Detecte) Coronavirus NL63 (PCR) Not detected (Not Detect) Human Metapneumovir PCR Not detected (Not Detect) Influenza Type A (PCR) Not detected (Not Detect) Influenza Type B (PCR) Not detected (Not Detect) M. pneumoniae (PCR) Not detected (Not Detect) Parainfluenza 1 (PCR) Not detected (Not Detect) Parainfluenza 2 (PCR) Not detected (Not Detect) Parainfluenza 3 (PCR) Not detected (Not Detect) Parainfluenza 4 (PCR) Not detected (Not Detect) RSV (PCR) Not detected (Not Detect) Entero/Rhino (PCR) Detected H (Not Detect) Point of care testing: Urine Dip Bedside Urine Glucose Negative Bedside Urine Bilirubin - Negative Bedside Urine Ketone - Negative Urine Specific [place] 1.015 Bedside Urine Occult Blood - Negative Bedside Urine pH 6.0 Bedside Urine Protein +/- 15 Bedside Urine Urobilinogen 1+ 2mg Bedside Urine Nitrite - Negative Bedside Urine Leukocytes - Negative Esterase Imaging Data Chest x-ray: Radiologist's Impression: [address] [address] XRay Report Signed Patient: Jonna Ramon MR#: [id number] : 1950 Acct:[id number] Age/Sex: 73 / F Date of Service: 07/22/24 Loc: ED Accession Number: [id number] Procedure: XR chest 1V Ordering Provider: Diane Valera D.O. PROCEDURE: XR CHEST 1V INDICATIONS: suspected sepsis TECHNIQUE: One view of the chest was acquired. COMPARISON: [facility], CR, XR CHEST 1V, 02/29/2024, 1:29. [facility], CR, XR CHEST 2V, 01/02/2024, 10:44. FINDINGS: Surgical changes and devices: Bilateral shoulder arthroplasties. Lungs and pleura: Mild left basilar opacity. No pleural effusions or pneumothorax. Mediastinum: Mediastinal contours appear normal. Heart size is normal. Bones and chest wall: No suspicious bony lesions. Overlying soft tissues appear unremarkable. IMPRESSION: Mild left basilar opacity concerning for infection. Recommend follow-up radiograph in 6-8 weeks after treatment. Dictated by: Tk Munroe M.D. on 07/22/2024 at 23:30 Approved by: Tk Munroe M.D. on 07/22/2024 at 23:31 ECG Data Attestation: I personally reviewed and interpreted this ECG as follows: Prior ECG tracings: available for review Interpretation: Sinus tachycardia rate of 104, NE 132 QRS 84 QTC of 444. No acute ST elevation or depression. Nonspecific change. MDM Narrative Medical decision making narrative: 73-year-old female who presents with week and a half of upper respiratory symptoms the both she and her have had and had recent exposures from their grandchildren who they watched about a week ago., presents with, O2 sat 90% on room air tachycardic and altered. Has been states she has been a little bit altered in the evenings last particularly with fever, states developed fever today and seemed much more confused. She is somewhat immunocompromised has not autoimmune disease takes monoclonal antibody. Patient does have little bit of wheeze on exam and I suspect likely respiratory source for her symptoms. Labs show white count of 19.7, hemoglobin of 12.5 platelets of 218 predominance of neutrophils. Sodium is 129 down from March 2024 when it was 137 potassium 3.8 chloride 96 CO2 is 23 with a BUN 21 and a creatinine 0.96 glucose is 141 lactate 1.4, bilirubin is normal at 0.9 AST ALT and alk-phos are all mildly elevated at 101, 50 and 163, procalcitonin is 0.493. Lipase 70. Respiratory panel is positive for entero/rhinovirus. Chest x-ray left basilar infiltrate. EKG shows sinus tach. Urine negative for nitrates and leukocyte esterase, no ketones. No glucose. Urine microscopy shows no red cells no white cells 1 squamous no bacteria. Blood cultures were obtained. Patient received Tylenol at home about an hour prior to arrival, still febrile and received a dose of Toradol, fluids, albuterol. Patient had some improvement in wheeze. No significant change in oxygenation. Patient was covered dose of Zosyn. Patient changed 30 cc/kilos bolus did have a decrease in pressure to the 90s systolic heart rate has not improved, MAP is 75. Now currently on 2 L nasal cannula. Spoke with Dr. Mclain, tele hospitalist accepts for inpatient. Discussed blood pressure has been a little bit low starting sepsis fluids with 30 cc/kilos bolus. Asked that we add azithromycin to patient's antibiotic regimen. Discussed findings, patient is sleepy but awakens easily to verbal stimuli. States that she was listening but is still confused. Has been states systolic pressure in the 90s can be typical for the patient. He states she is full code and pressors are acceptable if necessary. Has been also notes that he is going to return in the morning with supplies for patient's colostomy. Critical Care Time Critical Care Time Critical Care Time: Yes Total Critical Care Time: 35 Attestation: The high probability of a clinically significant, sudden or life threatening deterioration of the cardiac and pulmonary system(s) required my full and direct attention, intervention and personal management. The aggregate critical care time was [--] minutes. This time is in addition to time spent performing reported procedures but includes the following: [x] Data Review and interpretation [x] Patient assessment and monitoring of vital signs [x] Documentation [x] Medication orders and management Discharge Plan Departure Patient Disposition: Admitted As Inpatient Clinical Impression: Pneumonia, Sepsis, Hyponatremia Admit Date/Time: 07/23/24 00:47 Admit Provider: Sina Mclain
--- NOTE | 2024-07-22 23:06 | DI.RAD.S_ITS ---
PROCEDURE: XR CHEST 1V INDICATIONS: suspected sepsis TECHNIQUE: One view of the chest was acquired. COMPARISON: [facility], CR, XR CHEST 1V, 02/29/2024, 1:29. [facility], CR, XR CHEST 2V, 01/02/2024, 10:44. FINDINGS: Surgical changes and devices: Bilateral shoulder arthroplasties. Lungs and pleura: Mild left basilar opacity. No pleural effusions or pneumothorax. Mediastinum: Mediastinal contours appear normal. Heart size is normal. Bones and chest wall: No suspicious bony lesions. Overlying soft tissues appear unremarkable. IMPRESSION: Mild left basilar opacity concerning for infection. Recommend follow-up radiograph in 6-8 weeks after treatment. Dictated by: Tk Munroe M.D. on 07/22/2024 at 23:30 Approved by: Tk Munroe M.D. on 07/22/2024 at 23:31
--- NOTE | 2024-07-22 23:12 | EKG_ITS ---
[address] [address] Test Date: 2024-07-22 Pat Name: Jonna Ramon Department: [facility] Room: Gender: Female [employer]: MICHEAL : 1950 Requested By: Order Number: [id number] Reading MD: Tank Gan MD Measurements Intervals [place] Rate: 104 P: [place]: 132 QRS: 82 QRSD: 84 T: 75 QT: 338 QTc: 444 Interpretive Statements Sinus tachycardia Electronically Signed On 07-23-2024 7:55:25 PDT by Tank Gan MD
[2024-07-22] MEDS: ALBUTEROL/IPRATROPIUM 3 ML AMPUL INH (23:23)
[2024-07-22] MEDS: KETOROLAC 30 MG/ML VIAL 15 MG IV (23:24)
[2024-07-22] MEDS: SODIUM CHLORIDE 0.9% 1,000 ML 1000 ML IV (23:25)
[2024-07-22 23:29] LABS: Add Manual Diff / Slide Review NO; Basophils Absolute Auto 100 /uL (0-100); Basophils Percent Auto 0.5 % (0-2); Eosinophils Absolute Auto 100 /uL (0-450); Eosinophils Percent Auto 0.4 % (2-4); Hematocrit 37.1 % (36-46); Hemoglobin 12.5 g/dL (12.0-16.0); Lymphocytes Absolute Auto 1000 /uL (1100-4500); Lymphocytes Percent Auto 4.9 % (25-40); Mean Corpuscular HGB Conc 33.8 % (30-36); Mean Corpuscular Hemoglobin 32.7 PG (26-34); Mean Corpuscular Volume 96.9 fL (80-100); Monocytes Absolute Auto 600 /uL (0-900); Monocytes Percent Auto 3.2 % (3-14); Neutrophils Absolute Auto 17900 /uL (1500-7000); Platelet Count 218 X10^3/uL (150-400); Red Blood Cell Count 3.82 X10^6/uL (4.0-5.2); Red Cell Distribution Width 13.8 % (11.6-14.8); White Blood Cell Count 19.7 X10^3/uL (4.5-11.0)
[2024-07-22] MEDS: PIPERACILLIN/TAZO 4.5 GM in SODIUM CHLORIDE 0.9% 100 ML IV (23:31)
[2024-07-22 23:36] LABS: Prothrombin Time 11.4 SECONDS (9.4-12.5)
[2024-07-22 23:38] LABS: Lactate (Lactic Acid) 1.4 mmol/L (0.7-2.1)
[2024-07-22 23:39] LABS: Alanine Aminotransferase 50 IU/L (<35); Alkaline Phosphatase 163 U/L (38-126); Aspartate Aminotransferase 101 IU/L (14-36); BUN Creatinine Ratio 21.9 (6-22); Bilirubin Total 0.9 mg/dL (0.2-1.3); Blood Urea Nitrogen 21 mg/dL (7-17); Calcium 8.7 mg/dL (8.4-10.2); Carbon Dioxide 23 mmol/L (22-32); Chloride 96 mmol/L (98-107); Estimated Glomerular Filt Rate > 60 mL/min (>60); Glucose 141 mg/dL (80-110); HEMOLYSIS < 15 (0-50); Lipase 70 U/L (23-300); PTT Partial Thromboplastin Tim 32 SECONDS (25.1-36.5); Potassium 3.8 mmol/L (3.4-5.1); Sodium 129 mmol/L (137-145)
--- NOTE | 2024-07-22 23:42 | PC.NURSE ---
Pt arrives POV. Rambling, garbled speech. Pt is drowsy and oriented X 4. Denies pain. Family at bedside. Eyes are closed and says that she is feeling really tired.
[2024-07-22 23:55] LABS: Procalcitonin 0.493 ng/mL (<0.5)
[2024-07-23] VITALS (23 sets, daily range): BP systolic 88–118; BP diastolic 45–62; PULSE 71–115; RESP 14–33; TEMP 36.1–36.8; O2SAT 88–97; BMI 19.4
[2024-07-23 00:24] LABS: Adenovirus Not Detected (Not Detect); B. parapertussis Not Detected (Not Detecte); Bordetella pertussis Not Detected (Not Detect); Chlamydophila pneumoniae Not Detected (Not Detect); Coronavirus 229E Not Detected (Not Detect); Coronavirus HKU1 Not Detected (Not Detect); Coronavirus NL 63 Not Detected (Not Detect); Coronavirus OC43 Not Detected (Not Detect); Human Metapneumovirus Not Detected (Not Detect); Human Rhinovirus/Enterovirus Detected (Not Detect); Influenza A Not Detected (Not Detect); Influenza B Not Detected (Not Detect); Mycoplasma pneumoniae Not Detected (Not Detect); Parainfluenza Virus 1 Not Detected (Not Detect); Parainfluenza Virus 2 Not Detected (Not Detect); Parainfluenza Virus 3 Not Detected (Not Detect); Parainfluenza Virus 4 Not Detected (Not Detect); Respiratory Syncytial Virus Not Detected (Not Detect); SARS- CoV-2 Not Detected (Not Detecte)
[2024-07-23 00:37] LABS: Bacteria Urine None Seen; RBC Urine None Seen (0-5/HPF); Squamous Epithelial Cell Urine 0-1 /HPF (0-5/HPF); Urine Volume 10mL (spun); WBC Urine None Seen (0-5/HPF)
[2024-07-23 00:38] LABS: Culture Indicated Urine Cult Not Indicated
[2024-07-23] MEDS: SODIUM CHLORIDE 0.9% 1,779 ML 593 ML IV (00:40)
--- NOTE | 2024-07-23 04:42 | PM.HP.1 ---
History of Present Illness History of Present Illness Chief complaint: Fever, AMS Narrative: 73-year-old female with past medical history of neuromyelitis optica spectrum disorder, hypothyroidism and dyslipidemia presents with coughing and subjective fever. Per the patient's report, over the last few days, the patient has exhibited these symptoms in addition to some confusion associated with her fever. The patient was exposed to her grandchildren who possibly had a viral infection. The patient's cough is non-productive and the patient did complain of a generalized headache. Otherwise there's no report of any nausea, vomiting, chest pain or dysuria.? In our emergency room, the patient's systolic blood pressure was in the mid-90s. Patient was requiring one liter of oxygen. Patient chest x-ray just shows possible focal consolidation. Respiratory viral panel came back positive for rhinovirus. The patient was given Zosyn and IV fluid. [facility] Medical History Left leg DVT Frequent UTI Chronic pain Chronic pelvic pain in female Anxiety Postmenopausal atrophic vaginitis Renal cyst, acquired, left Surgical History History of intestinal surgery H/O breast biopsy H/O shoulder replacement H/O colectomy Family History Mother Heart attack UTI (urinary tract infection) Father Heart attack Social History marital status: number of children: 2 household members: spouse Smoking Status: Never smoker alcohol intake: current substance use type: does not use caffeine: Yes Meds Home Medications and Allergies Home Medications Medication Instructions Recorded Confirmed Type acetaminophen 325 mg capsule 250 mg PO TID PRN Abdominal 08/18/19 05/19/24 History Discomfort coenzyme Q10 100 mg capsule (Co 100 mg PO DAILY 08/18/19 05/19/24 History Q-10) eculizumab 300 mg/30 mL 600 mg IV QWEEK 05/14/22 05/19/24 History intravenous solution (Soliris) alendronate 70 mg tablet 70 mg PO QWEEK #12 tabs 05/13/23 05/19/24 Rx buprenorphine 10 mcg/hour weekly 1 patch transdermal QWEEK 08/08/23 05/19/24 History transdermal patch naloxone 4 mg/actuation nasal 4 mg intranasal Q2M #2 ea 10/01/23 05/19/24 Rx spray (Narcan) levothyroxine 100 mcg tablet 100 mcg PO DAILY #90 tabs 12/26/23 05/19/24 Rx albuterol sulfate 90 mcg/actuation 2 puff inhalation Q4-6H PRN 01/02/24 05/19/24 Rx aerosol inhaler shortness of breath or wheezing #6.7 grams baclofen 10 mg tablet 10 mg PO BID 01/10/24 05/19/24 History zolpidem 5 mg tablet 5 mg PO BEDTIME 03/24/24 05/19/24 History pravastatin 10 mg tablet 10 mg PO BEDTIME #100 tabs 03/27/24 05/19/24 Rx nitrofurantoin 100 mg PO DAILY #90 caps 06/11/24 Rx monohydrate/macrocrystals 100 mg capsule diazepam 5 mg tablet See Rx Instructions PO .COMPLEX 06/30/24 Rx PRN muscle spasm #30 tabs oxycodone 5 mg tablet 5 mg PO Q12H PRN pain #60 tabs 06/30/24 Rx duloxetine 60 mg capsule,delayed 120 mg (2 x 60 mg) PO DAILY #180 07/07/24 Rx release caps gabapentin 800 mg tablet 800 mg PO TID #90 tabs 07/17/24 Rx Allergies Allergy/AdvReac Type Severity Reaction Status Date / Time buprenorphine AdvReac Intermediate edema in Verified 05/19/24 13:28 legs Review of Systems Review of Systems Narrative: limitted due to confusionb Exam Vital Signs (past 8 hours): - 07/22/24 22:50 07/22/24 22:54 07/22/24 22:54 Temperature 100.8 F H Pulse Rate 119 H 116 H Respiratory Rate 20 Blood Pressure 121/76 121/76 Pulse Oximetry 90 L 90 L Oxygen Delivery Method Room Air Oxygen Flow Rate Fraction of Inspired Oxygen 07/22/24 23:00 07/22/24 23:23 07/22/24 23:24 Temperature 100.8 F H Pulse Rate 105 H 104 H Respiratory Rate 24 14 Blood Pressure Pulse Oximetry 93 95 Oxygen Delivery Method Nasal Cannula Oxygen Flow Rate 1 Fraction of Inspired Oxygen 07/22/24 23:30 07/22/24 23:30 07/22/24 23:45 Temperature Pulse Rate 111 H Respiratory Rate 25 H Blood Pressure 117/62 110/53 L Pulse Oximetry 96 Oxygen Delivery Method Oxygen Flow Rate Fraction of Inspired Oxygen 07/22/24 23:45 07/23/24 00:00 07/23/24 00:00 Temperature Pulse Rate 106 H 115 H Respiratory Rate 27 H 27 H Blood Pressure 107/62 Pulse Oximetry 92 96 Oxygen Delivery Method Oxygen Flow Rate Fraction of Inspired Oxygen 07/23/24 00:15 07/23/24 00:15 07/23/24 00:30 Temperature Pulse Rate 101 H Respiratory Rate 30 H Blood Pressure 96/50 L 95/55 L Pulse Oximetry 90 L Oxygen Delivery Method Oxygen Flow Rate Fraction of Inspired Oxygen 07/23/24 00:30 07/23/24 00:45 07/23/24 00:45 Temperature Pulse Rate 96 H 93 H Respiratory Rate 28 H 24 Blood Pressure 90/47 L Pulse Oximetry 92 88 L Oxygen Delivery Method Oxygen Flow Rate Fraction of Inspired Oxygen 07/23/24 00:47 07/23/24 00:47 07/23/24 01:00 Temperature Pulse Rate 89 Respiratory Rate 25 H Blood Pressure 96/49 L 96/55 L Pulse Oximetry 93 Oxygen Delivery Method Nasal Cannula Oxygen Flow Rate 2 Fraction of Inspired Oxygen 07/23/24 01:00 07/23/24 01:15 07/23/24 01:15 Temperature Pulse Rate 86 Respiratory Rate 22 Blood Pressure 98/55 L 98/55 L Pulse Oximetry 92 Oxygen Delivery Method Oxygen Flow Rate Fraction of Inspired Oxygen 07/23/24 01:15 07/23/24 01:30 07/23/24 01:30 Temperature Pulse Rate 90 90 Respiratory Rate 27 H 33 H Blood Pressure 94/51 L Pulse Oximetry 94 92 Oxygen Delivery Method Oxygen Flow Rate Fraction of Inspired Oxygen 07/23/24 01:32 07/23/24 01:32 07/23/24 01:33 Temperature Pulse Rate 87 89 Respiratory Rate 25 H 28 H Blood Pressure 95/48 L Pulse Oximetry 93 92 Oxygen Delivery Method Oxygen Flow Rate Fraction of Inspired Oxygen 07/23/24 01:33 07/23/24 01:45 07/23/24 01:45 Temperature Pulse Rate 85 Respiratory Rate 21 Blood Pressure 94/50 L 88/54 L Pulse Oximetry 93 Oxygen Delivery Method Oxygen Flow Rate Fraction of Inspired Oxygen 07/23/24 01:57 07/23/24 01:57 07/23/24 02:00 Temperature Pulse Rate 83 84 Respiratory Rate 22 22 Blood Pressure 90/51 L Pulse Oximetry 95 94 Oxygen Delivery Method Oxygen Flow Rate Fraction of Inspired Oxygen 07/23/24 02:00 07/23/24 02:15 07/23/24 02:15 Temperature Pulse Rate 86 Respiratory Rate 24 Blood Pressure 89/51 L 96/54 L Pulse Oximetry 95 Oxygen Delivery Method Oxygen Flow Rate Fraction of Inspired Oxygen 07/23/24 02:30 07/23/24 02:30 07/23/24 02:45 Temperature 98.2 F Pulse Rate 83 85 Respiratory Rate 22 24 Blood Pressure 94/55 L Pulse Oximetry 95 94 Oxygen Delivery Method Nasal Cannula Oxygen Flow Rate 4 Fraction of Inspired Oxygen 07/23/24 03:20 07/23/24 04:21 Temperature 96.9 F L Pulse Rate 78 82 Respiratory Rate 22 24 Blood Pressure 90/45 L Pulse Oximetry 95 92 Oxygen Delivery Method Nasal Cannula Oxygen Flow Rate 3 3 Fraction of Inspired Oxygen 32 Fraction of Inspired Oxygen 32 SaO2/FiO2 Ratio 287 Oxygen Delivery Method Nasal Cannula Oxygen Flow Rate 3 Narrative Exam Narrative: GENERAL: The patient is not in any acute distressed. HEENT: Nonicteric sclerae, PERRLA, EOMI. Oropharynx clear. Moist mucous membranes. Conjunctivae appear well perfused. HEART: Regular rate and rhythm without murmurs. No lower extremities edema. LUNGS: Clear to auscultation bilaterally. No wheezing, crackles or rhonchi ABDOMEN: Soft, positive bowel sounds, nontender. SKIN: No rash, no excessive bruising, petechiae, or purpura. NEUROLOGIC: AxO x 1 self. Cranial nerves II-XII intact without motor/sensory deficit. Objective Labs 07/22/24 23:08 07/22/24 23:08 Labs: Laboratory Results - last 24 hr 07/22/24 07/22/24 07/23/24 23:08 23:24 00:00 WBC 19.7 H RBC 3.82 L Hgb 12.5 Hct 37.1 MCV 96.9 MCH 32.7 MCHC 33.8 RDW 13.8 Plt Count 218 Neut % (Auto) 91.0 H Lymph % (Auto) 4.9 L [place] % (Auto) 3.2 Eos % (Auto) 0.4 L Baso % (Auto) 0.5 Neut # (Auto) 51242 H Lymph # (Auto) 1000 L [place] # (Auto) 600 Eos # (Auto) 100 Baso # (Auto) 100 PT 11.4 INR 1.0 APTT 32 Sodium 129 L Potassium 3.8 Chloride 96 L Carbon Dioxide 23 BUN 21 H Creatinine 0.96 Estimated GFR > 60 BUN/Creatinine Ratio 21.9 Glucose 141 H Lactate 1.4 Calcium 8.7 Total Bilirubin 0.9 AST 101 H ALT 50 H Alkaline Phosphatase 163 H Total Protein 8.0 Albumin 4.0 Globulin 4.0 Albumin/Globulin Ratio 1.0 Lipase 70 Procalcitonin 0.493 Urine RBC None seen Urine WBC None seen Ur Squamous Epith Cells 0-1 /hpf Urine Bacteria None seen Ur Culture Indicated? Cult not indicated Vol Urine Centrifuged 10ml (spun) Chlamy pneumoniae PCR Not detected Adenovirus (PCR) Not detected B. pertussis DNA (PCR) Not detected B.parapertussis DNA PCR Not detected Coronavirus OC43 (PCR) Not detected Coronavirus HKU1 (PCR) Not detected Coronavirus 229E (PCR) Not detected SARS-CoV-2 (PCR) Not detected Coronavirus NL63 (PCR) Not detected Human Metapneumovir PCR Not detected Influenza Type A (PCR) Not detected Influenza Type B (PCR) Not detected M. pneumoniae (PCR) Not detected Parainfluenza 1 (PCR) Not detected Parainfluenza 2 (PCR) Not detected Parainfluenza 3 (PCR) Not detected Parainfluenza 4 (PCR) Not detected RSV (PCR) Not detected Entero/Rhino (PCR) Detected H Assessment & Plan Assessment & Plan narrative: Pneumonia associated with rhinovirus and possible bacteria. Admit the patient to medical telemetry inpatient. Continue. Antibiotic with IV azithromycin and Ceftriaxone. IV fluid. Monitor for sepsis. Patient is hemodynamically stable with normal lactic acid.? Mild acute respiratory failure with hypoxemia. Likely due to above. Treat as above and wean down oxygen as able.? Note patient currently only requires 1L of O2. Mild transaminitis. No clear ideology. Monitor at this point.? Dehydration. IV fluid . Hypothyroidism. TSH checked. Resume home synthroid.? Mild confusion. Improving. Likely associated with fever and underlying infection. Monitor mental status with above treatment. Hyperlipidemia. Resume home statin ?DVT prophylaxis lovenox . Code status full code will meed to confirm with patients in AM. This position likely home in 2 to 3 days.? Time-Based Coding :: [TOTAL MINUTES] spent with patient and on the chart (including review of chart, obtaining history, exam, reviewing outside data, placing orders, documenting exam and treatment plan, and counseling patient) on [DATE].
[2024-07-23 06:01] LABS: Add Manual Diff / Slide Review NO; Basophils Absolute Auto 0 /uL (0-100); Basophils Percent Auto 0.1 % (0-2); Eosinophils Absolute Auto 0 /uL (0-450); Eosinophils Percent Auto 0.1 % (2-4); Hemoglobin 10.7 g/dL (12.0-16.0); Lymphocytes Absolute Auto 1600 /uL (1100-4500); Lymphocytes Percent Auto 7.9 % (25-40); Mean Corpuscular HGB Conc 33.5 % (30-36); Mean Corpuscular Hemoglobin 32.8 PG (26-34); Mean Corpuscular Volume 98.2 fL (80-100); Monocytes Absolute Auto 1200 /uL (0-900); Monocytes Percent Auto 5.7 % (3-14); Neutrophils Absolute Auto 17500 /uL (1500-7000); Neutrophils Percent Auto 86.2 % (50-75); Platelet Count 176 X10^3/uL (150-400); Red Blood Cell Count 3.26 X10^6/uL (4.0-5.2); Red Cell Distribution Width 13.8 % (11.6-14.8); White Blood Cell Count 20.3 X10^3/uL (4.5-11.0)
[2024-07-23 06:30] LABS: Alanine Aminotransferase 61 IU/L (<35); Albumin 2.9 g/dL (3.5-5.0); Albumin Globulin Ratio 0.9 (1.0-2.8); Alkaline Phosphatase 118 U/L (38-126); Aspartate Aminotransferase 103 IU/L (14-36); BUN Creatinine Ratio 21.1 (6-22); Bilirubin Total 0.7 mg/dL (0.2-1.3); Blood Urea Nitrogen 19 mg/dL (7-17); Calcium 7.5 mg/dL (8.4-10.2); Carbon Dioxide 23 mmol/L (22-32); Chloride 100 mmol/L (98-107); Estimated Glomerular Filt Rate > 60 mL/min (>60); Globulin 3.3 g/dL (1.7-4.1); Glucose 130 mg/dL (80-110); HEMOLYSIS < 15 (0-50); Potassium 3.5 mmol/L (3.4-5.1); Sodium 128 mmol/L (137-145); Total Protein 6.2 g/dL (6.3-8.2)
[2024-07-23] MEDS: LEVOTHYROXINE 100 MCG TABLET PO (07:00)
[2024-07-23] MEDS: SODIUM CHLORIDE 0.9% 1,000 ML 100 ML IV ×2 (07:03→22:49)
[2024-07-23] MEDS: AZITHROMYCIN 500 MG in DEXTROSE 5% IN WATER 250 ML 250 MG IV (07:03)
--- NOTE | 2024-07-23 07:52 | PM.HP.1 ---
History of Present Illness History of Present Illness Date Patient Seen: 07/23/24 Chief complaint: Fever, AMS Narrative: From night doctor: 73-year-old female with past medical history of neuromyelitis optica spectrum disorder, hypothyroidism and dyslipidemia presents with coughing and subjective fever. Per the patient's report, over the last few days, the patient has exhibited these symptoms in addition to some confusion associated with her fever. The patient was exposed to her grandchildren who possibly had a viral infection. The patient's cough is non-productive and the patient did complain of a generalized headache. Otherwise there's no report of any nausea, vomiting, chest pain or dysuria.? In our emergency room, the patient's systolic blood pressure was in the mid-90s. Patient was requiring one liter of oxygen. Patient chest x-ray just shows possible focal consolidation. Respiratory viral panel came back positive for rhinovirus. The patient was given Zosyn and IV fluid. Additional information: [facility] Medical History Left leg DVT Frequent UTI Chronic pain Chronic pelvic pain in female Anxiety Postmenopausal atrophic vaginitis Renal cyst, acquired, left Surgical History History of intestinal surgery H/O breast biopsy H/O shoulder replacement H/O colectomy Family History Mother Heart attack UTI (urinary tract infection) Father Heart attack Social History marital status: number of children: 2 household members: spouse Smoking Status: Never smoker alcohol intake: current substance use type: does not use caffeine: Yes Meds Home Medications and Allergies Home Medications Medication Instructions Recorded Confirmed Type acetaminophen 325 mg capsule 250 mg PO TID PRN Abdominal 08/18/19 07/23/24 History Discomfort coenzyme Q10 100 mg capsule (Co 100 mg PO DAILY 08/18/19 07/23/24 History Q-10) eculizumab 300 mg/30 mL 600 mg IV QWEEK 05/14/22 07/23/24 History intravenous solution (Soliris) alendronate 70 mg tablet 70 mg PO QWEEK #12 tabs 05/13/23 07/23/24 Rx naloxone 4 mg/actuation nasal 4 mg intranasal Q2M #2 ea 10/01/23 07/23/24 Rx spray (Narcan) levothyroxine 100 mcg tablet 100 mcg PO DAILY #90 tabs 12/26/23 07/23/24 Rx albuterol sulfate 90 mcg/actuation 2 puff inhalation Q4-6H PRN 01/02/24 07/23/24 Rx aerosol inhaler shortness of breath or wheezing #6.7 grams baclofen 10 mg tablet 10 mg PO BID 01/10/24 07/23/24 History zolpidem 5 mg tablet 5 mg PO BEDTIME 03/24/24 07/23/24 History pravastatin 10 mg tablet 10 mg PO BEDTIME #100 tabs 03/27/24 07/23/24 Rx nitrofurantoin 100 mg PO DAILY #90 caps 06/11/24 07/23/24 Rx monohydrate/macrocrystals 100 mg capsule diazepam 5 mg tablet See Rx Instructions PO .COMPLEX 06/30/24 07/23/24 Rx PRN muscle spasm #30 tabs oxycodone 5 mg tablet 5 mg PO Q12H PRN pain #60 tabs 06/30/24 07/23/24 Rx duloxetine 60 mg capsule,delayed 120 mg (2 x 60 mg) PO DAILY #180 07/07/24 07/23/24 Rx release caps gabapentin 800 mg tablet 800 mg PO TID #90 tabs 07/17/24 07/23/24 Rx Allergies Allergy/AdvReac Type Severity Reaction Status Date / Time buprenorphine AdvReac Intermediate edema in Verified 05/19/24 13:28 legs Review of Systems Review of Systems Narrative: All else reviewed and otherwise unremarkable except as noted in the history and physical. Exam Vital Signs (past 8 hours): - 07/23/24 00:00 07/23/24 00:00 07/23/24 00:15 Temperature Pulse Rate 115 H Respiratory Rate 27 H Blood Pressure 107/62 96/50 L Pulse Oximetry 96 Oxygen Delivery Method Oxygen Flow Rate Fraction of Inspired Oxygen 07/23/24 00:15 07/23/24 00:30 07/23/24 00:30 Temperature Pulse Rate 101 H 96 H Respiratory Rate 30 H 28 H Blood Pressure 95/55 L Pulse Oximetry 90 L 92 Oxygen Delivery Method Oxygen Flow Rate Fraction of Inspired Oxygen 07/23/24 00:45 07/23/24 00:45 07/23/24 00:47 Temperature Pulse Rate 93 H Respiratory Rate 24 Blood Pressure 90/47 L 96/49 L Pulse Oximetry 88 L Oxygen Delivery Method Oxygen Flow Rate Fraction of Inspired Oxygen 07/23/24 00:47 07/23/24 01:00 07/23/24 01:00 Temperature Pulse Rate 89 86 Respiratory Rate 25 H 22 Blood Pressure 96/55 L Pulse Oximetry 93 92 Oxygen Delivery Method Nasal Cannula Oxygen Flow Rate 2 Fraction of Inspired Oxygen 07/23/24 01:15 07/23/24 01:15 07/23/24 01:15 Temperature Pulse Rate 90 Respiratory Rate 27 H Blood Pressure 98/55 L 98/55 L Pulse Oximetry 94 Oxygen Delivery Method Oxygen Flow Rate Fraction of Inspired Oxygen 07/23/24 01:30 07/23/24 01:30 07/23/24 01:32 Temperature Pulse Rate 90 Respiratory Rate 33 H Blood Pressure 94/51 L 95/48 L Pulse Oximetry 92 Oxygen Delivery Method Oxygen Flow Rate Fraction of Inspired Oxygen 07/23/24 01:32 07/23/24 01:33 07/23/24 01:33 Temperature Pulse Rate 87 89 Respiratory Rate 25 H 28 H Blood Pressure 94/50 L Pulse Oximetry 93 92 Oxygen Delivery Method Oxygen Flow Rate Fraction of Inspired Oxygen 07/23/24 01:45 07/23/24 01:45 07/23/24 01:57 Temperature Pulse Rate 85 Respiratory Rate 21 Blood Pressure 88/54 L 90/51 L Pulse Oximetry 93 Oxygen Delivery Method Oxygen Flow Rate Fraction of Inspired Oxygen 07/23/24 01:57 07/23/24 02:00 07/23/24 02:00 Temperature Pulse Rate 83 84 Respiratory Rate 22 22 Blood Pressure 89/51 L Pulse Oximetry 95 94 Oxygen Delivery Method Oxygen Flow Rate Fraction of Inspired Oxygen 07/23/24 02:15 07/23/24 02:15 07/23/24 02:30 Temperature Pulse Rate 86 83 Respiratory Rate 24 22 Blood Pressure 96/54 L Pulse Oximetry 95 95 Oxygen Delivery Method Oxygen Flow Rate Fraction of Inspired Oxygen 07/23/24 02:30 07/23/24 02:45 07/23/24 03:20 Temperature 98.2 F 96.9 F L Pulse Rate 85 78 Respiratory Rate 24 22 Blood Pressure 94/55 L 90/45 L Pulse Oximetry 94 95 Oxygen Delivery Method Nasal Cannula Oxygen Flow Rate 4 3 Fraction of Inspired Oxygen 07/23/24 03:30 07/23/24 04:21 Temperature Pulse Rate 82 Respiratory Rate 24 Blood Pressure Pulse Oximetry 92 Oxygen Delivery Method Nasal Cannula Nasal Cannula Oxygen Flow Rate 3 Fraction of Inspired Oxygen 32 Fraction of Inspired Oxygen 32 SaO2/FiO2 Ratio 287 Oxygen Delivery Method Nasal Cannula Oxygen Flow Rate 3 Narrative Exam Narrative: NAD, alert and oriented, fluent speech, calm. Coughing a lot, rhonchorous at times. She appears frail and uncomfortable. Normocephalic skull, EOMI, anicteric sclera, symmetric pupils. Oropharynx unremarkable, no droop. Neck supple, midline trachea, no adenopathy. Lungs without wheezing but scattered rhonchi are noted, normal rate and effort. Heart regular, no murmur gallop or rub. Abdomen is soft, non distended and non tender. Extremities are free of edema. Skin is free of rash or lesions. Joints are not swollen or deformed. Judgment appears to be normal. Objective Imaging Chest x-ray: My impression: Early right lower lobe infiltrate Labs 07/23/24 05:15 07/23/24 05:15 Labs: Laboratory Results - last 24 hr 07/22/24 07/22/24 07/23/24 23:08 23:24 00:00 WBC 19.7 H RBC 3.82 L Hgb 12.5 Hct 37.1 MCV 96.9 MCH 32.7 MCHC 33.8 RDW 13.8 Plt Count 218 Neut % (Auto) 91.0 H Lymph % (Auto) 4.9 L [place] % (Auto) 3.2 Eos % (Auto) 0.4 L Baso % (Auto) 0.5 Neut # (Auto) 19395 H Lymph # (Auto) 1000 L [place] # (Auto) 600 Eos # (Auto) 100 Baso # (Auto) 100 PT 11.4 INR 1.0 APTT 32 Sodium 129 L Potassium 3.8 Chloride 96 L Carbon Dioxide 23 BUN 21 H Creatinine 0.96 Estimated GFR > 60 BUN/Creatinine Ratio 21.9 Glucose 141 H Lactate 1.4 Calcium 8.7 Total Bilirubin 0.9 AST 101 H ALT 50 H Alkaline Phosphatase 163 H Total Protein 8.0 Albumin 4.0 Globulin 4.0 Albumin/Globulin Ratio 1.0 Lipase 70 Procalcitonin 0.493 Urine RBC None seen Urine WBC None seen Ur Squamous Epith Cells 0-1 /hpf Urine Bacteria None seen Ur Culture Indicated? Cult not indicated Vol Urine Centrifuged 10ml (spun) Chlamy pneumoniae PCR Not detected Adenovirus (PCR) Not detected B. pertussis DNA (PCR) Not detected B.parapertussis DNA PCR Not detected Coronavirus OC43 (PCR) Not detected Coronavirus HKU1 (PCR) Not detected Coronavirus 229E (PCR) Not detected SARS-CoV-2 (PCR) Not detected Coronavirus NL63 (PCR) Not detected Human Metapneumovir PCR Not detected Influenza Type A (PCR) Not detected Influenza Type B (PCR) Not detected M. pneumoniae (PCR) Not detected Parainfluenza 1 (PCR) Not detected Parainfluenza 2 (PCR) Not detected Parainfluenza 3 (PCR) Not detected Parainfluenza 4 (PCR) Not detected RSV (PCR) Not detected Entero/Rhino (PCR) Detected H 07/23/24 05:15 WBC 20.3 H RBC 3.26 L Hgb 10.7 L Hct 32.0 L MCV 98.2 MCH 32.8 MCHC 33.5 RDW 13.8 Plt Count 176 Neut % (Auto) 86.2 H Lymph % (Auto) 7.9 L [place] % (Auto) 5.7 Eos % (Auto) 0.1 L Baso % (Auto) 0.1 Neut # (Auto) 86508 H Lymph # (Auto) 1600 [place] # (Auto) 1200 H Eos # (Auto) 0 Baso # (Auto) 0 PT INR APTT Sodium 128 L Potassium 3.5 Chloride 100 Carbon Dioxide 23 BUN 19 H Creatinine 0.90 Estimated GFR > 60 BUN/Creatinine Ratio 21.1 Glucose 130 H Lactate Calcium 7.5 L Total Bilirubin 0.7 AST 103 H ALT 61 H Alkaline Phosphatase 118 Total Protein 6.2 L Albumin 2.9 L Globulin 3.3 Albumin/Globulin Ratio 0.9 L Lipase Procalcitonin Urine RBC Urine WBC Ur Squamous Epith Cells Urine Bacteria Ur Culture Indicated? Vol Urine Centrifuged Chlamy pneumoniae PCR Adenovirus (PCR) B. pertussis DNA (PCR) B.parapertussis DNA PCR Coronavirus OC43 (PCR) Coronavirus HKU1 (PCR) Coronavirus 229E (PCR) SARS-CoV-2 (PCR) Coronavirus NL63 (PCR) Human Metapneumovir PCR Influenza Type A (PCR) Influenza Type B (PCR) M. pneumoniae (PCR) Parainfluenza 1 (PCR) Parainfluenza 2 (PCR) Parainfluenza 3 (PCR) Parainfluenza 4 (PCR) RSV (PCR) Entero/Rhino (PCR) Assessment & Plan Assessment & Plan narrative: 1. Pneumonia associated with rhinovirus and possible bacteria. Admit the patient to medical telemetry inpatient. Continue. Antibiotic with IV azithromycin and Ceftriaxone. IV fluid. Monitor for sepsis. Patient is hemodynamically stable with normal lactic acid.? 2. Mild acute respiratory failure with hypoxemia. Likely due to above. Treat as above and wean down oxygen as able.? Note patient currently only requires 1L of O2. 3. Mild transaminitis. No clear ideology. Monitor at this point.? 4. Dehydration. IV fluid . 5. Hypothyroidism. TSH checked. Resume home synthroid.? 6. Mild confusion. Improving. Likely associated with fever and underlying infection. Monitor mental status with above treatment. 7. Hyperlipidemia. Resume home statin 8. Neuromyelitis optics, chronic. PLAN: Continue IV fluids and IV antibiotics, we will change Zosyn to ceftriaxone and azithromycin. Droplet isolation for rhino virus Monitor mental status Oxygen, wean as able Cough medicine DVT prophylaxis lovenox . Full code is proxy decision maker Inpatient status, anticipate a 2 night hospital stay NEREIDA is 07/25 Time-Based Coding :: 35 min spent with patient and on the chart (including review of chart, obtaining history, exam, reviewing outside data, placing orders, documenting exam and treatment plan, and counseling patient) on07/23. Quality MIPS - Admit I confirm the patient?s Advance Care Plan is present, Code status is documented, Surrogate decision maker is in patient?s record [If Yes, STOP here]: Yes MIPS - Meds 'Current medications' to include all prescriptions, [id number] products, herbals, cannabis/cannabidiol products, and vitamin/mineral/dietary (nutritional) supplements. I have utilized all available resources to obtain, update, or review the patient?s current medications. [If Yes, STOP here]: Yes
[2024-07-23] MEDS: ENOXAPARIN 40 MG/0.4 ML SYRINGE SUBCUT (08:57)
[2024-07-23] MEDS: cefTRIAXone 1,000 MG in SODIUM CHLORIDE 0.9% 100 ML 200 MG IV (11:26)
--- NOTE | 2024-07-23 11:30 | OT.IP.EVAL ---
Past Medical History (Last Reviewed 07/23/24 @ 07:53 by Christian Ruiz MD) Anxiety Chronic pain Chronic pelvic pain in female Frequent UTI Left leg DVT Postmenopausal atrophic vaginitis Renal cyst, acquired, left Surgical History (Last Reviewed 07/23/24 @ 07:53 by Christian Ruiz MD) H/O breast biopsy H/O colectomy H/O shoulder replacement History of intestinal surgery Occupational Therapy Inpatient Evaluation/Re-Eval M1 PT/OT-IP Prior Functional Status Start: 07/23/24 08:33 Freq: NEEDED Status: Active Protocol: Document 07/23/24 11:35 [facility] (Rec: 07/23/24 11:56 [facility] [id number]) Medical Review Prior Functional Status Medical History Reviewed Yes Communication Unsure baseline diet and communication, pt presents with some confusion this a.m. Mobility and Gait Pt reports I without assistive device but she reports need for assistance to manage colostomy and occ assist for bathing and dressing Activities of Daily Living and IADL's See above, not super clear, states can and does assist her Pt states her does set up for her pills and does the finances. Prior Functional Level (Other details) Pt reports does drive some and she is a little confused after riding back with her from [place] where they were visiting and taking care of grand-children. Pt presents with low vision Social History Household Members spouse Living Arrangements House Number of Floors (Floors) Two Floors Number of Stairs To Enter/Railing? Elevator inside home, 2 steps right rail to enter but pt is not clear about this. Pt states from the garage one step to a platform and then another step into the house. Home Environment Standard Height Toilet,Walk in Shower,Elevator Home Equipment Front Wheel Walker,Straight Cane,Manual Wheelchair,Hand Held Shower Additional Social History Comment Not working M2 OT-IP Current Condition Start: 07/23/24 11:35 Freq: Status: Active Protocol: Document 07/23/24 11:35 [facility] (Rec: 07/23/24 11:56 [facility] [id number]) Occupational Therapy Current Condition Current Condition Evaluation Date 07/23/24 Treatment Diagnosis AMS, Rhinovirus,PNA Diagnosis Onset Date 07/23/24 M3 OT- IP Subjective and Pain Start: 07/23/24 11:35 Freq: Status: Active Protocol: Document 07/23/24 11:35 [facility] (Rec: 07/23/24 11:56 [facility] [id number]) OT- Subjective Occupational Therapy Visit Type Type Initial Evaluation Visit Start Time 11:10 Visit Stop Time 11:30 Occupational Therapy Visit Comments Patient Comments Pt agreed to work with OT. Pt has eye crusting and able to let pt's nurse know. Patient/Caregiver Goals To go home. OT Pain Assessment Pain When Pain Assessed At Rest Pain Present Pain Present Denied Pain M4 OT- IP ADL's Start: 07/23/24 11:35 Freq: Status: Active Protocol: Document 07/23/24 11:35 [facility] (Rec: 07/23/24 11:56 [facility] [id number]) OT [id number] Comments OT Self-Feeding Comments Not at meal time. OT ADL-Grooming General Evaluation Areas Needing Assistance Retrieving/Set-up of Grooming Items Comments OT Grooming Comments Able to do while seated. OT ADL-Oral Care General Eval Oral Care Ability Independent Areas of Assistance Retrieving/Set-Up of Items Comments Oral Care Comments While seated. OT ADL-Dressing General Eval Lower Body Dressing Ability Independent Comments OT Dressing Comments Pt able to uli/doff the her socks on her own. OT ADL-Toileting General Evaluation Toileting Ability Total Assistance Comments OT Toileting Comments Purewick in place. OT ADL-Bathing Comments OT Bathing Comments Pt will benefit from a shower chair at home to use. M5 OT- IP IADL's Start: 07/23/24 11:35 Freq: Status: Active Protocol: Document 07/23/24 11:35 [facility] (Rec: 07/23/24 11:56 [facility] [id number]) OT-Instrumental Activities of Daily Living Deficits IADL Deficits Identified Deficits Home Safety Awareness Home Safety Comments Pt aware to press the call light and ask for assist. Medication Management Medication Management Caregiver Provides Supervision Money Management Money Management Caregiver Provides Assistance Meal Preparation Meal Preparation Comments Pt's to assist. Healthcare Market Consultant Healthcare Market Consultant Comments Pt's can assist. M6 OT- IP Functional Cognition Start: 07/23/24 11:35 Freq: Status: Active Protocol: Document 07/23/24 11:35 [facility] (Rec: 07/23/24 11:56 [facility] [id number]) Cognitive Factors Limiting Selfcare Function Cognitive Ability Level of Alertness Alert Patient Orientation Name,Place,Situation Attention Span Ability Capable of Focused Attention, Capable of Sustained Attention Ability to Follow Commands Able to Follow One Step Commands Cognitive Comments Cognitive Assessment Comments Pt able to follow commands for ADL and mobility needs. OT- Vision and Hearing OT- Hearing Assessment OT- Hearing Assessment WFL OT- Vision Assessment Visual Acuity Glasses All The Time Visual Attentiveness WFL Occular Pursuits WFL Vision Assessment Comments Pt able to read the clock accurately. M7 OT- IP Mobility and Balance Start: 07/23/24 11:35 Freq: Status: Active Protocol: Document 07/23/24 11:35 [facility] (Rec: 07/23/24 11:56 [facility] [id number]) OT-Transfer Assessment Sit to and From Stand Sit to and from Stand Contact Guard Assistance Comments Mobility Comments Pt able to stand with CGA to the FWW. Purewick in place and pt states when she stands tends to have to urinate. OT- Balance Assessment Sitting Balance and Reactions Static Sitting Balance Ability Normal Dynamic Sitting Balance Ability Good Standing Balance and Reactions Static Standing Balance Ability Fair M8 OT- IP Objective Assessments Start: 07/23/24 11:35 Freq: Status: Active Protocol: Document 07/23/24 11:35 [facility] (Rec: 07/23/24 11:56 [facility] [id number]) OT Gross Range of Motion Upper Extremity Range of Motion Assessment Bilaterally Impaired OT Strength Comments Strength Comments WFL from elbow to distal. OT- Coordination Assessment Upper Extremity Finger to Nose Test Within Functional Limits OT Sensation Assessment Comments Summary Comments Intact for light touch. M9 OT- IP Assessment and Plan Start: 07/23/24 11:35 Freq: Status: Active Protocol: Document 07/23/24 11:35 [facility] (Rec: 07/23/24 11:56 [facility] [id number]) OT Summary Assessment and Plan Potential Rehabilitation Potential Excellent Analytic Complexity at Evaluation Moderate Summary OT Impairments Balance,Functional Mobility, Dressing,Toileting,Bathing, Toilet Transfers,Shower Transfers,Activity Tolerance Progress Towards Goals Slow Progress due to Medical Issues Assessment Summary Pt MOD complexity and here with Rhinovirus and PNA. Pt on 1.5 L of O2 and reading from 88-92% however at times. Pt states has a supportive to be able to assist her at home. Pt to go home with 24/7 assist when medically stable. At this time due to decreased activity tolerance best to use the FWW. Goals Dressing Goal Independent Toileting Goal Independent Bathing Goal Standby Assistance Toilet Transfer Goal Independent Shower Transfer Goal Standby Assistance Days to Meet Goals 7 Frequency of Treatment Other frequency 5x/week Treatment Plan OT Treatment Plan ADL Training,Functional Mobility,Patient/Family Education,Discharge Planning Other Treatment Recommendations and Next Standing ADL's Treatment Focus Discharge Recommendations OT Discharge Recommendations Home with 06/05 Assist Available Home Equipment Needs BSC? Transportation Needs at Discharge Private Vehicle
--- NOTE | 2024-07-23 11:32 | PT.IIE ---
Surgical History (Last Reviewed 07/23/24 @ 07:53 by Christian Ruiz MD) H/O breast biopsy H/O colectomy H/O shoulder replacement History of intestinal surgery Medical History (Last Reviewed 07/23/24 @ 07:53 by Christian Ruiz MD) Anxiety Chronic pain Chronic pelvic pain in female Frequent UTI Left leg DVT Postmenopausal atrophic vaginitis Renal cyst, acquired, left Physical Therapy Inpatient Evaluation/Re-Eval M1 PT/OT-IP Prior Functional Status Start: 07/23/24 08:33 Freq: NEEDED Status: Active Protocol: Document 07/23/24 10:40 [facility] (Rec: 07/23/24 11:32 MB [id number]) Medical Review Prior Functional Status Medical History Reviewed Yes Communication Unsure baseline diet and communication, pt presents with some confusion this a.m. Mobility and Gait Pt reports I without assistive device but she reports need for assistance to manage colostomy and occ assist for bathing and dressing Activities of Daily Living and IADL's See above, not super clear, states can and does assist her Prior Functional Level (Other details) Pt reports she doesn't drive and she is a little confused after riding back with her [place] where they were visiting and taking care of grand-children. Pt presents with low vision Social History Household Members spouse Living Arrangements House Number of Floors (Floors) Two Floors Number of Stairs To Enter/Railing? Elevator inside home, 2 steps right rail to enter but pt is not clear about this Home Environment Standard Height Toilet,Walk in Shower Home Equipment Front Wheel Walker,Straight Cane,Manual Wheelchair,Hand Held Shower,Grab Bars In Shower Additional Social History Comment Not working M2 PT-IP Current Condition Start: 07/23/24 08:33 Freq: NEEDED Status: Active Protocol: Document 07/23/24 10:40 MB (Rec: 07/23/24 11:32 MB [id number]) Physical Therapy Current Condition Current Condition Evaluation Date 07/23/24 Treatment Diagnosis PNA, rhinovirus and ARF M3 PT-IP Subjective Start: 07/23/24 08:33 Freq: NEEDED Status: Active Protocol: Document 07/23/24 10:40 MB (Rec: 07/23/24 11:32 MB [id number]) Subjective Physical Therapy Visit Type Type Initial Evaluation Visit Start Time 10:40 Visit Stop Time 10:59 Number of PHOTO MACHINE OPERATOR Visits 0 Physical Therapy Visit Comments Patient Comments Pt shivering in bed and states she is cold. Agreeable to PT and PT cues pt that PT will put warm blanket on chair and then two over her and she is agreeable to get up to chair to help breathing. Therapy Pain Assessment Pain When Pain Assessed At Rest Pain Present Pain Present Pain Reported Location Colostomy bag attachment Intensity 2 Scale Used McbrideJohan (Faces) M4 PT-IP Mobility and Gait Start: 07/23/24 08:33 Freq: NEEDED Status: Active Protocol: Document 07/23/24 10:40 MB (Rec: 07/23/24 11:32 MB [id number]) PT-Bed Mobility Assessment Supine to Sit Supine to Sit Standby Assistance Scooting Scooting to Edge of Bed Standby Assistance PT-Transfer Assessment Sit to and From Stand Sit to and from Stand Minimal Assistance Equipment Orthotic/Prosthetic Devices or Brace: No Transfers Transfer Destination Chair Transfer Technique Stepping Transfer Ability Level of Assist Minimal Assistance Comments Mobility Comments Pt does not rate pain when asked and states the colostomy site always bothers her O2 sats on 1L remain in the low 90s at rest but decrease momentarily to 86% with talking once up in chair Gait Assessment Gait Gait Assistance Required: Maximum Assistance Distance (Feet) 1 Able to Maintain Weight Bearing Status Yes During Gait Assistive Devices Assistive Device Gait Belt Orthotic/Prosthetic Devices or Brace: Yes Gait Deviations General Gait Pattern Decreased Stride Length, Decreased Feet Clearance, Flexed Trunk,Step-to Gait,Wide Based Gait Factors Limiting Gait Function Factors Limiting Gait Function Decreased Activity Tolerance, Decreased Strength,Difficulty Following Directions, Incoordination,Limited Range of Motion,Poor Balance,Poor Safety Awareness Comments Gait Comments PT cues pt to chair and she takes a few steps to the right to chair PT-Balance Assessment Sitting Balance and Reactions Static Sitting Balance Ability Good Dynamic Sitting Balance Ability Fair Standing Balance and Reactions Static Standing Balance Ability Fair Dynamic Standing Balance Ability Fair Device Used Min A M5 PT-IP Objective Assessments Start: 07/23/24 08:33 Freq: NEEDED Status: Active Protocol: Document 07/23/24 10:40 MB (Rec: 07/23/24 11:32 MB [id number]) Orientation Orientation/Cognition Level of Alertness Alert Orientation Name,Age,Birthday,Month,Year, Place,Situation Language Function Ability No Deficits Noted Safety Awareness Decreased Safety Awareness Comments Vague historian when asked about PLOF and pt tends to keep eyes closed during assessment Gross Range of Motion Upper Extremity ROM Impairments Defer to OT Lower Extremity ROM Assessment Within Functional Limits Strength Lower Extremity Strength Assessment Left Impaired Knee B knee extension 5/5 Ankle Left ankle DF 4/5 and great toe extension 4/5 Coordination Assessment Gross Coordination Gross Coordination Impaired Sensation Assessment Comments Sensation Comments Pt does not follow sensory commands today M6 PT-IP Treatment Start: 07/23/24 08:33 Freq: NEEDED Status: Active Protocol: Document 07/23/24 10:40 MB (Rec: 07/23/24 11:32 MB [id number]) Physical Therapy Treatment Education Education Provided Safety M7 PT-IP Assessment and Plan Start: 07/23/24 08:33 Freq: NEEDED Status: Active Protocol: Document 07/23/24 10:40 MB (Rec: 07/23/24 11:32 MB [id number]) PT Summary Assessment and Plan Potential Rehabilitation Potential Fair Status of Condition at Evaluation Evolving Summary Impairments Pain,ROM,Strength,Balance, Coordination,Cognition,Bed Mobility,Transfers,Gait, Activity Tolerance Assessment Summary Pt is a 73 y/o female presenting with ROSALES and dropping O2 sats when talking on 1L O2 today. Pt is a poor historian and presents with shivering and coughing. She tolerates OOB to chair today. Anticipate better mobility as she is feeling better from acute illness, rhinovirus, PNA and ARF. Goals Bed Mobility Goal Standby Assistance Transfer Goal Standby Assistance,Cane,Front Wheeled Walker Gait Goal Standby Assistance,Crutches, Front Wheel Walker Gait Distance 75 Other Goals Pt will ascend and descend 2 steps with right rail and no more than CGA to allow safe home entry. Days to Meet Goals 5 Frequency of Treatment Frequency Of Treatment Once a Day Treatment Plan Physical Therapy Treatment Plan Bed Mobility Training,Transfer Training,Gait Training, Therapeutic Exercise,Balance Retraining,Discharge Planning, Hot or Cold Pack,Neuromuscular Re-ed,Coordination Retraining ,Manual Therapy Discharge Recommendations PT Discharge Recommendations Home with 06/05 Assist Available Transportation Needs at Discharge Private Vehicle
[2024-07-23] MEDS: POTASSIUM CHLORIDE 20 MEQ TAB PO (12:02)
--- NOTE | 2024-07-23 12:49 | CM.DANOTE ---
B DCP Assessment Note pt is a 73yo F here with fever/AMS/rhinovirus/pneumonia. PCP Lindsay Joel Payer [employer] and self pay [facility] reviewed EMR. Per chat, pt on IV abx for now, confusion improving, and on 1ltr of O2. PT/OT rec home with assistance. Per chart, lives in [place] with spouse Basil. Per hospitalist in morning rounds, anticipate home in a day or two with spouse support. Per RN report, pt A/Ox4, just seems super sick. No red flags for CM needs. [facility]ER did not meet with pt at this time due to triaging needs/pt droplet precautions from rhinovirus. P: anticipate home when medically stable with spouse support. CM team will notified TCM OP team at dc for f/u. no identified barriers to safe dc home at this time. CM team will continue to follow closely KYM Osorio Discharge Planning/Care Management CM Discharge Assessment Start: 07/23/24 12:43 Freq: Status: Active Protocol: Document 07/23/24 12:45 SL (Rec: 07/23/24 12:49 [id number]) Discharge Planning Assessment Assigned Fabrication And Assembly Supervisor KYM Parisi DPOA/Assigned Designee Name noemi Gracia Contact Information [phone] Advance Directives? Yes Advance Directives on File No History Provided By Patient,Medical Record Prior Living Arrangements House Household Members spouse Type of transporation used prior to Drives own vehicle admit Comment pt reports driving a little bit but spouse is able to help drive Independent with ADL's Yes Is patient alert and oriented? Yes Comment some confusion this morning, unsure what is baseline and what is due to fever DME Already Rented / Owned Wheelchair,FWW / Walker,Cane Discharge Plan Home Referrals Initiated None needed Whiteboard Updated in Patient Room with No name and ext. # of Fabrication And Assembly Supervisor Review Status In Process Please Provide Date Initial DC 07/23/24 Assessment Was Performed Next Review Type Continued Stay Review
[2024-07-23] MEDS: BENZONATATE 100 MG CAPSULE PO ×2 (16:18→22:17)
[2024-07-23] MEDS: GABAPENTIN 400 MG CAPSULE 800 MG PO (16:18)
[2024-07-23] MEDS: guaiFENesin Solution 100 MG/5 ML UDC PO ×2 (16:18→22:17)
[2024-07-23] MEDS: ACETAMINOPHEN 325 MG TABLET 650 MG PO ×2 (16:36→22:46)
[2024-07-23] MEDS: PRAVASTATIN 20 MG TABLET 10 MG PO (22:16)
[2024-07-23] MEDS: GABAPENTIN 300 MG CAPSULE 600 MG PO (22:17)
[2024-07-23] MEDS: BACLOFEN 10 MG TABLET PO (22:17)
[2024-07-23] MEDS: ZOLPIDEM 5 MG TABLET PO (22:17)
[2024-07-24] VITALS (10 sets, daily range): BP systolic 100–121; BP diastolic 58–74; PULSE 73–95; RESP 14–20; TEMP 36.3–37.3; O2SAT 92–98
[2024-07-24] MEDS: LEVOTHYROXINE 100 MCG TABLET PO (06:06)
[2024-07-24] MEDS: AZITHROMYCIN 500 MG in DEXTROSE 5% IN WATER 250 ML 250 MG IV (06:06)
[2024-07-24] MEDS: BENZONATATE 100 MG CAPSULE PO ×4 (06:51→23:38)
[2024-07-24] MEDS: ACETAMINOPHEN 325 MG TABLET 650 MG PO ×3 (06:51→18:47)
[2024-07-24] MEDS: guaiFENesin Solution 100 MG/5 ML UDC PO ×4 (06:51→23:38)
--- NOTE | 2024-07-24 07:59 | PM.PN.1 ---
Subjective Subjective Interval history: Summary: This is a pleasant 73-year-old female who is on chronic immunotherapy for neuromyelitis optica and developed a cold with progressive cough and dyspnea. She was positive for rhino virus. She has been treated for bacterial pneumonia. S: She had a rough night with a lot of coughing, but slept this morning is now feeling a lot better. Her cough is less productive. She does have pain with her coughing. Her fevers have resolved. Her white count is improved. Exam Vital Signs (past 8 hours): - 07/24/24 02:28 07/24/24 04:00 07/24/24 06:28 Temperature 98.1 F Pulse Rate 79 81 Respiratory Rate 14 15 Blood Pressure 106/60 111/63 Pulse Oximetry 93 92 93 Oxygen Flow Rate 0 0 2 Fraction of Inspired Oxygen 32 SaO2/FiO2 Ratio 287 Oxygen Delivery Method Nasal Cannula Oxygen Flow Rate 2 Narrative Exam Narrative: NAD, alert and oriented. Fluent speech. She appears frail Lungs are notable for scattered rhonchi, normal rate and effort. Heart is regular, no murmur gallop or rub. Abdomen is soft, non distended. Extremities are free of edema. Objective Imaging Chest x-ray: Radiologist's impression: Mild left basilar opacity concerning for infection. Recommend follow-up radiograph in 6-8 weeks after treatment. Labs 07/24/24 08:34 07/24/24 08:34 [facility] Medical History Left leg DVT Frequent UTI Chronic pain Chronic pelvic pain in female Anxiety Postmenopausal atrophic vaginitis Renal cyst, acquired, left Surgical History History of intestinal surgery H/O breast biopsy H/O shoulder replacement H/O colectomy Family History Mother Heart attack UTI (urinary tract infection) Father Heart attack Social History marital status: number of children: 2 household members: spouse Smoking Status: Never smoker alcohol intake: current substance use type: does not use caffeine: Yes Assessment & Plan Assessment & Plan narrative: 1. Pneumonia associated with rhinovirus and possible bacteria. Admit the patient to medical telemetry inpatient. Continue. Antibiotic with IV azithromycin and Ceftriaxone. IV fluid. Monitor for sepsis. Patient is hemodynamically stable with normal lactic acid.? 2. Mild acute respiratory failure with hypoxemia. Likely due to above. Treat as above and wean down oxygen as able.? Note patient currently only requires 1L of O2. 3. Mild transaminitis. No clear ideology. Monitor at this point.? 4. Dehydration. IV fluid . 5. Hypothyroidism. TSH checked. Resume home synthroid.? 6. Mild confusion. Improving. Likely associated with fever and underlying infection. Monitor mental status with above treatment. 7. Hyperlipidemia. Resume home statin 8. Neuromyelitis optics, chronic. PLAN: Continue IV fluids and IV antibiotics (Ceftriaxone and azithromycin). Droplet isolation for rhino virus Monitor mental status Oxygen, wean as able Cough medicine DVT prophylaxis lovenox . Full code is proxy decision maker Inpatient status, anticipate a 2 night hospital stay NEREIDA is Time-Based Coding :: [TOTAL MINUTES] spent with patient and on the chart (including review of chart, obtaining history, exam, reviewing outside data, placing orders, documenting exam and treatment plan, and counseling patient) on [DATE].
[2024-07-24 08:55] LABS: Hemoglobin 11.1 g/dL (12.0-16.0); Mean Corpuscular HGB Conc 33.6 % (30-36); Mean Corpuscular Hemoglobin 32.8 PG (26-34); Mean Corpuscular Volume 97.6 fL (80-100); Platelet Count 219 X10^3/uL (150-400); Red Blood Cell Count 3.38 X10^6/uL (4.0-5.2); White Blood Cell Count 15.2 X10^3/uL (4.5-11.0)
[2024-07-24 09:06] LABS: BUN Creatinine Ratio 13.8 (6-22); Blood Urea Nitrogen 9 mg/dL (7-17); Calcium 7.7 mg/dL (8.4-10.2); Carbon Dioxide 23 mmol/L (22-32); Chloride 106 mmol/L (98-107); Estimated Glomerular Filt Rate > 60 mL/min (>60); Glucose 106 mg/dL (80-110); HEMOLYSIS < 15 (0-50); Potassium 3.5 mmol/L (3.4-5.1); Sodium 133 mmol/L (137-145)
[2024-07-24] MEDS: GABAPENTIN 300 MG CAPSULE 600 MG PO ×3 (09:46→22:02)
[2024-07-24] MEDS: DULOXETINE 30 MG CAPSULE 120 MG PO (09:47)
[2024-07-24] MEDS: BACLOFEN 10 MG TABLET PO ×2 (09:48→22:02)
[2024-07-24] MEDS: ENOXAPARIN 40 MG/0.4 ML SYRINGE SUBCUT (09:50)
[2024-07-24] MEDS: SODIUM CHLORIDE 0.9% 1,000 ML 100 ML IV ×2 (11:02→22:03)
[2024-07-24] MEDS: cefTRIAXone 1,000 MG in SODIUM CHLORIDE 0.9% 100 ML 200 MG IV (11:03)
--- NOTE | 2024-07-24 11:25 | PT.IPTN ---
Current Diagnoses Pneumonia, unspecified organism (07/23/24) Physical Therapy Treatment Note M2 PT-IP Current Condition Start: 07/23/24 08:33 Freq: NEEDED Status: Active Protocol: Document 07/23/24 10:40 MB (Rec: 07/23/24 11:32 MB [id number]) Physical Therapy Current Condition Current Condition Evaluation Date 07/23/24 Treatment Diagnosis PNA, rhinovirus and ARF M3 PT-IP Subjective Start: 07/23/24 08:33 Freq: NEEDED Status: Active Protocol: Document 07/24/24 11:25 AB (Rec: 07/24/24 13:23 AB [id number]) Subjective Physical Therapy Visit Type Type Treatment Note Visit Start Time 11:25 Visit Stop Time 11:50 Number of STUDIO DESIGNER Visits 0 Physical Therapy Visit Comments Patient Comments agreeable to do PT M4 PT-IP Mobility and Gait Start: 07/23/24 08:33 Freq: NEEDED Status: Active Protocol: Document 07/24/24 11:25 AB (Rec: 07/24/24 13:23 AB [id number]) PT-Bed Mobility Assessment Supine to Sit Supine to Sit Standby Assistance PT-Transfer Assessment Sit to and From Stand Sit to and from Stand Minimal Assistance,Moderate Assistance,1 Person Assistance ,Use of Upper Extremities Equipment Transfer Assistive Device Gait Belt,Front Wheeled Walker Orthotic/Prosthetic Devices or Brace: No Transfers Transfer Destination Toilet Transfer Technique ambulated Transfer Ability Level of Assist Minimal Assistance,1 Person Assistance,Use of Upper Extremities Comments Mobility Comments pt supine in bed and asleeps. woke pt up and agreed to get up. O2 sat 97% with 2L/min O2 . completed supine to sit SBA . able to sit on EOB SBA. completed sit to stand from EOB min to mod A with LOB on first attempt needing to sit back on bed. sit to stand again min to mod A and cues for body position and use of FWW for stabilizing. pt needing to use the toilet and agreed to walk to the toilet using fWW min A and cues. assisted pt with brief management. pt needing to be cleaned up/ gown change. NAC to assist pt. left pt with NAC. Gait Assessment Gait Gait Assistance Required: Minimum Assistance Distance (Feet) 12 Able to Maintain Weight Bearing Status Yes During Gait Assistive Devices Assistive Device Gait Belt,Front Wheeled Walker Orthotic/Prosthetic Devices or Brace: No Gait Deviations General Gait Pattern Decreased Stride Length, Decreased Feet Clearance, Narrow Based Gait,Step-to Gait Factors Limiting Gait Function Factors Limiting Gait Function Decreased Activity Tolerance, Decreased Strength,Difficulty Following Directions,Limited Range of Motion,Poor Balance, Poor Safety Awareness M5 PT-IP Objective Assessments Start: 07/23/24 08:33 Freq: NEEDED Status: Active Protocol: Document 07/23/24 10:40 MB (Rec: 07/23/24 11:32 MB [id number]) Orientation Orientation/Cognition Level of Alertness Alert Orientation Name,Age,Birthday,Month,Year, Place,Situation Language Function Ability No Deficits Noted Safety Awareness Decreased Safety Awareness Comments Vague historian when asked about PLOF and pt tends to keep eyes closed during assessment Gross Range of Motion Upper Extremity ROM Impairments Defer to OT Lower Extremity ROM Assessment Within Functional Limits Strength Lower Extremity Strength Assessment Left Impaired Knee B knee extension 5/5 Ankle Left ankle DF 4/5 and great toe extension 4/5 Coordination Assessment Gross Coordination Gross Coordination Impaired Sensation Assessment Comments Sensation Comments Pt does not follow sensory commands today M6 PT-IP Treatment Start: 07/23/24 08:33 Freq: NEEDED Status: Active Protocol: Document 07/24/24 11:25 AB (Rec: 07/24/24 13:23 AB [id number]) Physical Therapy Treatment Education Education Provided Safety M7 PT-IP Assessment and Plan Start: 07/23/24 08:33 Freq: NEEDED Status: Active Protocol: Document 07/24/24 11:25 AB (Rec: 07/24/24 13:23 AB [id number]) PT Summary Assessment and Plan Potential Rehabilitation Potential Fair Summary Impairments Pain,ROM,Strength,Balance, Coordination,Sensation,Tone, Cognition,Bed Mobility, Transfers,Gait,Activity Tolerance Progress Towards Goals Slow Progress due to Medical Issues,Slow Progress due to Activity Tolerance Assessment Summary pt requiring min to mod A for sit to stand with (+)LOB during standing needing to sit back down. Pt able to ambulate using FWW min A and cues for safety. pt continues to have decrease activity tolerance and with slight confusion needing cues with all tasks. d/c plan depending on progress and how much assistance spouse will be able to provide pt. will continue to assess: SNF vs home 06/05 assist and HHPT. Goals Bed Mobility Goal Independent Transfer Goal Independent,Front Wheeled Walker Gait Goal Independent,Front Wheel Walker Gait Distance 100 Other Goals improve transfers and ambulation using LRAD/without AD SBA up/down 2 steps R rail ascending SBA Days to Meet Goals 10 Frequency of Treatment Frequency Of Treatment Once a Day Treatment Plan Physical Therapy Treatment Plan Bed Mobility Training,Transfer Training,Gait Training, Therapeutic Exercise,Balance Retraining,Discharge Planning, Hot or Cold Pack,Neuromuscular Re-ed,Coordination Retraining ,Manual Therapy Discharge Recommendations PT Discharge Recommendations Home with 06/05 Assist Available,Home Health,SNF Rehab,Home vs SNF Transportation Needs at Discharge Private Vehicle,Wheelchair/ Cabulance
--- NOTE | 2024-07-24 14:28 | OT.IP.TRT ---
Current Diagnoses Pneumonia, unspecified organism (07/23/24) Occupational Therapy Treatment Note M2 OT-IP Current Condition Start: 07/23/24 11:35 Freq: Status: Active Protocol: Document 07/23/24 11:35 [facility] (Rec: 07/23/24 11:56 [facility] [id number]) Occupational Therapy Current Condition Current Condition Evaluation Date 07/23/24 Treatment Diagnosis AMS, Rhinovirus,PNA Diagnosis Onset Date 07/23/24 M3 OT- IP Subjective and Pain Start: 07/23/24 11:35 Freq: Status: Active Protocol: Document 07/24/24 14:31 [facility] (Rec: 07/24/24 14:55 [facility] [id number]) OT- Subjective Occupational Therapy Visit Type Type Treatment Note Visit Start Time 13:58 Visit Stop Time 14:25 Occupational Therapy Visit Comments Patient Comments Pt in the room with her and pt's trying to assist to get her pads and brief up while in the chair with footrest reclined. Patient/Caregiver Goals To go home. Pt's requesting spirometer for pt, nursing notified. OT Pain Assessment Pain When Pain Assessed At Rest Pain Present Pain Present Denied Pain M4 OT- IP ADL's Start: 07/23/24 11:35 Freq: Status: Active Protocol: Document 07/24/24 14:31 [facility] (Rec: 07/24/24 14:55 [facility] [id number]) OT ADL-Dressing General Eval Lower Body Dressing Ability Moderate Assistance Comments OT Dressing Comments Pt needing assist to help uli underwear over her feet and up over her hips. Pt much more unsteady on her feet today initially. OT ADL-Toileting Comments OT Toileting Comments Pt not having to go. Pt will benefit from a BSC at home. OT ADL-Bathing Comments OT Bathing Comments Pt will benefit from a shower chair at home to use. M5 OT- IP IADL's Start: 07/23/24 11:35 Freq: Status: Active Protocol: Document 07/23/24 11:35 [facility] (Rec: 07/23/24 11:56 [facility] [id number]) OT-Instrumental Activities of Daily Living Deficits IADL Deficits Identified Deficits Home Safety Awareness Home Safety Comments Pt aware to press the call light and ask for assist. Medication Management Medication Management Caregiver Provides Supervision Money Management Money Management Caregiver Provides Assistance Meal Preparation Meal Preparation Comments Pt's to assist. Shuffle Board Operator Shuffle Board Operator Comments Pt's can assist. M6 OT- IP Functional Cognition Start: 07/23/24 11:35 Freq: Status: Active Protocol: Document 07/24/24 14:31 [facility] (Rec: 07/24/24 14:55 [facility] [id number]) Cognitive Factors Limiting Selfcare Function Cognitive Comments Cognitive Assessment Comments Pt needing vc for safety for FWW and transitions. Pt tends to keep her feet close to together and needing cues to keep her feet apart. M7 OT- IP Mobility and Balance Start: 07/23/24 11:35 Freq: Status: Active Protocol: Document 07/24/24 14:31 [facility] (Rec: 07/24/24 14:55 [facility] [id number]) OT-Transfer Assessment Sit to and From Stand Sit to and from Stand Minimal Assistance Transfers Transfer Ability Contact Guard Assistance, Minimal Assistance Technique Transfer Destination Bed,Chair Transfer Technique Stand Step Pivot Devices Transfer Assistive Devices Gait Belt,Front Wheeled Walker Comments Mobility Comments Able to educate pt's how to uli/doff the gait belt and how to assist pt. Cued him to always keep a hand on her as pt at times very unsteady and have lose of balance. Also showed pt's how to assist her by the hips if not having gait belt. Pt able to walk with the pt in the room and OT assisted with O2 management needs. OT- Balance Assessment Sitting Balance and Reactions Static Sitting Balance Ability Normal Dynamic Sitting Balance Ability Good Standing Balance and Reactions Static Standing Balance Ability Fair Dynamic Standing Balance Ability Fair M8 OT- IP Objective Assessments Start: 07/23/24 11:35 Freq: Status: Active Protocol: Document 07/23/24 11:35 [facility] (Rec: 07/23/24 11:56 [facility] [id number]) OT Gross Range of Motion Upper Extremity Range of Motion Assessment Bilaterally Impaired OT Strength Comments Strength Comments WFL from elbow to distal. OT- Coordination Assessment Upper Extremity Finger to Nose Test Within Functional Limits OT Sensation Assessment Comments Summary Comments Intact for light touch. M9 OT- IP Assessment and Plan Start: 07/23/24 11:35 Freq: Status: Active Protocol: Document 07/24/24 14:31 [facility] (Rec: 07/24/24 14:55 [facility] [id number]) OT Summary Assessment and Plan Potential Rehabilitation Potential Good Analytic Complexity at Evaluation Moderate Summary OT Impairments Balance,Functional Mobility, Dressing,Toileting,Bathing, Toilet Transfers,Shower Transfers,Activity Tolerance Progress Towards Goals Progressing Toward Goals Assessment Summary Able to train pt's how to uli/doff gait belt and how to assist pt with the FWW in the room. Pt will benefit from use of fww at home in addition to BSC. Pt's insistent to take pt home when medically stable. Goals Dressing Goal Independent Toileting Goal Independent Bathing Goal Standby Assistance Toilet Transfer Goal Independent Shower Transfer Goal Standby Assistance Days to Meet Goals 7 Frequency of Treatment Other frequency 5x/week Treatment Plan OT Treatment Plan ADL Training,Functional Mobility,Patient/Family Education,Discharge Planning Other Treatment Recommendations and Next Standing ADL's Treatment Focus Discharge Recommendations OT Discharge Recommendations Home with 06/05 Assist Available Home Equipment Needs BSC Transportation Needs at Discharge Private Vehicle
--- NOTE | 2024-07-24 15:01 | CM.DPNOTE ---
DCP note INTERNATIONAL MARKETING MANAGER reviewed EMR. Per chart review, confusion improving, likely from fevers. continuing IV abx for now. remains on droplet isolation for rhino. per chart, spouse has been at bedside throughout day. Fever better controlled today. Per hospitalist in morning rounds, NEREIDA in a day or so. on 2ltrs of oxygen throughout the day. No new needs identified at this time. P: anticipate home when medically stable with spouse support. CM team will notified TCM OP team at dc for f/u. no identified barriers to safe dc home at this time. CM team will continue to follow closely KYM Osorio
[2024-07-24] MEDS: ZOLPIDEM 5 MG TABLET PO (22:02)
[2024-07-24] MEDS: PRAVASTATIN 20 MG TABLET 10 MG PO (22:02)
[2024-07-24] MEDS: OXYCODONE IR 5 MG TABLET PO (23:38)
[2024-07-25 03:00] VITALS: BP 117/66; PULSE 75; RESP 18; TEMP 37.4; O2SAT 91
[2024-07-25] MEDS: LEVOTHYROXINE 100 MCG TABLET PO (06:17)
[2024-07-25] MEDS: AZITHROMYCIN 500 MG in DEXTROSE 5% IN WATER 250 ML 250 MG IV (06:17)
[2024-07-25 07:00] VITALS: BP 121/71; PULSE 77; RESP 16; TEMP 36.4; O2SAT 95
[2024-07-25 08:39] LABS: Add Manual Diff / Slide Review NO; Basophils Absolute Auto 0 /uL (0-100); Basophils Percent Auto 0.3 % (0-2); Eosinophils Absolute Auto 300 /uL (0-450); Eosinophils Percent Auto 2.5 % (2-4); Hematocrit 32.5 % (36-46); Hemoglobin 10.8 g/dL (12.0-16.0); Lymphocytes Absolute Auto 1800 /uL (1100-4500); Lymphocytes Percent Auto 14.1 % (25-40); Mean Corpuscular HGB Conc 33.3 % (30-36); Mean Corpuscular Hemoglobin 32.6 PG (26-34); Mean Corpuscular Volume 97.9 fL (80-100); Monocytes Absolute Auto 700 /uL (0-900); Monocytes Percent Auto 5.8 % (3-14); Neutrophils Absolute Auto 9800 /uL (1500-7000); Neutrophils Percent Auto 77.3 % (50-75); Platelet Count 246 X10^3/uL (150-400); Red Blood Cell Count 3.32 X10^6/uL (4.0-5.2); Red Cell Distribution Width 13.9 % (11.6-14.8); White Blood Cell Count 12.7 X10^3/uL (4.5-11.0)
[2024-07-25 08:53] LABS: BUN Creatinine Ratio 6.9 (6-22); Blood Urea Nitrogen 5 mg/dL (7-17); Calcium 7.7 mg/dL (8.4-10.2); Carbon Dioxide 23 mmol/L (22-32); Chloride 109 mmol/L (98-107); Estimated Glomerular Filt Rate > 60 mL/min (>60); Glucose 105 mg/dL (80-110); HEMOLYSIS < 15 (0-50); Potassium 3.7 mmol/L (3.4-5.1); Sodium 135 mmol/L (137-145)
[2024-07-25] MEDS: SODIUM CHLORIDE 0.9% 1,000 ML 100 ML IV ×2 (09:25→20:03)
[2024-07-25] MEDS: BENZONATATE 100 MG CAPSULE PO ×2 (09:27→20:37)
[2024-07-25] MEDS: ACETAMINOPHEN 325 MG TABLET 650 MG PO ×2 (09:27→15:52)
[2024-07-25] MEDS: guaiFENesin Solution 100 MG/5 ML UDC PO ×3 (09:27→20:36)
[2024-07-25] MEDS: GABAPENTIN 300 MG CAPSULE 600 MG PO ×3 (09:27→20:37)
[2024-07-25] MEDS: BACLOFEN 10 MG TABLET PO ×2 (09:28→20:36)
[2024-07-25] MEDS: DULOXETINE 30 MG CAPSULE 120 MG PO (09:28)
[2024-07-25] MEDS: ENOXAPARIN 40 MG/0.4 ML SYRINGE SUBCUT (09:28)
--- NOTE | 2024-07-25 10:35 | PT.IPTN ---
Current Diagnoses Pneumonia, unspecified organism (07/23/24) Physical Therapy Treatment Note M2 PT-IP Current Condition Start: 07/23/24 08:33 Freq: NEEDED Status: Active Protocol: Document 07/23/24 10:40 MB (Rec: 07/23/24 11:32 MB [id number]) Physical Therapy Current Condition Current Condition Evaluation Date 07/23/24 Treatment Diagnosis PNA, rhinovirus and ARF M3 PT-IP Subjective Start: 07/23/24 08:33 Freq: NEEDED Status: Active Protocol: Document 07/25/24 11:25 TS (Rec: 07/25/24 11:32 TS [id number]) Subjective Physical Therapy Visit Type Type Treatment Note Visit Start Time 10:35 Visit Stop Time 11:10 Number of PARKS AND RECREATION WORKER Visits 1 Physical Therapy Visit Comments Patient Comments Pt found resting in bed, she is agreeable to PT. Therapy Pain Assessment Pain When Pain Assessed At Rest Pain Present Pain Present Pain Reported M4 PT-IP Mobility and Gait Start: 07/23/24 08:33 Freq: NEEDED Status: Active Protocol: Document 07/25/24 11:25 TS (Rec: 07/25/24 11:32 TS [id number]) PT-Bed Mobility Assessment Supine to Sit Supine to Sit Standby Assistance Scooting Scooting to Edge of Bed Standby Assistance PT-Transfer Assessment Sit to and From Stand Sit to and from Stand Contact Guard Assistance,1 Person Assistance Equipment Transfer Assistive Device Gait Belt,Front Wheeled Walker Orthotic/Prosthetic Devices or Brace: No Comments Mobility Comments Pt resting on 2L's o2, Spo2 97 % at rest. Supine to sit SBA with HOB elevated. STS with FWW CGA. She ambulates ~25' in the room CGA/SBA with FWW, pt has slow movements and reports feeling weak. She ambualtes to the restroom, performs own pericare. Pt performs steps x5 on step stool with use of single rail and CGA. Pt was left in the chair, all needs met. Gait Assessment Gait Gait Assistance Required: Standby Assistance,Contact Guard Assist Distance (Feet) 25 Able to Maintain Weight Bearing Status Yes During Gait Assistive Devices Assistive Device Gait Belt,Front Wheeled Walker Orthotic/Prosthetic Devices or Brace: No Gait Deviations General Gait Pattern Decreased Stride Length, Decreased Feet Clearance, Narrow Based Gait,Step-to Gait Factors Limiting Gait Function Factors Limiting Gait Function Decreased Activity Tolerance, Decreased Strength,Difficulty Following Directions,Limited Range of Motion,Poor Balance, Poor Safety Awareness Stair Climbing Assessment Evaluation Level of Assist On Stairs Contact Guard Assistance,1 Person Assistance Devices Stair Climbing Assistive Devices Right Railing Technique/Endurance Stair Climbing Direction Ascend and Descend Stair Climbing Technique Step to Step Number of Steps Climbed 5 PT-Balance Assessment Sitting Balance and Reactions Static Sitting Balance Ability Normal Dynamic Sitting Balance Ability Good Standing Balance and Reactions Static Standing Balance Ability Fair Dynamic Standing Balance Ability Fair Device Used FWW M5 PT-IP Objective Assessments Start: 07/23/24 08:33 Freq: NEEDED Status: Active Protocol: Document 07/23/24 10:40 MB (Rec: 07/23/24 11:32 MB [id number]) Orientation Orientation/Cognition Level of Alertness Alert Orientation Name,Age,Birthday,Month,Year, Place,Situation Language Function Ability No Deficits Noted Safety Awareness Decreased Safety Awareness Comments Vague historian when asked about PLOF and pt tends to keep eyes closed during assessment Gross Range of Motion Upper Extremity ROM Impairments Defer to OT Lower Extremity ROM Assessment Within Functional Limits Strength Lower Extremity Strength Assessment Left Impaired Knee B knee extension 5/5 Ankle Left ankle DF 4/5 and great toe extension 4/5 Coordination Assessment Gross Coordination Gross Coordination Impaired Sensation Assessment Comments Sensation Comments Pt does not follow sensory commands today M6 PT-IP Treatment Start: 07/23/24 08:33 Freq: NEEDED Status: Active Protocol: Document 07/25/24 11:25 TS (Rec: 07/25/24 11:32 TS [id number]) Physical Therapy Treatment Education Education Provided Safety M7 PT-IP Assessment and Plan Start: 07/23/24 08:33 Freq: NEEDED Status: Active Protocol: Document 07/25/24 11:25 TS (Rec: 07/25/24 11:32 TS [id number]) PT Summary Assessment and Plan Potential Rehabilitation Potential Fair Summary Impairments Pain,ROM,Strength,Balance, Coordination,Sensation,Tone, Cognition,Bed Mobility, Transfers,Gait,Activity Tolerance Progress Towards Goals Slow Progress due to Medical Issues,Slow Progress due to Activity Tolerance Assessment Summary Nolvia is making some progress with her mobility but remains limited by weakness and activity tolerance. She progressed her gait to ~25'SBA /CGA and to stairs x5 with single rail. She has some fatigue with mobility. Spo2 remained stable throughout session on 2L's. PT is recommending home with 24/7 assist and HHPT. Goals Bed Mobility Goal Independent Transfer Goal Independent,Front Wheeled Walker Gait Goal Independent,Front Wheel Walker Gait Distance 100 Other Goals improve transfers and ambulation using LRAD/without AD SBA up/down 2 steps R rail ascending SBA Days to Meet Goals 10 Frequency of Treatment Frequency Of Treatment Once a Day Treatment Plan Physical Therapy Treatment Plan Bed Mobility Training,Transfer Training,Gait Training, Therapeutic Exercise,Balance Retraining,Discharge Planning, Hot or Cold Pack,Neuromuscular Re-ed,Coordination Retraining ,Manual Therapy Discharge Recommendations PT Discharge Recommendations Home with 24/7 Assist Available,Home Health Transportation Needs at Discharge Private Vehicle
[2024-07-25 11:00] VITALS: BP 113/69; PULSE 93; RESP 16; TEMP 36.7; O2SAT 97
[2024-07-25] MEDS: cefTRIAXone 1,000 MG in SODIUM CHLORIDE 0.9% 100 ML 200 MG IV (11:12)
--- NOTE | 2024-07-25 11:44 | CM.DPNOTE ---
DCP Note RESEARCH NUTRITIONIST reviewed EMR Per chart review, pt on 1.5ltrs. Per hospitalist in morning rounds, may dc tomorrow? RESEARCH NUTRITIONIST met with pt in room. introduced self and role. Gave copy of IMM. Pt reports spouse can help her at home/can transport home. Deny any CM needs at this time. RESEARCH NUTRITIONIST gave her phone to call in for lunch order. P: anticipate home when medically stable with spouse support. CM team will notified TCM OP team at dc for f/u. no identified barriers to safe dc home at this time. CM team will continue to follow closely KYM Oosrio
[2024-07-25 15:00] VITALS: BP 105/61; PULSE 87; RESP 20; TEMP 36.7; O2SAT 95
--- NOTE | 2024-07-25 16:22 | PM.PN.1 ---
Subjective Subjective Interval history: 73 yo female w/hypothyroidism, dyslipidemia, neuromyelitis optica presently hospital day #2 admitted w/Rhinovirus and possible CAP.? WBC on admission was near 20,000.? LFTs were mildy elevated and sodium was 129.? CXR showed a mild L basilar opacity. Pt reports she is slowly feeling better, but continues to cough frequently. She notes she was febrile to 102 before coming in. She was also having hallucinations. She states she was disoriented and did not know what day it was. She now feels a bit fuzzy but overall feels like that is improving. Exam Vital Signs (past 8 hours): - 07/25/24 11:00 07/25/24 11:59 07/25/24 15:00 Temperature 98.0 F 98.1 F Pulse Rate 93 H 87 Respiratory Rate 16 20 Blood Pressure 113/69 105/61 Pulse Oximetry 97 95 Oxygen Delivery Method Nasal Cannula Oxygen Flow Rate 1.5 1.5 Fraction of Inspired Oxygen 32 SaO2/FiO2 Ratio 287 Oxygen Delivery Method Nasal Cannula Oxygen Flow Rate 1.5 Narrative Exam Narrative: GEN: Very pleasant middle-aged female, Alert and oriented x 3, NAD HEENT:NC, Face symmetric CHEST: Respiratory excursions symmetric, course but CTAB CV: RRR, no M/R/G ABD: Soft, NT/ND, BT present in all 4 quadrants, no organomegaly or masses EXTR: warm, well perfused, no C/C/E, left lower extremity is larger than right lower extremity (patient reports history earlier this year of a left lower extremity DVT with now chronic asymmetry) SKIN: warm and dry, no rash NEURO: Alert and oriented x 3, nonfocal Objective Labs 07/25/24 08:30 07/25/24 08:30 Labs: Laboratory Results - last 24 hr 07/25/24 08:30 WBC 12.7 H RBC 3.32 L Hgb 10.8 L Hct 32.5 L MCV 97.9 MCH 32.6 MCHC 33.3 RDW 13.9 Plt Count 246 Neut % (Auto) 77.3 H Lymph % (Auto) 14.1 L [place] % (Auto) 5.8 Eos % (Auto) 2.5 Baso % (Auto) 0.3 Neut # (Auto) 9800 H Lymph # (Auto) 1800 [place] # (Auto) 700 Eos # (Auto) 300 Baso # (Auto) 0 Sodium 135 L Potassium 3.7 Chloride 109 H Carbon Dioxide 23 BUN 5 L Creatinine 0.72 Estimated GFR > 60 BUN/Creatinine Ratio 6.9 Glucose 105 Calcium 7.7 L PFSH Medical History Left leg DVT Frequent UTI Chronic pain Chronic pelvic pain in female Anxiety Postmenopausal atrophic vaginitis Renal cyst, acquired, left Surgical History History of intestinal surgery H/O breast biopsy H/O shoulder replacement H/O colectomy Family History Mother Heart attack UTI (urinary tract infection) Father Heart attack Social History marital status: number of children: 2 household members: spouse Smoking Status: Never smoker alcohol intake: current substance use type: does not use caffeine: Yes Assessment & Plan Assessment & Plan narrative: 1. Community-acquired pneumonia Patient remains on day 3/5 of IV Rocephin and day 3/3 of azithromycin. She continues to require oxygen at 2 liters/minute. She continues to have significant nonproductive cough. She is chronically immunosuppressed secondary to immunotherapy for her neuromyelitis. Her white blood cell count is improved from 20.3 on admission to 12.7 today. She is now afebrile. Clinically improving. 2. Rhinovirus Likely contracted from her grandchildren. Continue supportive care. 3. Acute hypoxic respiratory failure She remains on oxygen at 1.5 liters/minute. We will continue to wean as able. 4. Acute metabolic encephalopathy Patient reports she was having hallucinations and disorientation. This is slowly improving. 5. Hypothyroidism Last TSH was done April 02 of this year and was 0.42. Will repeat a TSH today. 6. Mild transaminitis AST was 103, ALT 61, alk-phos normal at 118 on July 23. Will repeat labs in the morning. 7. Hyperlipidemia Continue pravastatin 8. Neuromyelitis optica She receives every 8 week infusions of immunotherapy. Code status Full Prophylaxis Lovenox Disposition Pending Time-Based Coding :: [TOTAL MINUTES] spent with patient and on the chart (including review of chart, obtaining history, exam, reviewing outside data, placing orders, documenting exam and treatment plan, and counseling patient) on [DATE].
[2024-07-25 17:48] LABS: TSH w/ Reflex to FT4 1.69 uIU/mL (0.47-4.68)
[2024-07-25 20:00] VITALS: BP 125/74; PULSE 73; RESP 20; TEMP 36.5; O2SAT 96
[2024-07-25] MEDS: OXYCODONE IR 5 MG TABLET PO (20:36)
[2024-07-25] MEDS: ZOLPIDEM 5 MG TABLET PO (20:36)
[2024-07-25] MEDS: PRAVASTATIN 20 MG TABLET 10 MG PO (20:36)
[2024-07-26] VITALS: BP 112/56; PULSE 70; RESP 16; TEMP 36.6; O2SAT 95
[2024-07-26 04:00] VITALS: BP 122/50; PULSE 73; RESP 20; TEMP 36.4; O2SAT 93
[2024-07-26 05:03] LABS: Add Manual Diff / Slide Review NO; Basophils Absolute Auto 100 /uL (0-100); Basophils Percent Auto 0.7 % (0-2); Eosinophils Absolute Auto 300 /uL (0-450); Hematocrit 29.6 % (36-46); Hemoglobin 10.1 g/dL (12.0-16.0); Lymphocytes Absolute Auto 1700 /uL (1100-4500); Lymphocytes Percent Auto 19.7 % (25-40); Mean Corpuscular HGB Conc 33.9 % (30-36); Mean Corpuscular Hemoglobin 32.9 PG (26-34); Mean Corpuscular Volume 97.1 fL (80-100); Monocytes Absolute Auto 600 /uL (0-900); Neutrophils Absolute Auto 5900 /uL (1500-7000); Neutrophils Percent Auto 69.6 % (50-75); Platelet Count 223 X10^3/uL (150-400); Red Blood Cell Count 3.05 X10^6/uL (4.0-5.2); Red Cell Distribution Width 13.7 % (11.6-14.8); White Blood Cell Count 8.5 X10^3/uL (4.5-11.0)
[2024-07-26 05:45] LABS: BUN Creatinine Ratio 7.6 (6-22); Blood Urea Nitrogen 5 mg/dL (7-17); Carbon Dioxide 23 mmol/L (22-32); Chloride 108 mmol/L (98-107); Estimated Glomerular Filt Rate > 60 mL/min (>60); Glucose 104 mg/dL (80-110); HEMOLYSIS < 15 (0-50); Potassium 3.7 mmol/L (3.4-5.1); Sodium 135 mmol/L (137-145)
[2024-07-26] MEDS: LEVOTHYROXINE 100 MCG TABLET PO (06:05)
[2024-07-26] MEDS: SODIUM CHLORIDE 0.9% 1,000 ML 100 ML IV (06:05)
[2024-07-26 08:00] VITALS: BP 118/75; PULSE 74; RESP 18; TEMP 36.2; O2SAT 98
[2024-07-26] MEDS: BACLOFEN 10 MG TABLET PO (08:57)
[2024-07-26] MEDS: guaiFENesin Solution 100 MG/5 ML UDC PO (08:58)
[2024-07-26] MEDS: GABAPENTIN 300 MG CAPSULE 600 MG PO (08:58)
[2024-07-26] MEDS: BENZONATATE 100 MG CAPSULE PO (08:58)
[2024-07-26] MEDS: ACETAMINOPHEN 325 MG TABLET 650 MG PO (08:58)
[2024-07-26] MEDS: ENOXAPARIN 40 MG/0.4 ML SYRINGE SUBCUT (08:58)
[2024-07-26] MEDS: BENZOCAINE/MENTHOL 1 LOZ PKT 1 EACH PO (08:58)
[2024-07-26] MEDS: DULOXETINE 30 MG CAPSULE 120 MG PO (08:59)
--- NOTE | 2024-07-26 11:18 | PT.IPTN ---
Current Diagnoses Pneumonia, unspecified organism (07/23/24) Physical Therapy Treatment Note M2 PT-IP Current Condition Start: 07/23/24 08:33 Freq: NEEDED Status: Active Protocol: Document 07/23/24 10:40 MB (Rec: 07/23/24 11:32 MB [id number]) Physical Therapy Current Condition Current Condition Evaluation Date 07/23/24 Treatment Diagnosis PNA, rhinovirus and ARF M3 PT-IP Subjective Start: 07/23/24 08:33 Freq: NEEDED Status: Active Protocol: Document 07/26/24 10:53 MB (Rec: 07/26/24 11:18 MB [id number]) Subjective Physical Therapy Visit Type Type Treatment Note Visit Start Time 10:53 Visit Stop Time 11:11 Number of [employer] AGENT Visits 0 Physical Therapy Visit Comments Patient Comments Pt sitting up in chair, O2 doffed, and she asks to go to the BR. Therapy Pain Assessment Pain When Pain Assessed At Rest Pain Present Pain Present Pain Reported Location Head and back Scale Used Not rated M4 PT-IP Mobility and Gait Start: 07/23/24 08:33 Freq: NEEDED Status: Active Protocol: Document 07/26/24 10:53 MB (Rec: 07/26/24 11:18 MB [id number]) PT-Bed Mobility Assessment Rolling Type of Rolling Roll to Left Level of Assist Standby Assistance Sit to Supine Sit to Supine Standby Assistance Scooting Scooting to Edge of Bed Standby Assistance PT-Transfer Assessment Sit to and From Stand Sit to and from Stand Contact Guard Assistance,1 Person Assistance Equipment Transfer Assistive Device Gait Belt Orthotic/Prosthetic Devices or Brace: No Transfers Transfer Destination Toilet Transfer Technique Ambulation Transfer Ability Level of Assist Contact Guard Assistance,1 Person Assistance,Use of Upper Extremities Comments Mobility Comments PT manages IV pole and pt gait trains 10' to toilet, 15' to sink and 10' to bed with CGA, slow gait, sats on RA drop to 87% once with HR 101 BPM and increase to the low 90s with standing rest break Gait Assessment Gait Gait Assistance Required: Contact Guard Assist Distance (Feet) 10 Able to Maintain Weight Bearing Status Yes During Gait Assistive Devices Assistive Device Gait Belt Orthotic/Prosthetic Devices or Brace: No Gait Deviations General Gait Pattern Decreased Stride Length, Decreased Feet Clearance, Narrow Based Gait,Step-to Gait Factors Limiting Gait Function Factors Limiting Gait Function Decreased Activity Tolerance, Decreased Strength,Difficulty Following Directions,Limited Range of Motion,Poor Balance, Poor Safety Awareness M5 PT-IP Objective Assessments Start: 07/23/24 08:33 Freq: NEEDED Status: Active Protocol: Document 07/23/24 10:40 MB (Rec: 07/23/24 11:32 MB [id number]) Orientation Orientation/Cognition Level of Alertness Alert Orientation Name,Age,Birthday,Month,Year, Place,Situation Language Function Ability No Deficits Noted Safety Awareness Decreased Safety Awareness Comments Vague historian when asked about PLOF and pt tends to keep eyes closed during assessment Gross Range of Motion Upper Extremity ROM Impairments Defer to OT Lower Extremity ROM Assessment Within Functional Limits Strength Lower Extremity Strength Assessment Left Impaired Knee B knee extension 5/5 Ankle Left ankle DF 4/5 and great toe extension 4/5 Coordination Assessment Gross Coordination Gross Coordination Impaired Sensation Assessment Comments Sensation Comments Pt does not follow sensory commands today M6 PT-IP Treatment Start: 07/23/24 08:33 Freq: NEEDED Status: Active Protocol: Document 07/26/24 10:53 MB (Rec: 07/26/24 11:18 MB [id number]) Physical Therapy Treatment Education Education Provided Safety M7 PT-IP Assessment and Plan Start: 07/23/24 08:33 Freq: NEEDED Status: Active Protocol: Document 07/26/24 10:53 MB (Rec: 07/26/24 11:18 MB [id number]) PT Summary Assessment and Plan Potential Rehabilitation Potential Fair Status of Condition at Evaluation Evolving Summary Impairments Pain,ROM,Strength,Balance, Coordination,Sensation,Tone, Cognition,Bed Mobility, Transfers,Gait,Activity Tolerance Progress Towards Goals Slow Progress due to Medical Issues,Slow Progress due to Activity Tolerance Assessment Summary Pt gait trains short distance in room with CGA without AD and without O2 with PT. O2 drops transiently and then increases with rest break. arrives at end of treatment and he states he is sick, too, and he arrives in mask. Goals Bed Mobility Goal Independent Transfer Goal Independent,Front Wheeled Walker Gait Goal Independent,Front Wheel Walker Gait Distance 100 Other Goals improve transfers and ambulation using LRAD/without AD SBA up/down 2 steps R rail ascending SBA Days to Meet Goals 10 Frequency of Treatment Frequency Of Treatment Once a Day Treatment Plan Physical Therapy Treatment Plan Bed Mobility Training,Transfer Training,Gait Training, Therapeutic Exercise,Balance Retraining,Discharge Planning, Hot or Cold Pack,Neuromuscular Re-ed,Coordination Retraining ,Manual Therapy Discharge Recommendations PT Discharge Recommendations Home with 24/ Assist Available,Home Health Transportation Needs at Discharge Private Vehicle
--- NOTE | 2024-07-26 11:28 | CM.DPNOTE ---
Addendum entered by KYM Osorio 07/26/24 13:20: per chart, pt discharging home today. SERVICE AGENT notified TCM OP team. SL Original Note: DCP note SERVICE AGENT reviewed EMR. Per provider in morning rounds, pt doing better today but remains on 1.5 ltrs O2. If able to wean off O2, may dc home later today vs tomorrow. P: anticipate home when medically stable with spouse support/off oxygen. CM team will notified TCM OP team at dc for f/u. no identified barriers to safe dc home at this time. CM team will continue to follow closely KYM Osorio
[2024-07-26] MEDS: cefTRIAXone 1,000 MG in SODIUM CHLORIDE 0.9% 100 ML 200 MG IV (11:59)
[2024-07-26 12:00] VITALS: BP 108/65; PULSE 70; RESP 18; TEMP 36.2; O2SAT 95
--- NOTE | 2024-07-26 13:51 | PC.NURSE ---
Patient teaching done at bedside with sig. other present. Patient states understanding of specific instructions regarding medication sched. and regimen. (See d/c plan for details). Printed scripts for medication given to spouse at bedside. Patient declines assistance with dressing and states they wish to walk out of hosp. vs using a wheelchair. Patient's VSS and has been sustaining in the mid to upper 90's on room air since earlier this morning. Patient expressed eagerness to leave and go home.
--- NOTE | 2024-07-26 19:25 | P.DS_ITS ---
History of Present Illness History of Present Illness Chief complaint: Fever, AMS Narrative: Per history and physical: From night doctor: 73-year-old female with past medical history of neuromyelitis optica spectrum disorder, hypothyroidism and dyslipidemia presents with coughing and subjective fever. Per the patient's report, over the last few days, the patient has exhibited these symptoms in addition to some confusion associated with her fever. The patient was exposed to her grandchildren who possibly had a viral infection. The patient's cough is non-productive and the patient did complain of a generalized headache. Otherwise there's no report of any nausea, vomiting, chest pain or dysuria.? In our emergency room, the patient's systolic blood pressure was in the mid-90s. Patient was requiring one liter of oxygen. Patient chest x-ray just shows possible focal consolidation. Respiratory viral panel came back positive for rhinovirus. The patient was given Zosyn and IV fluid. Discharge Providers Provider Date of admission: 07/23/24 00:47 Discharge Date: 07/26/24 Primary care physician: Lindsay Joel MD Consults: 07/23/24 00:58 Consult to Occupational Therapy Evaluate & Treat Comment: Physician Instructions: Evaluate and treat Consult to Physical Therapy Evaluate & Treat Comment: Physician Instructions: Evaluate and Treat Discharge provider: Alicja Carolina MD Summary Hospital Course Discharge Diagnosis: 1. Community-acquired pneumonia, improving 2. Rhino virus, improving 3. Acute hypoxic respiratory failure, resolved 4. Acute metabolic encephalopathy, resolved 5. Hypothyroidism, chronic, stable 6. Mild transaminitis-will need follow-up labs 7. Hyperlipidemia, chronic, stable 8. Neuromyelitis optica, chronic, stable Hospital Course: 73 yo female w/hypothyroidism, dyslipidemia, neuromyelitis optica admitted w/Rhinovirus and possible CAP.? WBC on admission was near 20,000.? LFTs were mildy elevated and sodium was 129.? CXR showed a mild L basilar opacity. Patient gradually improved although had a persistent dry cough. She defervesced and was afebrile for several days before discharge. She had been having hallucinations and disorientation prior to admission. This resolved prior to discharge. She was successfully weaned off of oxygen and was stable in room air on the date of discharge. She is discharged in stable condition. She will need follow-up LFTs with her PCP but anticipate this will normalize as well. Reviewed plan of care with Tank at bedside. He agreed with discharge plan as noted. Status at Discharge Cognitive/behavioral status at discharge: at baseline, oriented Functional status at discharge: independent ambulation Overall status at discharge: patient is progressing back to baseline Time Spent with Patient Time spent: Less than 30 minutes Exam Vital Signs (past 8 hours): - 07/26/24 12:00 Temperature 97.2 F L Pulse Rate 70 Respiratory Rate 18 Blood Pressure 108/65 Pulse Oximetry 95 Oxygen Flow Rate 0 Fraction of Inspired Oxygen 32 SaO2/FiO2 Ratio 287 Oxygen Delivery Method Room Air Oxygen Flow Rate 0 Narrative Exam Narrative: GEN: Very pleasant middle-aged female, Alert and oriented x 3, NAD HEENT:NC, Face symmetric CHEST: Respiratory excursions symmetric, coarse but CTAB CV: RRR, no M/R/G ABD: Soft, NT/ND, BT present in all 4 quadrants, no organomegaly or masses EXTR: warm, well perfused, no C/C/E, left lower extremity is larger than right lower extremity (patient reports history earlier this year of a left lower extremity DVT with now chronic asymmetry) SKIN: warm and dry, no rash NEURO: Alert and oriented x 3, nonfocal Objective Labs 07/26/24 04:45 07/26/24 04:45 Labs: Laboratory Results - last 24 hr 07/26/24 04:45 WBC 8.5 RBC 3.05 L Hgb 10.1 L Hct 29.6 L MCV 97.1 MCH 32.9 MCHC 33.9 RDW 13.7 Plt Count 223 Neut % (Auto) 69.6 Lymph % (Auto) 19.7 L Charles % (Auto) 7.0 Eos % (Auto) 3.0 Baso % (Auto) 0.7 Neut # (Auto) 5900 Lymph # (Auto) 1700 Charles # (Auto) 600 Eos # (Auto) 300 Baso # (Auto) 100 Sodium 135 L Potassium 3.7 Chloride 108 H Carbon Dioxide 23 BUN 5 L Creatinine 0.66 Estimated GFR > 60 BUN/Creatinine Ratio 7.6 Glucose 104 Calcium 8.0 L PFSH Medical History Left leg DVT Frequent UTI Chronic pain Chronic pelvic pain in female Anxiety Postmenopausal atrophic vaginitis Renal cyst, acquired, left Surgical History History of intestinal surgery H/O breast biopsy H/O shoulder replacement H/O colectomy Family History Mother Heart attack UTI (urinary tract infection) Father Heart attack Social History marital status: number of children: 2 household members: spouse Smoking Status: Never smoker alcohol intake: current substance use type: does not use caffeine: Yes Discharge Plan Discharge Plan Patient Disposition: Home Provider Discharge Comment: 1) Take cefdinir twice daily until gone (start tomorrow morning) 2) Start Florastor today 3) Hold nitrofurantoin until you complete the cefdinir 4) Try to get a follow up appointment w/your PCP next week 5) Use OTC cough drops as needed 6) Try buckwheat honey at bedtime for cough 7) Return to the ER for: inability to hold down food/liquids, worsening shortness of breath, confusion Discharge orders & Medications Prescriptions: New cefdinir 300 mg capsule 300 mg PO BID Qty: 6 0RF Florastor ADVANCED 250-62.5-30 mg capsule 2 cap PO BID Qty: 60 0RF Rx Instructions: Take 2 caps twice daily for 1 week, then 1 cap twice daily for a week, then 1 cap daily until gone hydrocodone-homatropine [Hycodan (with homatropine)] 5-1.5 mg/5 mL syrup 5 ml PO Q6H PRN (Reason: cough) Qty: 473 0RF Continued baclofen 10 mg tablet 10 mg PO BID albuterol sulfate 90 mcg/actuation HFA aerosol inhaler 2 puff inhalation Q4-6H PRN (Reason: shortness of breath or wheezing) Qty: 6.7 0RF naloxone [Narcan] 4 mg/actuation spray,non-aerosol 4 mg intranasal Q2M Qty: 2 0RF Rx Instructions: spray 1 dose into ONE nostril; alternate nostrils w each dose until help arrives zolpidem 5 mg tablet 5 mg PO BEDTIME alendronate 70 mg tablet 70 mg PO QWEEK Qty: 12 3RF levothyroxine 100 mcg tablet 100 mcg PO DAILY Qty: 90 3RF pravastatin 10 mg tablet 10 mg PO BEDTIME Qty: 100 2RF nitrofurantoin monohyd/m-cryst 100 mg capsule 100 mg PO DAILY Qty: 90 1RF Rx Instructions: must administer with a meal/food oxycodone 5 mg tablet 5 mg PO Q12H PRN (Reason: pain) Qty: 60 0RF Rx Instructions: EXEMPT diazepam 5 mg tablet See Rx Instructions PO .COMPLEX PRN (Reason: muscle spasm) Qty: 30 0RF Rx Instructions: 1 tablet nightly PRN duloxetine 60 mg capsule,delayed release(DR/EC) 120 mg PO DAILY Qty: 180 0RF gabapentin 800 mg tablet 800 mg PO TID Qty: 90 3RF coenzyme Q10 [Co Q-10] 100 mg capsule 100 mg PO DAILY acetaminophen 325 mg capsule 250 mg PO TID PRN (Reason: Abdominal Discomfort) Soliris 300 mg/30 mL solution 600 mg IV QWEEK Rx Instructions: administer wks 1-4 of therapy; over 35 min Follow up/Referrals: Lindsay Joel MD [Primary Care Provider] - Discharge Health Status Multidrug resistant organism: No MDRO Diet/Activity/Treatments Diet: Diet as Tolerated and Regular Activity: As tolerated Oxygen: N/A Visit Report/Discharge Packet Instructions: Pneumonia-Adult, DI for Cough -- Adult, Guaifenesin, Cefdinir Stand Alone Forms: Patient Portal/API, Stroke Signs & Symptoms Discharge Data Primary Care Provider: Lindsay Joel
== END 2024-07-26 14:15 | disposition home or self-care (01) | DRG 193 ==
LOC: ED 07-23 00:45 → AC 07-23 00:48
PROVIDERS: Family Medicine; Hospitalist; Admitting Provider Internal Medicine; Emergency Provider Emergency Medicine; PCP Family Medicine; Referring Provider Emergency Medicine; Visit Provider Internal Medicine
DX: J18.9 Pneumonia, unspecified organism (principal); G93.41 Metabolic encephalopathy; J96.01 Acute respiratory failure with hypoxia; G36.0 Neuromyelitis optica [Devic]; E86.0 Dehydration; E03.9 Hypothyroidism, unspecified; E78.5 Hyperlipidemia, unspecified; B34.8 Other viral infections of unspecified site; R74.01 Elevation of levels of liver transaminase levels; F41.9 Anxiety disorder, unspecified; Z79.69 Long term (current) use of other immunomodulators and immunosuppressants
CPT/HCPCS: 36415; 71045; 80048; 80053; 81003; 81015; 83605; 83690; 84145; 84443; 85025; 85027; 85610; 85730; 87040; 87086; 87633; 93005; 93010; 94640; 94760; 94762; 96361; 96365; 96375; 97161; 97166; 97530; 97535; 99285; 99291; J0696; J1650; J1885; J2543

== ENCOUNTER → 2024-08-03 17:40 | Outpatient (CLI) | payer MEDICARE, SELFPAY ==
[2024-07-23 03:30] VITALS: BMI 19.4
[2024-08-03 17:52] LABS: Add Manual Diff / Slide Review NO; Basophils Absolute Auto 100 /uL (0-100); Basophils Percent Auto 1.5 % (0-2); Eosinophils Absolute Auto 100 /uL (0-450); Eosinophils Percent Auto 2.3 % (2-4); Hematocrit 36.6 % (36-46); Hemoglobin 12.3 g/dL (12.0-16.0); Lymphocytes Absolute Auto 2100 /uL (1100-4500); Lymphocytes Percent Auto 32.7 % (25-40); Mean Corpuscular HGB Conc 33.6 % (30-36); Mean Corpuscular Hemoglobin 33.2 PG (26-34); Mean Corpuscular Volume 98.9 fL (80-100); Monocytes Absolute Auto 500 /uL (0-900); Neutrophils Absolute Auto 3700 /uL (1500-7000); Neutrophils Percent Auto 56.5 % (50-75); Platelet Count 381 X10^3/uL (150-400); Red Blood Cell Count 3.71 X10^6/uL (4.0-5.2); Red Cell Distribution Width 14.5 % (11.6-14.8); White Blood Cell Count 6.5 X10^3/uL (4.5-11.0)
[2024-08-03 18:07] LABS: Alanine Aminotransferase 25 IU/L (<35); Albumin 3.9 g/dL (3.5-5.0); Albumin Globulin Ratio 1.1 (1.0-2.8); Alkaline Phosphatase 82 U/L (38-126); Aspartate Aminotransferase 32 IU/L (14-36); BUN Creatinine Ratio 17.2 (6-22); Bilirubin Total 0.5 mg/dL (0.2-1.3); Blood Urea Nitrogen 15 mg/dL (7-17); Calcium 9.1 mg/dL (8.4-10.2); Carbon Dioxide 30 mmol/L (22-32); Chloride 102 mmol/L (98-107); Estimated Glomerular Filt Rate > 60 mL/min (>60); Globulin 3.7 g/dL (1.7-4.1); Glucose 87 mg/dL (80-110); HEMOLYSIS < 15 (0-50); Potassium 4.1 mmol/L (3.4-5.1); Sodium 137 mmol/L (137-145); Total Protein 7.6 g/dL (6.3-8.2)
== END ==
LOC: LAB 17:41
PROVIDERS: PCP Family Medicine; Referring Provider Family Medicine; Visit Provider Family Medicine
DX: R53.1 Weakness (principal); E87.1 Hypo-osmolality and hyponatremia; A41.9 Sepsis, unspecified organism
CPT/HCPCS: 36415; 80053; 85025

== ENCOUNTER 2024-09-19 11:01 | Inpatient (IN) | payer MEDICARE, SELFPAY ==
[2024-09-03 14:26] VITALS: BMI 19.4
[2024-09-19] VITALS (14 sets, daily range): BP systolic 104–135; BP diastolic 59–72; PULSE 80–113; RESP 14–322; TEMP 35.9–36.6; O2SAT 96–100; BMI 18.6
--- NOTE | 2024-09-19 11:15 | EKG_ITS ---
[address] [address] Test Date: 2024-09-19 Pat Name: Jonna Ramon Department: [facility] Room: Gender: Female [employer]: DARYN : 1950 Requested By: Order Number: [id number] Reading MD: Tank Gan MD Measurements Intervals [place] Rate: 104 P: 80 WI: 144 QRS: 82 QRSD: 64 T: 83 QT: 348 QTc: 457 Interpretive Statements Sinus tachycardia Electronically Signed On 09-20-2024 17:06:13 PST by Tank Gan MD
[2024-09-19 11:22] LABS: Add Manual Diff / Slide Review NO; Basophils Absolute Auto 0 /uL (0-100); Basophils Percent Auto 0.3 % (0-2); Eosinophils Absolute Auto 100 /uL (0-450); Eosinophils Percent Auto 0.6 % (2-4); Hematocrit 45.4 % (36-46); Hemoglobin 15.2 g/dL (12.0-16.0); Lymphocytes Absolute Auto 3100 /uL (1100-4500); Lymphocytes Percent Auto 29.4 % (25-40); Mean Corpuscular HGB Conc 33.5 % (30-36); Mean Corpuscular Hemoglobin 32.9 PG (26-34); Mean Corpuscular Volume 98.1 fL (80-100); Monocytes Absolute Auto 800 /uL (0-900); Neutrophils Absolute Auto 6600 /uL (1500-7000); Neutrophils Percent Auto 61.7 % (50-75); Platelet Count 233 X10^3/uL (150-400); Red Blood Cell Count 4.63 X10^6/uL (4.0-5.2); White Blood Cell Count 10.6 X10^3/uL (4.5-11.0)
--- NOTE | 2024-09-19 11:30 | ED_ITS ---
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 She has been been having feculent type emesis, has been unable to keep any food down. She notes minimal output only that is far more firm than she typically sees and decreased of any gas out through the colostomy. No fevers or chills Related Data Home Medications Medication Instructions Recorded Confirmed acetaminophen 325 mg capsule 250 mg PO TID PRN Abdominal 08/18/19 09/03/24 Discomfort coenzyme Q10 100 mg capsule (Co 100 mg PO DAILY 08/18/19 09/03/24 Q-10) eculizumab 300 mg/30 mL 600 mg IV QWEEK 05/14/22 09/03/24 intravenous solution (Soliris) baclofen 10 mg tablet 10 mg PO BID 01/10/24 09/03/24 zolpidem 5 mg tablet 5 mg PO BEDTIME 03/24/24 09/03/24 duloxetine 60 mg capsule,delayed 60 mg PO DAILY 09/03/24 09/03/24 release Previous Rx's Medication Instructions Recorded naloxone 4 mg/actuation nasal 4 mg intranasal Q2M #2 ea 10/01/23 spray (Narcan) levothyroxine 100 mcg tablet 100 mcg PO DAILY #90 tabs 12/26/23 albuterol sulfate 90 mcg/actuation 2 puff inhalation Q4-6H PRN 01/02/24 aerosol inhaler shortness of breath or wheezing #6.7 grams pravastatin 10 mg tablet 10 mg PO BEDTIME #100 tabs 03/27/24 nitrofurantoin 100 mg PO DAILY #90 caps 06/11/24 monohydrate/macrocrystals 100 mg capsule diazepam 5 mg tablet See Rx Instructions PO .COMPLEX 06/30/24 PRN muscle spasm #30 tabs oxycodone 5 mg tablet 5 mg PO Q12H PRN pain #60 tabs 06/30/24 gabapentin 800 mg tablet 800 mg PO TID #90 tabs 07/17/24 S.boulardii 250 mg-enzymes 62.5 2 cap PO BID #60 caps 07/26/24 lv-xbeccj-bdwpjjprug-fennel capsule (Florastor ADVANCED) duloxetine 30 mg capsule,delayed 30 mg PO DAILY #14 caps 09/03/24 release alendronate 70 mg tablet 70 mg PO QWEEK #12 tabs 09/15/24 Allergies Allergy/AdvReac Type Severity Reaction Status Date / Time buprenorphine AdvReac Intermediate edema in Verified 09/19/24 11:08 legs Review of Systems Review of Systems Narrative: Pertinent positive and negative findings as per HPI Patient History Medical History Left leg DVT Frequent UTI Chronic pain Chronic pelvic pain in female Anxiety Postmenopausal atrophic vaginitis Renal cyst, acquired, left Surgical History History of intestinal surgery H/O breast biopsy H/O shoulder replacement H/O colectomy Family History Mother Heart attack UTI (urinary tract infection) Father Heart attack Social History marital status: number of children: 2 household members: spouse Smoking Status: Never smoker alcohol intake: current substance use type: does not use caffeine: Yes Smoking Status: Never smoker alcohol intake frequency: a few times a week Exam Initial Vital Signs Initial Vital Signs: Vital Signs Temperature 97.6 F 09/19/24 11:02 Pulse Rate 112 H 09/19/24 11:02 Respiratory Rate 14 09/19/24 11:02 Blood Pressure 128/61 09/19/24 11:02 Pulse Oximetry 98 09/19/24 11:02 Oxygen Delivery Method Room Air 09/19/24 11:02 General: Chronically ill-appearing appears quite uncomfortable able to cooperate fully with the exam and history HEENT: Dry mucous membranes, normal sclera with reactive pupils, Respiratory: Lungs are clear to auscultation, no wheezing no rales no rhonchi. Full and symmetrical air movement Cardiac: Tachycardic with no murmurs Abdomen: Distended and tender in the upper abdomen. Colostomy site looks healthy there is small amount of dark stool from the site Skin: Somewhat pale, no diaphoresis Neurologic: Grossly neurologically intact with no obvious asymmetries or abnormalities Extremities: No trauma, no lower extremity edema Psych: Cooperative, appropriate insight and affect Course Orders Ordered: ED Orders 09/19/24 11:08 EKG-12 Lead Stat 09/19/24 11:10 Complete Blood Count AUTO DIFF Stat Comprehensive Metabolic Panel Stat Lipase Stat 09/19/24 12:13 CT abdomen pelvis wo con Stat 09/19/24 13:05 Ictotest Urine Stat Urine Culture Stat Urine Microscopic Stat Hydromorphone HCl (Hydromorphone 0.5 Mg Inj) 0.5 mg IV Q15MIN PRN PRN Reason: Pain, Last Admin: 09/19/24 12:30 Dose: 0.5 mg Documented By: VENKAT Ondansetron HCl (Ondansetron 4 Mg/2 Ml Inj) 4 mg IV NOW PRN PRN Reason: Nausea And Vomiting Last Admin: 09/19/24 12:32 Dose: 4 mg Documented By: VENKAT Ondansetron HCl (Ondansetron 4 Mg Odt) 4 mg PO NOW PRN PRN Reason: Nausea And Vomiting Discontinued Medications Sodium Chloride (Normal Saline 0.9%) 1,000 mls @ 1,000 mls/hr IV BOLUS ONE Stop: 09/19/24 13:12 Last Infusion: 09/19/24 13:51 Dose: Infused Documented By: Admin: 09/19/24 12:30 Dose: 1,000 mls/hr Documented By: VENKAT Ondansetron HCl (Ondansetron 4 Mg/2 Ml Inj) 4 mg IV NOW ONE Stop: 09/19/24 12:14 Vital Signs Vital signs: Vital Signs - 8 hr 09/19/24 11:02 09/19/24 11:05 09/19/24 11:06 Temperature 97.6 F Pulse Rate 112 H 113 H Respiratory Rate 14 Blood Pressure 128/61 128/61 Pulse Oximetry 98 98 Oxygen Delivery Method Room Air 09/19/24 11:06 09/19/24 11:30 09/19/24 11:30 Temperature Pulse Rate 111 H 101 H Respiratory Rate 18 Blood Pressure 104/63 Pulse Oximetry 98 100 Oxygen Delivery Method 09/19/24 12:00 09/19/24 12:00 09/19/24 12:29 Temperature Pulse Rate 101 H 83 Respiratory Rate 15 21 Blood Pressure 114/69 Pulse Oximetry 100 99 Oxygen Delivery Method 09/19/24 12:29 09/19/24 12:30 09/19/24 12:30 Temperature Pulse Rate 83 Respiratory Rate 18 Blood Pressure 113/72 108/67 Pulse Oximetry 99 Oxygen Delivery Method 09/19/24 13:00 09/19/24 13:00 09/19/24 13:30 Temperature Pulse Rate 80 Respiratory Rate 22 Blood Pressure 118/67 129/65 Pulse Oximetry 100 Oxygen Delivery Method 09/19/24 13:30 Temperature Pulse Rate 86 Respiratory Rate 24 Blood Pressure Pulse Oximetry 100 Oxygen Delivery Method Medical Decision Making Lab Data 09/19/24 11:10 09/19/24 11:10 Labs: Lab Results 09/19/24 09/19/24 Range/Units 11:10 13:05 WBC 10.6 (4.5-11.0) X10^3/uL RBC 4.63 (4.0-5.2) X10^6/uL Hgb 15.2 (12.0-16.0) g/dL Hct 45.4 (36-46) % MCV 98.1 (80-100) fL MCH 32.9 (26-34) PG MCHC 33.5 (30-36) % RDW 14.0 (11.6-14.8) % Plt Count 233 (150-400) X10^3/uL Neut % (Auto) 61.7 (50-75) % Lymph % (Auto) 29.4 (25-40) % [place] % (Auto) 8.0 (3-14) % Eos % (Auto) 0.6 L (2-4) % Baso % (Auto) 0.3 (0-2) % Neut # (Auto) 6600 (5718-5840) /uL Lymph # (Auto) 3100 (9038-6575) /uL [place] # (Auto) 800 (0-900) /uL Eos # (Auto) 100 (0-450) /uL Baso # (Auto) 0 (0-100) /uL Sodium 134 L (137-145) mmol/L Potassium 4.3 (3.4-5.1) mmol/L Chloride 94 L (98-107) mmol/L Carbon Dioxide 32 (22-32) mmol/L BUN 34 H (7-17) mg/dL Creatinine 1.42 H (0.52-1.04) mg/dL Estimated GFR 39 L (>60) mL/min BUN/Creatinine Ratio 23.9 H (6-22) Glucose 156 H (80-110) mg/dL Calcium 9.2 (8.4-10.2) mg/dL Total Bilirubin 1.8 H (0.2-1.3) mg/dL AST 43 H (14-36) IU/L ALT 31 (<35) IU/L Alkaline Phosphatase 75 (38-126) U/L Total Protein 8.7 H (6.3-8.2) g/dL Albumin 4.5 (3.5-5.0) g/dL Globulin 4.2 H (1.7-4.1) g/dL Albumin/Globulin Ratio 1.1 (1.0-2.8) Lipase 63 (23-300) U/L Ur Bilirubin Confirm Negative (Negative) Urine RBC 0-1/hpf (0-5/HPF) Urine WBC 5-10/hpf H (0-5/HPF) Ur Squamous Epith Cells 0-1 /hpf (0-5/HPF) Amorphous Sediment 2+ Urine Bacteria None seen (None) Hyaline Casts 0-1/lpf (None) Ur Culture Indicated? Specimen cultured Vol Urine Centrifuged 10ml (spun) Urine Dip Bedside Urine Glucose Negative Bedside Urine Bilirubin + 1 Bedside Urine Ketone + 15 Urine Specific [place] 1.015 Bedside Urine Occult Blood - Negative Bedside Urine pH 6.0 Bedside Urine Protein - Negative Bedside Urine Urobilinogen - Negative Bedside Urine Nitrite - Negative Bedside Urine Leukocytes - Negative Esterase Point of care testing: Urine Dip Bedside Urine Glucose Negative Bedside Urine Bilirubin + 1 Bedside Urine Ketone + 15 Urine Specific [place] 1.015 Bedside Urine Occult Blood - Negative Bedside Urine pH 6.0 Bedside Urine Protein - Negative Bedside Urine Urobilinogen - Negative Bedside Urine Nitrite - Negative Bedside Urine Leukocytes - Negative Esterase Imaging Data CT scan - abdomen/pelvis: Radiologist's Impression: PROCEDURE: CT ABDOMEN PELVIS WO CON INDICATIONS: upper abd pain,? gastric outlet obstruction TECHNIQUE: Axial sections were acquired from the lung bases to the pubic symphysis. Coronal and sagittal reformats were performed. For radiation dose reduction, the following was used: automated exposure control, adjustment of mA and/or kV according to patient size. COMPARISON: [facility], CT, CT ABDOMEN PELVIS WO CON, 04/28/2020, 16:06. FINDINGS: Lower thorax: The lung bases are clear. Heart size normal. No hiatal hernia. Pectus excavatum sternal deformity Liver: Normal in size and attenuation. No contour deformity present. Biliary system: No calcified cholelithiasis or pericholecystic inflammation. No intra or extrahepatic bile duct dilatation. Pancreas: Unremarkable without mass or inflammation evident. Spleen: Normal in size and density. Adrenals: Normal morphology and density. Reproductive system: Unremarkable as visualized. Urinary system: Normal renal size and attenuation. Left renal cyst without hydronephrosis, 6.8 cm No renal calculi, hydronephrosis, or solid mass present. Urinary bladder unremarkable. Gastrointestinal system: Proximal small bowel is dilated up to 3.5 cm, and the distal small bowel is decompressed. Possible transition in the mid abdomen. Right hemicolectomy, ileo colic anastomosis, and left flank end colostomy Appendix: No findings to suggest acute appendicitis. Peritoneal spaces: No mesenteric or retroperitoneal adenopathy. No free air. No free fluid. Vasculature: Aortic atherosclerotic vascular calcification noted without evidence of aneurysm. Abdominal wall: Abdominal wall intact without evidence of ventral or inguinal hernias. Musculoskeletal: Normal bone mineralization. Degenerative disc disease and arthropathy noted in lower lumbar spine. No acute fractures. IMPRESSION: Small bowel obstruction. Proximal small bowel is dilated up to 3.5 cm, and transition noted in the mid small bowel. No evidence of perforation or free air. Right hemicolectomy, ileocolic anastomosis, and left flank end colostomy intact. Approved by: Maximino Damian M.D. 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 Data collected from: patient, Medical records reviewed: ER notes, primary care nose and notes from surgery from 2020 are reviewed Differential considered: Gastric outlet obstruction, small bowel obstruction, internal hernia with obstruction, perforated ulcer, pancreatic abnormality Exam documented above, pertinent findings include: Patient appears pale, chronically ill, acutely uncomfortable upper abdomen is distended and tender with out rebound or guarding. Colostomy stoma appears healthy. Lab Test results independently reviewed as above. Pertinent findings: CBC is unremarkable Chemistries show acute kidney injury with creatinine jumping from 0.87-1.42, BUN slightly elevated at 34. Minimally low sodium at 134 Bilirubin is slightly elevated at 1.8, AST is elevated at 43 ALT and alk-phos are unremarkable Independently reviewed EKG: Sinus tachycardia at a rate of 104 no acute ischemic changes Imaging studies independently reviewed: Small bowel obstruction. Proximal small bowel is dilated up to 3.5 cm, and transition noted in the mid small bowel. No evidence of perforation or free air. Consultations: Dr. Saba, general surgery agrees with NG tube and admission to medicine. We will consult Treatments: Fluids, nausea medicine, pain medication, NG-tube placement Procedure: NG tube placement was attempted by nursing staff unable with either side. With Cetacaine spray, slightly altered positioning, tip of the catheter slightly softened after being emerged in warm water, I was able to place it through the left nostril without difficulty. Discussion: 73-year-old woman with history of an end colostomy in early 2019 had an issue with the peristomal hematoma at that point and has a diagnosis of neuromyelitis optica for which she receives regular infusions from her neurologist presents with upper abdominal pain that is a small bowel obstruction without perforation or evidence of free air. No evidence of other infection. NG tube is placed for decompression. Care is reviewed with Dr. Saba, general surgery who will evaluate her after the NG tube has been placed, consider Gastrografin study tomorrow. Patient will need admission to the hospitalist service, care reviewed with Dr. Porras. Findings reviewed with the patient and her who understand concerns, need for admission and current plan. Questions are answered she is safe for transfer to the floor Discharge Plan Departure Patient Disposition: Admitted As Inpatient Clinical Impression: Complete obstruction of small intestine, Neuromyelitis optica, Acute kidney injury Admit Date/Time: 09/19/24 14:38 Admit Provider: Ricky Porras V
[2024-09-19 11:31] LABS: Alanine Aminotransferase 31 IU/L (<35); Albumin 4.5 g/dL (3.5-5.0); Albumin Globulin Ratio 1.1 (1.0-2.8); Alkaline Phosphatase 75 U/L (38-126); Aspartate Aminotransferase 43 IU/L (14-36); BUN Creatinine Ratio 23.9 (6-22); Bilirubin Total 1.8 mg/dL (0.2-1.3); Blood Urea Nitrogen 34 mg/dL (7-17); Calcium 9.2 mg/dL (8.4-10.2); Carbon Dioxide 32 mmol/L (22-32); Chloride 94 mmol/L (98-107); Estimated Glomerular Filt Rate 39 mL/min (>60); Globulin 4.2 g/dL (1.7-4.1); Glucose 156 mg/dL (80-110); HEMOLYSIS < 15 (0-50); Lipase 63 U/L (23-300); Potassium 4.3 mmol/L (3.4-5.1); Sodium 134 mmol/L (137-145); Total Protein 8.7 g/dL (6.3-8.2)
--- NOTE | 2024-09-19 12:13 | DI.CT.S_ITS ---
PROCEDURE: CT ABDOMEN PELVIS WO CON INDICATIONS: upper abd pain,? gastric outlet obstruction TECHNIQUE: Axial sections were acquired from the lung bases to the pubic symphysis. Coronal and sagittal reformats were performed. For radiation dose reduction, the following was used: automated exposure control, adjustment of mA and/or kV according to patient size. COMPARISON: [facility], CT, CT ABDOMEN PELVIS WO CON, 04/28/2020, 16:06. FINDINGS: Lower thorax: The lung bases are clear. Heart size normal. No hiatal hernia. Pectus excavatum sternal deformity Liver: Normal in size and attenuation. No contour deformity present. Biliary system: No calcified cholelithiasis or pericholecystic inflammation. No intra or extrahepatic bile duct dilatation. Pancreas: Unremarkable without mass or inflammation evident. Spleen: Normal in size and density. Adrenals: Normal morphology and density. Reproductive system: Unremarkable as visualized. Urinary system: Normal renal size and attenuation. Left renal cyst without hydronephrosis, 6.8 cm No renal calculi, hydronephrosis, or solid mass present. Urinary bladder unremarkable. Gastrointestinal system: Proximal small bowel is dilated up to 3.5 cm, and the distal small bowel is decompressed. Possible transition in the mid abdomen. Right hemicolectomy, ileo colic anastomosis, and left flank end colostomy Appendix: No findings to suggest acute appendicitis. Peritoneal spaces: No mesenteric or retroperitoneal adenopathy. No free air. No free fluid. Vasculature: Aortic atherosclerotic vascular calcification noted without evidence of aneurysm. Abdominal wall: Abdominal wall intact without evidence of ventral or inguinal hernias. Musculoskeletal: Normal bone mineralization. Degenerative disc disease and arthropathy noted in lower lumbar spine. No acute fractures. IMPRESSION: Small bowel obstruction. Proximal small bowel is dilated up to 3.5 cm, and transition noted in the mid small bowel. No evidence of perforation or free air. Right hemicolectomy, ileocolic anastomosis, and left flank end colostomy intact. Approved by: Maximino Damian M.D. on 09/19/2024 at 12:53
[2024-09-19] MEDS: HYDROMORPHONE 0.5 MG INJ IV ×2 (12:30→14:49)
[2024-09-19] MEDS: SODIUM CHLORIDE 0.9% 1,000 ML 1000 ML IV ×2 (12:30→14:59)
[2024-09-19] MEDS: ONDANSETRON 4 MG/2 ML INJ IV ×2 (12:32→17:04)
[2024-09-19 13:37] LABS: Amorphous Sediment Urine 2+; Bacteria Urine None Seen; Hyaline Casts Urine 0-1/LPF; Ictotest Urine Negative (Negative); RBC Urine 0-1/HPF (0-5/HPF); Squamous Epithelial Cell Urine 0-1 /HPF (0-5/HPF); Urine Volume 10mL (spun)
[2024-09-19 13:38] LABS: Culture Indicated Urine Specimen Cultured; WBC Urine 5-10/HPF (0-5/HPF)
--- NOTE | 2024-09-19 14:20 | DI.RAD.S_ITS ---
PROCEDURE: XR GASTROGRAFIN CHALLENGE COMPARISON: [facility], CT, CT ABDOMEN PELVIS WO CON, 09/19/2024, 12:22. [facility], CR, XR CHEST 1V, 09/19/2024, 14:42. [facility], CT, CT ABDOMEN PELVIS W CON, 06/24/2024, 8:46. INDICATIONS: small bowel obstruction FINDINGS: Oral contrast was administered. The tip of the gastric tube can be seen overlying the distal stomach. On these images, no frankly dilated loops of small bowel are seen. Contrast can be seen within the colon, with apparent contrast also seen at the left-sided colostomy. Bony degenerative changes are seen. IMPRESSION: Oral contrast is demonstrated within the colon, which confirms no complete small bowel obstruction. Dictated by: Mark Juarez M.D. on 09/19/2024 at 20:37 Approved by: Mark Juarez M.D. on 09/19/2024 at 20:39
--- NOTE | 2024-09-19 14:22 | PM.CALLCOV.1 ---
Call Coverage Note Note Date of Patient Contact: 09/19/24 Time of Patient Contact: 14:22 Narrative of Care Provided: 73F with PMH neuromyelitis optica with end colostomy performed at for fecal incontinence admitted for a SBO. NGT placed with feculent output. CT A/P demonstrates SBO without free air or fluid. Labs MONIQUE and general dehydration otherwise unremarkable. -NPO -Continue NGT -Gastrografin challenge ordered Full consult note to follow
[2024-09-19] MEDS: TETRACAINE/BENZOCAINE/BUTAMBEN (CETACAINE) BOTTLE 1 SPRAY TOP (14:27)
--- NOTE | 2024-09-19 14:44 | DI.RAD.S_ITS ---
PROCEDURE: XR CHEST 1V INDICATIONS: NG tube placement TECHNIQUE: One view of the chest was acquired. COMPARISON: [facility], CR, XR CHEST 1V, 07/22/2024, 23:04. FINDINGS: Surgical changes and devices: Nasogastric tube in the stomach. Bilateral shoulder arthroplasty. Lungs and pleura: Lungs are clear. No pleural effusions or pneumothorax. Mediastinum: Mediastinal contours appear normal. Heart size is normal. Bones and chest wall: No suspicious bony lesions. Overlying soft tissues appear unremarkable. IMPRESSION: Nasogastric tube in the stomach No acute cardiopulmonary findings Approved by: Maximino Damian M.D. on 09/19/2024 at 15:14
--- NOTE | 2024-09-19 15:31 | PM.HP.1 ---
History of Present Illness History of Present Illness Date Patient Seen: 09/19/24 Chief complaint: Abd Pain, Vomiting, Bowel Blockage Narrative: 73-year-old woman under the primary care of Dr. Lindsay Joel with a history of neuromyelitis optica with associated fecal incontinence treated with end colostomy performed 4 years ago complicated by parastomal hernia reports 2 days of nausea, vomiting of feculent material, and absent colostomy outputs, progressively more firm in the past few days. She presented to the emergency department and CT imaging showed an upper quadrant small-bowel obstruction with transition point. She is admitted for IV fluids, pain control and Gastrografin study as ordered in surgical consultation. She has a history of unprovoked DVT in 09/2023 treated with anticoagulation. [facility] Medical History Left leg DVT Frequent UTI Chronic pain Chronic pelvic pain in female Anxiety Postmenopausal atrophic vaginitis Renal cyst, acquired, left Surgical History History of intestinal surgery H/O breast biopsy H/O shoulder replacement H/O colectomy Family History Mother Heart attack UTI (urinary tract infection) Father Heart attack Social History marital status: number of children: 2 household members: spouse Smoking Status: Never smoker alcohol intake: current substance use type: does not use caffeine: Yes Meds Home Medications and Allergies Home Medications Medication Instructions Recorded Confirmed Type acetaminophen 325 mg capsule 500 mg PO BID 08/18/19 09/19/24 History coenzyme Q10 100 mg capsule (Co 100 mg PO DAILY 08/18/19 09/19/24 History Q-10) naloxone 4 mg/actuation nasal 4 mg intranasal Q2M #2 ea 10/01/23 09/19/24 Rx spray (Narcan) levothyroxine 100 mcg tablet 100 mcg PO DAILY #90 tabs 12/26/23 09/19/24 Rx baclofen 10 mg tablet 10 mg PO BID 01/10/24 09/19/24 History zolpidem 5 mg tablet 5 mg PO BEDTIME PRN Insomnia 03/24/24 09/19/24 History pravastatin 10 mg tablet 10 mg PO BEDTIME #100 tabs 03/27/24 09/19/24 Rx nitrofurantoin 100 mg PO DAILY #90 caps 06/11/24 09/19/24 Rx monohydrate/macrocrystals 100 mg capsule diazepam 5 mg tablet See Rx Instructions PO .COMPLEX 06/30/24 09/19/24 Rx PRN muscle spasm #30 tabs oxycodone 5 mg tablet 5 mg PO Q12H PRN pain #60 tabs 06/30/24 09/19/24 Rx gabapentin 800 mg tablet 800 mg PO TID #90 tabs 07/17/24 09/19/24 Rx S.boulardii 250 mg-enzymes 62.5 2 cap PO BID #60 caps 07/26/24 09/19/24 Rx fx-ywkqpa-rvcatqkhry-fennel capsule (Florastor ADVANCED) duloxetine 60 mg capsule,delayed 60 mg PO DAILY 09/03/24 09/19/24 History release alendronate 70 mg tablet 70 mg PO QWEEK #12 tabs 09/15/24 09/19/24 Rx ravulizumab-cwvz 100 mg/mL mg IV 09/19/24 History intravenous solution Allergies Allergy/AdvReac Type Severity Reaction Status Date / Time buprenorphine AdvReac Intermediate edema in Verified 09/19/24 11:08 legs Review of Systems Review of Systems ROS: Yes All systems reviewed with the patient and are negative except as otherwise documented Exam Vital Signs (past 8 hours): - 09/19/24 11:02 09/19/24 11:05 09/19/24 11:06 Temperature 97.6 F Pulse Rate 112 H 113 H Respiratory Rate 14 Blood Pressure 128/61 128/61 Pulse Oximetry 98 98 Oxygen Delivery Method Room Air 09/19/24 11:06 09/19/24 11:30 09/19/24 11:30 Temperature Pulse Rate 111 H 101 H Respiratory Rate 18 Blood Pressure 104/63 Pulse Oximetry 98 100 Oxygen Delivery Method 09/19/24 12:00 09/19/24 12:00 09/19/24 12:29 Temperature Pulse Rate 101 H 83 Respiratory Rate 15 21 Blood Pressure 114/69 Pulse Oximetry 100 99 Oxygen Delivery Method 09/19/24 12:29 09/19/24 12:30 09/19/24 12:30 Temperature Pulse Rate 83 Respiratory Rate 18 Blood Pressure 113/72 108/67 Pulse Oximetry 99 Oxygen Delivery Method 09/19/24 13:00 09/19/24 13:00 09/19/24 13:30 Temperature Pulse Rate 80 Respiratory Rate 22 Blood Pressure 118/67 129/65 Pulse Oximetry 100 Oxygen Delivery Method 09/19/24 13:30 09/19/24 14:00 09/19/24 14:00 Temperature Pulse Rate 86 85 Respiratory Rate 24 26 H Blood Pressure 121/59 L Pulse Oximetry 100 100 Oxygen Delivery Method 09/19/24 14:30 09/19/24 14:30 09/19/24 15:00 Temperature Pulse Rate 86 100 H Respiratory Rate 322 H 24 Blood Pressure 113/61 Pulse Oximetry 98 97 Oxygen Delivery Method Oxygen Delivery Method Room Air Narrative Exam Narrative: GENERAL: This is a well-nourished, well-developed patient, in no apparent distress. HEAD: Atraumatic. Normocephalic. No temporal or scalp tenderness. EYES: Pupils equal round and reactive. Extraocular motions intact. No scleral icterus. No injection or drainage. ENT: Mucous membranes pink and moist. NECK: Trachea midline. No JVD, bruits or lymphadenopathy. Supple, nontender, no meningeal signs. CARDIOVASCULAR: Regular rate and rhythm without murmurs, gallops, or rubs. RESPIRATORY: Clear to auscultation. GASTROINTESTINAL: Abdomen soft, absent bowel tones, mild upper quadrant tenderness, mild distention, colostomy in place with empty bag. EXTREMITIES: No clubbing, cyanosis, or edema. BACK: Nontender without deformity or crepitance. No flank tenderness. NEUROLOGIC: Alert, oriented, speech fluent, full upper and lower motor strength, no focal deficits evident. DERMATOLOGIC: No rashes or skin lesions. Objective ECG Impression: Sinus tachycardia at 104 beats per minute, no ischemic changes Imaging CT scan - abdomen: Radiologist's impression: Small bowel obstruction. Proximal small bowel is dilated up to 3.5 cm, and transition noted in the mid small bowel. No evidence of perforation or free air. Right hemicolectomy, ileocolic anastomosis, and left flank end colostomy intact. Labs 09/19/24 11:10 09/19/24 11:10 Labs: Laboratory Results - last 24 hr 09/19/24 09/19/24 11:10 13:05 WBC 10.6 RBC 4.63 Hgb 15.2 Hct 45.4 MCV 98.1 MCH 32.9 MCHC 33.5 RDW 14.0 Plt Count 233 Neut % (Auto) 61.7 Lymph % (Auto) 29.4 [place] % (Auto) 8.0 Eos % (Auto) 0.6 L Baso % (Auto) 0.3 Neut # (Auto) 6600 Lymph # (Auto) 3100 [place] # (Auto) 800 Eos # (Auto) 100 Baso # (Auto) 0 Sodium 134 L Potassium 4.3 Chloride 94 L Carbon Dioxide 32 BUN 34 H Creatinine 1.42 H Estimated GFR 39 L BUN/Creatinine Ratio 23.9 H Glucose 156 H Calcium 9.2 Total Bilirubin 1.8 H AST 43 H ALT 31 Alkaline Phosphatase 75 Total Protein 8.7 H Albumin 4.5 Globulin 4.2 H Albumin/Globulin Ratio 1.1 Lipase 63 Ur Bilirubin Confirm Negative Urine RBC 0-1/hpf Urine WBC 5-10/hpf H Ur Squamous Epith Cells 0-1 /hpf Amorphous Sediment 2+ Urine Bacteria None seen Hyaline Casts 0-1/lpf Ur Culture Indicated? Specimen cultured Vol Urine Centrifuged 10ml (spun) Assessment & Plan Assessment & Plan narrative: 1. Small-bowel obstruction, possibly due to adhesions. The patient is admitted for IV hydration, analgesics, and Gastrografin enema in conjunction with surgery consultation. 2. Volume depletion due to 1. 3. Acute kidney injury due to 2. 4. History of colostomy. 5. Neuromyelitis optica. 6. Chronic pain syndrome on chronic opioid therapy. 7. Hyperlipidemia. 8. Hypothyroidism. 9. History of deep venous thrombosis. Subcutaneous heparin ordered given high risk. 10. . Code status: Full code. Addressed on admission with patient and her . Plan: -IV fluids -opioid analgesics -Gastrografin enema -surgery consultation -consider IV levothyroxine in 1-2 days if not resolving -subcutaneous heparin 5000 units twice daily Quality MIPS - Admit I confirm the patient?s Advance Care Plan is present, Code status is documented, Surrogate decision maker is in patient?s record [If Yes, STOP here]: Yes MIPS - Meds 'Current medications' to include all prescriptions, ooup-tdy-hoodvyc products, herbals, cannabis/cannabidiol products, and vitamin/mineral/dietary (nutritional) supplements. I have utilized all available resources to obtain, update, or review the patient?s current medications. [If Yes, STOP here]: Yes PROFEE Charge Codes Initial inpatient/observation care: 34557
[2024-09-19] MEDS: DEXTROSE 5%-LACTATED RINGERS 1,000 ML 100 ML IV (16:18)
[2024-09-19] MEDS: BENZOCAINE/MENTHOL 1 LOZ PKT 1 EACH PO ×2 (16:29→17:40)
[2024-09-20] VITALS: BP 100/54; PULSE 76; RESP 18; TEMP 36.2; O2SAT 98
[2024-09-20 04:00] VITALS: BP 107/58; PULSE 83; RESP 18; TEMP 36.2; O2SAT 96
[2024-09-20 04:40] LABS: Add Manual Diff / Slide Review NO; Basophils Absolute Auto 0 /uL (0-100); Basophils Percent Auto 0.4 % (0-2); Eosinophils Absolute Auto 100 /uL (0-450); Eosinophils Percent Auto 1.1 % (2-4); Hemoglobin 12.7 g/dL (12.0-16.0); Lymphocytes Absolute Auto 2500 /uL (1100-4500); Lymphocytes Percent Auto 35.3 % (25-40); Mean Corpuscular HGB Conc 33.4 % (30-36); Mean Corpuscular Hemoglobin 32.5 PG (26-34); Mean Corpuscular Volume 97.5 fL (80-100); Monocytes Absolute Auto 700 /uL (0-900); Monocytes Percent Auto 10.1 % (3-14); Neutrophils Absolute Auto 3700 /uL (1500-7000); Neutrophils Percent Auto 53.1 % (50-75); Platelet Count 174 X10^3/uL (150-400); Red Cell Distribution Width 14.1 % (11.6-14.8)
[2024-09-20 04:53] LABS: BUN Creatinine Ratio 21.7 (6-22); Blood Urea Nitrogen 23 mg/dL (7-17); Calcium 8.3 mg/dL (8.4-10.2); Carbon Dioxide 26 mmol/L (22-32); Chloride 104 mmol/L (98-107); Estimated Glomerular Filt Rate 55 mL/min (>60); Glucose 97 mg/dL (80-110); HEMOLYSIS < 15 (0-50); Potassium 3.4 mmol/L (3.4-5.1); Sodium 137 mmol/L (137-145)
[2024-09-20 08:00] VITALS: BP 93/53; PULSE 75; RESP 16; TEMP 36.1; O2SAT 98
[2024-09-20] MEDS: HEPARIN 5,000 UNIT/ML VIAL 5000 UNIT SUBCUT (08:43)
--- NOTE | 2024-09-20 09:33 | P.CONS_ITS ---
History of Present Illness Consult details Date Patient Seen: 09/20/24 Time Patient Seen: 09:33 Chief complaint: Abd Pain, Vomiting, Bowel Blockage Narrative: 73-year-old woman history of fecal incontinence with a end colostomy admitted with a small-bowel obstruction. Three weeks of progressive abdominal distention occasional vomiting presented to the [facility] Emergency Department for further evaluation. CT abdomen pelvis demonstrates dilated small bowel with a transition point in the mid abdomen no free air or free fluid. She received a nasogastric tube and Gastrografin study was performed which demonstrates presence of contrast now in the colon. She feels remarkably better since admission. Meds Home Medications and Allergies Home Medications Medication Instructions Recorded Confirmed Type acetaminophen 325 mg capsule 500 mg PO BID 08/18/19 09/19/24 History coenzyme Q10 100 mg capsule (Co 100 mg PO DAILY 08/18/19 09/19/24 History Q-10) naloxone 4 mg/actuation nasal 4 mg intranasal Q2M #2 ea 10/01/23 09/19/24 Rx spray (Narcan) levothyroxine 100 mcg tablet 100 mcg PO DAILY #90 tabs 12/26/23 09/19/24 Rx baclofen 10 mg tablet 10 mg PO BID 01/10/24 09/19/24 History zolpidem 5 mg tablet 5 mg PO BEDTIME PRN Insomnia 03/24/24 09/19/24 History pravastatin 10 mg tablet 10 mg PO BEDTIME #100 tabs 03/27/24 09/19/24 Rx nitrofurantoin 100 mg PO DAILY #90 caps 06/11/24 09/19/24 Rx monohydrate/macrocrystals 100 mg capsule diazepam 5 mg tablet See Rx Instructions PO .COMPLEX 06/30/24 09/19/24 Rx PRN muscle spasm #30 tabs oxycodone 5 mg tablet 5 mg PO Q12H PRN pain #60 tabs 06/30/24 09/19/24 Rx gabapentin 800 mg tablet 800 mg PO TID #90 tabs 07/17/24 09/19/24 Rx S.boulardii 250 mg-enzymes 62.5 2 cap PO BID #60 caps 07/26/24 09/19/24 Rx sq-jctaxg-vxljjhamtt-fennel capsule (Florastor ADVANCED) duloxetine 60 mg capsule,delayed 60 mg PO DAILY 09/03/24 09/19/24 History release alendronate 70 mg tablet 70 mg PO QWEEK #12 tabs 09/15/24 09/19/24 Rx ravulizumab-cwvz 100 mg/mL mg IV 09/19/24 History intravenous solution Allergies Allergy/AdvReac Type Severity Reaction Status Date / Time buprenorphine AdvReac Intermediate edema in Verified 09/19/24 11:08 legs Exam Vital Signs (past 8 hours): - 09/20/24 04:00 09/20/24 08:00 Temperature 97.2 F L 97.0 F L Pulse Rate 83 75 Respiratory Rate 18 16 Blood Pressure 107/58 L 93/53 L Pulse Oximetry 96 98 Oxygen Flow Rate 0 0 Oxygen Delivery Method Room Air Oxygen Flow Rate 0 Narrative Exam Narrative: General adult woman alert oriented no acute distress Chest nonlabored respiration Abdomen soft nondistended colostomy functional productive Objective Labs 09/20/24 04:10 09/20/24 04:10 Labs: Laboratory Results - last 24 hr 09/19/24 09/19/24 09/20/24 11:10 13:05 04:10 WBC 10.6 7.0 RBC 4.63 3.90 L Hgb 15.2 12.7 Hct 45.4 38.0 MCV 98.1 97.5 MCH 32.9 32.5 MCHC 33.5 33.4 RDW 14.0 14.1 Plt Count 233 174 Neut % (Auto) 61.7 53.1 Lymph % (Auto) 29.4 35.3 [place] % (Auto) 8.0 10.1 Eos % (Auto) 0.6 L 1.1 L Baso % (Auto) 0.3 0.4 Neut # (Auto) 6600 3700 Lymph # (Auto) 3100 2500 [place] # (Auto) 800 700 Eos # (Auto) 100 100 Baso # (Auto) 0 0 Sodium 134 L 137 Potassium 4.3 3.4 Chloride 94 L 104 Carbon Dioxide 32 26 BUN 34 H 23 H Creatinine 1.42 H 1.06 H Estimated GFR 39 L 55 L BUN/Creatinine Ratio 23.9 H 21.7 Glucose 156 H 97 Calcium 9.2 8.3 L Total Bilirubin 1.8 H AST 43 H ALT 31 Alkaline Phosphatase 75 Total Protein 8.7 H Albumin 4.5 Globulin 4.2 H Albumin/Globulin Ratio 1.1 Lipase 63 Ur Bilirubin Confirm Negative Urine RBC 0-1/hpf Urine WBC 5-10/hpf H Ur Squamous Epith Cells 0-1 /hpf Amorphous Sediment 2+ Urine Bacteria None seen Hyaline Casts 0-1/lpf Ur Culture Indicated? Specimen cultured Vol Urine Centrifuged 10ml (spun) PFS Medical History Left leg DVT Frequent UTI Chronic pain Chronic pelvic pain in female Anxiety Postmenopausal atrophic vaginitis Renal cyst, acquired, left Surgical History History of intestinal surgery H/O breast biopsy H/O shoulder replacement H/O colectomy Family History Mother Heart attack UTI (urinary tract infection) Father Heart attack Social History marital status: number of children: 2 household members: spouse Tobacco & Substance Use Smoking Status: Never smoker alcohol intake: current substance use type: does not use Diet and Exercise caffeine: Yes Assessment & Plan Assessment and plan (1) Complete obstruction of small intestine: Status: Acute Assessment & Plan narrative: 73-year-old woman history of multiple prior abdominal surgeries with end- colostomy who presented with a small-bowel obstruction now resolved with conservative management. -advance diet as tolerated -if tolerant of diet okay to for discharge today Time-Based Coding :: [TOTAL MINUTES] spent with patient and on the chart (including review of chart, obtaining history, exam, reviewing outside data, placing orders, documenting exam and treatment plan, and counseling patient) on [DATE].
--- NOTE | 2024-09-20 11:31 | PC.NURSE ---
Pt and spouse agreeable to discharge. Pt tolerating general diet, passing stools through ostomy. IV d/c'd, education provided on followup(pt scheduled to see GI specialist at [facility]), stroke s/s, fall prevention. Pt ambulated per pt request to private vehicle at approximately 1115.
--- NOTE | 2024-09-20 11:50 | PM.DS.1 ---
History of Present Illness History of Present Illness Date Patient Seen: 09/20/24 Time Patient Seen: 10:40 Date of Onset of Symptoms: 09/19/24 Chief complaint: Abd Pain, Vomiting, Bowel Blockage Narrative: 73-year-old woman under the primary care of Dr. Lindsay Joel with a history of neuromyelitis optica with associated fecal incontinence treated with end colostomy performed 4 years ago complicated by parastomal hernia reports 2 days of nausea, vomiting of feculent material, and absent colostomy outputs, progressively more firm in the past few days. She presented to the emergency department and CT imaging showed an upper quadrant small-bowel obstruction with transition point. She is admitted for IV fluids, pain control and Gastrografin study as ordered in surgical consultation. She has a history of unprovoked DVT in 09/2023 treated with anticoagulation. Discharge Providers Provider Date of admission: 09/19/24 14:38 Discharge Date: 09/20/24 Primary care physician: Lindsay Joel MD Consults: 09/19/24 14:19 Consult to General Surgery Stat Comment: Consulting Provider: Oscar Palmer Reason for consultation: SBO Has provider been notified: Yes Discharge provider: Ricky Porras MD Summary Hospital Course Discharge Diagnosis: 1. Small-bowel obstruction, possibly due to adhesions, resolved after gastrografin study. 2. Volume depletion due to 1. 3. Acute kidney injury due to 2, resolved. 4. History of colostomy. 5. Neuromyelitis optica. 6. Chronic pain syndrome on chronic opioid therapy. 7. Hyperlipidemia. 8. Hypothyroidism. 9. History of deep venous thrombosis. Hospital Course: The patient was admitted, placed on IV hydration, bowel rest and monitoring. She was administered Gastrografin with resolution of symptoms with passage of barium through the colon. She was feeling much better and able to tolerate a general diet at the time of discharge. No other issues arose. Outpatient follow-up is advised. Status at Discharge Cognitive/behavioral status at discharge: oriented Functional status at discharge: independent ambulation Overall status at discharge: patient is back to baseline Time Spent with Patient Time spent: Less than 30 minutes Exam Vital Signs (past 8 hours): - 09/20/24 04:00 09/20/24 08:00 Temperature 97.2 F L 97.0 F L Pulse Rate 83 75 Respiratory Rate 18 16 Blood Pressure 107/58 L 93/53 L Pulse Oximetry 96 98 Oxygen Flow Rate 0 0 Oxygen Delivery Method Room Air Oxygen Flow Rate 0 Narrative Exam Narrative: GENERAL: This is a well-nourished, well-developed patient, in no apparent distress. EYES: Pupils equal round and reactive. Extraocular motions intact. No scleral icterus. No injection or drainage. ENT: Mucous membranes pink and moist. NECK: Trachea midline. No JVD, bruits or lymphadenopathy. Supple, nontender, no meningeal signs. CARDIOVASCULAR: Regular rate and rhythm without murmurs, gallops, or rubs. RESPIRATORY: Clear to auscultation. GASTROINTESTINAL: Abdomen soft, nontender, nondistended, colostomy in place with stool and gas. EXTREMITIES: No clubbing, cyanosis, or edema. NEUROLOGIC: Alert, oriented, speech fluent, full upper and lower motor strength, no focal deficits evident. DERMATOLOGIC: No rashes or skin lesions. Objective ECG Impression: Sinus tachycardia at 104 beats per minute, no ischemic changes Imaging CT scan - abdomen: Radiologist's impression: Small bowel obstruction. Proximal small bowel is dilated up to 3.5 cm, and transition noted in the mid small bowel. No evidence of perforation or free air. Right hemicolectomy, ileocolic anastomosis, and left flank end colostomy intact. Gastrografin study 09/19/2024:: Radiologist's impression: Oral contrast is demonstrated within the colon, which confirms no complete small bowel obstruction. Labs 09/20/24 04:10 09/20/24 04:10 Labs: Laboratory Results - last 24 hr 09/19/24 09/20/24 13:05 04:10 WBC 7.0 RBC 3.90 L Hgb 12.7 Hct 38.0 MCV 97.5 MCH 32.5 MCHC 33.4 RDW 14.1 Plt Count 174 Neut % (Auto) 53.1 Lymph % (Auto) 35.3 [place] % (Auto) 10.1 Eos % (Auto) 1.1 L Baso % (Auto) 0.4 Neut # (Auto) 3700 Lymph # (Auto) 2500 [place] # (Auto) 700 Eos # (Auto) 100 Baso # (Auto) 0 Sodium 137 Potassium 3.4 Chloride 104 Carbon Dioxide 26 BUN 23 H Creatinine 1.06 H Estimated GFR 55 L BUN/Creatinine Ratio 21.7 Glucose 97 Calcium 8.3 L Ur Bilirubin Confirm Negative Urine RBC 0-1/hpf Urine WBC 5-10/hpf H Ur Squamous Epith Cells 0-1 /hpf Amorphous Sediment 2+ Urine Bacteria None seen Hyaline Casts 0-1/lpf Ur Culture Indicated? Specimen cultured Vol Urine Centrifuged 10ml (spun) PFSH Medical History Anxiety Chronic pain Chronic pelvic pain in female Frequent UTI Left leg DVT Postmenopausal atrophic vaginitis Renal cyst, acquired, left Surgical History H/O breast biopsy H/O colectomy H/O shoulder replacement History of intestinal surgery Family History Mother Heart attack UTI (urinary tract infection) Father Heart attack Social History marital status: number of children: 2 household members: spouse Smoking Status: Never smoker alcohol intake: current substance use type: does not use caffeine: Yes Discharge Plan Discharge Plan Patient Disposition: Home Provider Discharge Comment: Followup with Dr. Joel 1 week Discharge orders & Medications Prescriptions: Continued baclofen 10 mg tablet 10 mg PO BID duloxetine 60 mg capsule,delayed release(DR/EC) 60 mg PO DAILY naloxone [Narcan] 4 mg/actuation spray,non-aerosol 4 mg intranasal Q2M Qty: 2 0RF Rx Instructions: spray 1 dose into ONE nostril; alternate nostrils w each dose until help arrives zolpidem 5 mg tablet 5 mg PO BEDTIME PRN (Reason: Insomnia) levothyroxine 100 mcg tablet 100 mcg PO DAILY Qty: 90 3RF pravastatin 10 mg tablet 10 mg PO BEDTIME Qty: 100 2RF nitrofurantoin monohyd/m-cryst 100 mg capsule 100 mg PO DAILY Qty: 90 1RF Rx Instructions: must administer with a meal/food oxycodone 5 mg tablet 5 mg PO Q12H PRN (Reason: pain) Qty: 60 0RF Rx Instructions: USUALLY ONCE TO TWICE A WEEK NEEDED PER PATIENT diazepam 5 mg tablet See Rx Instructions PO .COMPLEX PRN (Reason: muscle spasm) Qty: 30 0RF Rx Instructions: 1 tablet nightly PRN gabapentin 800 mg tablet 800 mg PO TID Qty: 90 3RF alendronate 70 mg tablet 70 mg PO QWEEK Qty: 12 3RF Rx Instructions: TAKES ON FRIDAYS coenzyme Q10 [Co Q-10] 100 mg capsule 100 mg PO DAILY acetaminophen 325 mg capsule 500 mg PO BID ravulizumab-cwvz 100 mg/mL Solution IV Rx Instructions: patient is unclear what the actual dose of medication is. Florastor ADVANCED 250-62.5-30 mg capsule 2 cap PO BID Qty: 60 0RF Rx Instructions: Take 2 caps twice daily for 1 week, then 1 cap twice daily for a week, then 1 cap daily until gone Follow up/Referrals: Lindsay Joel MD [Primary Care Provider] - Visit Report/Discharge Packet Stand Alone Forms: Patient Portal/API, Stroke Signs & Symptoms Discharge Data Primary Care Provider: Lindsay Joel Quality MIPS - Admit I confirm the patient?s Advance Care Plan is present, Code status is documented, Surrogate decision maker is in patient?s record [If Yes, STOP here]: Yes MIPS - Meds 'Current medications' to include all prescriptions, afpl-pdg-copuugd products, herbals, cannabis/cannabidiol products, and vitamin/mineral/dietary (nutritional) supplements. I have utilized all available resources to obtain, update, or review the patient?s current medications. [If Yes, STOP here]: Yes MIPS - DC The patient has a history of heart transplant or Left Ventricular Assist Device (LVAD). If yes, STOP here.: No The patient has current or prior documentation of left ventricular ejection fraction (LVEF) less than or equal to 40%, or moderate or severely depressed left ventricular systolic function.: No A. The patient was prescribed or already taking an Angiotensin-Converting Enzyme (SUNNY) Inhibitor, or Angiotensin Receptor Steph (ARB).: No B. The patient was prescribed or already taking a beta-steph. [If Yes to Both A & B, STOP here]: No Patient not prescribed/taking SUNNY or ARB, no reason given.: No Patient not prescribed/taking beta-steph, no reason given.: No IH PROFEE Charge Codes Discharge inpatient/observation: 34063
== END 2024-09-20 11:20 | disposition home or self-care (01) | DRG 389 ==
LOC: ED 14:26 → AC 14:38
PROVIDERS: Admitting Provider Internal Medicine; Emergency Provider Emergency Medicine; PCP Family Medicine; Referring Provider Emergency Medicine; Visit Provider Internal Medicine
DX: K56.52 Intestinal adhesions [bands] with complete obstruction (principal); D84.821 Immunodeficiency due to drugs; G36.0 Neuromyelitis optica [Devic]; N17.9 Acute kidney failure, unspecified; G89.4 Chronic pain syndrome; E78.5 Hyperlipidemia, unspecified; E03.9 Hypothyroidism, unspecified; E86.9 Volume depletion, unspecified; F41.9 Anxiety disorder, unspecified; G47.00 Insomnia, unspecified; Z93.3 Colostomy status; Z86.718 Personal history of other venous thrombosis and embolism; Z79.891 Long term (current) use of opiate analgesic; Z79.899 Other long term (current) drug therapy; R00.0 Tachycardia, unspecified
CPT/HCPCS: 36415; 71045; 74018; 74176; 80048; 80053; 81003; 81015; 83690; 85025; 87077; 87086; 93005; 93010; 96361; 96374; 99233; 99284; 99285; J1171; J1644; J2405; J7121

== ENCOUNTER → 2024-09-30 11:01 | Outpatient (CLI) | payer MEDICARE, SELFPAY ==
[2024-09-19 16:32] VITALS: BMI 18.6
[2024-09-30 12:38] LABS: BUN Creatinine Ratio 15.1 (6-22); Blood Urea Nitrogen 16 mg/dL (7-17); Calcium 9.3 mg/dL (8.4-10.2); Carbon Dioxide 25 mmol/L (22-32); Chloride 108 mmol/L (98-107); Estimated Glomerular Filt Rate 55 mL/min (>60); Glucose 72 mg/dL (80-110); HEMOLYSIS < 15 (0-50); Potassium 3.9 mmol/L (3.4-5.1); Sodium 140 mmol/L (137-145)
== END ==
PROVIDERS: PCP Family Medicine; Referring Provider Family Medicine; Visit Provider Family Medicine
DX: R74.8 Abnormal levels of other serum enzymes (principal)
CPT/HCPCS: 36415; 80048

== ENCOUNTER 2024-11-26 14:49 | Emergency (ER) | payer MEDICARE, SELFPAY ==
[2024-09-19 16:32] VITALS: BMI 18.6
[2024-11-26 14:54] VITALS: BP 143/83; PULSE 99; RESP 14; TEMP 37.1; O2SAT 100; BMI 18.6
--- NOTE | 2024-11-26 14:59 | DI.CT.S_ITS ---
PROCEDURE: CT FACIAL BONES WO CON INDICATIONS: fall hit face TECHNIQUE: Noncontrast 2.5 mm thick axial images acquired from the mandible through the frontal sinuses, with coronal and sagittal reformatting. For radiation dose reduction, the following was used: automated exposure control, adjustment of mA and/or kV according to patient size. COMPARISON: None. FINDINGS: Image quality: Excellent. Bones and teeth: Orbital vail are intact. Sinus vail show no fracture or deformity. Nasal bones and septum are intact. Visualized portions of the mandible demonstrate no fractures or subluxation. Zygomatic arches are intact. Pterygoid plates are intact. Visualized portions of the skull base and auditory canals are intact. Degenerative disc disease in visualized cervical spine is seen. Sinuses: Paranasal sinuses are aerated, without fluid levels, mucosal thickening, or mucoceles. Mastoid air cells are aerated. Soft tissues: No edema, masses, or fluid collections. No enlarged lymph nodes. No soft tissue lacerations or debris. Vascular: Visualized vascular structures appear normal in the absence of contrast. Bony vascular foramina and canals are intact. IMPRESSION: 1. No acute facial bone or nasal bone fracture. 2. Bilateral orbital vail and orbital globes are intact. 3. Bilateral paranasal sinuses are well aerated. Dictated by: Del Méndez M.D. on 11/26/2024 at 15:24 Approved by: Del Méndez M.D. on 11/26/2024 at 15:27
--- NOTE | 2024-11-26 17:54 | ED.FALL ---
HPI - Fall <Laura Bowles PA-C - Last Filed: 11/26/24 21:35> General Chief Complaint: Fall Stated Complaint: Fall, face injury, no blood thinners x2days Time Seen by Provider: 11/26/24 17:53 Source: patient Mode of arrival: Ambulatory History of Present Illness HPI Narrative: Ms. Ramon is a pleasant 74-year-old female with a past medical history of neuromyelitis optica, bowel obstruction now with colostomy bag who presents to the emergency department for face and head pain after she fell 2 days ago. Patient states that she was walking in the [place] when she suddenly fell forward hitting her face directly on the ground. She did not use her arms or hands to brace the fall. She does not exactly recall the details of the events, initially she told the triage nurse that she tripped over a stump but then she told me that she might have blacked out and fell forward. She immediately got up off the ground after the injury. She sustained a laceration between her eyes on the nasal bridge and had some bleeding from her upper lip inside her mouth. She was not sure if she should be evaluated or not however reports that her headache and facial pain has been getting worse which is what prompted her emergency department visit today. States that the laceration inside her upper lip is healing well however she continues to have a generalized dull headache that is worse on the right side. She is unsure of her last tetanus shot. She denies current blood thinner use. No nausea or vomiting after the event. No chest pain, shortness of breath or dizziness. Related Data Home Medications Medication Instructions Recorded Confirmed acetaminophen 325 mg capsule 500 mg PO BID 08/18/19 10/22/24 coenzyme Q10 100 mg capsule (Co 100 mg PO DAILY 08/18/19 10/22/24 Q-10) baclofen 10 mg tablet 10 mg PO BID 01/10/24 10/22/24 zolpidem 5 mg tablet 5 mg PO BEDTIME PRN Insomnia 03/24/24 10/22/24 ravulizumab-cwvz 100 mg/mL mg IV 09/19/24 10/22/24 intravenous solution Previous Rx's Medication Instructions Recorded naloxone 4 mg/actuation nasal 4 mg intranasal Q2M #2 ea 10/01/23 spray (Narcan) levothyroxine 100 mcg tablet 100 mcg PO DAILY #90 tabs 12/26/23 pravastatin 10 mg tablet 10 mg PO BEDTIME #100 tabs 03/27/24 nitrofurantoin 100 mg PO DAILY #90 caps 06/11/24 monohydrate/macrocrystals 100 mg capsule oxycodone 5 mg tablet 5 mg PO Q12H PRN pain #60 tabs 06/30/24 S.boulardii 250 mg-enzymes 62.5 2 cap PO BID #60 caps 07/26/24 xz-glvceq-ucekohziqb-fennel capsule (Florastor ADVANCED) alendronate 70 mg tablet 70 mg PO QWEEK #12 tabs 09/15/24 duloxetine 60 mg capsule,delayed 120 mg (2 x 60 mg) PO DAILY #180 10/12/24 release caps gabapentin 800 mg tablet 800 mg PO TID #90 tabs 10/19/24 diazepam 5 mg tablet See Rx Instructions PO .COMPLEX 10/22/24 PRN muscle spasm #30 tabs nortriptyline 25 mg capsule 25 mg PO BEDTIME #30 caps 11/02/24 Allergies Allergy/AdvReac Type Severity Reaction Status Date / Time buprenorphine AdvReac Intermediate edema in Verified 11/26/24 14:54 legs Review of Systems <Laura Bowles PA-C - Last Filed: 11/26/24 21:35> Review of Systems ROS Unobtainable: All systems reviewed & are unremarkable except as noted in HPI and below Patient History <Laura Bowles PA-C - Last Filed: 11/26/24 21:35> Medical History Left leg DVT Frequent UTI Chronic pain Chronic pelvic pain in female Anxiety Postmenopausal atrophic vaginitis Renal cyst, acquired, left Surgical History History of intestinal surgery H/O breast biopsy H/O shoulder replacement H/O colectomy Family History Mother Heart attack UTI (urinary tract infection) Father Heart attack Social History marital status: number of children: 2 household members: spouse Smoking Status: Never smoker alcohol intake: current substance use type: does not use caffeine: Yes Smoking Status: Never smoker alcohol intake frequency: a few times a week Exam <Laura Bowles PA-C - Last Filed: 11/26/24 21:35> Narrative Exam Narrative: GENERAL: 74 year old patient appears stated age. Thin elderly patient, in no acute distress. HEAD: Normocephalic. No palpable skull fracture. Approximately 2.5 cm superficial linear laceration vertically between the eyes. EYES: PERRL. Extraocular motions intact. No scleral icterus. No injection or drainage. ENT: Nose without bleeding, purulent drainage. There is some ecchymosis on the tip of the nose, no septal hematoma. No obvious nasal bridge deformity. 0.5 cm healing laceration on the mucosal surface of the superior lip, midline. Ecchymosis of the upper lip. No cracked or loose teeth. Throat without erythema, tonsillar hypertrophy or exudate. Airway patent. NECK: Trachea midline. Cervical ROM intact. No midline cervical tenderness, some subjective pain on bilateral cervical paraspinal muscles. CARDIOVASCULAR: Regular rate and rhythm. RESPIRATORY: ?Nonlabored respirations. ?Speaking in clear, full sentences. ?Clear to auscultation. Breath sounds equal bilaterally. No wheezes, rales, or rhonchi. ? GASTROINTESTINAL: Abdomen soft, non-tender, nondistended. Colostomy in place left lower quadrant with brown output. EXTREMITIES: No edema or joint tenderness. BACK: Nontender without deformity or crepitance. NEURO: AOx3. ?Clear speech. ?Moves all 4 extremities appropriately. Slight tremor of bilateral upper extremities which patient reports is baseline. Normal mswsjj-wwoq-eretnw, rapid alternating movements, heel-whaley, steady independent gait. No facial asymmetry, sensation intact to light touch throughout the upper and lower extremities in the face. SKIN: No rash or erythema of visible areas Initial Vital Signs Initial Vital Signs: Vital Signs Temperature 98.8 F 11/26/24 14:54 Pulse Rate 99 H 11/26/24 14:54 Respiratory Rate 14 11/26/24 14:54 Blood Pressure 143/83 H 11/26/24 14:54 Pulse Oximetry 100 11/26/24 14:54 Oxygen Delivery Method Room Air 11/26/24 14:54 <Michele Chou MD - Last Filed: 11/27/24 05:22> Initial Vital Signs Initial Vital Signs: Vital Signs Temperature 98.8 F 11/26/24 14:54 Pulse Rate 99 H 11/26/24 14:54 Respiratory Rate 14 11/26/24 14:54 Blood Pressure 143/83 H 11/26/24 14:54 Pulse Oximetry 100 11/26/24 14:54 Oxygen Delivery Method Room Air 11/26/24 14:54 Course <Laura Bowles PA-C - Last Filed: 11/26/24 21:35> Orders Ordered: Discontinued Medications Acetaminophen (Acetaminophen 325 Mg Tablet) 975 mg PO NOW ONE Stop: 11/26/24 18:19 Last Admin: 11/26/24 18:28 Dose: 975 mg Documented By: DONNY Diphtheria/Tetanus/Acell Pertussis (Tet,Diph,Pertuss(Acell),Vac/Pf 0.5 Ml Syringe) 0.5 ml IM .ONCE ONE Stop: 11/26/24 18:13 Last Admin: 11/26/24 18:29 Dose: 0.5 ml Documented By: DONNY Vital Signs Vital signs: Vital Signs - 8 hr 11/26/24 14:54 11/26/24 20:11 Temperature 98.8 F Pulse Rate 99 H 72 Respiratory Rate 14 16 Blood Pressure 143/83 H 126/71 Pulse Oximetry 100 100 Oxygen Delivery Method Room Air Room Air <Michele Chou MD - Last Filed: 11/27/24 05:22> Orders Ordered: Discontinued Medications Acetaminophen (Acetaminophen 325 Mg Tablet) 975 mg PO NOW ONE Stop: 11/26/24 18:19 Last Admin: 11/26/24 18:28 Dose: 975 mg Documented By: DONNY Diphtheria/Tetanus/Acell Pertussis (Tet,Diph,Pertuss(Acell),Vac/Pf 0.5 Ml Syringe) 0.5 ml IM .ONCE ONE Stop: 11/26/24 18:13 Last Admin: 11/26/24 18:29 Dose: 0.5 ml Documented By: DONNY Vital Signs Vital signs: Vital Signs - 8 hr 11/26/24 14:54 11/26/24 20:11 Temperature 98.8 F Pulse Rate 99 H 72 Respiratory Rate 14 16 Blood Pressure 143/83 H 126/71 Pulse Oximetry 100 100 Oxygen Delivery Method Room Air Room Air MDM - Fall <Laura Bowles PA-C - Last Filed: 11/26/24 21:35> Medical Records Attestation: I reviewed the patient's medical records. Lab Data 11/26/24 18:40 11/26/24 18:40 Labs: Lab Results 11/26/24 Range/Units 18:40 WBC 7.2 (4.5-11.0) X10^3/uL RBC 4.05 (4.0-5.2) X10^6/uL Hgb 13.3 (12.0-16.0) g/dL Hct 39.7 (36-46) % MCV 97.9 (80-100) fL MCH 32.8 (26-34) PG MCHC 33.5 (30-36) % RDW 13.6 (11.6-14.8) % Plt Count 202 (150-400) X10^3/uL Neut % (Auto) 48.0 L (50-75) % Lymph % (Auto) 41.1 H (25-40) % Wilcox % (Auto) 5.4 (3-14) % Eos % (Auto) 4.5 H (2-4) % Baso % (Auto) 1.0 (0-2) % Neut # (Auto) 3500 (7109-1262) /uL Lymph # (Auto) 3000 (2825-4334) /uL Wilcox # (Auto) 400 (0-900) /uL Eos # (Auto) 300 (0-450) /uL Baso # (Auto) 100 (0-100) /uL Sodium 139 (137-145) mmol/L Potassium 4.2 (3.4-5.1) mmol/L Chloride 105 (98-107) mmol/L Carbon Dioxide 26 (22-32) mmol/L BUN 12 (7-17) mg/dL Creatinine 0.87 (0.52-1.04) mg/dL Estimated GFR > 60 (>60) mL/min BUN/Creatinine Ratio 13.8 (6-22) Glucose 99 (80-110) mg/dL Calcium 9.1 (8.4-10.2) mg/dL Total Bilirubin 0.7 (0.2-1.3) mg/dL AST 33 (14-36) IU/L ALT 27 (<35) IU/L Alkaline Phosphatase 66 (38-126) U/L Troponin I < 0.012 (0.01-0.034) ng/mL Total Protein 8.2 (6.3-8.2) g/dL Albumin 4.4 (3.5-5.0) g/dL Globulin 3.8 (1.7-4.1) g/dL Albumin/Globulin Ratio 1.2 (1.0-2.8) Imaging Data CT scan - head: Radiologist's Impression: PROCEDURE: CT HEAD/BRAIN WO CON INDICATIONS: fall headache possible syncope TECHNIQUE: Noncontrast 4.5 mm thick angled axial sections acquired from the foramen magnum to the vertex, with coronal and sagittal reformats. For radiation dose reduction, the following was used: automated exposure control, adjustment of mA and/or kV according to patient size. COMPARISON: [facility], CT, CT HEAD/BRAIN WO CON, 02/29/2024, 1:44. [facility], CT, CT HEAD/BRAIN WO CON, 05/16/2020, 19:37. [facility], CT, CT HEAD/BRAIN WO CON, 08/01/2019, 10:59. FINDINGS: Image quality: Diagnostic. CSF spaces: Basal cisterns are patent. No extra-axial fluid collections. The ventricles are symmetric in size and shape. Brain: No intracranial bleeds or masses. There is cerebral volume loss for age, with resultant ventricular and sulcal prominence. There are periventricular and deep white matter chronic small vessel ischemic changes. There is intracranial internal carotid artery atherosclerosis. Skull and face: Calvarium and visualized facial bones appear intact, without suspicious lesions. Sinuses: Visualized sinuses and mastoids are clear. IMPRESSION: No acute intracranial pathology. CT - cervical spine: Radiologist's Impression: PROCEDURE: CT CERVICAL SPINE WO CON INDICATIONS: fall PAZ neck soreness possible syncope TECHNIQUE: Noncontrast 3 mm thick sections acquired from the skull base to the T4 level. Sagittal and coronal reformats were then constructed. For radiation dose reduction, the following was used: automated exposure control, adjustment of mA and/or kV according to patient size. COMPARISON: None. FINDINGS: Image quality: Excellent. Bones: No fractures or dislocations. Visualized superior ribs are intact. Straightening of the cervical lordosis. Mild multilevel intervertebral disc height loss, most conspicuous at C4-C5, C5-C6, and C6-C7. Endplate changes at multiple levels. Mild multilevel facet and uncinate arthropathy (5/35; 5/56). Grade 1 anterolisthesis of C7 on T1. Moderate foraminal stenosis at the right C3-C4 level (5/51). Soft tissues: Prevertebral soft tissues are normal in thickness. No paravertebral hematomas. No apical pneumothoraces. IMPRESSION: No acute CT abnormality of the cervical spine. Face CT: Radiologist's Impression: PROCEDURE: CT FACIAL BONES WO CON INDICATIONS: fall hit face TECHNIQUE: Noncontrast 2.5 mm thick axial images acquired from the mandible through the frontal sinuses, with coronal and sagittal reformatting. For radiation dose reduction, the following was used: automated exposure control, adjustment of mA and/or kV according to patient size. COMPARISON: None. FINDINGS: Image quality: Excellent. Bones and teeth: Orbital vail are intact. Sinus vail show no fracture or deformity. Nasal bones and septum are intact. Visualized portions of the mandible demonstrate no fractures or subluxation. Zygomatic arches are intact. Pterygoid plates are intact. Visualized portions of the skull base and auditory canals are intact. Degenerative disc disease in visualized cervical spine is seen. Sinuses: Paranasal sinuses are aerated, without fluid levels, mucosal thickening, or mucoceles. Mastoid air cells are aerated. Soft tissues: No edema, masses, or fluid collections. No enlarged lymph nodes. No soft tissue lacerations or debris. Vascular: Visualized vascular structures appear normal in the absence of contrast. Bony vascular foramina and canals are intact. IMPRESSION: 1. No acute facial bone or nasal bone fracture. 2. Bilateral orbital vail and orbital globes are intact. 3. Bilateral paranasal sinuses are well aerated. Chest x-ray: Radiologist's Impression: PROCEDURE: XR CHEST 1V INDICATIONS: syncope TECHNIQUE: One view of the chest was acquired. COMPARISON: [facility], , XR CHEST 1V, 09/19/2024, 14:42. [facility], , XR CHEST 1V, 07/22/2024, 23:04. [facility], CR, XR CHEST 1V, 02/29/2024, 1:29. [facility], CR, XR CHEST 2V, 06/12/2019, 16:25. FINDINGS: Surgical changes and devices: Bilateral shoulder arthroplasties. Epigastric surgical clips. Lungs and pleura: Lungs are clear. No pleural effusions or pneumothorax. Mediastinum: Mediastinal contours appear normal. Heart size is normal. Bones and chest wall: Chronic, minimally displaced left 5th-7th lateral rib fractures. No suspicious bony lesions. Overlying soft tissues appear unremarkable. IMPRESSION: No acute cardiothoracic process. ECG Data Prior ECG tracings: available for review Interpretation: ECG reveals normal sinus rhythm with a rate of 69 and a QTC of 445. MDM Narrative Medical decision making narrative: 74-year-old female with a past medical history of neuromyelitis optica, bowel obstruction now with colostomy bag who presents to the emergency department for face and head pain after she fell 2 days ago. Patient has a somewhat inconsistent history, initially telling triage nurse that she had a trip and fall but then later telling me that she may have passed out. Differential diagnosis includes but is not limited to trip and fall, syncope, dehydration, electrolyte abnormality, facial fracture, nasal fracture, dental fracture, closed head injury, intracranial abnormality, concussion, laceration, abrasion, contusion, etc. On exam the patient is in no acute distress, nontoxic appearing, no focal neurologic deficits and steady gait. She has some injuries on her face including a superficial laceration between the eyes, a well healing upper lip laceration, and some bruising on the nose and upper lip. Initially CT of the face was ordered in triage however after patient disclosed to me she was unsure of the details of the fall, out of an abundance of caution lab work including troponin, CT head and neck were obtained. Patient's Tdap was updated and she was provided with Tylenol for headache. Workup overall extremely reassuring. EKG is normal sinus rhythm, troponin is negative, normal renal function and electrolytes normal WBC count 7.2, hemoglobin 13.3. CT imaging of the head, cervical spine, face reveal no acute abnormalities. Chest x-ray negative for any acute abnormalities but does reveal old rib fractures. I printed out all imaging and discussed them with the patient and her , Geo, including discussion of all incidental findings. She is feeling very reassured by workup and overall feeling better. Discussed proper wound care of abrasion, laceration of mouth including applying bacitracin daily to abrasion and rinsing mouth frequently after eating while laceration and mouth is healing. Recommended ibuprofen/Tylenol if needed for headache or muscle soreness, ice areas of bruising and swelling. Advised patient follow up with promptly with her primary care doctor, return to the emergency department with any new or worsening symptoms or other concerns. Patient and her verbalized understanding of all information, she is happy with the plan and stable for discharge home. She is independently ambulatory. <Michele Chou MD - Last Filed: 11/27/24 05:22> Lab Data Labs: Lab Results 11/26/24 Range/Units 18:40 WBC 7.2 (4.5-11.0) X10^3/uL RBC 4.05 (4.0-5.2) X10^6/uL Hgb 13.3 (12.0-16.0) g/dL Hct 39.7 (36-46) % MCV 97.9 (80-100) fL MCH 32.8 (26-34) PG MCHC 33.5 (30-36) % RDW 13.6 (11.6-14.8) % Plt Count 202 (150-400) X10^3/uL Neut % (Auto) 48.0 L (50-75) % Lymph % (Auto) 41.1 H (25-40) % Wilcox % (Auto) 5.4 (3-14) % Eos % (Auto) 4.5 H (2-4) % Baso % (Auto) 1.0 (0-2) % Neut # (Auto) 3500 (6865-2346) /uL Lymph # (Auto) 3000 (8296-6683) /uL Wilcox # (Auto) 400 (0-900) /uL Eos # (Auto) 300 (0-450) /uL Baso # (Auto) 100 (0-100) /uL Sodium 139 (137-145) mmol/L Potassium 4.2 (3.4-5.1) mmol/L Chloride 105 (98-107) mmol/L Carbon Dioxide 26 (22-32) mmol/L BUN 12 (7-17) mg/dL Creatinine 0.87 (0.52-1.04) mg/dL Estimated GFR > 60 (>60) mL/min BUN/Creatinine Ratio 13.8 (6-22) Glucose 99 (80-110) mg/dL Calcium 9.1 (8.4-10.2) mg/dL Total Bilirubin 0.7 (0.2-1.3) mg/dL AST 33 (14-36) IU/L ALT 27 (<35) IU/L Alkaline Phosphatase 66 (38-126) U/L Troponin I < 0.012 (0.01-0.034) ng/mL Total Protein 8.2 (6.3-8.2) g/dL Albumin 4.4 (3.5-5.0) g/dL Globulin 3.8 (1.7-4.1) g/dL Albumin/Globulin Ratio 1.2 (1.0-2.8) Discharge Plan Departure Patient Disposition: Home Clinical Impression: Fall Qualifiers: Encounter type: initial encounter Qualified Code(s): W19.XXXA - Unspecified fall, initial encounter Laceration of lip Qualifiers: Encounter type: initial encounter Qualified Code(s): S01.511A - Laceration without foreign body of lip, initial encounter Contusion of face Qualifiers: Encounter type: initial encounter Qualified Code(s): S00.83XA - Contusion of other part of head, initial encounter Closed head injury Qualifiers: Encounter type: initial encounter Qualified Code(s): S09.90XA - Unspecified injury of head, initial encounter Instructions: DI for Contusion Activity Restrictions/Additional Instructions: Dear Ms. Ramon, Thank you for coming to the emergency department today. Today you were evaluated for facial trauma after a fall. Labs and imaging were reassuring revealing no acute fractures. Please apply antibiotic ointment to the laceration on your face and rinse mouth frequently especially after eating to prevent any food particles from getting into your lip laceration. Please use cold compress or ice pack to ice the face and swelling for 15 minutes at least 4 times a day. Please return to the emergency department if you develop any new or worsening symptoms, severe headache, persistent vomiting or any concerns. Please follow up with your primary care doctor within the next 2-3 days for ER follow-up. (If you do not have a PCP you can call [phone]. ?to schedule an appointment with an [facility] Primary Care Provider) IF YOU DEVELOP ANY NEW OR WORSENING SYMPTOMS, RETURN TO THE ER! Please read the attached instructions, they highlight more specific treatments and interventions for you at home. Thank you for letting me participate in your care, Laura Bowles PA-C Prescriptions: No Action baclofen 10 mg tablet 10 mg PO BID diazepam 5 mg tablet See Rx Instructions PO .COMPLEX PRN (Reason: muscle spasm) Qty: 30 0RF Rx Instructions: 1 tablet nightly PRN naloxone [Narcan] 4 mg/actuation spray,non-aerosol 4 mg intranasal Q2M Qty: 2 0RF Rx Instructions: spray 1 dose into ONE nostril; alternate nostrils w each dose until help arrives zolpidem 5 mg tablet 5 mg PO BEDTIME PRN (Reason: Insomnia) nortriptyline 25 mg capsule 25 mg PO BEDTIME Qty: 30 1RF levothyroxine 100 mcg tablet 100 mcg PO DAILY Qty: 90 3RF pravastatin 10 mg tablet 10 mg PO BEDTIME Qty: 100 2RF nitrofurantoin monohyd/m-cryst 100 mg capsule 100 mg PO DAILY Qty: 90 1RF Rx Instructions: must administer with a meal/food oxycodone 5 mg tablet 5 mg PO Q12H PRN (Reason: pain) Qty: 60 0RF Rx Instructions: USUALLY ONCE TO TWICE A WEEK NEEDED PER PATIENT alendronate 70 mg tablet 70 mg PO QWEEK Qty: 12 3RF Rx Instructions: TAKES ON FRIDAYS duloxetine 60 mg capsule,delayed release(DR/EC) 120 mg PO DAILY Qty: 180 3RF Rx Instructions: Provider out of office until after new year. Unable to send new quantity amount. gabapentin 800 mg tablet 800 mg PO TID Qty: 90 3RF coenzyme Q10 [Co Q-10] 100 mg capsule 100 mg PO DAILY acetaminophen 325 mg capsule 500 mg PO BID ravulizumab-cwvz 100 mg/mL Solution IV Rx Instructions: patient is unclear what the actual dose of medication is. Florastor ADVANCED 250-62.5-30 mg capsule 2 cap PO BID Qty: 60 0RF Rx Instructions: Take 2 caps twice daily for 1 week, then 1 cap twice daily for a week, then 1 cap daily until gone Referrals: Lindsay Joel MD [Primary Care Provider] - Stand Alone Forms: Patient Portal/API/Survey ED Sign-out <Michele Chou MD - Last Filed: 11/27/24 05:22> Cosign ED Attending Cosignature Attestation: I was immediately available in the department for consultation. This documentation has been reviewed and I agree with assessment and plan. Supervised by Michele Chou MD
--- NOTE | 2024-11-26 18:12 | DI.CT.S_ITS ---
PROCEDURE: CT CERVICAL SPINE WO CON INDICATIONS: fall PAZ neck soreness possible syncope TECHNIQUE: Noncontrast 3 mm thick sections acquired from the skull base to the T4 level. Sagittal and coronal reformats were then constructed. For radiation dose reduction, the following was used: automated exposure control, adjustment of mA and/or kV according to patient size. COMPARISON: None. FINDINGS: Image quality: Excellent. Bones: No fractures or dislocations. Visualized superior ribs are intact. Straightening of the cervical lordosis. Mild multilevel intervertebral disc height loss, most conspicuous at C4-C5, C5-C6, and C6-C7. Endplate changes at multiple levels. Mild multilevel facet and uncinate arthropathy (5/35; 5/56). Grade 1 anterolisthesis of C7 on T1. Moderate foraminal stenosis at the right C3-C4 level (5/51). Soft tissues: Prevertebral soft tissues are normal in thickness. No paravertebral hematomas. No apical pneumothoraces. IMPRESSION: No acute CT abnormality of the cervical spine. Dictated by: Gray Johnson M.D. on 11/26/2024 at 19:11 Approved by: Gray Johnson M.D. on 11/26/2024 at 19:14
--- NOTE | 2024-11-26 18:12 | DI.CT.S_ITS ---
PROCEDURE: CT HEAD/BRAIN WO CON INDICATIONS: fall headache possible syncope TECHNIQUE: Noncontrast 4.5 mm thick angled axial sections acquired from the foramen magnum to the vertex, with coronal and sagittal reformats. For radiation dose reduction, the following was used: automated exposure control, adjustment of mA and/or kV according to patient size. COMPARISON: [facility], CT, CT HEAD/BRAIN WO CON, 02/29/2024, 1:44. [facility] With [facility], CT, CT HEAD/BRAIN WO CON, 05/16/2020, 19:37. [facility]ed With [facility], CT, CT HEAD/BRAIN WO CON, 08/01/2019, 10:59. FINDINGS: Image quality: Diagnostic. CSF spaces: Basal cisterns are patent. No extra-axial fluid collections. The ventricles are symmetric in size and shape. Brain: No intracranial bleeds or masses. There is cerebral volume loss for age, with resultant ventricular and sulcal prominence. There are periventricular and deep white matter chronic small vessel ischemic changes. There is intracranial internal carotid artery atherosclerosis. Skull and face: Calvarium and visualized facial bones appear intact, without suspicious lesions. Sinuses: Visualized sinuses and mastoids are clear. IMPRESSION: No acute intracranial pathology. Dictated by: Gray Johnson M.D. on 11/26/2024 at 18:38 Approved by: Gray Johnson M.D. on 11/26/2024 at 18:39
--- NOTE | 2024-11-26 18:14 | DI.RAD.S_ITS ---
PROCEDURE: XR CHEST 1V INDICATIONS: syncope TECHNIQUE: One view of the chest was acquired. COMPARISON: [facility], CR, XR CHEST 1V, 09/19/2024, 14:42. [facility], CR, XR CHEST 1V, 07/22/2024, 23:04. [facility], CR, XR CHEST 1V, 02/29/2024, 1:29. [facility], CR, XR CHEST 2V, 06/12/2019, 16:25. FINDINGS: Surgical changes and devices: Bilateral shoulder arthroplasties. Epigastric surgical clips. Lungs and pleura: Lungs are clear. No pleural effusions or pneumothorax. Mediastinum: Mediastinal contours appear normal. Heart size is normal. Bones and chest wall: Chronic, minimally displaced left 5th-7th lateral rib fractures. No suspicious bony lesions. Overlying soft tissues appear unremarkable. IMPRESSION: No acute cardiothoracic process. Dictated by: Gray Johnson M.D. on 11/26/2024 at 19:15 Approved by: Gray Johnson M.D. on 11/26/2024 at 19:17
[2024-11-26] MEDS: ACETAMINOPHEN 325 MG TABLET 975 MG PO (18:28)
[2024-11-26] MEDS: TET,DIPH,PERTUSS(ACELL),VAC/PF 0.5 ML SYRINGE IM (18:29)
[2024-11-26 18:58] LABS: Add Manual Diff / Slide Review NO; Basophils Absolute Auto 100 /uL (0-100); Eosinophils Absolute Auto 300 /uL (0-450); Eosinophils Percent Auto 4.5 % (2-4); Hematocrit 39.7 % (36-46); Hemoglobin 13.3 g/dL (12.0-16.0); Lymphocytes Absolute Auto 3000 /uL (1100-4500); Lymphocytes Percent Auto 41.1 % (25-40); Mean Corpuscular HGB Conc 33.5 % (30-36); Mean Corpuscular Hemoglobin 32.8 PG (26-34); Mean Corpuscular Volume 97.9 fL (80-100); Monocytes Absolute Auto 400 /uL (0-900); Monocytes Percent Auto 5.4 % (3-14); Neutrophils Absolute Auto 3500 /uL (1500-7000); Platelet Count 202 X10^3/uL (150-400); Red Blood Cell Count 4.05 X10^6/uL (4.0-5.2); Red Cell Distribution Width 13.6 % (11.6-14.8); White Blood Cell Count 7.2 X10^3/uL (4.5-11.0)
[2024-11-26 19:15] LABS: Alanine Aminotransferase 27 IU/L (<35); Albumin 4.4 g/dL (3.5-5.0); Albumin Globulin Ratio 1.2 (1.0-2.8); Alkaline Phosphatase 66 U/L (38-126); Aspartate Aminotransferase 33 IU/L (14-36); BUN Creatinine Ratio 13.8 (6-22); Bilirubin Total 0.7 mg/dL (0.2-1.3); Blood Urea Nitrogen 12 mg/dL (7-17); Calcium 9.1 mg/dL (8.4-10.2); Carbon Dioxide 26 mmol/L (22-32); Chloride 105 mmol/L (98-107); Estimated Glomerular Filt Rate > 60 mL/min (>60); Globulin 3.8 g/dL (1.7-4.1); Glucose 99 mg/dL (80-110); HEMOLYSIS 22 (0-50); Potassium 4.2 mmol/L (3.4-5.1); Sodium 139 mmol/L (137-145); Total Protein 8.2 g/dL (6.3-8.2)
--- NOTE | 2024-11-26 19:22 | EKG_ITS ---
[address] [address] Test Date: 2024-11-26 Pat Name: Jonna Ramon Department: [facility] Room: Gender: Female Surgical Aide: NATTY : 1950 Requested By: Order Number: [id number] Reading MD: Tank Gan MD Measurements Intervals [place] Rate: 69 P: 114 ND: 170 QRS: 76 QRSD: 76 T: 78 QT: 412 QTc: 441 Interpretive Statements Normal sinus rhythm Electronically Signed On 11-27-2024 6:51:04 PST by Tank Gan MD
[2024-11-26 19:26] LABS: Troponin I < 0.012 ng/mL (0.01-0.034)
--- NOTE | 2024-11-26 19:27 | EKG_ITS ---
[address] [address] Test Date: 2024-11-26 Pat Name: Jonna Ramon Department: [facility] Room: Gender: Female Sane Nurse: NATTY : 1950 Requested By: Order Number: [id number] Reading MD: Tank Gan MD Measurements Intervals [place] Rate: 69 P: 76 NE: 186 QRS: 66 QRSD: 74 T: 64 QT: 416 QTc: 445 Interpretive Statements Normal sinus rhythm Electronically Signed On 11-27-2024 6:51:05 PST by Tank Gan MD
[2024-11-26 20:11] VITALS: BP 126/71; PULSE 72; RESP 16; O2SAT 100
== END 2024-11-26 20:40 | disposition home or self-care (01) ==
PROVIDERS: Emergency Provider Physician Assistant; PCP Family Medicine
DX: S01.511A Laceration without foreign body of lip, initial encounter (principal); S01.81XA Laceration without foreign body of other part of head, initial encounter; R55 Syncope and collapse; G36.0 Neuromyelitis optica [Devic]; W18.30XA Fall on same level, unspecified, initial encounter; Z93.3 Colostomy status; Z23 Encounter for immunization
CPT/HCPCS: 36415; 70450; 70486; 71045; 72125; 80053; 84484; 85025; 90471; 93005; 93010; 99284; 99285; 90715

== ENCOUNTER 2024-12-24 17:22 | Emergency (ER) | payer MEDICARE, SELFPAY ==
[2024-09-19 16:32] VITALS: BMI 18.6
[2024-12-24 17:29] VITALS: BP 156/79; PULSE 79; RESP 17; TEMP 36.5; O2SAT 97; BMI 19.2
--- NOTE | 2024-12-24 18:04 | DI.CT.S_ITS ---
PROCEDURE: CT FACIAL BONES WO CON INDICATIONS: fall, eye and facial pain. TECHNIQUE: Noncontrast 2.5 mm thick axial images acquired from the mandible through the frontal sinuses, with coronal and sagittal reformatting. For radiation dose reduction, the following was used: automated exposure control, adjustment of mA and/or kV according to patient size. COMPARISON: [facility], CT, CT FACIAL BONES WO CON, 11/26/2024, 15:07. FINDINGS: Image quality: Excellent. Bones and teeth: Orbital vail are intact. Sinus vail show no fracture or deformity. Nasal bones and septum are intact. Visualized portions of the mandible demonstrate no fractures or subluxation. Zygomatic arches are intact. Pterygoid plates are intact. Visualized portions of the skull base and auditory canals are intact. Sinuses: Paranasal sinuses are aerated, without fluid levels, mucosal thickening, or mucoceles. Mastoid air cells are aerated. Soft tissues: No edema, masses, or fluid collections. No enlarged lymph nodes. No soft tissue lacerations or debris. Vascular: Visualized vascular structures appear normal in the absence of contrast. Bony vascular foramina and canals are intact. IMPRESSION: No visualized fracture. Dictated by: Sandy Diaz M.D. on 12/24/2024 at 19:43 Approved by: Sandy Diaz M.D. on 12/24/2024 at 19:44
--- NOTE | 2024-12-24 18:47 | DI.CT.S_ITS ---
PROCEDURE: CT HEAD/BRAIN WO CON INDICATIONS: fall TECHNIQUE: Noncontrast 4.5 mm thick angled axial sections acquired from the foramen magnum to the vertex, with coronal and sagittal reformats. For radiation dose reduction, the following was used: automated exposure control, adjustment of mA and/or kV according to patient size. COMPARISON: [facility], CT, CT HEAD/BRAIN WO CON, 11/26/2024, 18:18. FINDINGS: Image quality: Diagnostic. CSF spaces: Basal cisterns are patent. No extra-axial fluid collections. Ventricles are normal in size and shape. Brain: No midline shift. No intracranial masses or hemorrhage. No area of hypodensity in a large vascular distribution to suggest acute infarction. Periventricular hypodensity consistent with chronic microvascular ischemic change. Age-related parenchymal loss. Skull and face: Calvarium and visualized facial bones are intact, without suspicious lesions. Sinuses: Visualized sinuses and mastoids are clear. IMPRESSION: No acute intracranial pathology. Dictated by: Juan Miguel Hayward M.D. on 12/24/2024 at 19:20 Approved by: Juan Miguel Hayward M.D. on 12/24/2024 at 19:24
--- NOTE | 2024-12-24 19:17 | ED_ITS ---
HPI - Fall General Chief Complaint: Fall Stated Complaint: pain s/p fall 2 weeks ago Time Seen by Provider: 12/24/24 19:16 Source: patient Mode of arrival: Family Vehicle History of Present Illness HPI Narrative: patient is a 74-year-old female Past medical history of hypothyroidism neuromyelitis optica she states that she had a falls proximally 2 weeks ago she states that this was due to a violent a dream and threw herself out of bed, she states that she did bruise her left eye and has been having brain fog since then. she also states that she has been having worsening pain to her face on her left side therefore decided come into the ED for further evaluation treatment. She denies any headache visual disturbances chest pain shortness breath fever chills nausea vomiting abdominal pain or any other GI / symptoms time. She is not on any blood thinners at time of evaluation patient NIH of 0 no focal deficits. Related Data Home Medications Medication Instructions Recorded Confirmed acetaminophen 325 mg capsule 500 mg PO BID 08/18/19 11/30/24 coenzyme Q10 100 mg capsule (Co 100 mg PO DAILY 08/18/19 11/30/24 Q-10) baclofen 10 mg tablet 10 mg PO BID 01/10/24 11/30/24 zolpidem 5 mg tablet 5 mg PO BEDTIME PRN Insomnia 03/24/24 11/30/24 ravulizumab-cwvz 100 mg/mL mg IV 09/19/24 11/30/24 intravenous solution Previous Rx's Medication Instructions Recorded naloxone 4 mg/actuation nasal 4 mg intranasal Q2M #2 ea 10/01/23 spray (Narcan) levothyroxine 100 mcg tablet 100 mcg PO DAILY #90 tabs 12/26/23 pravastatin 10 mg tablet 10 mg PO BEDTIME #100 tabs 03/27/24 oxycodone 5 mg tablet 5 mg PO Q12H PRN pain #60 tabs 06/30/24 S.boulardii 250 mg-enzymes 62.5 2 cap PO BID #60 caps 07/26/24 ng-fcdxpf-eromitpidt-fennel capsule (Florastor ADVANCED) alendronate 70 mg tablet 70 mg PO QWEEK #12 tabs 09/15/24 duloxetine 60 mg capsule,delayed 120 mg (2 x 60 mg) PO DAILY #180 10/12/24 release caps gabapentin 800 mg tablet 800 mg PO TID #90 tabs 10/19/24 diazepam 5 mg tablet See Rx Instructions PO .COMPLEX 10/22/24 PRN muscle spasm #30 tabs quetiapine 25 mg tablet 25 mg PO BEDTIME #90 tabs 12/14/24 nitrofurantoin 100 mg PO DAILY #90 caps 12/22/24 monohydrate/macrocrystals 100 mg capsule Allergies Allergy/AdvReac Type Severity Reaction Status Date / Time buprenorphine AdvReac Intermediate edema in Verified 12/24/24 17:33 legs Review of Systems Review of Systems Narrative: General: Denies fever, chills, weight loss HEENT: positive Left facial pain with ecchymosis Cardiovascular: Denies any chest pain, palpitations, tachycardia Respiratory: Denies any shortness of breath, cough, wheeze, stridor GI/: Denies any abdominal pain, nausea, vomiting, diarrhea, bright red blood per rectum, melanotic stools, urinary frequency, urinary retention, dysuria, hematuria MSK: Denies any joint pain, muscle pains, swelling Skin: Denies any rashes, lesions, discoloration Neuro: Denies any headache, lightheadedness, dizziness, fainting, weakness Psych: Denies SI/HI Patient History Medical History Left leg DVT Frequent UTI Chronic pain Chronic pelvic pain in female Anxiety Postmenopausal atrophic vaginitis Renal cyst, acquired, left Surgical History History of intestinal surgery H/O breast biopsy H/O shoulder replacement H/O colectomy Family History Mother Heart attack UTI (urinary tract infection) Father Heart attack Social History marital status: number of children: 2 household members: spouse Smoking Status: Never smoker alcohol intake: current substance use type: does not use caffeine: Yes Smoking Status: Never smoker alcohol intake frequency: a few times a week Exam Narrative Exam Narrative: General: Cooperative, comfortable, well-developed, not in acute distress HEENT: patient with ecchymosis and mild tenderness to palpation of the left maxilla however no gross palpable step-offs, negative septal hematoma noted bilateral nares Neck: Active full range of motion, atraumatic Chest: Normal to inspection, negative crepitus, no overlying erythema ecchymosis Respiratory: Normal respiratory effort, not in acute respiratory distress, clear to auscultation bilaterally negative cough, wheeze, tachypnea, rhonchi, rales Cardiology: Regular rate rhythm negative gallop, murmur, rubs GI/: Normal to inspection, soft, nonrigid, no tenderness to palpation, exam deferred MSK: Full range of active range of motion of all 4 extremities, atraumatic Skin: No rashes lesions noted Neuro: Alert awake oriented x3, moves all 4 extremities spontaneously, cranial nerves intact, able to answer all questions appropriately follows commands appropriately Psych: Cooperative, negative suicidal or homicidal ideations Initial Vital Signs Initial Vital Signs: Vital Signs Temperature 97.7 F 12/24/24 17:29 Pulse Rate 79 12/24/24 17:29 Respiratory Rate 17 12/24/24 17:29 Blood Pressure 156/79 H 12/24/24 17:29 Pulse Oximetry 97 12/24/24 17:29 Oxygen Delivery Method Room Air 12/24/24 17:29 Course Orders Ordered: ED Orders 12/24/24 18:04 CT facial bones wo con Stat 12/24/24 18:47 CT head/brain wo con Stat Vital Signs Vital signs: Vital Signs - 8 hr 12/24/24 17:29 Temperature 97.7 F Pulse Rate 79 Respiratory Rate 17 Blood Pressure 156/79 H Pulse Oximetry 97 Oxygen Delivery Method Room Air MDM - Fall Differential Diagnosis Differential diagnosis: Likely other ( nasal bone fracture, maxillary fracture, closed head injury,) Imaging Data CT scan - head: Radiologist's Impression: [address] [address] [address] Scan Report Signed Patient: Jonna Ramon MR#: [id number] : 1950 Acct:[id number] Age/Sex: 74 / F Date of Service: 12/24/24 Loc: ED Accession Number: [id number] Procedure: CT head/brain wo con Ordering Provider: Benjamin Rosen D.O. PROCEDURE: CT HEAD/BRAIN WO CON INDICATIONS: fall TECHNIQUE: Noncontrast 4.5 mm thick angled axial sections acquired from the foramen magnum to the vertex, with coronal and sagittal reformats. For radiation dose reduction, the following was used: automated exposure control, adjustment of mA and/or kV according to patient size. COMPARISON: [facility], CT, CT HEAD/BRAIN WO CON, 11/26/2024, 18:18. FINDINGS: Image quality: Diagnostic. CSF spaces: Basal cisterns are patent. No extra-axial fluid collections. Ventricles are normal in size and shape. Brain: No midline shift. No intracranial masses or hemorrhage. No area of hypodensity in a large vascular distribution to suggest acute infarction. Periventricular hypodensity consistent with chronic microvascular ischemic change. Age-related parenchymal loss. Skull and face: Calvarium and visualized facial bones are intact, without suspicious lesions. Sinuses: Visualized sinuses and mastoids are clear. IMPRESSION: No acute intracranial pathology. CT facial bone: Radiologist's Impression: [address] [address] [address] Scan Report Signed Patient: Jonna Ramon MR#: [id number] : 1950 Acct:[id number] Age/Sex: 74 / F Date of Service: 12/24/24 Loc: ED Accession Number: [id number] Procedure: CT facial bones wo con Ordering Provider: Benjamin Rosen D.O. PROCEDURE: CT FACIAL BONES WO CON INDICATIONS: fall, eye and facial pain. TECHNIQUE: Noncontrast 2.5 mm thick axial images acquired from the mandible through the frontal sinuses, with coronal and sagittal reformatting. For radiation dose reduction, the following was used: automated exposure control, adjustment of mA and/or kV according to patient size. COMPARISON: [facility], CT, CT FACIAL BONES WO CON, 11/26/2024, 15:07. FINDINGS: Image quality: Excellent. Bones and teeth: Orbital vail are intact. Sinus vail show no fracture or deformity. Nasal bones and septum are intact. Visualized portions of the mandible demonstrate no fractures or subluxation. Zygomatic arches are intact. Pterygoid plates are intact. Visualized portions of the skull base and auditory canals are intact. Sinuses: Paranasal sinuses are aerated, without fluid levels, mucosal thick ening, or mucoceles. Mastoid air cells are aerated. Soft tissues: No edema, masses, or fluid collections. No enlarged lymph nodes. No soft tissue lacerations or debris. Vascular: Visualized vascular structures appear normal in the absence of contrast. Bony vascular foramina and canals are intact. IMPRESSION: No visualized fracture. MDM Narrative Medical decision making narrative: 74-year-old female with a history of neuromyelitis optica hypothyroidism comes into the ED from home for evaluation of facial pain, she states that she had a bad dream and threw herself out of her bed a proximally 2 weeks ago did note left eye bruising/cheek bruising but has had persistent pain to that area theref ore decided come into the ED for further evaluation treatment. Patient not on any blood thinners at time of evaluation no focal deficits NIH of 0. No septal hematoma noted on nasal exam. Patient had CT scan of the head and facial bones Without any acute fractures. patient to follow up with primary care in outpatient setting strict return precautions given patient verbalized understanding of this and agrees to being discharged home with outpatient follow up Discharge Plan Departure Patient Disposition: Home Clinical Impression: Closed head injury Instructions: DI for Closed Head Injury Activity Restrictions/Additional Instructions: please follow up with your primary care doctor Please read the discharge instructions sheet carefully and bring all papers to all doctor follow-up visits, as it may contain information that your doctor may want to see. Disease processes change and evolve, if your symptoms worsen or if you develop any new symptoms that are concerning to you please return for evaluation. Your evaluation today does not show any evidence of any life-threatening/serious illnesses requiring admission to the hospital or surgery. Please follow-up with your doctor for re-evaluation in approximately 1 day. Seek immediate medical attention for any worrisome symptoms. *If you do not have a primary care provider please contact the [facility] Resource line at [phone]. They will ask some questions about your medical history and help get you set up with a doctor in the community. Prescriptions: No Action baclofen 10 mg tablet 10 mg PO BID diazepam 5 mg tablet See Rx Instructions PO .COMPLEX PRN (Reason: muscle spasm) Qty: 30 0RF Rx Instructions: 1 tablet nightly PRN naloxone [Narcan] 4 mg/actuation spray,non-aerosol 4 mg intranasal Q2M Qty: 2 0RF Rx Instructions: spray 1 dose into ONE nostril; alternate nostrils w each dose until help arrives zolpidem 5 mg tablet 5 mg PO BEDTIME PRN (Reason: Insomnia) quetiapine 25 mg tablet 25 mg PO BEDTIME Qty: 90 3RF levothyroxine 100 mcg tablet 100 mcg PO DAILY Qty: 90 3RF pravastatin 10 mg tablet 10 mg PO BEDTIME Qty: 100 2RF oxycodone 5 mg tablet 5 mg PO Q12H PRN (Reason: pain) Qty: 60 0RF Rx Instructions: USUALLY ONCE TO TWICE A WEEK NEEDED PER PATIENT alendronate 70 mg tablet 70 mg PO QWEEK Qty: 12 3RF Rx Instructions: TAKES ON FRIDAYS duloxetine 60 mg capsule,delayed release(DR/EC) 120 mg PO DAILY Qty: 180 3RF Rx Instructions: Provider out of office until after new year. Unable to send new quantity amount. gabapentin 800 mg tablet 800 mg PO TID Qty: 90 3RF nitrofurantoin monohyd/m-cryst 100 mg capsule 100 mg PO DAILY Qty: 90 1RF Rx Instructions: must administer with a meal/food coenzyme Q10 [Co Q-10] 100 mg capsule 100 mg PO DAILY acetaminophen 325 mg capsule 500 mg PO BID ravulizumab-cwvz 100 mg/mL Solution IV Rx Instructions: patient is unclear what the actual dose of medication is. Florastor ADVANCED 250-62.5-30 mg capsule 2 cap PO BID Qty: 60 0RF Rx Instructions: Take 2 caps twice daily for 1 week, then 1 cap twice daily for a week, then 1 cap daily until gone Referrals: Lindsay Joel MD [Primary Care Provider] - Stand Alone Forms: Patient Portal/API/Survey
[2024-12-24 20:16] VITALS: BP 132/73; PULSE 88; RESP 19; O2SAT 94
== END 2024-12-24 20:18 | disposition home or self-care (01) ==
PROVIDERS: Emergency Provider Student in an Organized Health Care Education/Training Program; Family Provider Family Medicine; PCP Family Medicine
DX: S09.90XA Unspecified injury of head, initial encounter (principal); S00.83XA Contusion of other part of head, initial encounter; W06.XXXA Fall from bed, initial encounter
CPT/HCPCS: 70450; 70486; 99281; 99284

== ENCOUNTER → 2025-01-06 09:39 | Outpatient (CLI) | payer MEDICARE, SELFPAY ==
[2024-09-19 16:32] VITALS: BMI 18.6
[2025-01-06 10:44] LABS: Add Manual Diff / Slide Review NO; Basophils Absolute Auto 100 /uL (0-100); Eosinophils Absolute Auto 300 /uL (0-450); Eosinophils Percent Auto 5.5 % (2-4); Hematocrit 40.6 % (36-46); Hemoglobin 13.7 g/dL (12.0-16.0); Lymphocytes Absolute Auto 2700 /uL (1100-4500); Lymphocytes Percent Auto 50.9 % (25-40); Mean Corpuscular HGB Conc 33.8 % (30-36); Mean Corpuscular Hemoglobin 32.9 PG (26-34); Mean Corpuscular Volume 97.4 fL (80-100); Monocytes Absolute Auto 400 /uL (0-900); Monocytes Percent Auto 7.1 % (3-14); Neutrophils Absolute Auto 1900 /uL (1500-7000); Neutrophils Percent Auto 35.5 % (50-75); Platelet Count 179 X10^3/uL (150-400); Red Blood Cell Count 4.17 X10^6/uL (4.0-5.2); Red Cell Distribution Width 13.3 % (11.6-14.8); White Blood Cell Count 5.2 X10^3/uL (4.5-11.0)
[2025-01-06 11:00] LABS: Alanine Aminotransferase 21 IU/L (<35); Albumin 4.5 g/dL (3.5-5.0); Albumin Globulin Ratio 1.3 (1.0-2.8); Alkaline Phosphatase 61 U/L (38-126); Aspartate Aminotransferase 27 IU/L (14-36); BUN Creatinine Ratio 15.5 (6-22); Blood Urea Nitrogen 15 mg/dL (7-17); Calcium 9.5 mg/dL (8.4-10.2); Carbon Dioxide 24 mmol/L (22-32); Chloride 107 mmol/L (98-107); Estimated Glomerular Filt Rate > 60 mL/min (>60); Globulin 3.4 g/dL (1.7-4.1); Glucose 98 mg/dL (80-110); HEMOLYSIS < 15 (0-50); Potassium 4.3 mmol/L (3.4-5.1); Sodium 142 mmol/L (137-145); Total Protein 7.9 g/dL (6.3-8.2)
[2025-01-06 11:29] LABS: Cortisol AM (Before 10AM) 15.8 ug/dL (4.46-22.7)
[2025-01-06 11:30] LABS: TSH w/ Reflex to FT4 0.49 uIU/mL (0.47-4.68)
[2025-01-06 11:33] LABS: Ferritin 48 ng/mL (11-264)
== END ==
LOC: LAB 09:40
PROVIDERS: Family Provider Family Medicine; PCP Family Medicine; Referring Provider Family Medicine; Visit Provider Family Medicine
DX: G47.9 Sleep disorder, unspecified (principal); Z86.39 Personal history of other endocrine, nutritional and metabolic disease; E03.9 Hypothyroidism, unspecified; G47.52 REM sleep behavior disorder; D84.9 Immunodeficiency, unspecified
CPT/HCPCS: 36415; 80053; 82533; 82728; 84443; 85025

== ENCOUNTER 2025-02-08 15:15 | Outpatient (RCR) | payer MEDICARE, SELFPAY ==
[2024-09-19 16:32] VITALS: BMI 18.6
--- NOTE | 2025-01-01 16:47 | PT.OIE ---
Current Diagnoses Unsteadiness on feet (01/01/25) Weakness (01/01/25) Unspecified injury of head, subsequent encounter (01/01/25) Unspecified fall, subsequent encounter (01/01/25) Past Medical History (Last Reviewed 11/26/24 @ 21:22 by Laura Bowles PA-C) Anxiety Chronic pain Chronic pelvic pain in female Frequent UTI Left leg DVT Postmenopausal atrophic vaginitis Renal cyst, acquired, left Past Surgical History (Last Reviewed 11/26/24 @ 21:22 by Laura Bowles PA-C) H/O breast biopsy H/O colectomy H/O shoulder replacement History of intestinal surgery Visit Care Team Role Provider Type Lindsay Joel MD Attending Provider Physician Family Provider Primary Care Provider Referring Provider Specialty: 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 Physical Therapy Initial Evaluation PT-OP-A Visit Information Start: 01/01/25 16:15 Freq: Status: Active Protocol: Document 01/01/25 14:35 DCW (Rec: 01/01/25 16:29 DCW [id number]) Out-Patient Physical Therapy Visit Information Visit Information Visit Type Initial Evaluation Visit Start Time 14:35 Visit Stop Time 15:15 Visit Number 1 Number of BIZTALK DEVELOPER Visits 0 Evaluation Information Evaluation Date 01/01/25 PT-OP-B Current Condition Start: 01/01/25 16:15 Freq: Status: Active Protocol: Document 01/01/25 14:35 DCW (Rec: 01/01/25 16:29 DCW [id number]) Current Condition History of Current Condition Onset Date December 12 Current Complaints Weakness, decreased balance, decreased activity tolerance History of Current Condition Pt is a 74 year old female presenting with a severely complex medical history. Pt attending PT due to multiple recent falls. Pt notes that her fall on 12/12/24 was caused by having a dream about baseball, she dove for the ball, and ended up lunging out of bed and hitting her head on the night stand. Notes her other recent falls have been much more traditional falls when up walking around. Pt enjoys walking in the [place], but notes her falls have been bad enough recently she was told by her PCP to stop walking outdoors until her balance improves. Notes her face, mouth, and nose are all still pretty sore since her last two falls. 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 Pt has been through a lot of medical treatment, including stem cells, research studies, and chemo infusion, as well as 10 years of PT, and is to the point where she can ambulate unassisted, unfortunately her NMOSD has also caused a lot of internal issues, resulting in pt undergoing a colostomy and multiple abdominal surgeries, which has left her with constant pain in this entire area (indicates entire trunk, shoulders to hips). Has been hospitalized multiple times recently, in August last year with pneumonia, and again a month later due to a GI blockage. Due to pt's infusions and stem cell therapy for NMOSD, does have decreased immune response. Notes bilateral LE neuropathy, a fairly constant buzzing, tingling, and burning in her feet. Treatment Goals Patient/Caregiver Goals Build up strength, alleviate pain, improve balance PT-OP-C Subjective Start: 01/01/25 16:15 Freq: Status: Active Protocol: Document 01/01/25 14:35 DCW (Rec: 01/01/25 16:29 DCW [id number]) OP-PT Subjective Patient Comments Patient Comments I've got a lot going on, I'm in terrible pain most of the time. PT-OP-E Functional Tests Start: 01/01/25 16:29 Freq: Status: Active Protocol: Document 01/01/25 14:35 DCW (Rec: 01/01/25 16:47 DCW [id number]) Functional Tests Dynamic Gait Index (DGI) Score 16/24 DGI Impairment Rating 20 to <40% Impaired (Score 15- 19) PT-OP-M Strength Start: 01/01/25 16:29 Freq: Status: Active Protocol: Document 01/01/25 14:35 DCW (Rec: 01/01/25 16:47 DCW [id number]) Hip Strength Hip Manual Muscle Testing Right Flexion (L2) 4 Good Abduction 4 Good Adduction 4- Good- External Rotation 4- Good- Internal Rotation 4 Good Left Flexion (L2) 4 Good Abduction 4 Good Adduction 4- Good- External Rotation 4- Good- Internal Rotation 4 Good Knee Strength Knee Manual Muscle Testing Right Flexion (S2) 4- Good- Extension (L3) 4+ Good+ Left Flexion (S2) 4- Good- Extension (L3) 4+ Good+ Ankle/Foot Strength Ankle and Foot Manual Muscle Testing Right Dorsiflexion (L4) 4 Good Left Dorsiflexion (L4) 4 Good PT-OP-T Assessment and Plan Start: 01/01/25 16:29 Freq: Status: Active Protocol: Document 01/01/25 14:35 DCW (Rec: 01/01/25 16:47 DCW [id number]) Physical Therapy Assessment Rehab Potential Rehabilitation Potential Fair Evaluation Complexity Number of Personal Factors/Comorbidities 3 or More Number of Body Systems Impaired 4 or More Clinical Presentation at Evaluation Unstable Impairments Impairments Activity Tolerance,Balance, Functional Activities, Functional Mobility,Gait, Posture,Soft Tissue Mobility, Strength,Tone Goals Three Impairment LE MMT indicates weakness in hip adduction, ER, and knee flexion Penitentiary Goal (LTG) Bilateral LE MMT to improve to at least 4/5 in all planes in order to demonstrate improvement in LE strength and improved functional mobility LTG Duration 04/01/25 Two Impairment Pt presents as an increased falls risk, per DGI score (16 24) Penitentiary Goal (LTG) Pt to increase DGI score by at least four points to 20/24 in order to demonstrate decreased falls risk and indicate increase in safety walking in [place] LTG Duration 04/01/25 One Impairment Pt does not have an appropriate home exercise program Short Term Goal (STG) Pt to be independent and compliant with an appropriate HEP STG Duration 02/01/25 Assessment Summary Assessment Pt presents with signs and symptoms consistent with referring diagnosis, complicated by highly complex medical history. Fall history, as well as DGI testing, indicates increased falls risk , and LE MMT shows some bilateral weakness. Pt does struggle some with abdominal bracing, likely secondary to multiple abdominal surgeries, which limits ability to brace herself in standing. Pt will likely benefit from skilled therapeutic intervention focusing on core and LE strengthening, balance training, gait training, AD use, and improved activity tolerance. Physical Therapy Plan Frequency and Duration Frequency of Treatment 2x/Week Plan of Care Start Date 01/01/25 Plan of Care End Date 04/01/25 Therapeutic Interventions Therapeutic Interventions Balance Training,Canalithic Repositioning,Coordination Training,Gait Training,Home Exercise Program,Joint Mobilizations,Manual Therapy, Neuromuscular Re-education, Patient/Caregiver Education, Self-Care/Home Management,Soft Tissue Mobilization, Therapeutic Activities, Therapeutic Exercises Next Visit Focus/Plan Next Note Type Treatment Note Next Visit Plan LE strengthening, core strengthening, activity tolerance, balance challenges
--- NOTE | 2025-01-04 15:14 | PT.OTN ---
Current Diagnoses Unsteadiness on feet (01/04/25) Weakness (01/04/25) Unspecified injury of head, subsequent encounter (01/04/25) Unspecified fall, subsequent encounter (01/04/25) Physical Therapy Treatment Note PT-OP-A Visit Information Start: 01/01/25 16:15 Freq: Status: Active Protocol: Document 01/04/25 14:30 DCW (Rec: 01/04/25 15:14 DCW [id number]) Out-Patient Physical Therapy Visit Information Visit Information Visit Type Treatment Note Visit Start Time 14:30 Visit Stop Time 15:15 Visit Number 2 Number of HEAD OF GLOBAL STRATEGIC PARTNERSHIPS Visits 0 Evaluation Information Evaluation Date 01/01/25 PT-OP-B Current Condition Start: 01/01/25 16:15 Freq: Status: Active Protocol: Document 01/01/25 14:35 DCW (Rec: 01/01/25 16:29 DCW [id number]) Current Condition History of Current Condition Onset Date December 12 Current Complaints Weakness, decreased balance, decreased activity tolerance History of Current Condition Pt is a 74 year old female presenting with a severely complex medical history. Pt attending PT due to multiple recent falls. Pt notes that her fall on 12/12/24 was caused by having a dream about baseball, she dove for the ball, and ended up lunging out of bed and hitting her head on the night stand. Notes her other recent falls have been much more traditional falls when up walking around. Pt enjoys walking in the [place], but notes her falls have been bad enough recently she was told by her PCP to stop walking outdoors until her balance improves. Notes her face, mouth, and nose are all still pretty sore since her last two falls. 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 Pt has been through a lot of medical treatment, including stem cells, research studies, and chemo infusion, as well as 10 years of PT, and is to the point where she can ambulate unassisted, unfortunately her NMOSD has also caused a lot of internal issues, resulting in pt undergoing a colostomy and multiple abdominal surgeries, which has left her with constant pain in this entire area (indicates entire trunk, shoulders to hips). Has been hospitalized multiple times recently, in August last year with pneumonia, and again a month later due to a GI blockage. Due to pt's infusions and stem cell therapy for NMOSD, does have decreased immune response. Notes bilateral LE neuropathy, a fairly constant buzzing, tingling, and burning in her feet. Treatment Goals Patient/Caregiver Goals Build up strength, alleviate pain, improve balance PT-OP-C Subjective Start: 01/01/25 16:15 Freq: Status: Active Protocol: Document 01/04/25 14:30 DCW (Rec: 01/04/25 15:14 DCW [id number]) OP-PT Subjective Patient Comments Patient Comments Pt notes she is having some pain, but that's my normal. PT-OP-E Functional Tests Start: 01/01/25 16:29 Freq: Status: Active Protocol: Document 01/01/25 14:35 DCW (Rec: 01/01/25 16:47 DCW [id number]) Functional Tests Dynamic Gait Index (DGI) Score 1624 DGI Impairment Rating 20 to <40% Impaired (Score 15- 19) PT-OP-M Strength Start: 01/01/25 16:29 Freq: Status: Active Protocol: Document 01/01/25 14:35 DCW (Rec: 01/01/25 16:47 DCW [id number]) Hip Strength Hip Manual Muscle Testing Right Flexion (L2) 4 Good Abduction 4 Good Adduction 4- Good- External Rotation 4- Good- Internal Rotation 4 Good Left Flexion (L2) 4 Good Abduction 4 Good Adduction 4- Good- External Rotation 4- Good- Internal Rotation 4 Good Knee Strength Knee Manual Muscle Testing Right Flexion (S2) 4- Good- Extension (L3) 4+ Good+ Left Flexion (S2) 4- Good- Extension (L3) 4+ Good+ Ankle/Foot Strength Ankle and Foot Manual Muscle Testing Right Dorsiflexion (L4) 4 Good Left Dorsiflexion (L4) 4 Good PT-OP-Q Treatments Start: 01/01/25 16:29 Freq: Status: Active Protocol: Document 01/04/25 14:30 DCW (Rec: 01/04/25 15:14 DCW [id number]) Gym Equipment Therapeutic Ball LTR Exercise Details LTR Ball Size/Color Blue - 45 cm Therapeutic Exercises Supine Exercises Marching Supine Exercise Name PPT /c Marching PPT Supine Exercise Name PPT /c TrA bracing Standing Exercises Pallof Press Standing Exercise Name Pallof Press Side bilateral Resistance Green Neuro Re-Education Treatment Balance Activities SLS Details SLS Equipment @ rail Tandem Details Tandem Stance Equipment @ rail PT-OP-T Assessment and Plan Start: 01/01/25 16:29 Freq: Status: Active Protocol: Document 01/04/25 14:30 DCW (Rec: 01/04/25 15:14 DCW [id number]) Physical Therapy Assessment Impairments Impairments Activity Tolerance,Balance, Functional Activities, Functional Mobility,Gait, Posture,Soft Tissue Mobility, Strength,Tone Goals Three Impairment LE MMT indicates weakness in hip adduction, ER, and knee flexion Usp Goal (LTG) Bilateral LE MMT to improve to at least 4/5 in all planes in order to demonstrate improvement in LE strength and improved functional mobility LTG Duration 04/01/25 Two Impairment Pt presents as an increased falls risk, per DGI score () Usp Goal (LTG) Pt to increase DGI score by at least four points to in order to demonstrate decreased falls risk and indicate increase in safety walking in [place] LTG Duration 04/01/25 One Impairment Pt does not have an appropriate home exercise program Short Term Goal (STG) Pt to be independent and compliant with an appropriate HEP STG Duration 02/01/25 Assessment Summary Assessment Pt tolerated treatment well, noted feeling decent muscle contraction of abdominals. Did struggle when additional steps, like supine marching, was added. Did well with start of balance challenges. Continue to focus on strengthening and stability. Physical Therapy Plan Frequency and Duration Frequency of Treatment 2x/Week Plan of Care Start Date 01/01/25 Plan of Care End Date 04/01/25 Therapeutic Interventions Therapeutic Interventions Balance Training,Canalithic Repositioning,Coordination Training,Gait Training,Home Exercise Program,Joint Mobilizations,Manual Therapy, Neuromuscular Re-education, Patient/Caregiver Education, Self-Care/Home Management,Soft Tissue Mobilization, Therapeutic Activities, Therapeutic Exercises Next Visit Focus/Plan Next Note Type Treatment Note Next Visit Plan LE strengthening, core strengthening, activity tolerance, balance challenges
--- NOTE | 2025-01-07 14:37 | PT.OTN ---
Current Diagnoses Unsteadiness on feet (01/07/25) Weakness (01/07/25) Unspecified injury of head, subsequent encounter (01/07/25) Unspecified fall, subsequent encounter (01/07/25) Physical Therapy Treatment Note PT-OP-A Visit Information Start: 01/01/25 16:15 Freq: Status: Active Protocol: Document 01/07/25 13:49 DCW (Rec: 01/07/25 14:36 DCW [id number]) Out-Patient Physical Therapy Visit Information Visit Information Visit Type Treatment Note Visit Start Time 13:49 Visit Stop Time 14:30 Visit Number 3 Number of ETHICS MANAGER Visits 0 Evaluation Information Evaluation Date 01/01/25 PT-OP-B Current Condition Start: 01/01/25 16:15 Freq: Status: Active Protocol: Document 01/01/25 14:35 DCW (Rec: 01/01/25 16:29 DCW [id number]) Current Condition History of Current Condition Onset Date December 12 Current Complaints Weakness, decreased balance, decreased activity tolerance History of Current Condition Pt is a 74 year old female presenting with a severely complex medical history. Pt attending PT due to multiple recent falls. Pt notes that her fall on 12/12/24 was caused by having a dream about baseball, she dove for the ball, and ended up lunging out of bed and hitting her head on the night stand. Notes her other recent falls have been much more traditional falls when up walking around. Pt enjoys walking in the [place], but notes her falls have been bad enough recently she was told by her PCP to stop walking outdoors until her balance improves. Notes her face, mouth, and nose are all still pretty sore since her last two falls. 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 Pt has been through a lot of medical treatment, including stem cells, research studies, and chemo infusion, as well as 10 years of PT, and is to the point where she can ambulate unassisted, unfortunately her NMOSD has also caused a lot of internal issues, resulting in pt undergoing a colostomy and multiple abdominal surgeries, which has left her with constant pain in this entire area (indicates entire trunk, shoulders to hips). Has been hospitalized multiple times recently, in August last year with pneumonia, and again a month later due to a GI blockage. Due to pt's infusions and stem cell therapy for NMOSD, does have decreased immune response. Notes bilateral LE neuropathy, a fairly constant buzzing, tingling, and burning in her feet. Treatment Goals Patient/Caregiver Goals Build up strength, alleviate pain, improve balance PT-OP-C Subjective Start: 01/01/25 16:15 Freq: Status: Active Protocol: Document 01/07/25 13:49 DCW (Rec: 01/07/25 14:36 DCW [id number]) OP-PT Subjective Patient Comments Patient Comments Pt notes she was a little sore following last visit, but feeling alright now. PT-OP-E Functional Tests Start: 01/01/25 16:29 Freq: Status: Active Protocol: Document 01/01/25 14:35 DCW (Rec: 01/01/25 16:47 DCW [id number]) Functional Tests Dynamic Gait Index (DGI) Score 16/24 DGI Impairment Rating 20 to <40% Impaired (Score 15- 19) PT-OP-M Strength Start: 01/01/25 16:29 Freq: Status: Active Protocol: Document 01/01/25 14:35 DCW (Rec: 01/01/25 16:47 DCW [id number]) Hip Strength Hip Manual Muscle Testing Right Flexion (L2) 4 Good Abduction 4 Good Adduction 4- Good- External Rotation 4- Good- Internal Rotation 4 Good Left Flexion (L2) 4 Good Abduction 4 Good Adduction 4- Good- External Rotation 4- Good- Internal Rotation 4 Good Knee Strength Knee Manual Muscle Testing Right Flexion (S2) 4- Good- Extension (L3) 4+ Good+ Left Flexion (S2) 4- Good- Extension (L3) 4+ Good+ Ankle/Foot Strength Ankle and Foot Manual Muscle Testing Right Dorsiflexion (L4) 4 Good Left Dorsiflexion (L4) 4 Good PT-OP-Q Treatments Start: 01/01/25 16:29 Freq: Status: Active Protocol: Document 01/07/25 13:49 DCW (Rec: 01/07/25 14:36 DCW [id number]) Gym Equipment Therapeutic Ball Pelvic Tilts Exercise Details Pelvic Tilts/Circles Ball Size/Color Green - 65 cm Therapeutic Exercises Supine Exercises Bridging Supine Exercise Name Bridging Comments VCs for glute contraction, decrease use of hamstring SLR Supine Exercise Name SLR /c TrA bracing Side bilateral Reps/Minutes 5 hold PPT Supine Exercise Name PPT /c TrA bracing Standing Exercises Hip Extension Standing Exercise Name Hip Extension Side bilateral Resistance Lv 2 Loop Other Exercises Resisted Ambulation Other Exercise Name Resisted Ambulation Resistance Lv 2 Loop PT-OP-T Assessment and Plan Start: 01/01/25 16:29 Freq: Status: Active Protocol: Document 01/07/25 13:49 DCW (Rec: 01/07/25 14:36 DCW [id number]) Physical Therapy Assessment Impairments Impairments Activity Tolerance,Balance, Functional Activities, Functional Mobility,Gait, Posture,Soft Tissue Mobility, Strength,Tone Goals Three Impairment LE MMT indicates weakness in hip adduction, ER, and knee flexion Hand Hardener Goal (LTG) Bilateral LE MMT to improve to at least 4/5 in all planes in order to demonstrate improvement in LE strength and improved functional mobility LTG Duration 04/01/25 Two Impairment Pt presents as an increased falls risk, per DGI score () Skilled Nursing Goal (LTG) Pt to increase DGI score by at least four points to 20/24 in order to demonstrate decreased falls risk and indicate increase in safety walking in [place] LTG Duration 04/01/25 One Impairment Pt does not have an appropriate home exercise program Short Term Goal (STG) Pt to be independent and compliant with an appropriate HEP STG Duration 02/01/25 Assessment Summary Assessment Significant improvement with abdominal bracing today, much better muscle contraction. Noted some muscle soreness with band exercises today, but felt it was a good thing. continue to focus on core strengthening, activity tolerance, and functional mobility. Physical Therapy Plan Frequency and Duration Frequency of Treatment 2x/Week Plan of Care Start Date 01/01/25 Plan of Care End Date 04/01/25 Therapeutic Interventions Therapeutic Interventions Balance Training,Canalithic Repositioning,Coordination Training,Gait Training,Home Exercise Program,Joint Mobilizations,Manual Therapy, Neuromuscular Re-education, Patient/Caregiver Education, Self-Care/Home Management,Soft Tissue Mobilization, Therapeutic Activities, Therapeutic Exercises Next Visit Focus/Plan Next Note Type Treatment Note Next Visit Plan LE strengthening, core strengthening, activity tolerance, balance challenges
--- NOTE | 2025-01-13 17:24 | PT-OP ANOTE ---
Patient reports she is not having a good day. Comments she doesn't think she needs to be here. Patient reports came here because she is charged 50 if she doesn't come and 35 if she does come so she came in, but doesn't feel she can do exercise due to pain. Nolvia reports pain face and middle ( gestures to ant trunk )Rates pain 5/10 (Strong when given pain scale. ) Patient repeats she is in too much pain to exercise today. Session cancelled due to reports of too much pain to participate.
--- NOTE | 2025-01-20 16:12 | PT.OTN ---
Current Diagnoses Unsteadiness on feet (01/20/25) Weakness (01/20/25) Unspecified injury of head, subsequent encounter (01/20/25) Unspecified fall, subsequent encounter (01/20/25) Physical Therapy Treatment Note PT-OP-A Visit Information Start: 01/01/25 16:15 Freq: Status: Active Protocol: Document 01/20/25 15:06 AB (Rec: 01/20/25 16:12 AB Laptop) Out-Patient Physical Therapy Visit Information Visit Information Visit Type Treatment Note Visit Start Time 15:18 Visit Stop Time 16:03 Visit Number 4 Number of WEAVER NARROW [employer]ABRICS Visits 1 PT-OP-B Current Condition Start: 01/01/25 16:15 Freq: Status: Active Protocol: Document 01/01/25 14:35 DCW (Rec: 01/01/25 16:29 DCW [id number]) Current Condition History of Current Condition Onset Date December 12 Current Complaints Weakness, decreased balance, decreased activity tolerance History of Current Condition Pt is a 74 year old female presenting with a severely complex medical history. Pt attending PT due to multiple recent falls. Pt notes that her fall on 12/12/24 was caused by having a dream about baseball, she dove for the ball, and ended up lunging out of bed and hitting her head on the night stand. Notes her other recent falls have been much more traditional falls when up walking around. Pt enjoys walking [place] the [place], but notes her falls have been bad enough recently she was told by her PCP to stop walking outdoors until her balance improves. Notes her face, mouth, and nose are all still pretty sore since her last two falls. 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 Pt has been through a lot of medical treatment, including stem cells, research studies, and chemo infusion, as well as 10 years of PT, and is to the point where she can ambulate unassisted, unfortunately her NMOSD has also caused a lot of internal issues, resulting in pt undergoing a colostomy and multiple abdominal surgeries, which has left her with constant pain in this entire area (indicates entire trunk, shoulders to hips). Has been hospitalized multiple times recently, in August last year with pneumonia, and again a month later due to a GI blockage. Due to pt's infusions and stem cell therapy for NMOSD, does have decreased immune response. Notes bilateral LE neuropathy, a fairly constant buzzing, tingling, and burning in her feet. Treatment Goals Patient/Caregiver Goals Build up strength, alleviate pain, improve balance PT-OP-C Subjective Start: 01/01/25 16:15 Freq: Status: Active Protocol: Document 01/20/25 15:06 AB (Rec: 01/20/25 16:12 AB Laptop) OP-PT Subjective Patient Comments Patient Comments Patient reports she is the same. Patient reports able to perform exercises from PT. Patient rates trunk pain4/10 ant and posterior. 10 SEC r le 8 SECL l le w/o UE use, SLS w post glute med activation L LE 13 sec SLS PT-OP-E Functional Tests Start: 01/01/25 16:29 Freq: Status: Active Protocol: Document 01/01/25 14:35 DCW (Rec: 01/01/25 16:47 DCW [id number]) Functional Tests Dynamic Gait Index (DGI) Score 16/24 DGI Impairment Rating 20 to <40% Impaired (Score 15- 19) PT-OP-M Strength Start: 01/01/25 16:29 Freq: Status: Active Protocol: Document 01/01/25 14:35 DCW (Rec: 01/01/25 16:47 DCW [id number]) Hip Strength Hip Manual Muscle Testing Right Flexion (L2) 4 Good Abduction 4 Good Adduction 4- Good- External Rotation 4- Good- Internal Rotation 4 Good Left Flexion (L2) 4 Good Abduction 4 Good Adduction 4- Good- External Rotation 4- Good- Internal Rotation 4 Good Knee Strength Knee Manual Muscle Testing Right Flexion (S2) 4- Good- Extension (L3) 4+ Good+ Left Flexion (S2) 4- Good- Extension (L3) 4+ Good+ Ankle/Foot Strength Ankle and Foot Manual Muscle Testing Right Dorsiflexion (L4) 4 Good Left Dorsiflexion (L4) 4 Good PT-OP-Q Treatments Start: 01/01/25 16:29 Freq: Status: Active Protocol: Document 01/20/25 15:06 AB (Rec: 01/20/25 16:12 AB Laptop) Therapeutic Exercises Supine Exercises breathing from diaphragm Supine Exercise Name in modified restorative pose Equipment Used HEP Reps/Minutes 2 min Comments verbal cues SLR Supine Exercise Name SLR /c TrA bracing Side bilateral Reps/Minutes 5 hold X 5 PPT Supine Exercise Name PPT /c TrA bracing Reps/Minutes 5 sec X 8 Sitting Exercises seated hip abd with band Side bilateral Resistance level 2 band Reps/Minutes one min X 1 Comments HEP breathing from diaphragm Sitting Exercise Name 2 pillows on lap Equipment Used HEP Reps/Minutes 2 min Comments verbal cues Standing Exercises sit to stand Reps/Minutes X 5 Comments VC knees just pat 90 deg and feet shoulder width apart Hip Extension Standing Exercise Name Hip Extension Side bilateral Resistance level one at whaley Reps/Minutes X 10 each LE Comments Verbal cues for limited range Neuro Re-Education Treatment Balance Activities Balloon volley Details CGA in // bars, narrow RODNEY and mod tandem Reps/Duration 3 min SLS Details SLS Equipment CGA Comments X 2 and then X 1 each LE PT-OP-T Assessment and Plan Start: 01/01/25 16:29 Freq: Status: Active Protocol: Document 01/20/25 15:06 AB (Rec: 01/20/25 16:12 AB Laptop) Physical Therapy Assessment Goals Three Impairment LE MMT indicates weakness in hip adduction, ER, and knee flexion Formal Wear Rental Clerk Goal (LTG) Bilateral LE MMT to improve to at least 4/5 in all planes in order to demonstrate improvement in LE strength and improved functional mobility LTG Duration 04/01/25 Two Impairment Pt presents as an increased falls risk, per DGI score (16/ 24) Formal Wear Rental Clerk Goal (LTG) Pt to increase DGI score by at least four points to 20/24 in order to demonstrate decreased falls risk and indicate increase in safety walking in [place] LTG Duration 04/01/25 One Impairment Pt does not have an appropriate home exercise program Short Term Goal (STG) Pt to be independent and compliant with an appropriate HEP STG Duration 02/01/25 Assessment Summary Assessment Nolvia reports pain is the same end of session, and does feel a little more soreness in the hips end of session. Significant increase in SLS post glute med activation. Physical Therapy Plan Frequency and Duration Frequency of Treatment 2x/Week Plan of Care Start Date 01/01/25 Plan of Care End Date 04/01/25 Next Visit Focus/Plan Next Note Type Treatment Note Next Visit Plan LE strengthening, core strengthening, activity tolerance, balance challenges
--- NOTE | 2025-01-25 16:59 | PT.OTN ---
Current Diagnoses Unsteadiness on feet (01/25/25) Weakness (01/25/25) Unspecified injury of head, subsequent encounter (01/25/25) Unspecified fall, subsequent encounter (01/25/25) Physical Therapy Treatment Note PT-OP-A Visit Information Start: 01/01/25 16:15 Freq: Status: Active Protocol: Document 01/25/25 16:17 DCW (Rec: 01/25/25 16:58 DCW [id number]) Out-Patient Physical Therapy Visit Information Visit Information Visit Type Treatment Note Visit Start Time 16:17 Visit Stop Time 17:00 Visit Number 5 Number of MEAT SLICER Visits 0 Evaluation Information Evaluation Date 01/01/25 PT-OP-B Current Condition Start: 01/01/25 16:15 Freq: Status: Active Protocol: Document 01/01/25 14:35 DCW (Rec: 01/01/25 16:29 DCW [id number]) Current Condition History of Current Condition Onset Date December 12 Current Complaints Weakness, decreased balance, decreased activity tolerance History of Current Condition Pt is a 74 year old female presenting with a severely complex medical history. Pt attending PT due to multiple recent falls. Pt notes that her fall on 12/12/24 was caused by having a dream about baseball, she dove for the ball, and ended up lunging out of bed and hitting her head on the night stand. Notes her other recent falls have been much more traditional falls when up walking around. Pt enjoys walking in the [place], but notes her falls have been bad enough recently she was told by her PCP to stop walking outdoors until her balance improves. Notes her face, mouth, and nose are all still pretty sore since her last two falls. 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 Pt has been through a lot of medical treatment, including stem cells, research studies, and chemo infusion, as well as 10 years of PT, and is to the point where she can ambulate unassisted, unfortunately her NMOSD has also caused a lot of internal issues, resulting in pt undergoing a colostomy and multiple abdominal surgeries, which has left her with constant pain in this entire area (indicates entire trunk, shoulders to hips). Has been hospitalized multiple times recently, in August last year with pneumonia, and again a month later due to a GI blockage. Due to pt's infusions and stem cell therapy for NMOSD, does have decreased immune response. Notes bilateral LE neuropathy, a fairly constant buzzing, tingling, and burning in her feet. Treatment Goals Patient/Caregiver Goals Build up strength, alleviate pain, improve balance PT-OP-C Subjective Start: 01/01/25 16:15 Freq: Status: Active Protocol: Document 01/25/25 16:17 DCW (Rec: 01/25/25 16:58 DCW [id number]) OP-PT Subjective Patient Comments Patient Comments Pt admits her life has been very stressful recently, unsure if it impacts her pain, but it doesn't help. Is more optimistic about therapy, but has out of town visitors coming, so canceled her next two appointments. PT-OP-E Functional Tests Start: 01/01/25 16:29 Freq: Status: Active Protocol: Document 01/01/25 14:35 DCW (Rec: 01/01/25 16:47 DCW [id number]) Functional Tests Dynamic Gait Index (DGI) Score 16/24 DGI Impairment Rating 20 to <40% Impaired (Score 15- 19) PT-OP-M Strength Start: 01/01/25 16:29 Freq: Status: Active Protocol: Document 01/01/25 14:35 DCW (Rec: 01/01/25 16:47 DCW [id number]) Hip Strength Hip Manual Muscle Testing Right Flexion (L2) 4 Good Abduction 4 Good Adduction 4- Good- External Rotation 4- Good- Internal Rotation 4 Good Left Flexion (L2) 4 Good Abduction 4 Good Adduction 4- Good- External Rotation 4- Good- Internal Rotation 4 Good Knee Strength Knee Manual Muscle Testing Right Flexion (S2) 4- Good- Extension (L3) 4+ Good+ Left Flexion (S2) 4- Good- Extension (L3) 4+ Good+ Ankle/Foot Strength Ankle and Foot Manual Muscle Testing Right Dorsiflexion (L4) 4 Good Left Dorsiflexion (L4) 4 Good PT-OP-Q Treatments Start: 01/01/25 16:29 Freq: Status: Active Protocol: Document 01/25/25 16:17 DCW (Rec: 01/25/25 16:58 DCW [id number]) Gym Equipment Therapeutic Ball Bridging Exercise Details Bridging /c feet on ball Ball Size/Color Blue - 45 cm Body Position Supine Comments UE support for stabilization LTR Exercise Details LTR Ball Size/Color Blue - 45 cm Body Position Supine Therapeutic Exercises Standing Exercises Hip Extension Standing Exercise Name Hip Extension Side bilateral Resistance Lv 2 Loop Reps/Minutes x10 Other Exercises Resisted Ambulation Other Exercise Name Resisted Ambulation Resistance Lv 2 Loop Neuro Re-Education Treatment Balance Activities Foam Details EO/EC, X1 Surface AirEx SLS Details SLS Equipment CGA Tandem Details Tandem Stance Equipment // bars PT-OP-T Assessment and Plan Start: 01/01/25 16:29 Freq: Status: Active Protocol: Document 01/25/25 16:17 DCW (Rec: 01/25/25 16:58 DCW [id number]) Physical Therapy Assessment Impairments Impairments Activity Tolerance,Balance, Functional Activities, Functional Mobility,Gait, Posture,Soft Tissue Mobility, Strength,Tone Goals Three Impairment LE MMT indicates weakness in hip adduction, ER, and knee flexion Prison Goal (LTG) Bilateral LE MMT to improve to at least 4/5 in all planes in order to demonstrate improvement in LE strength and improved functional mobility LTG Duration 04/01/25 Two Impairment Pt presents as an increased falls risk, per DGI score (16/ 24) Flotation Tank Operator Goal (LTG) Pt to increase DGI score by at least four points to 20/24 in order to demonstrate decreased falls risk and indicate increase in safety walking in [place] LTG Duration 04/01/25 One Impairment Pt does not have an appropriate home exercise program Short Term Goal (STG) Pt to be independent and compliant with an appropriate HEP STG Duration 02/01/25 Assessment Summary Assessment Pt continues to show improvement with abdominal bracing, able to maintain for longer periods of time, and performs without cues. Continue to focus on strengthening, balance, and activity tolerance. Physical Therapy Plan Frequency and Duration Frequency of Treatment 2x/Week Plan of Care Start Date 01/01/25 Plan of Care End Date 04/01/25 Therapeutic Interventions Therapeutic Interventions Balance Training,Canalithic Repositioning,Coordination Training,Gait Training,Home Exercise Program,Joint Mobilizations,Manual Therapy, Neuromuscular Re-education, Patient/Caregiver Education, Self-Care/Home Management,Soft Tissue Mobilization, Therapeutic Activities, Therapeutic Exercises Next Visit Focus/Plan Next Note Type Treatment Note Next Visit Plan LE strengthening, core strengthening, activity tolerance, balance challenges
--- NOTE | 2025-02-03 16:14 | PT.OTN ---
Current Diagnoses Unsteadiness on feet (02/03/25) Weakness (02/03/25) Unspecified injury of head, subsequent encounter (02/03/25) Unspecified fall, subsequent encounter (02/03/25) Physical Therapy Treatment Note PT-OP-A Visit Information Start: 01/01/25 16:15 Freq: Status: Active Protocol: Document 02/03/25 13:52 AB (Rec: 02/03/25 16:07 AB Laptop) Out-Patient Physical Therapy Visit Information Visit Information Visit Type Treatment Note Visit Start Time 15:18 Visit Stop Time 16:03 Visit Number 6 Number of RESEARCH COORDINATOR Visits 1 Evaluation Information Evaluation Date 01/01/25 PT-OP-B Current Condition Start: 01/01/25 16:15 Freq: Status: Active Protocol: Document 01/01/25 14:35 DCW (Rec: 01/01/25 16:29 DCW [id number]) Current Condition History of Current Condition Onset Date December 12 Current Complaints Weakness, decreased balance, decreased activity tolerance History of Current Condition Pt is a 74 year old female presenting with a severely complex medical history. Pt attending PT due to multiple recent falls. Pt notes that her fall on 12/12/24 was caused by having a dream about baseball, she dove for the ball, and ended up lunging out of bed and hitting her head on the night stand. Notes her other recent falls have been much more traditional falls when up walking around. Pt enjoys walking in the [place], but notes her falls have been bad enough recently she was told by her PCP to stop walking outdoors until her balance improves. Notes her face, mouth, and nose are all still pretty sore since her last two falls. 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 Pt has been through a lot of medical treatment, including stem cells, research studies, and chemo infusion, as well as 10 years of PT, and is to the point where she can ambulate unassisted, unfortunately her NMOSD has also caused a lot of internal issues, resulting in pt undergoing a colostomy and multiple abdominal surgeries, which has left her with constant pain in this entire area (indicates entire trunk, shoulders to hips). Has been hospitalized multiple times recently, in August last year with pneumonia, and again a month later due to a GI blockage. Due to pt's infusions and stem cell therapy for NMOSD, does have decreased immune response. Notes bilateral LE neuropathy, a fairly constant buzzing, tingling, and burning in her feet. Treatment Goals Patient/Caregiver Goals Build up strength, alleviate pain, improve balance PT-OP-C Subjective Start: 01/01/25 16:15 Freq: Status: Active Protocol: Document 02/03/25 13:52 AB (Rec: 02/03/25 16:07 AB Laptop) OP-PT Subjective Patient Comments Patient Comments Patient reports she is doing the seated breathing from diaphragm exercise. Patient reports she is the same reports she is tired. Patient reports she dropped out of a couple of activities, had a lot planned for . Nolvia rates pain 3/10 anterior trunk, comments MD is giving her a pain referral. PT-OP-E Functional Tests Start: 01/01/25 16:29 Freq: Status: Active Protocol: Document 01/01/25 14:35 DCW (Rec: 01/01/25 16:47 DCW [id number]) Functional Tests Dynamic Gait Index (DGI) Score 16/24 DGI Impairment Rating 20 to <40% Impaired (Score 15- 19) PT-OP-M Strength Start: 01/01/25 16:29 Freq: Status: Active Protocol: Document 01/01/25 14:35 DCW (Rec: 01/01/25 16:47 DCW [id number]) Hip Strength Hip Manual Muscle Testing Right Flexion (L2) 4 Good Abduction 4 Good Adduction 4- Good- External Rotation 4- Good- Internal Rotation 4 Good Left Flexion (L2) 4 Good Abduction 4 Good Adduction 4- Good- External Rotation 4- Good- Internal Rotation 4 Good Knee Strength Knee Manual Muscle Testing Right Flexion (S2) 4- Good- Extension (L3) 4+ Good+ Left Flexion (S2) 4- Good- Extension (L3) 4+ Good+ Ankle/Foot Strength Ankle and Foot Manual Muscle Testing Right Dorsiflexion (L4) 4 Good Left Dorsiflexion (L4) 4 Good PT-OP-Q Treatments Start: 01/01/25 16:29 Freq: Status: Active Protocol: Document 02/03/25 13:52 AB (Rec: 02/03/25 16:07 AB Laptop) Gym Equipment Shuttle Balance unilateral Details 12 lb Comments X 15 each LE, vc for dec velocity ecc bilateral Details 37# Comments X 10 X 2 Patient ed to avoid locking, monitored for tech Therapeutic Exercises Supine Exercises chin tuck with head lift Supine Exercise Name HEP Side bilateral Reps/Minutes X 5 for 7 sec hold Comments verbal and visual cues Sidelying Exercises side plank on knees Sidelying Exercise Name attempted, unable Sitting Exercises seated pillow push Sitting Exercise Name to activate core Reps/Minutes 30 seconds X 2 Comments verbal cues core warm up Sitting Exercise Name 1. shoulder flexion ( scap squeeze L UE) 2. trunk rotation Reps/Minutes X 4 rounds each 0f x 5 mini reps end ROM short sit Sitting Exercise Name HEP Side bilateral Reps/Minutes 7 sec X 5 Comments verbal and visual cues seated hip abd with band Side bilateral Resistance level 2 band Reps/Minutes one min X 1 Comments HEP breathing from diaphragm Sitting Exercise Name 2 pillows on lap Equipment Used HEP Reps/Minutes 2 min Comments verbal cues Standing Exercises side stepping with band Resistance level 2 Reps/Minutes 8 feet X 4 Comments VC to avoid toe out X 1 counter plank UE and LE lift Standing Exercise Name HEP Reps/Minutes 7 sec X 5 each Comments verbal cues Hip Extension Standing Exercise Name Hip Extension Side bilateral Resistance Lv 2 Loop Reps/Minutes x10 Pallof Press Standing Exercise Name Pallof Press Side bilateral Resistance Green Reps/Minutes X 10 each side PT-OP-T Assessment and Plan Start: 01/01/25 16:29 Freq: Status: Active Protocol: Document 02/03/25 13:52 AB (Rec: 02/03/25 16:07 AB Laptop) Physical Therapy Assessment Goals Three Impairment LE MMT indicates weakness in hip adduction, ER, and knee flexion Commuter Train Operator Goal (LTG) Bilateral LE MMT to improve to at least 4/5 in all planes in order to demonstrate improvement in LE strength and improved functional mobility LTG Duration 04/01/25 Two Impairment Pt presents as an increased falls risk, per DGI score () Longterm Goal (LTG) Pt to increase DGI score by at least four points to 2024 in order to demonstrate decreased falls risk and indicate increase in safety walking in [place] LTG Duration 04/01/25 One Impairment Pt does not have an appropriate home exercise program Short Term Goal (STG) Pt to be independent and compliant with an appropriate HEP STG Duration 02/01/25 Assessment Summary Assessment Patient reports post core warm up able to reach forward further feeling looser in back . End of session reports feeling a little more tired and sore Physical Therapy Plan Frequency and Duration Frequency of Treatment 2x/Week Plan of Care Start Date 01/01/25 Plan of Care End Date 04/01/25 Next Visit Focus/Plan Next Note Type Treatment Note Next Visit Plan LE strengthening, core strengthening, activity tolerance, balance challenges
--- NOTE | 2025-02-08 15:56 | PT.OTN ---
Current Diagnoses Unsteadiness on feet (02/08/25) Weakness (02/08/25) Unspecified injury of head, subsequent encounter (02/08/25) Unspecified fall, subsequent encounter (02/08/25) Physical Therapy Treatment Note PT-OP-A Visit Information Start: 01/01/25 16:15 Freq: Status: Active Protocol: Document 02/08/25 15:19 DCW (Rec: 02/08/25 15:56 DCW [id number]) Out-Patient Physical Therapy Visit Information Visit Information Visit Type Discharge Summary Visit Start Time 15:19 Visit Stop Time 15:36 Visit Number 7 Number of PHYSICIAN/ALLERGY/IMMUNOLOGY Visits 0 Evaluation Information Evaluation Date 01/01/25 PT-OP-B Current Condition Start: 01/01/25 16:15 Freq: Status: Active Protocol: Document 01/01/25 14:35 DCW (Rec: 01/01/25 16:29 DCW [id number]) Current Condition History of Current Condition Onset Date December 12 Current Complaints Weakness, decreased balance, decreased activity tolerance History of Current Condition Pt is a 74 year old female presenting with a severely complex medical history. Pt attending PT due to multiple recent falls. Pt notes that her fall on 12/12/24 was caused by having a dream about baseball, she dove for the ball, and ended up lunging out of bed and hitting her head on the night stand. Notes her other recent falls have been much more traditional falls when up walking around. Pt enjoys walking [place] the [place], but notes her falls have been bad enough recently she was told by her PCP to stop walking outdoors until her balance improves. Notes her face, mouth, and nose are all still pretty sore since her last two falls. 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 Pt has been through a lot of medical treatment, including stem cells, research studies, and chemo infusion, as well as 10 years of PT, and is to the point where she can ambulate unassisted, unfortunately her NMOSD has also caused a lot of internal issues, resulting in pt undergoing a colostomy and multiple abdominal surgeries, which has left her with constant pain in this entire area (indicates entire trunk, shoulders to hips). Has been hospitalized multiple times recently, in August last year with pneumonia, and again a month later due to a GI blockage. Due to pt's infusions and stem cell therapy for NMOSD, does have decreased immune response. Notes bilateral LE neuropathy, a fairly constant buzzing, tingling, and burning in her feet. Treatment Goals Patient/Caregiver Goals Build up strength, alleviate pain, improve balance PT-OP-C Subjective Start: 01/01/25 16:15 Freq: Status: Active Protocol: Document 02/08/25 15:19 DCW (Rec: 02/08/25 15:56 DCW [id number]) OP-PT Subjective Patient Comments Patient Comments I'm okay, I'm just in pain. Notes pain is largely in her trunk, is having some problems with her colostomy. Admits that she is still having some symptoms from hitting her face on the night stand, so she is not walking as much to really test my balance. PT-OP-E Functional Tests Start: 01/01/25 16:29 Freq: Status: Active Protocol: Document 01/01/25 14:35 DCW (Rec: 01/01/25 16:47 DCW [id number]) Functional Tests Dynamic Gait Index (DGI) Score 16/24 DGI Impairment Rating 20 to <40% Impaired (Score 15- 19) PT-OP-M Strength Start: 01/01/25 16:29 Freq: Status: Active Protocol: Document 01/01/25 14:35 DCW (Rec: 01/01/25 16:47 DCW [id number]) Hip Strength Hip Manual Muscle Testing Right Flexion (L2) 4 Good Abduction 4 Good Adduction 4- Good- External Rotation 4- Good- Internal Rotation 4 Good Left Flexion (L2) 4 Good Abduction 4 Good Adduction 4- Good- External Rotation 4- Good- Internal Rotation 4 Good Knee Strength Knee Manual Muscle Testing Right Flexion (S2) 4- Good- Extension (L3) 4+ Good+ Left Flexion (S2) 4- Good- Extension (L3) 4+ Good+ Ankle/Foot Strength Ankle and Foot Manual Muscle Testing Right Dorsiflexion (L4) 4 Good Left Dorsiflexion (L4) 4 Good PT-OP-Q Treatments Start: 01/01/25 16:29 Freq: Status: Active Protocol: Document 02/08/25 15:19 DCW (Rec: 02/08/25 15:56 DC [id number]) Neuro Re-Education Treatment Other Activities DGI Comments DGI testing PT-OP-T Assessment and Plan Start: 01/01/25 16:29 Freq: Status: Active Protocol: Document 02/08/25 15:19 DCW (Rec: 02/08/25 15:56 DC [id number]) Physical Therapy Assessment Impairments Impairments Activity Tolerance,Balance, Functional Activities, Functional Mobility,Gait, Posture,Soft Tissue Mobility, Strength,Tone Goals Three Impairment LE MMT indicates weakness in hip adduction, ER, and knee flexion Director Of Enterprise Strategy Goal (LTG) Bilateral LE MMT to improve to at least 4/5 in all planes in order to demonstrate improvement in LE strength and improved functional mobility LTG Duration Met Two Impairment Pt presents as an increased falls risk, per DGI score () Shelter Goal (LTG) Pt to increase DGI score by at least four points to in order to demonstrate decreased falls risk and indicate increase in safety walking in [place] LTG Duration Met One Impairment Pt does not have an appropriate home exercise program Short Term Goal (STG) Pt to be independent and compliant with an appropriate HEP STG Duration Met Assessment Summary Assessment Pt has met all goals, no longer presents as a falls risk. Pt feels comfortable with her HEP. Does continue to have difficulty with unrelated medical issues, resulting in significant abdominal pain and GI issues. Pt agreeable to discharge from skilled therapy at this time. Physical Therapy Plan Frequency and Duration Frequency of Treatment 2x/Week Plan of Care Start Date 01/01/25 Plan of Care End Date 04/01/25 Therapeutic Interventions Therapeutic Interventions Balance Training,Canalithic Repositioning,Coordination Training,Gait Training,Home Exercise Program,Joint Mobilizations,Manual Therapy, Neuromuscular Re-education, Patient/Caregiver Education, Self-Care/Home Management,Soft Tissue Mobilization, Therapeutic Activities, Therapeutic Exercises Next Visit Focus/Plan Next Note Type Treatment Note Next Visit Plan LE strengthening, core strengthening, activity tolerance, balance challenges
== END 2025-02-09 13:21 | disposition home or self-care (01) ==
LOC: PHYS 15:15
PROVIDERS: Family Provider Family Medicine; PCP Family Medicine; Referring Provider Family Medicine; Visit Provider Family Medicine
DX: R53.1 Weakness (principal); S09.90XD Unspecified injury of head, subsequent encounter; W19.XXXD Unspecified fall, subsequent encounter; R26.81 Unsteadiness on feet
CPT/HCPCS: 97110; 97112; 97163